=== PATIENT | male | born 1930 | race Caucasian/White ===

== ENCOUNTER 2016-05-05 07:48 | Day surgery (SDC) | payer BC ==
[~2016-05-05] VITALS: Ht 176.5 cm; Wt 76.0 kg
[~2016-05-05 07:48] MED LIST: ACET325T96 PO; ALLO100T PO; AMIO200T4 PO; ASPI81TA28 PO; ATOR-24 PO; CHOL200010 PO; CYAN10005 PO; FINA5TAB4 PO; ISOS30TA3 PO; LEVO150T PO; METO50TA7 PO; NORT25CA PO; POLY335019 PO; TAMS0.4C38 PO; WARF2TAB PO
--- NOTE | 2016-05-05 08:02 | History and Physical ---
History & Physical Chief Complaint End stage renal disease, post permcath insertion History of Present Illness The patient is a 85 year old male with multiple medical problems. He had a permcath placed in the past which is no longer needed. Denies CROWLEY, fever, chills, chest pain, SOB, abd pain, N/V, rest pain, claudication, other complaints. Allergies Coded Allergies: Penicillins (Verified Allergy, Unknown, PENILE ENLARGEMENT, 12/19/15) Per Dr. Crespo, reviewed reaction in outpatient records Tramadol (Verified Adverse Reaction, Unknown, GI SYMPTOMS, 12/08/15) Home Medications Scheduled Allopurinol (Zyloprim), 200 MG PO QAM Amlodipine (Norvasc), 10 MG PO HS Aspirin (Aspirin Ec), 81 MG PO DAILY Atorvastatin (Lipitor), 40 MG PO DAILY Calcitriol (Rocaltrol Cap), 0.25 MCG PO M,W,F Cholecalciferol (Vitamin D), 2,000 INTUNIT PO QAM Cilostazol (Pletal), 100 MG PO BID Cyanocobalamin (Vitamin B-12), 1,000 MCG PO DAILY Finasteride (Proscar), 5 MG PO HS Hydralazine Hcl (Apresoline), 20 MG PO TID Hydrochlorothiazide (Hydrochlorothiazide), 12.5 MG PO DAILY Levothyroxine Sodium (Synthroid), 150 MCG PO DAILY Metoprolol Tartrate (Lopressor) (Lopressor), 12.5 MG PO BID Nortriptyline (Pamelor), 25 MG PO HS Potassium Chloride (Micro-K Ext Rel), 10 MEQ PO HS Sildenafil Citrate (Viagra), 100 MG PO PRN Tamsulosin Hcl (Flomax), 0.4 MG PO HS Scheduled PRN Acetaminophen Tab (Tylenol), 650 MG PO Q6 PRN for Pain Problem List Medical Problems: (1) Hypertension (2) Kidney disease (3) Sepsis Surgical / Medical History Hx Cardiac Surgery: Yes (right CEA) Hx Abdominal Surgery: No Hx Cancer Surgery: No Hx Thoracic Surgery: No Hx Orthopedic: No Hx Urinary Tract Surgery: No Past Medical/Surgical History: CHF, Hypertension, Kidney Disease Family History Cancer Hypertension Social History Smoking Status: Former Smoker Hx Tobacco Use In Past Year?: No Hx Alcohol Use - Type & Amnt: Yes (ocassionally) Hx Substance Use -Type & Amnt: No Review of Systems Constitutional: + malaise, No chills, No fever Skin: No change in color Eyes: No visual changes ENMT: No sore throat Respiratory: + RODRIGUEZ, + cough, No hemoptysis, No short of breath Cardiovascular: + edema, No chest pain, No intermittent claudication, No palpitations, No syncope Gastrointestinal: No abdominal pain, No nausea, No vomiting Neurologic: + weakness (generalized), No dizziness, No headache, No lethargy Physical Exam Constitutional: General Apperance: well-nourished, well-developed Level of Distress: NAD, chronically ill Psychiatric: Mental Status: active & alert, normal mood, normal affect Orientation: oriented except where noted, to time, to place, to person Memory: recent memory normal, remote memory normal Head: normocephalic, atraumatic Eyes: EOM: EOMI ENMT: normal ENT inspection, hearing grossly normal Neck: supple, trachea midline Lungs: Respiratory effort: no dyspnea Auscultation: no rales/crackles, no rhonchi, Cardiovascular: Apical Impulse: not displaced Heart Auscultation: no murmurs, no gallops, pertinent finding (irregular) Peripheral Pulses: Pulses: full and equal, in all extremities except if noted Bruits: none appreciated Carotid Pulse: normal on the left, normal on the right Brachial Pulses: normal on the left, normal on the right Radial Pulse: normal on the left, normal on the right Femoral Pulse: normal on the left, normal on the right Posterior Tibialis Pulse: decreased on the left, decreased on the right Dorsalis Pedis Pulse: decreased on the left, decreased on the right Abdomen: Bowel Sounds: normal Inspection & Palpation: soft, non-distended, no tenderness, guarding & rebound Musculoskeletal: normal strength (5/5 throughout), normal tone Extremities: Upper Right: no cyanosis, no edema, no varicosities Upper Left: no cyanosis, no edema, no varicosities Lower Right: no cyanosis, no edema, no varicosities Lower Left: no cyanosis, no edema, no varicosities Neurologic: Cranial Nerves: grossly intact Sensation: grossly intact ASSESSMENT and PLAN: End stage renal disease Plan: Patient is admitted for removal of his permcath. I have discussed the risks options and benefits of the procedure with the patient. The patient understands the risks options and benefits and agrees to the procedure.
[2016-05-05 08:33] VITALS: BP 202/86; PULSE 64; TEMP 36.8; O2SAT 96; Ht 176.5 cm; Wt 76.0 kg
[2016-05-05 09:31] LABS: INR 1.1 (0.9-1.1); PARTIAL THROMBOPLASTIN RATIO 1.2; PROTHROMBIN TIME (PATIENT) 12.2 SECONDS (9.0-12.0)
--- NOTE | 2016-05-05 10:03 | [facility] Post Operative Brief Note ---
Immediate Operative Summary Operative Date May 05, 2016. Pre-Operative Diagnosis Functioning Kidneys Post-Operative Diagnosis Same Procedure(s) Performed Removal of Perm Catheter Surgeon Dr. 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
[2016-05-05] MEDS ORDERED: LIDOCAINE HCL 1% 20 ML VIAL SQ ONE (10:04)
--- NOTE | 2016-05-05 10:05 | Discharge Instructions ---
Discharge Instructions Visit Reason for Visit: Acute Kidney Failure Discharge Discharge Diagnosis / Problem: Functioning kidneys Discharge Goals Goal(s): Therapeutic intervention Activity Recommendations Activity Limitations: per Instructions/Follow-up section Anesthesia . Post Anesthesia Instructions: If you have had General Anesthesia or IV Sedation: * Do not drive today. * Resume driving when surgeon permits. * Do not make important decisions or sign legal documents today. * Call surgeon for: 1. Temperature elevations greater than 101 degrees F. 2. Uncontrollable pain. 3. Excessive bleeding. 4. Persistent nausea and vomiting. 5. Medication intolerance (nausea, vomiting or rash). * For nausea and vomiting use only clear liquids such as: tea, soda, bouillon until nausea subsides, then gradually increase diet as tolerated. * If you have any concerns or questions, call your surgeon's office. If physician is unavailable and it is an emergency, call 911 or go to the nearest emergency room. . Instructions / Follow-Up Instructions / Follow-Up May remove dressing tomorrow, replace if needed May shower starting tomorrow SPECIAL CARE INSTRUCTIONS: Medications: * Continue to take your medications as directed. If you have been given a prescription for Plavix, please fill it immediately and take as directed. Incision Care: * Your puncture site may have some bruising and minor swelling for about one week. * You will have a small dressing covering your puncture site. You may remove the dressing after 24 hours and shower. You may let the warm soapy water run over it, but be sure to dry the puncture site well and keep it dry. * DO NOT IMMERSE THE INCISION IN A TUB/POOL/etc. UNTIL HEALED. * Puncture sites should be kept covered with a band-aid until it begins to heal. Restrictions: * Depending on whether you leg or arm was punctured to access the arteries, you will be required to lay flat, hold your arm still, or both, for about 4 hours after the procedure to prevent bleeding. * Limit your activity for the first 48 hours. You may walk and go up and down steps. Avoid excessive bending or movement at the puncture site. Possible Complications: * Excessive Swelling - after blood flow is improved you may notice increased swelling in the lower legs. This is a normal response. This usually depends on the amount of blockages in the leg, how long they have been there prior to your procedure and how much blood flow was restored. Elevating your legs will help to improve this. Please notify our office ([phone] ) if the swelling does not go away after lying in bed overnight. * Infection/Drainage/Bleeding - Drainage or bleeding from the puncture site should be minimal. If you have excessive bleeding or drainage, call our office ([phone]) right away. * Pain - You may experience some mild pain or soreness at your puncture site. If your pain does not improve, please contact our office ([phone]). Call your doctor and seek emergent treatment if you develop: * Temperature above 101 degrees * Any fever or chills * Any redness or purulent drainage from the puncture site * Any new dusky/blue colored toes or feet with coolness or sharp or aching pain. SKIN IRRITATION: * You may experience some redness and/or swelling in the area where radiation was administered. If any skin irritation occurs, please contact your family physician. FOLLOW UP VISIT: Keep any scheduled doctor appointments. Diet Recommendations Recommended Home Diet: resume previous diet Procedures Procedures Performed: Removal of Perm Catheter Pending Studies Studies pending at discharge: no Medical Emergencies . Who to Call and When: Medical Emergencies: If at any time you feel your situation is an emergency, please call 911 immediately. . Non-Emergent Contact Non-Emergency issues call your: Surgeon . . "Provider Documentation" section prepared by Alex Delarosa.
[2016-05-05 10:10] VITALS: BP 212/72; PULSE 48; TEMP 36.3; O2SAT 93
[2016-05-05 10:35] VITALS: BP 190/86; PULSE 52; TEMP 37; O2SAT 95
--- NOTE | 2016-05-05 10:39 | DIAGNOSTIC IMAGING REPORT ---
DATE OF PROCEDURE: 05/05/2016 PREOPERATIVE DIAGNOSIS: Functioning kidneys. POSTOPERATIVE DIAGNOSIS: Same. PROCEDURE: Removal of PermCath. SURGEON: Dr. Delarosa. ANESTHETIC: Local. PROCEDURE INDICATIONS: The patient is an 85-year-old gentleman who had a PermCath placed in the past for acute renal failure. His kidneys are now functioning and he is no longer on dialysis. He is here for removal of his PermCath. He understood the risks, options and benefits and agreed to go ahead with this procedure. The patient was taken to the angiogram suite and placed in the supine position. After prepping the anterior chest wall and catheter, the tract of the catheter and the exit site were anesthetized with local anesthetic. Once this was accomplished, using sharp and blunt dissection, the catheter was freed up from the surrounding tissue. The cuff was identified. The fibrin casing around the cuff was incised with the scalpel and the catheter removed. Pressure was applied to the entrance site. Adequate hemostasis was then obtained. Once adequate hemostasis was noted, the wound was dressed in a sterile manner. The patient left the angio suite in good condition and tolerated the procedure well.
[2016-08-17] MEDS ORDERED: [UNRECOGNIZED DRUG - CODE] PO (12:47)
[2016-08-17] MEDS ORDERED: CTP1 PO (12:47)
[2016-08-17] MEDS ORDERED: APR50 PO (12:47)
[2016-08-17] MEDS ORDERED: NRV/10 PO (12:47)
[2016-09-16] MEDS ORDERED: IMDSR30 PO (13:27)
[2016-09-16] MEDS ORDERED: FRS/80 PO (13:36)
[2016-09-16] MEDS ORDERED: SYN150 PO (13:54)
== END 2016-05-05 11:01 | disposition home or self-care (01) ==
LOC: C.ACU 07:48
PROVIDERS: ATTEND Surgery Vascular Surgery
DX: Z49.01 Encounter for fitting and adjustment of extracorporeal dialysis catheter (principal); N18.6 End stage renal disease; I12.0 Hypertensive chronic kidney disease with stage 5 chronic kidney disease or end stage renal disease; Z88.0 Allergy status to penicillin; Z79.899 Other long term (current) drug therapy; Z87.891 Personal history of nicotine dependence; Z80.9 Family history of malignant neoplasm, unspecified; Z82.49 Family history of ischemic heart disease and other diseases of the circulatory system

== ENCOUNTER → 2016-05-06 | Day surgery (SDC) | payer BC ==
[2016-04-22 15:34] VITALS: BMI 24.0
[~2016-05-06] VITALS: Ht 175.3 cm; Wt 75.9 kg
[~2016-05-06] MED LIST changes: +APR50 PO; +ATROPINE SULFATE 0.1 MG/ML 5ML SYR IV PRN; +BISA10SU38 PR; +CIPROFLOXACIN 400MG / 200ML D5W IV ONE; +CIPROFLOXACIN 400MG / 200ML D5W ONE; +CTP1 PO; +DEXAMETHASONE SOD INJ 4 MG/ML VIAL ONE; +EpHEDrine SULFATE 50MG/5ML SYR ONE; +EpHEDrine SULFATE INJ 50 MG/ML AMP IV PRN; +FENTANYL CITRATE INJ 50 MCG/1 ML 2 ML VIAL ONE; +FRS/40 PO; +FRS/80 PO; +IMDSR30 PO; +LARYING-O-JET KIT (LTA) EXT ONE; +LEVO175T3 PO; +LIDOCAINE HCL 1% 20 ML VIAL ONE; +LIDOCAINE HCL 2% 2 ML VIAL (20MG/ML) ONE; +METO-217 PO; +MIDAZOLAM HCL 1 MG/ML 2ML VIAL ONE; +NORT10CA2 PO; +NRV/10 PO; +NSS 1000ML IV SCH; +ONDANSETRON INJ 2 MG/ML 2 ML VIAL ONE; +PROPOFOL IV EMULSION 10 MG/ML 20 ML VIAL IV ONE; +SODIUM CHLORIDE 0.9% 500ML 500 ML IV ONE; +SUCCINYLCHOLINE CHLORIDE 20 MG/ML 10 ML VIAL IV ONE; +SYN150 PO; +[UNRECOGNIZED DRUG - CODE] PO
[2016-05-06 06:01] VITALS: BP 188/73; PULSE 58; TEMP 36.7; O2SAT 96; Ht 175.3 cm; Wt 75.9 kg
[2016-05-06 06:24] LABS: INR 1.1 (0.9-1.1); PARTIAL THROMBOPLASTIN RATIO 1.1; PROTHROMBIN TIME (PATIENT) 11.8 SECONDS (9.0-12.0)
[2016-05-06 06:39] LABS: BUN/CREATININE RATIO 19.6 (10-20); CALCIUM 9.1 mg/dl (8.5-10.1)
--- NOTE | 2016-05-06 07:25 | Endo History and Physical ---
History & Physical Date of Service: May 06, 2016. Chief Complaint: Recent pancreatitis and pancreatic cyst Referring Physician: History of Present Illness 85 yo with recent pancreatitis in March 2016 Findings of one or two pancreatic cysts were identified. He presents for EUS for further evaluation. Has comorbidities including CKD on HD. Past Medical History High Cholesterol, Hypertension, Thyroid Disease, Kidney Disease Past Surgical History Hx Cardiac Surgery: No Hx Abdominal Surgery: No Hx Post-Op Nausea and Vomiting: No Hx Cancer Surgery: No Hx Thoracic Surgery: No Hx Orthopedic: No Hx Urinary Tract Surgery: No Social History Smoking Status: Former Smoker Hx Substance Use: No Hx Alcohol Use: No (RARE) Allergies Coded Allergies: Penicillins (Verified Allergy, Unknown, PENILE ENLARGEMENT, 05/06/16) Per Dr. Crespo, reviewed reaction in outpatient records Tramadol (Verified Adverse Reaction, Unknown, GI SYMPTOMS, 05/06/16) Current Medications Reported Home Medications Medications Dose Route/Sig Max Daily Dose Days Date Category Dose Instructions Coumadin (Warfarin Sodium) 2 Mg Tab 4 Mg PO TU, SAT 04/22/16 Reported Flomax (Tamsulosin Hcl) 0.4 Mg Cap 0.4 Mg PO HS 04/22/16 Reported Miralax (Polyethylene Glycol 3350) 1 Pow 17 Gm PO DAILY PRN 04/22/16 Reported Zyloprim (Allopurinol) 100 Mg Tab 200 Mg PO QAM 04/22/16 Reported Coumadin (Warfarin Sodium) 2 Mg Tab 2 Mg PO SUN,M,W,TH,FR 03/28/[address] INSTRUCTIONS ON COUMADIN Cordarone (Amiodarone Hcl) 200 Mg Tab 200 Mg PO BID 03/28/16 Reported Imdur Ext Rel (Isosorbide Mononitrate) 30 Mg Ertab 30 Mg PO QAM 03/28/16 Reported Toprol-Xl (Metoprolol Succinate) 50 Mg Tabcr 50 Mg PO QAM 03/28/16 Reported Vitamin B-12 (Cyanocobalamin) 1,000 Mcg Tab 1,000 Mcg PO QAM 09/29/15 Reported Synthroid (Levothyroxine Sodium) 150 Mcg Tab 150 Mcg PO QAM 09/08/15 Reported Lipitor (Atorvastatin Calcium) 40 Mg Tab 40 Mg PO QPM 09/08/15 Reported Tylenol (Acetaminophen) 325 Mg Tab 650 Mg PO Q6 PRN 09/08/15 Reported Vitamin D (Cholecalciferol) 2,000 Unit Cap 2,000 Intunit PO QAM 10/19/14 Reported Pamelor (Nortriptyline HCl) 25 Mg Cap 10 Mg PO HS 10/19/14 Reported Aspirin Ec (Aspirin) 81 Mg Tab 81 Mg PO QAM 10/09/12 Reported Proscar (Finasteride) 5 Mg Tab 5 Mg PO HS 10/09/12 Reported Vital Signs Weight (Kilograms): 75.91 Height (Feet): 5 Height (Inches): 9.5 Physical Exam General Appearance: WD/WN, no apparent distress Respiratory/Chest: Respiratory effort: no dyspnea Auscultation: breath sounds normal, CTA except as noted Cardiovascular: Apical Impulse: not displaced Heart Auscultation: RRR, normal S1, normal S2 Abdomen: Bowel Sounds: normal Inspection & Palpation: soft, non-distended Assessment and Plan Plan: EUS for evaluation of pancreatic cysts and pancreatic ductal changes and to explore possibility of pancreatitis Risks, benefits, discussed with patients
--- NOTE | 2016-05-06 07:49 | GI REPORT ---
Procedure Date: 05/06/2016 7:41 AM Procedure: Upper GI endoscopy Indications: Pancreatitis Medicines: General Anesthesia Complications: No immediate complications. Estimated blood loss: None. Estimated Blood Loss: Estimated blood loss: none. Procedure: Pre-Anesthesia Assessment: - Pre-Anesthesia Assessment: - Prior to the procedure, a History and Physical was performed, and patient medications, allergies and sensitivities were reviewed. The patient's tolerance of previous anesthesia was reviewed. Please see [employer] for complete details. - The risks and benefits of the procedure and the sedation options and risks were discussed with the patient. All questions were answered and informed consent was obtained. - Patient identification and proposed procedure were verified prior to the procedure by the physician and the nurse. The procedure was verified in the pre-procedure area in the procedure room. After obtaining informed consent, the endoscope was passed carefully and meticuously under direct vision and only advanced when the lumen was clearly identified, C02 insuflation was utilized throughout the entirity of the procedure. Throughout the procedure, the patient's blood pressure, pulse, and oxygen saturations were monitored continuously. After obtaining informed consent, the endoscope was passed under direct vision. Throughout the procedure, the patient's blood pressure, pulse, and oxygen saturations were monitored continuously. The scope was introduced through the mouth, and advanced to the second part of duodenum. The upper GI endoscopy was accomplished without difficulty. The patient tolerated the procedure well. Findings: A hiatus hernia was present. The entire examined stomach was normal. The examined duodenum was normal. Impression: - Hiatus hernia. - Normal stomach. - Normal examined duodenum. - No specimens collected. Recommendation: - Patient has a contact number available for emergencies. The signs and symptoms of potential delayed complications were discussed with the patient. Return to normal activities tomorrow. Written discharge instructions were provided to the patient. - Discharge patient to home (with escort). - Return to referring physician as previously scheduled. - Perform an upper endoscopic ultrasound (UEUS) today. Lamont Hernandez MD 05/06/2016 7:48:28 AM This report has been signed electronically. Note Initiated On: 05/06/2016 7:41 AM
--- NOTE | 2016-05-06 08:19 | Discharge Instructions ---
Endoscopy Patient Instructions Date / Procedure(s) Performed May 06, 2016. Other (EUS) Allergy Information Coded Allergies: Penicillins (Verified Allergy, Unknown, PENILE ENLARGEMENT, 05/06/16) Per Dr. Crespo, reviewed reaction in outpatient records Tramadol (Verified Adverse Reaction, Unknown, GI SYMPTOMS, 05/06/16) Discharge Date / Findings May 06, 2016. two small cysts in pancreas Stones in gallbladder Medication Instructions Can restart your coumadin today Provider Instructions Activity Restrictions - No exercising or heavy lifting for 24 hours. - Do not drink alcohol the day of the procedure. - Do not drive a car or operate machinery until the day after the procedure. - Do not make any important decisions or sign important papers in 24 hours after the procedure. Following Day: - Return to full activity which may include returning to work/school. Diet Start your diet with liquids and light foods (jello, soup, juice, toast). Then eat your usual diet if not nauseated. Treatment For Common After Affects For mild abdominal pain, bloating, or excessive gas: - Rest - Eat lightly - Lie on right side Follow-Up Information Follow-up with GI in 3 months with MRCP prior Anesthesia Information What You Should Know You have had a procedure that required some medicine to reduce anxiety and discomfort. This treatment is called moderate sedation. After receiving the treatment, you may be sleepy, but you will be able to breathe on your own. The effects of the treatment may last for several hours. Follow these instructions along with Activity/Diet recommendations noted above: * Do NOT do anything where dizziness or clumsiness would be dangerous. * Rest quietly at home today, then you can be up and about tomorrow. * Have a responsible person stay with you the rest of today. * You may have had an I.V. today. If so, you may take the dressing off later today. Recommendations Call your doctor if: * Trouble breathing * Continuous vomiting for more than 24 hours * Temperature above 101 degrees * Severe abdominal pain or bloating * Pain not relieved by pain medicine ordered * There is increased drainage or redness from any incision * A large amount of rectal bleeding greater than 2-3 tablespoons. (If you had a polyp/s removed or have hemorrhoids, a small amount of blood - from the rectum is to be expected.) * You have any unanswered questions or concerns. IN THE EVENT OF A SERIOUS EMERGENCY, GO TO THE NEAREST EMERGENCY ROOM Your discharge instructions were prepared by provider Lamont Hernandez. Patient Instructions Signature Page Yury Zaidi Patient (or Guardian) Signature/Date: I have read and understand the instructions given to me by my caregivers. Caregiver/RN/Doctor Signature/Date: The above-named patient and/or guardian has received patient instructions on this date. + Original Patient Signature Page (only) stays with chart. Please make copy for patient.
--- NOTE | 2016-05-06 08:30 | GI REPORT ---
Procedure Date: 05/06/2016 7:48 AM Procedure: Upper EUS Indications: Pancreatic cyst on CT scan, Acute pancreatitis Medicines: General Anesthesia Complications: No immediate complications. Estimated blood loss: None. Estimated Blood Loss: Estimated blood loss: none. Procedure: Pre-Anesthesia Assessment: - Pre-Anesthesia Assessment: - Prior to the procedure, a History and Physical was performed, and patient medications, allergies and sensitivities were reviewed. The patient's tolerance of previous anesthesia was reviewed. Please see [employer] for complete details. - The risks and benefits of the procedure and the sedation options and risks were discussed with the patient. All questions were answered and informed consent was obtained. - Patient identification and proposed procedure were verified prior to the procedure by the physician and the nurse. The procedure was verified in the pre-procedure area in the procedure room. After obtaining informed consent, the endoscope was passed carefully and meticuously under direct vision and only advanced when the lumen was clearly identified, C02 insuflation was utilized throughout the entirity of the procedure. Throughout the procedure, the patient's blood pressure, pulse, and oxygen saturations were monitored continuously. After obtaining informed consent, the endoscope was passed under direct vision. Throughout the procedure, the patient's blood pressure, pulse, and oxygen saturations were monitored continuously. The Endosonoscope was introduced through the mouth, and advanced to the second part of duodenum. The upper EUS was accomplished without difficulty. The patient tolerated the procedure well. The Endosonoscope was introduced through the mouth, and advanced to the second part of duodenum. Findings: Endosonographic Finding : Anechoic lesions suggestive of two cysts were identified in the pancreatic head and in the pancreatic body. The largest lesion measured 7 mm by 11 mm in maximal cross-sectional diameter in the pancreatic head toward body from confluence. There was no associated masses and the the cyst in the head clearly associated with main pancreatic duct. The pancreatic duct measured near or at 4 mm in the head and 2.5 in the body and 1.2 mm in the tail. Pancreatic parenchymal abnormalities were noted in the pancreatic body and in the pancreatic tail. These consisted of hyperechoic foci and lobularity. There was no sign of significant endosonographic abnormality in the common bile duct. The maximum diameter of the duct was 5 mm. No pathologic lymphadenopathy, no masses, no cysts, no calcifications, no stones, no biliary sludge and ducts of normal caliber were identified. Multiple stones were visualized endosonographically in the gallbladder body. The stones were round. They were hyperechoic. There was no sign of significant endosonographic abnormality in the left lobe of the liver. There was no sign of significant endosonographic abnormality involving the celiac trunk. No lymphadenopathy seen. Impression: - Two cystic lesions were seen in the pancreatic head and in the pancreatic body. - Pancreatic parenchymal abnormalities consisting of hyperechoic foci and lobularity were noted in the pancreatic body and in the pancreatic tail. - There was no sign of significant pathology in the common bile duct. - Multiple stones were visualized endosonographically in the gallbladder body. - There was no evidence of significant pathology in the left lobe of the liver. - The celiac trunk was endosonographically normal. - No specimens collected. Recommendation: - Discharge patient to home (with escort). - Return to referring physician as previously scheduled. - MRCP in 3 months and GI follow up afterwards. Lamont Hernandez MD 05/06/2016 8:29:22 AM This report has been signed electronically. Note Initiated On: 05/06/2016 7:48 AM
--- NOTE | 2016-05-06 09:01 | Anesthesiology Progress Note ---
Anesthesia Post Op Note Date & Time May 06, 2016 at 09:01 Vital Signs Pain Intensity: 0 Vital Signs Past 12 Hours Date Time Temp Pulse Resp B/P Pulse Ox O2 Delivery O2 Flow Rate FiO2 05/06/16 08:39 161/55 05/06/16 08:38 45 13 05/06/16 08:38 45 13 98 05/06/16 08:34 161/58 05/06/16 08:33 44 15 05/06/16 08:33 45 15 100 05/06/16 08:28 44 11 165/62 100 05/06/16 08:28 44 11 05/06/16 08:23 36.4 45 16 165/61 100 Mask 10 05/06/16 08:23 44 7 163/60 100 05/06/16 08:23 44 7 05/06/16 06:01 36.7 58 20 188/73 96 Room Air Notes Mental Status: alert / awake / arousable, participated in evaluation Pt Amnestic to Procedure: Yes Nausea / Vomiting: adequately controlled Pain: adequately controlled Airway Patency, RR, SpO2: stable & adequate BP & HR: stable & adequate Hydration State: stable & adequate Anesthetic Complications: no major complications apparent
[2016-05-06 09:10] VITALS: BP 168/68; PULSE 46; TEMP 36.4; O2SAT 94
[2016-05-06 09:40] VITALS: BP 182/57; PULSE 52; O2SAT 92
[2016-05-06 10:05] VITALS: BP 177/65; PULSE 46; TEMP 36.4; O2SAT 92
== END | disposition home or self-care (01) ==
LOC: C.ACU 05:35
PROVIDERS: ATTEND Internal Medicine
DX: K85.90 Acute pancreatitis without necrosis or infection, unspecified (principal); E78.5 Hyperlipidemia, unspecified; I10 Essential (primary) hypertension; E07.9 Disorder of thyroid, unspecified; Z87.891 Personal history of nicotine dependence; Z88.0 Allergy status to penicillin; Z88.8 Allergy status to other drugs, medicaments and biological substances; Z79.01 Long term (current) use of anticoagulants; Z79.82 Long term (current) use of aspirin

== ENCOUNTER 2016-08-13 13:38 | Inpatient (IN) | payer BC, OTHER ==
[~2016-08-13] VITALS: Ht 176.5 cm; Wt 71.7 kg
[~2016-08-13 13:38] MED LIST changes: -APR50 PO; -ATROPINE SULFATE 0.1 MG/ML 5ML SYR IV PRN; -BISA10SU38 PR; -CIPROFLOXACIN 400MG / 200ML D5W IV ONE; -CIPROFLOXACIN 400MG / 200ML D5W ONE; -CTP1 PO; -DEXAMETHASONE SOD INJ 4 MG/ML VIAL ONE; -EpHEDrine SULFATE 50MG/5ML SYR ONE; -EpHEDrine SULFATE INJ 50 MG/ML AMP IV PRN; -FENTANYL CITRATE INJ 50 MCG/1 ML 2 ML VIAL ONE; -FRS/40 PO; -FRS/80 PO; -IMDSR30 PO; -LARYING-O-JET KIT (LTA) EXT ONE; -LEVO175T3 PO; -LIDOCAINE HCL 1% 20 ML VIAL ONE; -LIDOCAINE HCL 2% 2 ML VIAL (20MG/ML) ONE; -METO-217 PO; -MIDAZOLAM HCL 1 MG/ML 2ML VIAL ONE; -NORT10CA2 PO; -NRV/10 PO; -NSS 1000ML IV SCH; -ONDANSETRON INJ 2 MG/ML 2 ML VIAL ONE; -PROPOFOL IV EMULSION 10 MG/ML 20 ML VIAL IV ONE; -SODIUM CHLORIDE 0.9% 500ML 500 ML IV ONE; -SUCCINYLCHOLINE CHLORIDE 20 MG/ML 10 ML VIAL IV ONE; -SYN150 PO; -[UNRECOGNIZED DRUG - CODE] PO
[2016-08-13 14:20] LABS: BASO % 0.6 %; BASO ABS # 0.05 K/uL (0-0.2); COMPLETE YES; EOS % 4.3 %; HEMATOCRIT 40.3 % (42-52); IG% 0.2 %; LYMPH % 13.9 %; LYMPH ABS # 1.14 K/uL (1.2-3.4); MEAN CELL VOLUME 97.8 fL (80-100); MEAN CORPUSCULAR HEMOGLOBIN 32.3 pg (25-34); MEAN PLATELET VOLUME 10.6 fL (7.4-10.4); MONO % 5.8 %; NEUT % 75.2 %; PLATELET COUNT 207 K/uL (130-400); RED BLOOD COUNT 4.12 M/uL (4.7-6.1); WHITE BLOOD COUNT 8.22 K/uL (4.8-10.8)
[2016-08-13] MEDS ORDERED: AMLODIPINE BESYLATE 5 MG TAB PO ONE (14:30)
[2016-08-13 14:37] LABS: BUN/CREATININE RATIO 13.8 (10-20); CALCIUM 8.9 mg/dl (8.5-10.1); CREATININE 2.4 mg/dl (0.60-1.40); POTASSIUM 4.2 mmol/L (3.5-5.1)
[2016-08-13] MEDS ORDERED: NORT10CA2 PO (14:45)
--- NOTE | 2016-08-13 16:07 | EMERGENCY ROOM VISIT NOTE ---
History Report prepared by Jesse: Car Tate Under the Supervision of: Dr. Иван Cleveland M.D. First contact with patient: 13:59 Chief Complaint: HYPERTENSION Stated Complaint: HIGH BLOOD PRESSURE History of Present Illness The patient is a 86 year old male who presents to the Emergency Room with complaints of hypertension occurring today. 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 He has a history of hypertension. He has been taking the Metoprolol as prescribed. He currently denies any pain or symptoms. He denies any recent increased stress or anxiety. He denies fevers, chills, lightheadedness, headache, chest pain, shortness of breath, weakness, or any other complaints. Source of History: patient Onset: today Position: other (global) Symptom Intensity: systolic in the 190s Quality: other (hypertension) Timing: constant Associated Symptoms: No SOB, No chest pain, No chills, No fevers, No headache, No weakness Review of Systems See HPI for pertinent positives & negatives. A total of 10 systems reviewed and were otherwise negative. Past Medical & Surgical Medical Problems: (1) BPH (benign prostatic hypertrophy) (2) Carotid artery disease (3) Carpal tunnel syndrome (4) CKD (chronic kidney disease), stage III (5) Dyslipidemia (6) GERD (gastroesophageal reflux disease) (7) Gout (8) Hypertension (9) Hypothyroidism (10) Peripheral vascular disease (11) Pernicious anemia Surgical Problems: (1) Status post carotid endarterectomy (2) Status post carpal tunnel release (3) Status post cataract extraction Family History Cancer Hypertension Social History Smoking Status: Former Smoker Alcohol Use: occasionally Housing Status: lives alone Current/Historical Medications Scheduled Allopurinol (Zyloprim), 200 MG PO QAM Amiodarone Hcl (Cordarone), 200 MG PO DAILY Aspirin (Aspirin Ec), 81 MG PO QAM Atorvastatin (Lipitor), 40 MG PO QPM Cholecalciferol (Vitamin D), 2,000 INTUNIT PO QAM Cyanocobalamin (Vitamin B-12), 1,000 MCG PO QAM Finasteride (Proscar), 5 MG PO DAILY Isosorbide Mononitrate Ext Rel (Imdur Ext Rel), 30 MG PO QAM Levothyroxine Sodium (Synthroid), 150 MCG PO QAM Metoprolol Succ (Toprol Xl) (Toprol-Xl), 50 MG PO QAM Nortriptyline (Pamelor), 10 MG PO Q2D Tamsulosin Hcl (Flomax), 0.4 MG PO HS Warfarin Sodium (Coumadin), 2 MG PO QPM Scheduled PRN Acetaminophen Tab (Tylenol), 650 MG PO Q6 PRN for Pain Polyethylene Glycol 3350 (Miralax), 17 GM PO DAILY PRN for CONSTIPATION Allergies Coded Allergies: Penicillins (Verified Allergy, Unknown, PENILE ENLARGEMENT, 08/13/16) Per Dr. Crespo, reviewed reaction in outpatient records Tramadol (Verified Adverse Reaction, Unknown, GI SYMPTOMS, 08/13/16) Physical Exam Vital Signs Date Time Temp Pulse Resp B/P Pulse Ox O2 Delivery O2 Flow Rate FiO2 08/13/16 15:16 43 16 97/65 08/13/16 14:34 41 18 189/119 08/13/16 14:10 42 08/13/16 14:08 216/77 08/13/16 13:46 36.5 40 20 204/74 96 Room Air Physical Exam Constitutional: Vital signs reviewed. Very hypertensive. Eyes: Pupils are equal round reactive to light. Conjunctiva are noninjected. ENT: Pharynx is clear without erythema or exudate. Mucous membranes are moist. Neck supple without meningeal signs. Respiratory: Clear to auscultation bilaterally. Breath sounds are equal bilaterally. Cardiovascular: Bradycardic. Normal rhythm. No rubs or gallops. GI: Soft, nondistended and nontender. Bowel sounds are present. Musculoskeletal: No peripheral edema. No lower extremity tenderness. Integumentary: No cyanosis. Neurological: The patient is awake and alert. No focal deficits. Psychiatric: Normal affect. Medical Decision & Procedures Laboratory Results 08/13/16 14:05 Red Blood Count 4.12, Mean Corpuscular Volume 97.8, Mean Corpuscular Hemoglobin 32.3, Mean Corpuscular Hemoglobin Concent 33.0, Mean Platelet Volume 10.6, Neutrophils (%) (Auto) 75.2, Lymphocytes (%) (Auto) 13.9, Monocytes (%) (Auto) 5.8, Eosinophils (%) (Auto) 4.3, Basophils (%) (Auto) 0.6, Neutrophils # (Auto) 6.18, Lymphocytes # (Auto) 1.14, Monocytes # (Auto) 0.48, Eosinophils # (Auto) 0.35, Basophils # (Auto) 0.05 08/13/16 14:05 Test 08/13/16 14:05 White Blood Count 8.22 K/uL (4.8-10.8) Red Blood Count 4.12 M/uL (4.7-6.1) Hemoglobin 13.3 g/dL (14.0-18.0) Hematocrit 40.3 % (42-52) Mean Corpuscular Volume 97.8 fL (80-100) Mean Corpuscular Hemoglobin 32.3 pg (25-34) Mean Corpuscular Hemoglobin Concent 33.0 g/dl (32-36) Platelet Count 207 K/uL (130-400) Mean Platelet Volume 10.6 fL (7.4-10.4) Neutrophils (%) (Auto) 75.2 % Lymphocytes (%) (Auto) 13.9 % Monocytes (%) (Auto) 5.8 % Eosinophils (%) (Auto) 4.3 % Basophils (%) (Auto) 0.6 % Neutrophils # (Auto) 6.18 K/uL (1.4-6.5) Lymphocytes # (Auto) 1.14 K/uL (1.2-3.4) Monocytes # (Auto) 0.48 K/uL (0.11-0.59) Eosinophils # (Auto) 0.35 K/uL (0-0.5) Basophils # (Auto) 0.05 K/uL (0-0.2) RDW Standard Deviation 52.6 fL (36.4-46.3) RDW Coefficient of Variation 14.9 % (11.5-14.5) Immature Granulocyte % (Auto) 0.2 % Immature Granulocyte # (Auto) 0.02 K/uL (0.00-0.02) Anion Gap 4.0 mmol/L (3-11) Est Creatinine Clear Calc Drug Dose 22.9 ml/min Estimated GFR () 27.7 Estimated GFR (Non- 23.9 BUN/Creatinine Ratio 13.8 (10-20) Calcium Level 8.9 mg/dl (8.5-10.1) Troponin I 0.147 ng/ml (0-0.045) Laboratory results as reviewed by me. Medications Administered Medications (Trade) Dose Ordered Sig/Blas Route Start Time Stop Time Status Last Admin Dose Admin Amlodipine Besylate (Norvasc Tab) 5 mg NOW ONCE PO 08/13/16 14:30 08/13/16 14:31 DC 08/13/16 14:33 5 MG Hydralazine HCl (Apresoline Tab) 25 mg STK-MED ONCE .ROUTE 08/13/16 14:30 08/13/16 14:31 DC 08/13/16 14:33 25 MG ECG Indication: other (Hypertension) Rate (beats per minute): 42 Rhythm: sinus bradycardia Findings: 1st degree AV block, ST depression (v4 to v6), other (LVH) Comparison ECG Date: March 30, 2016 Change: The patient's heart rate was 46 [address] there were similar ST depressions on March 30, 2016. ED Course 1359: The patient was evaluated in room B04B. A complete history and physical exam was performed. 1416: I discussed the patient's case with Dr. Sarabia, making machine catcher with [facility]. She recommended Amlodipine 5 mg daily and hydralazine 25 mg BID. 1430: Norvasc Tab 5 mg PO 1510: I reevaluated the patient. His blood pressure is 228/85 but the patient remains asymptomatic. I discussed test results with the patient. He verbalized agreement of the treatment plan. He will be evaluated for further management and care. 1520: I discussed the patient's case with Dr. Tomas, from [facility] Service. Medical Decision This is an 86-year-old male who presents with elevated blood pressure. I did perform a limited focused review of portions of the patient's old chart on the electronic medical record. The patient was admitted in March for pancreatic and hypertensive urgency. He was placed on amlodipine and hydralazine which were not continued on discharge. I did evaluate the patient as noted above. The patient is presenting with asymptomatic hypertension. I did discuss the case with Dr. Sarabia who sent the patient here. Originally my plan was to check some labs and if everything was okay he would go home on oral agents. She recommended amlodipine 5 mg daily and hydralazine 25 mg twice a day. I did give him his first doses here of amlodipine and hydralazine. IV access was established. 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 I did order and personally review the patient's 12-lead EKG as described above. I did order and review the patient's blood work as noted in the electronic medical record. His creatinine is elevated which is normal for him. He does have an elevated troponin. It's unclear if this is secondary to ischemia or his elevated creatinine. I did reassess the patient. He has no chest discomfort or shortness of breath or weakness or any symptoms suggestive of heart disease. He remains hypertensive but I did not wish to give him IV medications at this time because he just recently received the oral meds. He will be hospitalized and his blood pressure will be closely watched and his troponin will need to be repeated. I did discuss the case with the hospitalist and telehealth case manager. Consults Time Called: 1414 Consulting Physician: Dr. Sarabia, making machine catcher with [facility] Returned Call: 1416 I discussed the patient's case with Dr. Sarabia, making machine catcher with [facility]. She recommended Amlodipine 5 mg daily and hydralazine 25 mg BID. Additional Consults: Time Called: 1514 [facility] Returned Call: 1520 Additional Comments: I discussed the patient's case with Dr. Tomas, from [facility] Service. Impression Primary Impression: Hypertensive urgency Additional Impressions: Chronic kidney disease Elevated troponin Scribe Attestation The scribe's documentation has been prepared under my direct and personally reviewed by me in its entirety. I confirm that the note above accurately reflects all work, treatment, procedures, and medical decision making performed by me. Departure Information Dispostion Being Evaluated By Hospitalist Referrals Virgen Oliver M.D. (PCP) Patient Instructions My [facility] Problem Qualifiers Additional Impressions: Chronic kidney disease Chronic kidney disease stage: unspecified stage Qualified Codes: N18.9 - Chronic kidney disease, unspecified
[2016-08-13] MEDS ORDERED: HydrALAZINE HCL 20 MG/ML VIAL IV. ONE (16:30)
[2016-08-13] MEDS ORDERED: ACETAMINOPHEN 325 MG TAB PO PRN (16:30)
[2016-08-13] MEDS ORDERED: ONDANSETRON INJ 2 MG/ML 2 ML VIAL IV PRN (16:30)
[2016-08-13] MEDS ORDERED: POLYETHYLENE (MIRALAX) 17 GM PACK PO PRN (17:00)
[2016-08-13] MEDS ORDERED: HydrALAZINE HCL 20 MG/ML VIAL ONE (17:22)
[2016-08-13 18:14] LABS: INR 2.8 (0.9-1.1); PROTHROMBIN TIME (PATIENT) 31.7 SECONDS (9.0-12.0)
--- NOTE | 2016-08-13 18:42 | History and Physical ---
History & Physical Date & Time of Service: August 13, 2016 at 18:06 Chief Complaint: High Blood Pressure Primary Care Physician: Virgen Oliver M.D. 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 Patient was in the office today for a routine visit and was found to have systolic blood pressures in the 190s. Patient was referred to the ER for further evaluation. Patient is asymptomatic. He reports he has been feeling well recently. He denies headache or blurred vision. He was seen by his eye doctor a couple of weeks ago who noted papilledema and patient had a brain MRI that was unremarkable. He denies chest pain and shortness of breath. No lightheadedness, dizziness, diaphoresis, or syncopal events. No abdominal pain, nausea, vomiting, or diarrhea. He denies fever and chills. No urinary symptoms. In the ER, patient's BP is found to be 216/77. He was given hydralazine 25mg PO and amlodipine 5mg PO with minimal improvement in BP. Trop is 0.147. EKG does not show any acute ST changes. 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 Permanent Comment: normal LVEF on most recent echo Status: Chronic Surgical Problems: (1) Status post carotid endarterectomy Permanent Comment: right Status: Chronic (2) Status post carpal tunnel release Status: Chronic (3) Status post cataract extraction Status: Chronic Family History non contributory due to patient's advanced age Social History Smoking Status: Former Smoker Alcohol Use: none Immunizations History of Influenza Vaccine: Yes Influenza Vaccine Date: Jan 09, 2016 History of Tetanus Vaccine?: Yes Tetanus Immunization Date: May 05, 2012 History of Pneumococcal: Yes Pneumococcal Date: Apr 12, 2014 Multi-Drug Resistant Organisms History of MDRO: No Allergies Coded Allergies: Penicillins (Verified Allergy, Unknown, PENILE ENLARGEMENT, 08/13/16) Per Dr. Crespo, reviewed reaction in outpatient records Tramadol (Verified Adverse Reaction, Unknown, GI SYMPTOMS, 08/13/16) Home Medications Scheduled Allopurinol (Zyloprim), 200 MG PO QAM Amiodarone Hcl (Cordarone), 200 MG PO DAILY Aspirin (Aspirin Ec), 81 MG PO QAM Atorvastatin (Lipitor), 40 MG PO QPM Cholecalciferol (Vitamin D), 2,000 INTUNIT PO QAM Cyanocobalamin (Vitamin B-12), 1,000 MCG PO QAM Finasteride (Proscar), 5 MG PO DAILY Isosorbide Mononitrate Ext Rel (Imdur Ext Rel), 30 MG PO QAM Levothyroxine Sodium (Synthroid), 150 MCG PO QAM Metoprolol Succ (Toprol Xl) (Toprol-Xl), 50 MG PO QAM Nortriptyline (Pamelor), 10 MG PO Q2D Tamsulosin Hcl (Flomax), 0.4 MG PO HS Warfarin Sodium (Coumadin), 2 MG PO QPM Scheduled PRN Acetaminophen Tab (Tylenol), 650 MG PO Q6 PRN for Pain Polyethylene Glycol 3350 (Miralax), 17 GM PO DAILY PRN for CONSTIPATION Review of Systems ROS per HPI, all other systems reviewed and negative Physical Exam Vital Signs Date Time Temp Pulse Resp B/P Pulse Ox O2 Delivery O2 Flow Rate FiO2 08/13/16 17:51 45 18 201/92 98 Room Air 08/13/16 16:12 48 16 205/68 98 Room Air 08/13/16 15:16 43 16 97/65 08/13/16 14:34 41 18 189/119 08/13/16 14:10 42 08/13/16 14:08 216/77 08/13/16 13:46 36.5 40 20 204/74 96 Room Air General Appearance: no apparent distress Head: normocephalic Eyes: normal inspection, PERRL ENT: hearing grossly normal Neck: supple, no JVD Respiratory/Chest: lungs clear, normal breath sounds, no respiratory distress Cardiovascular: no edema, + bradycardia (regular rhythm) Abdomen/GI: normal bowel sounds, non tender, soft Extremities/Musculoskelatal: normal inspection, no calf tenderness Neurologic/Psych: no motor/sensory deficits, alert, normal mood/affect, oriented x 3 Skin: normal color, warm/dry Diagnostics Laboratory Results Results Past 24 Hours Test 08/13/16 14:05 08/13/16 17:55 Range/Units White Blood Count 8.22 4.8-10.8 K/uL Red Blood Count 4.12 4.7-6.1 M/uL Hemoglobin 13.3 14.0-18.0 g/dL Hematocrit 40.3 42-52 % Mean Corpuscular Volume 97.8 80-100 fL Mean Corpuscular Hemoglobin 32.3 25-34 pg Mean Corpuscular Hemoglobin Concent 33.0 32-36 g/dl Platelet Count 207 130-400 K/uL Mean Platelet Volume 10.6 7.4-10.4 fL Neutrophils (%) (Auto) 75.2 % Lymphocytes (%) (Auto) 13.9 % Monocytes (%) (Auto) 5.8 % Eosinophils (%) (Auto) 4.3 % Basophils (%) (Auto) 0.6 % Neutrophils # (Auto) 6.18 1.4-6.5 K/uL Lymphocytes # (Auto) 1.14 1.2-3.4 K/uL Monocytes # (Auto) 0.48 0.11-0.59 K/uL Eosinophils # (Auto) 0.35 0-0.5 K/uL Basophils # (Auto) 0.05 0-0.2 K/uL RDW Standard Deviation 52.6 36.4-46.3 fL RDW Coefficient of Variation 14.9 11.5-14.5 % Immature Granulocyte % (Auto) 0.2 % Immature Granulocyte # (Auto) 0.02 0.00-0.02 K/uL Sodium Level 141 136-145 mmol/L Potassium Level 4.2 3.5-5.1 mmol/L Chloride Level 111 98-107 mmol/L Carbon Dioxide Level 26 21-32 mmol/L Anion Gap 4.0 3-11 mmol/L Blood Urea Nitrogen 33 7-18 mg/dl Creatinine 2.40 0.60-1.40 mg/dl Est Creatinine Clear Calc Drug Dose 22.9 ml/min Estimated GFR () 27.7 Estimated GFR (Non- 23.9 BUN/Creatinine Ratio 13.8 10-20 Random Glucose 108 70-99 mg/dl Calcium Level 8.9 8.5-10.1 mg/dl Troponin I 0.147 0-0.045 ng/ml Impression Assessment and Plan HYPERTENSIVE URGENCY - admit to tele - patient presenting with asymptomatic significant hypertension - BP in ER - received hydralazine 25mg PO and amlodipine 5mg PO with minimal improvement - will give Hydralazine 10mg IV x 1 now and order PRN - start hydralazine 25mg PO TID and amlodipine 5mg daily - continue home doses isosorbide and metoprolol - noted room to increase isosorbide if needed; bradycardia also noted however per review of records, seems to be chronic - options somewhat limited due to CKD and bradycardia ELEVATED TROP - likely demand ischemia from hypertensive urgency / underlying CKD - no reports of chest pain, EKG does not show any acute ST changes - continue to cycle enzymes, check resting echo - continue ASA, beta preet, and statin (hx of type 2 NSTEMI and stress induced cardiomyopathy from sepsis; normal LVEF on most recent echo) ATRIAL FIBRILLATION - currently in sinus bradycardia - rate controlled on beta preet and rhythm controlled on amio - continue both - anticoagulated on Coumadin, INR 2.8 CKD STAGE III - hx of short term dialysis due to ANETA from sepsis; now off - baseline creat has been running in the high 1's - mid 2's - noted to be 2.4 today - continue to monitor, avoid nephrotoxic agents when able HYPOTHYROIDISM - continue levothyroxine BPH - continue tamsulosin and finasteride DVT PROPHYLAXIS - on Coumadin with therapeutic INR CODE STATUS - Patient is a full code as per my discussion with him. DISPO - In my clinical judgment this beneficiary meets acute admission criteria, established by [facility], that includes being hospitalized through two midnights. Attending Addendum; The patient was seen and examined Was sent in from clinic with HBP Totally asymptomatic O/E Noted to have very high BP in ER HEENT-unremarkable Chest-clear Heart-regular ABDOMEN-BENIGN, Labs and Imaging studies were reviewed Agree with the assessment and plan Dr Rut Tomas VTE Prophylaxis VTE Risk Assessment Done? Y/N: Yes Risk Level: Moderate
[2016-08-13] MEDS ORDERED: HydrALAZINE HCL 20 MG/ML VIAL IV. PRN (18:45)
[2016-08-13 19:18] VITALS: BP 233/85; PULSE 47; TEMP 36.3; O2SAT 93; Ht 176.5 cm; Wt 71.7 kg
[2016-08-13] MEDS: ATORVASTATIN 40 MG TAB PO SCH (19:54)
[2016-08-13] MEDS: WARFARIN SOD 2 MG TAB PO SCH (19:55)
[2016-08-13] MEDS: TAMSULOSIN HCL 0.4 MG CAP PO SCH (19:56)
[2016-08-13 23:55] VITALS: BP 187/70; PULSE 45; TEMP 36.6; O2SAT 94
[2016-08-14] VITALS (11 sets, daily range): BP systolic 141–201; BP diastolic 48–80; PULSE 48–57; TEMP 36.5–36.9; O2SAT 93–97
[2016-08-14 05:49] LABS: HEMATOCRIT 37.3 % (42-52); MEAN CELL VOLUME 96.9 fL (80-100); MEAN CORPUSCULAR HEMOGLOBIN 31.9 pg (25-34); MEAN PLATELET VOLUME 10.7 fL (7.4-10.4); PLATELET COUNT 185 K/uL (130-400); RED BLOOD COUNT 3.85 M/uL (4.7-6.1); WHITE BLOOD COUNT 7.87 K/uL (4.8-10.8)
[2016-08-14 05:58] LABS: INR 2.7 (0.9-1.1); PROTHROMBIN TIME (PATIENT) 29.6 SECONDS (9.0-12.0)
[2016-08-14 06:15] LABS: BUN/CREATININE RATIO 14.3 (10-20); CREATININE 2.1 mg/dl (0.60-1.40); POTASSIUM 3.9 mmol/L (3.5-5.1)
[2016-08-14] MEDS: LEVOTHYROXINE 150 MCG TAB PO SCH (06:18)
[2016-08-14] MEDS: AMIODARONE 200 MG TAB PO SCH (07:41)
[2016-08-14] MEDS: CHOLECALCIFEROL 1000 INTER.UNIT TAB PO SCH (07:42)
[2016-08-14] MEDS: ALLOPURINOL 100 MG TAB PO SCH (07:42)
[2016-08-14] MEDS: ASPIRIN 81 MG ECTAB PO SCH (07:42)
[2016-08-14] MEDS: FINASTERIDE 5 MG TAB PO SCH (07:42)
[2016-08-14] MEDS: NORTRIPTYLINE HCL 10 MG CAP PO SCH (07:42)
[2016-08-14] MEDS: CYANOCOBALAMIN 500 MCG TAB (VIT B-12) PO SCH (07:42)
[2016-08-14] MEDS: ISOSORBIDE MONONITRATE 30 MG TABCR PO SCH (07:43)
--- NOTE | 2016-08-14 07:54 | Nephrology Consultation ---
Nephrology Consultation Date of Consultation: August 14, 2016. Attending Physician: Dr Tomas Requesting Physician: Dr Tomas Reason for Consultation: HTN urgency History of Present Illness 86 year old male whom I sent from CKD clinic yesterday to ER for eval of asymptomatic HTN w/ SBP to 200s. 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 He has chronic bradycardia in 40-50s on amiodarone and metoprolol; follows w/ cardiology and w/ vascular surgery. Of note at recent optho eval, found to have papilledema and sent for MRI on 07/31 which showed no hydrocephalus but 1.2 cm R frontal nonspecific soft tissue nodule and R ant temporal encephalomalacia, moderate/severe chronic microvascular changes. His baseline creatinine since coming off dialysis has been running in low 2's. He was started on hydralazine and amlodipine since arrival at my suggestion; minimal improvement in BP. Past Medical/Surgical History Medical Problems: (1) Atrial fibrillation with RVR Status: Acute (2) CHF (congestive heart failure) Status: Acute (3) Cholelithiasis Status: Acute (4) Elevated troponin Status: Acute (5) Pancreatitis Status: Acute (6) Right middle lobe pneumonia Status: Acute Family History Cancer Hypertension Social History Smoking Status: Former Smoker Alcohol Use: occasionally Housing Status: lives alone Allergies Coded Allergies: Penicillins (Verified Allergy, Unknown, PENILE ENLARGEMENT, 08/13/16) Per Dr. Crespo, reviewed reaction in outpatient records Tramadol (Verified Adverse Reaction, Unknown, GI SYMPTOMS, 08/13/16) Medications Current Inpatient Medications Medications (Trade) Dose Ordered Sig/Blas Route Start Time Stop Time Status Last Admin Dose Admin Acetaminophen (Tylenol Tab) 650 mg Q4H PRN PO 08/13/16 16:30 09/12/16 16:29 Ondansetron HCl (Zofran Inj) 4 mg Q6H PRN IV 08/13/16 16:30 09/12/16 16:29 Allopurinol (Zyloprim Tab) 200 mg QAM PO 08/14/16 09:00 09/13/16 08:59 Amiodarone HCl (Cordarone Tab) 200 mg DAILY PO 08/14/16 09:00 09/13/16 08:59 Aspirin (Ecotrin Tab) 81 mg QAM PO 08/14/16 09:00 09/13/16 08:59 Atorvastatin Calcium (Lipitor Tab) 40 mg QPM PO 08/13/16 21:00 09/12/16 20:59 08/13/16 19:54 40 MG Cyanocobalamin (Vitamin B-12 Tab) 1,000 mcg QAM PO 08/14/16 09:00 09/13/16 08:59 Finasteride (Proscar Tab) 5 mg DAILY PO 08/14/16 09:00 09/13/16 08:59 Isosorbide Mononitrate (Imdur Ext Rel Tab) 30 mg QAM PO 08/14/16 09:00 09/13/16 08:59 Levothyroxine Sodium (Synthroid Tab) 150 mcg DAILYBB PO 08/14/16 06:00 09/13/16 05:59 08/14/16 06:18 150 MCG Metoprolol Succinate (Toprol Xl Tab) 50 mg QAM PO 08/14/16 09:00 09/13/16 08:59 Nortriptyline HCl (Pamelor Cap) 10 mg Q2D@0900 PO 08/14/16 09:00 09/13/16 08:59 Tamsulosin HCl (Flomax Cap) 0.4 mg HS PO 08/13/16 21:00 09/12/16 20:59 08/13/16 19:56 0.4 MG Cholecalciferol (Vitamin D Tab) 2,000 inter.unit QAM PO 08/14/16 09:00 09/13/16 08:59 Polyethylene (Miralax Powder Packet) 17 gm DAILY PRN PO 08/13/16 17:00 09/12/16 16:59 Warfarin Sodium (Coumadin Tab) 2 mg DAILY@1600 PO 08/13/16 19:15 09/12/16 19:14 08/13/16 19:55 2 MG Hydralazine HCl (Apresoline Tab) 25 mg TID PO 08/13/16 21:00 09/12/16 20:59 08/13/16 19:54 25 MG Amlodipine Besylate (Norvasc Tab) 5 mg QAM PO 08/14/16 09:00 09/13/16 08:59 Hydralazine HCl (HydrALAZINE INJ) 10 mg Q6H PRN IV. 08/13/16 18:45 09/12/16 18:44 08/14/16 04:01 10 MG Home Meds and Scripts Medications Dose Route/Sig Max Daily Dose Days Date Category Pamelor (Nortriptyline HCl) 10 Mg Cap 10 Mg PO Q2D 08/13/16 Reported Flomax (Tamsulosin Hcl) 0.4 Mg Cap 0.4 Mg PO HS 04/22/16 Reported Miralax (Polyethylene Glycol 3350) 1 Pow Pow 17 Gm PO DAILY PRN 04/22/16 Reported Zyloprim (Allopurinol) 100 Mg Tab 200 Mg PO QAM 04/22/16 Reported Coumadin (Warfarin Sodium) 2 Mg Tab 2 Mg PO QPM 03/28/16 Reported Cordarone (Amiodarone Hcl) 200 Mg Tab 200 Mg PO DAILY 03/28/16 Reported Imdur Ext Rel (Isosorbide Mononitrate) 30 Mg Ertab 30 Mg PO QAM 03/28/16 Reported Toprol-Xl (Metoprolol Succinate) 50 Mg Tabcr 50 Mg PO QAM 03/28/16 Reported Vitamin B-12 (Cyanocobalamin) 1,000 Mcg Tab 1,000 Mcg PO QAM 09/29/15 Reported Synthroid (Levothyroxine Sodium) 150 Mcg Tab 150 Mcg PO QAM 09/08/15 Reported Lipitor (Atorvastatin Calcium) 40 Mg Tab 40 Mg PO QPM 09/08/15 Reported Tylenol (Acetaminophen) 325 Mg Tab 650 Mg PO Q6 PRN 09/08/15 Reported Vitamin D (Cholecalciferol) 2,000 Unit Cap 2,000 Intunit PO QAM 10/19/14 Reported Aspirin Ec (Aspirin) 81 Mg Tab 81 Mg PO QAM 10/09/12 Reported Proscar (Finasteride) 5 Mg Tab 5 Mg PO DAILY 10/09/12 Reported Review of Systems Constitutional: No fatigue, No fever, No weakness, No weight loss Eyes: No diplopia, No eye pain, No worsening of vision ENT: No hearing loss, No sore throat Respiratory: No cough, No dyspnea on exertion, No shortness of breath Cardiac: + problem reported (denies orthostatic sx), No PND, No chest pain, No edema, No palpitations Abdomen: No constipation, No diarrhea, No nausea, No pain, No vomiting Musculoskeletal: No joint pain, No muscle pain Male : No dysuria, No hematuria, No urinary frequency Neuro: No balance problems, No memory loss, No weakness Psych: No anxiety, No depression symptoms Heme: No abnormal bleeding/bruising Endo: No fatigue Skin: No itch, No new/changing skin lesions, No rash Physical Exam Date Time Temp Pulse Resp B/P Pulse Ox O2 Delivery O2 Flow Rate FiO2 08/14/16 04:08 36.5 49 20 197/80 95 Room Air 08/14/16 04:00 94 Room Air 08/14/16 00:05 94 Room Air 08/13/16 23:55 36.6 45 20 187/70 94 Room Air 08/13/16 19:18 36.3 47 20 233/85 93 Room Air 08/13/16 18:27 47 18 211/76 98 08/13/16 17:51 45 18 201/92 98 Room Air 08/13/16 16:12 48 16 205/68 98 Room Air 08/13/16 15:16 43 16 97/65 08/13/16 14:34 41 18 189/119 08/13/16 14:10 42 08/13/16 14:08 216/77 08/13/16 13:46 36.5 40 20 204/74 96 Room Air 24-Hour Column 08/14/16 08:00 Intake Total 200 ml Balance 200 ml General Appearance: WD/WN, no apparent distress (sitting up in chair on RA) Eyes: EOMI ENT: hearing grossly normal Neck: supple Respiratory/Chest: lungs clear, normal breath sounds, + decreased breath sounds Cardiovascular: no edema, no gallop, + bradycardia Abdomen: normal bowel sounds, non tender, soft (no puentes) Extremities: normal range of motion, non-tender, normal inspection Neurologic/Psych: alert, normal mood/affect, oriented x 3 Skin: normal color, no jaundice, warm/dry, no rash Diagnostics Last 24 Hours Test 08/13/16 14:05 08/13/16 17:55 08/13/16 20:00 08/13/16 20:22 White Blood Count 8.22 K/uL Red Blood Count 4.12 M/uL Hemoglobin 13.3 g/dL Hematocrit 40.3 % Mean Corpuscular Volume 97.8 fL Mean Corpuscular Hemoglobin 32.3 pg Mean Corpuscular Hemoglobin Concent 33.0 g/dl Platelet Count 207 K/uL Mean Platelet Volume 10.6 fL Neutrophils (%) (Auto) 75.2 % Lymphocytes (%) (Auto) 13.9 % Monocytes (%) (Auto) 5.8 % Eosinophils (%) (Auto) 4.3 % Basophils (%) (Auto) 0.6 % Neutrophils # (Auto) 6.18 K/uL Lymphocytes # (Auto) 1.14 K/uL Monocytes # (Auto) 0.48 K/uL Eosinophils # (Auto) 0.35 K/uL Basophils # (Auto) 0.05 K/uL RDW Standard Deviation 52.6 fL RDW Coefficient of Variation 14.9 % Immature Granulocyte % (Auto) 0.2 % Immature Granulocyte # (Auto) 0.02 K/uL Sodium Level 141 mmol/L Potassium Level 4.2 mmol/L Chloride Level 111 mmol/L Carbon Dioxide Level 26 mmol/L Anion Gap 4.0 mmol/L Blood Urea Nitrogen 33 mg/dl Creatinine 2.40 mg/dl Est Creatinine Clear Calc Drug Dose 22.9 ml/min Estimated GFR () 27.7 Estimated GFR (Non- 23.9 BUN/Creatinine Ratio 13.8 Random Glucose 108 mg/dl Calcium Level 8.9 mg/dl Troponin I 0.147 ng/ml 0.161 ng/ml Prothrombin Time 31.7 SECONDS Prothromb Time International Ratio 2.8 Creatine Kinase MB Ratio Creatine Kinase MB 2.5 ng/ml Test 08/14/16 01:50 08/14/16 05:18 Creatine Kinase MB 1.7 ng/ml Creatine Kinase MB Ratio Troponin I 0.147 ng/ml White Blood Count 7.87 K/uL Red Blood Count 3.85 M/uL Hemoglobin 12.3 g/dL Hematocrit 37.3 % Mean Corpuscular Volume 96.9 fL Mean Corpuscular Hemoglobin 31.9 pg Mean Corpuscular Hemoglobin Concent 33.0 g/dl RDW Standard Deviation 52.0 fL RDW Coefficient of Variation 14.9 % Platelet Count 185 K/uL Mean Platelet Volume 10.7 fL Prothrombin Time 29.6 SECONDS Prothromb Time International Ratio 2.7 Sodium Level 144 mmol/L Potassium Level 3.9 mmol/L Chloride Level 110 mmol/L Carbon Dioxide Level 26 mmol/L Anion Gap 8.0 mmol/L Blood Urea Nitrogen 30 mg/dl Creatinine 2.10 mg/dl Est Creatinine Clear Calc Drug Dose 26.6 ml/min Estimated GFR () 32.5 Estimated GFR (Non- 28.1 BUN/Creatinine Ratio 14.3 Random Glucose 91 mg/dl Calcium Level 9.0 mg/dl Diagnostic Radiology: MRI findings as per HPI EKG: sinus rin, LVH, shorter CA Assessment & Plan 86 y/o M admitted w/ HTN urgency v emergency in the setting of complex CKD 4 recently dialysis dependent until 04/2016 x 4 mos after ICU admission w/ NSTEMI/ PNA 12/2015, PAF, chronic bradycardia. Baseline creatinine still evolving but appears to be low - mid 2's w/ recently about 1 gm/day proteinuria. HTN urgency/emergency note no focal/ acute neurologic deficits or symptoms on exam/interview -need to delineate between these dxs >> given recent papilledema and few other details of retinal exam and recent MRI finding, recommend neurology eval -cont CCB, hydralazine; may need to hold or lower BB dose; low threshold to involve cardiology if appropriate -recommend hold parameters for BB -agree w/ TTE -would continue work up with CXR, uacm; low threshold for renal arterty duplex, though I doubt this will change mgt (ie, not a candidate for renal artery stenting) -for HTN emergency, consider ICU transfer for nicardipine gtt starting initially at 5 mg/hr w/ goal SBP w/in a few hours 160-180s; then maintain -for HTN urgency, consider captopril 12.5 mg q12h w/ goal SBP 180 over next 48 hrs; if that is ineffective or if renal function worse, could also consider diuretics; will give first captopril dose now -ultimate goal is sbp <140 over days -daily bmp pls CKD 4, recently on HD -at baseline currently; pls monitor function daily Appreciate consult; will follow w/ you. Care coordinated w/ Dr. Morrow
[2016-08-14] MEDS ORDERED: AMLODIPINE BESYLATE 5 MG TAB PO SCH (09:00)
[2016-08-14] MEDS ORDERED: METOPROLOL SUCC 50MG EXT REL TAB PO SCH (09:00)
[2016-08-14] MEDS ORDERED: CAPTOPRIL 12.5 MG TAB PO ONE ×2 (09:45→17:30)
[2016-08-14] MEDS ORDERED: NURSING VERBAL MED ORDER ONE ×2 (10:30→17:45)
--- NOTE | 2016-08-14 14:18 | CARDIOLOGY CONSULTATION ---
DATE OF CONSULTATION: 08/14/2016 REFERRING PHYSICIAN: Dr. Morrow. REASON FOR CONSULTATION: Bradycardia, hypertension, and paroxysmal atrial fibrillation. HISTORY OF PRESENT ILLNESS: Mr. Zaidi is an 86-year-old gentleman referred by nephrology to the Emergency Department yesterday due to uncontrolled hypertension. He had a recent ophthalmologic exam, demonstrating papillary edema. An MRI was subsequently performed and found to be unremarkable. In the office yesterday, his BP was found to be over 200 systolic. Mildly elevated troponins noted. Cardiac history is significant for paroxysmal atrial fibrillation in the setting of multifactorial respiratory failure in December 2015. At that time, the patient had a prolonged hospital course including ventilator dependent respiratory failure, NSTEMI, acute decompensated heart failure, and acute renal insufficiency. He required hemodialysis until April of this year. He has been CKD stage IV, off hemodialysis since that time. Chronic bradycardia noted. The patient adamantly denies any symptoms. No lightheadedness, dizziness, syncope, near syncope, headache, visual changes, slurred speech, focal weakness, or gait instability. No chest pain or unusual shortness of breath. Telemetry demonstrates sinus bradycardia with heart rate 40-55 beats per minute. No significant pauses or heart block recorded. He offers no complaints at this time. REVIEW OF SYSTEMS: The pertinent positive noted above. A comprehensive 10-system review is otherwise negative. PAST MEDICAL HISTORY: 1. Paroxysmal atrial fibrillation maintained in sinus rhythm with amiodarone. 2. BPH. 3. NSTEMI. 4. Cardiomyopathy - resolved per most recent echocardiogram. 5. CKD, stage IV. 6. Dyslipidemia. 7. GERD. 8. Gout. 9. Hypertension. 10. Hypothyroidism. 11. Pernicious anemia. 12. PVD. PAST SURGICAL HISTORY: 1. Carotid vascular disease with a history of right-sided carotid endarterectomy. 2. Carpal tunnel release. 3. Cataract extraction. FAMILY HISTORY: Negative for premature CAD or sudden ; however, noncontributory given the patient's advanced age. SOCIAL HISTORY: Former tobacco abuse. ALLERGIES: PENICILLIN AND TRAMADOL. HOME MEDICATIONS: 1. Amiodarone 200 mg daily. 2. Toprol-XL 50 mg daily. 3. Atorvastatin 40 mg daily. 4. Aspirin 81 mg daily. 5. Isosorbide monohydrate 30 mg daily. 6. Synthroid 150 mcg daily. 7. Flomax 0.4 mg daily. 8. Warfarin 2 mg daily. 9. Allopurinol 200 mg daily. 10. Proscar 5 mg daily. 11. Pamelor 10 mg every other day. 12. Tylenol as needed. 13. MiraLax as needed. ECG ON ADMISSION: Marked sinus bradycardia, left ventricular hypertrophy with repolarization abnormality. Chest x-ray was not performed. LABORATORY DATA: INR is 2.7. Sodium is 144, potassium is 3.9, chloride is 110, CO2 is 26, BUN is 30, and creatinine is 2.10. Troponin 0.161. Repeat troponin 0.147. Hemoglobin is 12.3 and white blood cell count 7.87. Platelet count is 185. PHYSICAL EXAMINATION: VITAL SIGNS: Temperature is 36.9 degrees centigrade, pulse 50 beats per minute and regular, respiratory rate is 18 breaths per minute, and blood pressure 186/67. GENERAL: NAD, awake, alert, and oriented x3, well nourished. HEENT: Mucous membranes moist. No scleral icterus. Conjunctivae are pink. NECK: Supple. There is no JVD or HJR. HEART: Regular with a normal S1 and S2. There is a soft 1/6 mid systolic murmur heard best at the apex. LUNGS: Clear without rales, rhonchi or wheeze. ABDOMEN: Soft and nontender. There is no rebound or guarding. EXTREMITIES: Warm and dry without clubbing, cyanosis, or edema. NEUROLOGIC: Demonstrates no focal motor deficit. FINAL IMPRESSION: 1. Hypertensive urgency. The patient's blood pressure mildly improved with the addition of amlodipine and hydralazine. 2. Paroxysmal atrial fibrillation, maintained in sinus rhythm with amiodarone. 3. Marked sinus bradycardia (asymptomatic) on amiodarone plus Toprol-XL. 4. History of stress-induced cardiomyopathy with most recent echocardiogram, demonstrating normal LV systolic function. 5. Mildly elevated troponin, not indicative of acute coronary syndrome, suspect related to hypertensive urgency/renal insufficiency. 6. Chronic kidney disease, stage III-IV. 7. Chronic anticoagulation with Coumadin -- INR is therapeutic. 8. Hypothyroidism. TSH within normal limits. PLAN AND RECOMMENDATIONS: Agree with addition of calcium channel preet and hydralazine t.i.d. IV hydralazine will utilized as needed. Discontinue Toprol-XL at this time and monitor heart rate on telemetry. Consider addition of nonselective beta-preet, carvedilol during hospitalization if needed pending heart rate assessment. Warfarin will be continued for a goal INR of 2.0-3.0. Resting 2D transthoracic echo pending at this time. We will continue to follow along during hospitalization. Thank you for allowing me to take part in the care of your patient. MICHELLE
--- NOTE | 2016-08-14 14:27 | Progress Note ---
Medicine Progress Note Date & Time of Visit: August 14, 2016 at 13:54. Subjective Pt was seen and examined Sitting in chair very comfortable with no discomfort Pt said that he feels fine he denies any chest pain, palpitation, dizziness and SOB Objective Last 8 Hrs Date Time Temp Pulse Resp B/P Pulse Ox O2 Delivery O2 Flow Rate FiO2 08/14/16 12:00 Room Air 08/14/16 11:24 36.5 48 18 182/63 94 Room Air 08/14/16 10:01 186/67 08/14/16 08:00 Room Air 08/14/16 07:48 36.9 50 18 196/64 93 Room Air Physical Exam: General- very pleasant, no distress Head- atraumatic Eyes- EOMI, No vision changes ENT- oropharynx clear Neck- supple, no JVD, no adenopathy Lungs- clear to auscultation, no wheezing Heart- + bradycardia, no murmur Abdomen- normal bowel sounds, soft Extremities- no pretibial edema, no calf tenderness Neuro- alert, oriented x 3; PERRL, EOMI; no facial palsy; no dysarthria; motor 5 /5 bilaterally Skin- warm & dry Laboratory Results: Last 24 Hours Test 08/13/16 14:05 08/13/16 17:55 08/13/16 20:00 08/13/16 20:22 White Blood Count 8.22 K/uL Red Blood Count 4.12 M/uL Hemoglobin 13.3 g/dL Hematocrit 40.3 % Mean Corpuscular Volume 97.8 fL Mean Corpuscular Hemoglobin 32.3 pg Mean Corpuscular Hemoglobin Concent 33.0 g/dl Platelet Count 207 K/uL Mean Platelet Volume 10.6 fL Neutrophils (%) (Auto) 75.2 % Lymphocytes (%) (Auto) 13.9 % Monocytes (%) (Auto) 5.8 % Eosinophils (%) (Auto) 4.3 % Basophils (%) (Auto) 0.6 % Neutrophils # (Auto) 6.18 K/uL Lymphocytes # (Auto) 1.14 K/uL Monocytes # (Auto) 0.48 K/uL Eosinophils # (Auto) 0.35 K/uL Basophils # (Auto) 0.05 K/uL RDW Standard Deviation 52.6 fL RDW Coefficient of Variation 14.9 % Immature Granulocyte % (Auto) 0.2 % Immature Granulocyte # (Auto) 0.02 K/uL Sodium Level 141 mmol/L Potassium Level 4.2 mmol/L Chloride Level 111 mmol/L Carbon Dioxide Level 26 mmol/L Anion Gap 4.0 mmol/L Blood Urea Nitrogen 33 mg/dl Creatinine 2.40 mg/dl Est Creatinine Clear Calc Drug Dose 22.9 ml/min Estimated GFR () 27.7 Estimated GFR (Non- 23.9 BUN/Creatinine Ratio 13.8 Random Glucose 108 mg/dl Calcium Level 8.9 mg/dl Troponin I 0.147 ng/ml 0.161 ng/ml Prothrombin Time 31.7 SECONDS Prothromb Time International Ratio 2.8 Creatine Kinase MB Ratio Creatine Kinase MB 2.5 ng/ml Test 08/14/16 01:50 08/14/16 05:18 Creatine Kinase MB 1.7 ng/ml Creatine Kinase MB Ratio Troponin I 0.147 ng/ml White Blood Count 7.87 K/uL Red Blood Count 3.85 M/uL Hemoglobin 12.3 g/dL Hematocrit 37.3 % Mean Corpuscular Volume 96.9 fL Mean Corpuscular Hemoglobin 31.9 pg Mean Corpuscular Hemoglobin Concent 33.0 g/dl RDW Standard Deviation 52.0 fL RDW Coefficient of Variation 14.9 % Platelet Count 185 K/uL Mean Platelet Volume 10.7 fL Prothrombin Time 29.6 SECONDS Prothromb Time International Ratio 2.7 Sodium Level 144 mmol/L Potassium Level 3.9 mmol/L Chloride Level 110 mmol/L Carbon Dioxide Level 26 mmol/L Anion Gap 8.0 mmol/L Blood Urea Nitrogen 30 mg/dl Creatinine 2.10 mg/dl Est Creatinine Clear Calc Drug Dose 26.6 ml/min Estimated GFR () 32.5 Estimated GFR (Non- 28.1 BUN/Creatinine Ratio 14.3 Random Glucose 91 mg/dl Calcium Level 9.0 mg/dl Thyroid Stimulating Hormone (TSH) 3.690 uIu/ml Assessment & Plan HYPERTENSIVE URGENCY - BP on admission - Asymptomatic - On hydralazine 25mg TID and amlodipine 5mg daily - continue Metoprolol 50mg daily and Imdur 30 mg - Captopril 12.5 mg one dose was given today by Nephro - Will monitor creatine - On hydralazine PRN for SBP above 170 ELEVATED TROPONIN - likely demand ischemia from hypertensive urgency / underlying CKD -Denies any chest pain - EKG did nod show any significant ischemic changes - Echo pending - continue ASA, beta preet, and statin - Cardiology consulted RIGHT TEMPORAL ENCEPHALOMALACIA Had outpatient MRI of the head on 07/31 that showed 1.2 cm R frontal nonspecific soft tissue nodule and R temporal encephalomalacia. Denies any focal neuro deficit, no change in vision Will consult neurology ATRIAL FIBRILLATION - currently in sinus bradycardia - rate controlled on beta preet and rhythm controlled on amiodarone - HR dropped in the high 40s - Continue coumadin, INR 2.7 (Therapeutic) BRADYCARDIA Asymptomatic On metoprolol and amiodarone Cardiology consulted CKD STAGE IV - Was recently on HD - baseline creat in the low 2 - Creatine 2.1 stable - avoid nephrotoxic agents - Continue monitor BMP HYPOTHYROIDISM - continue levothyroxine BPH - continue tamsulosin and finasteride DVT PROPHYLAXIS - on Coumadin with therapeutic INR CODE STATUS FULL CODE Consultants: Cardio Neuro Nephro Current Inpatient Medications: Current Inpatient Medications Medications (Trade) Dose Ordered Sig/Blas Route Start Time Stop Time Status Last Admin Dose Admin Acetaminophen (Tylenol Tab) 650 mg Q4H PRN PO 08/13/16 16:30 09/12/16 16:29 Ondansetron HCl (Zofran Inj) 4 mg Q6H PRN IV 08/13/16 16:30 09/12/16 16:29 Allopurinol (Zyloprim Tab) 200 mg QAM PO 08/14/16 09:00 09/13/16 08:59 08/14/16 07:42 200 MG Amiodarone HCl (Cordarone Tab) 200 mg DAILY PO 08/14/16 09:00 09/13/16 08:59 08/14/16 07:41 200 MG Aspirin (Ecotrin Tab) 81 mg QAM PO 08/14/16 09:00 09/13/16 08:59 08/14/16 07:42 81 MG Atorvastatin Calcium (Lipitor Tab) 40 mg QPM PO 08/13/16 21:00 09/12/16 20:59 08/13/16 19:54 40 MG Cyanocobalamin (Vitamin B-12 Tab) 1,000 mcg QAM PO 08/14/16 09:00 09/13/16 08:59 08/14/16 07:42 1,000 MCG Finasteride (Proscar Tab) 5 mg DAILY PO 08/14/16 09:00 09/13/16 08:59 08/14/16 07:42 5 MG Isosorbide Mononitrate (Imdur Ext Rel Tab) 30 mg QAM PO 08/14/16 09:00 09/13/16 08:59 08/14/16 07:43 30 MG Levothyroxine Sodium (Synthroid Tab) 150 mcg DAILYBB PO 08/14/16 06:00 09/13/16 05:59 08/14/16 06:18 150 MCG Nortriptyline HCl (Pamelor Cap) 10 mg Q2D@0900 PO 08/14/16 09:00 09/13/16 08:59 08/14/16 07:42 10 MG Tamsulosin HCl (Flomax Cap) 0.4 mg HS PO 08/13/16 21:00 09/12/16 20:59 08/13/16 19:56 0.4 MG Cholecalciferol (Vitamin D Tab) 2,000 inter.unit QAM PO 08/14/16 09:00 09/13/16 08:59 08/14/16 07:42 2,000 INTER.UNIT Polyethylene (Miralax Powder Packet) 17 gm DAILY PRN PO 08/13/16 17:00 09/12/16 16:59 Warfarin Sodium (Coumadin Tab) 2 mg DAILY@1600 PO 08/13/16 19:15 09/12/16 19:14 08/13/16 19:55 2 MG Hydralazine HCl (Apresoline Tab) 25 mg TID PO 08/13/16 21:00 09/12/16 20:59 08/14/16 07:42 25 MG Amlodipine Besylate (Norvasc Tab) 5 mg QAM PO 08/14/16 09:00 09/13/16 08:59 08/14/16 07:41 5 MG Hydralazine HCl (HydrALAZINE INJ) 10 mg Q6H PRN IV. 08/13/16 18:45 09/12/16 18:44 08/14/16 04:01 10 MG
--- NOTE | 2016-08-14 14:47 | DIAGNOSTIC IMAGING REPORT ---
CHEST 2 VIEWS ROUTINE CLINICAL HISTORY: Hypertension COMPARISON STUDY: 03/28/2016 FINDINGS: The cardiac and mediastinal contours remain stable. There is resolving pulmonary vascular congestion. The right-sided central venous catheter has been removed. There is no focal pulmonary consolidation. There is a small left pleural effusion.[ IMPRESSION: 1. Interval removal of the right-sided central venous catheter 2. Resolving mild pulmonary vascular congestion 3. Small left pleural effusion 4. No evidence of focal pulmonary consolidation Electronically signed by: Kenneth Ponce M.D. 08/14/2016 2:45 PM Dictated Date/Time: 08/14/2016 2:44 PM
--- NOTE | 2016-08-14 15:29 | DIAGNOSTIC IMAGING REPORT ---
Duplex renal arterial Doppler DUPLEX RENAL ARTERY CLINICAL HISTORY: malignant htn hypertension TECHNIQUE: Arterial Doppler COMPARISON STUDY: None FINDINGS: Unremarkable arterial Doppler. Horseshoe shaped type kidney. Flow characteristics are unremarkable. In penis characteristics are unremarkable. IMPRESSION: No evidence for renal arterial stenosis. Electronically signed by: Rene Hernandez M.D. 08/14/2016 3:28 PM Dictated Date/Time: 08/14/2016 3:27 PM
[2016-08-14] MEDS: WARFARIN SOD 2 MG TAB PO SCH (15:34)
--- NOTE | 2016-08-14 15:53 | Neurology Consultation ---
Neurology Consultation Date of Consultation: August 14, 2016. Attending Physician: Farshad Morrow M.D. Primary Care Physician: Virgen Oliver M.D. 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 He denies any symptoms. He reports he has been feeling well recently. He did have a admission He denies headache or blurred vision. He was seen by his eye doctor a couple of weeks ago who noted papilledema and patient had a brain MRI that was unremarkable. In the ER, patient's BP is found to be 216/77. He was given hydralazine 25mg PO and amlodipine 5mg PO with minimal improvement in BP. Trop is 0.147. EKG does not show any acute ST changes. he currently states he is feeling fine. He has not had a headache or blurred or double vision since this started. denies, CP, SOB, abdominal pain, one sided weakness, numbness tingling, N, V Past Medical/Surgical History Medical Problems: (1) Atrial fibrillation with RVR Status: Acute (2) CHF (congestive heart failure) Status: Acute (3) Cholelithiasis Status: Acute (4) Elevated troponin Status: Acute (5) Pancreatitis Status: Acute (6) Right middle lobe pneumonia Status: Acute Social History Smoking Status: Never smoker Alcohol Use: none Housing Status: lives alone Allergies Coded Allergies: Penicillins (Verified Allergy, Unknown, PENILE ENLARGEMENT, 08/13/16) Per Dr. Crespo, reviewed reaction in outpatient records Tramadol (Verified Adverse Reaction, Unknown, GI SYMPTOMS, 08/13/16) Current Inpatient Medications Current Inpatient Medications Medications (Trade) Dose Ordered Sig/Blas Route Start Time Stop Time Status Last Admin Dose Admin Acetaminophen (Tylenol Tab) 650 mg Q4H PRN PO 08/13/16 16:30 09/12/16 16:29 Ondansetron HCl (Zofran Inj) 4 mg Q6H PRN IV 08/13/16 16:30 09/12/16 16:29 Allopurinol (Zyloprim Tab) 200 mg QAM PO 08/14/16 09:00 09/13/16 08:59 08/14/16 07:42 200 MG Amiodarone HCl (Cordarone Tab) 200 mg DAILY PO 08/14/16 09:00 09/13/16 08:59 08/14/16 07:41 200 MG Aspirin (Ecotrin Tab) 81 mg QAM PO 08/14/16 09:00 09/13/16 08:59 08/14/16 07:42 81 MG Atorvastatin Calcium (Lipitor Tab) 40 mg QPM PO 08/13/16 21:00 09/12/16 20:59 08/13/16 19:54 40 MG Cyanocobalamin (Vitamin B-12 Tab) 1,000 mcg QAM PO 08/14/16 09:00 09/13/16 08:59 08/14/16 07:42 1,000 MCG Finasteride (Proscar Tab) 5 mg DAILY PO 08/14/16 09:00 09/13/16 08:59 08/14/16 07:42 5 MG Isosorbide Mononitrate (Imdur Ext Rel Tab) 30 mg QAM PO 08/14/16 09:00 09/13/16 08:59 08/14/16 07:43 30 MG Levothyroxine Sodium (Synthroid Tab) 150 mcg DAILYBB PO 08/14/16 06:00 09/13/16 05:59 08/14/16 06:18 150 MCG Nortriptyline HCl (Pamelor Cap) 10 mg Q2D@0900 PO 08/14/16 09:00 09/13/16 08:59 08/14/16 07:42 10 MG Tamsulosin HCl (Flomax Cap) 0.4 mg HS PO 08/13/16 21:00 09/12/16 20:59 08/13/16 19:56 0.4 MG Cholecalciferol (Vitamin D Tab) 2,000 inter.unit QAM PO 08/14/16 09:00 09/13/16 08:59 08/14/16 07:42 2,000 INTER.UNIT Polyethylene (Miralax Powder Packet) 17 gm DAILY PRN PO 08/13/16 17:00 09/12/16 16:59 Warfarin Sodium (Coumadin Tab) 2 mg DAILY@1600 PO 08/13/16 19:15 09/12/16 19:14 08/14/16 15:34 2 MG Hydralazine HCl (Apresoline Tab) 25 mg TID PO 08/13/16 21:00 09/12/16 20:59 08/14/16 14:16 25 MG Amlodipine Besylate (Norvasc Tab) 5 mg QAM PO 08/14/16 09:00 09/13/16 08:59 08/14/16 07:41 5 MG Hydralazine HCl (HydrALAZINE INJ) 10 mg Q4H PRN IV. 08/14/16 16:45 09/13/16 16:44 Physical Exam Vital Signs (Past 24 Hrs): Date Time Temp Pulse Resp B/P Pulse Ox O2 Delivery O2 Flow Rate FiO2 08/14/16 14:16 188/71 08/14/16 12:00 Room Air 08/14/16 11:24 36.5 48 18 182/63 94 Room Air 08/14/16 10:01 186/67 08/14/16 08:00 Room Air 08/14/16 07:48 36.9 50 18 196/64 93 Room Air 08/14/16 04:08 36.5 49 20 197/80 95 Room Air 08/14/16 04:00 94 Room Air 08/14/16 00:05 94 Room Air 08/13/16 23:55 36.6 45 20 187/70 94 Room Air 08/13/16 19:18 36.3 47 20 233/85 93 Room Air 08/13/16 18:27 47 18 211/76 98 08/13/16 17:51 45 18 201/92 98 Room Air 08/13/16 16:12 48 16 205/68 98 Room Air Physical Exam: Constitutional: appearance nourished, healthy and normal Ears, Nose, Mouth and Throat: mucous membranes moist, no injection and skin normal, eyes normal Cardiovascular: normal S-1 and S-2 and regular rate and rhythm Respiratory: clear to auscultation (CTA) and no rales, rhonchi or wheeze Musculoskeletal: no peripheral edema and good distal pulses Skin: no stigmata of neurocutaneous disease noted and normal and intact, small mobile lesion on right temporal area Eyes: extraocular muscles intact (EOMI) and pupils equal, round and reactive to light (PERRL), miotic NEUROLOGIC EXAMINATION: Mental status: Alert and interactive Oriented to full date and location Oriented to person Speech fluent with no evidence of aphasia Cranial Nerves smile eye brow raise symmetric, tongue midline Reflexes: Deep tendon reflexes were symmetrical and graded 2/5. Plantar responses were flexor. Sensory: decrease sensation to cool and vibration from shins down, GT proprioception intact Coordination: finger to nose no bi pass, or tremor, positive Romberg with eyes closed Gait/Stance: Posture normal. Gait normal: with steady with steps, base, and tandem gait. Motor: Negative for pronator drift of out stretched arms with eyes closed. 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, hip flex plantar flex ext bilaterally 5/5 Laboratory Results Past 24 Hours: 08/14/16 05:18 08/14/16 05:18 Test 08/14/16 01:50 08/14/16 05:18 Creatine Kinase MB 1.7 ng/ml (0.5-3.6) Creatine Kinase MB Ratio (0-3.0) Troponin I 0.147 ng/ml (0-0.045) Red Blood Count 3.85 M/uL (4.7-6.1) Mean Corpuscular Volume 96.9 fL (80-100) Mean Corpuscular Hemoglobin 31.9 pg (25-34) Mean Corpuscular Hemoglobin Concent 33.0 g/dl (32-36) RDW Standard Deviation 52.0 fL (36.4-46.3) RDW Coefficient of Variation 14.9 % (11.5-14.5) Mean Platelet Volume 10.7 fL (7.4-10.4) Prothrombin Time 29.6 SECONDS (9.0-12.0) Prothromb Time International Ratio 2.7 (0.9-1.1) Anion Gap 8.0 mmol/L (3-11) Est Creatinine Clear Calc Drug Dose 26.6 ml/min Estimated GFR () 32.5 Estimated GFR (Non- 28.1 BUN/Creatinine Ratio 14.3 (10-20) Calcium Level 9.0 mg/dl (8.5-10.1) Thyroid Stimulating Hormone (TSH) 3.690 uIu/ml (0.300-4.500) Imaging MRI without contrast [place] report reviewed no hydrocephalus, some encephalomalacia in anterior right temporal lobe. Impression 86 year old male with hypertension and findings on ophthalmic exam Plan 1. HTN control lower slowly 2. other causes of papillary edema-venous thrombosis with absence of headache unlikely to r/o needs MRV 3. no vision changes to indicate papillary edema will need the ophthalmology report 4. nephrology for renal causes of hypertension- renal US done 5. further recommendations to follow I have seen and discussed above patient with Dr Nunu Barker, neurology Pt seen. Several weeks ago at routine eye exam with Dr Laguerre was thought to have papilledema. Had and has no headache, visual sx, n, v or focal neurologic sx. MRI as outpt said to show R temp encephalomalacia and scalp lesion. He was sent to hosp with asx severe htn. Awake, aler, appears well unable to vis optic nerves. nml myers, strength, mild dystaxia on fn . Imp poss papilledema, rec reconsulting Dr Lgauerre. Pt has no signs or sx of increased ICP. Rec MRV to r/ o venous sinus thrombosis.In the past this could have been called malignant hypertension but pt simply does not look unwell. Will follow with you, NESTOR Barker MD
--- NOTE | 2016-08-14 16:36 | ECHOCARDIOGRAM REPORT ---
*NOTICE TO RECEIVING DEMOCRAT AGENCY This information is strictly Confidential and protected under [place] law. [place] law prohibits you from making any further disclosure of this information unless further disclosure is expressly permitted by the written consent of the person to whom it pertains or is authorized by law. A general authorization for the release of medical or other information is not sufficient for this purpose. Hospital accepts no responsibility if the information is made available to any other person, INCLUDING THE PATIENT. Interpretation Summary * Name: CARLOS DAVEY Study Date: 08/14/2016 07:00 AM BP: 197/80 mmHg * Patient Location: S244 HR: 47 * : 1930 (M/d/yyyy) Gender: Male Height: 69 in * Age: 86 yrs Ethnicity: CA Weight: 168 lb * Ordering Physician: Any Silver * Referring Physician: Linda Alarcon * Performed By: Sophy Cordero RCS * * Reason For Study: ELEVATED TROPONIN * BSA: 1.9 m2 * The study was technically adequate. * Compared to prior study, changes are noted. * -- Conclusions -- * Ejection Fraction = 60-65%. * There is moderate concentric left ventricular hypertrophy. * Diastolic dysfunction, Grade II (pseudonormalization pattern). * The left atrium is severely dilated. * The right atrium is moderate to severely dilated. * Aortic valve sclerosis mild, without significant aortic valvular stenosis. * There is mild mitral regurgitation. * There is trace tricuspid regurgitation. * The estimated systolic PAP is 49mmHg. Procedure Details * A complete two-dimensional transthoracic echocardiogram was performed (2D, M-mode, Doppler and color flow Doppler). Left Ventricle * The left ventricle is normal in size. * There is moderate concentric left ventricular hypertrophy. * Left ventricular systolic function is normal. * Ejection Fraction = 60-65%. * The left ventricular wall motion is normal. Right Ventricle * The right ventricle is normal size. * The right ventricular systolic function is normal as assessed by tricuspid annular plane systolic excursion (TAPSE) (normal >1.5 cm). Atria * The left atrium is severely dilated. * The right atrium is moderate to severely dilated. * There is no evidence of atrial septal defect, but resolution does not allow assessment for a patent foramen ovale. Mitral Valve * The mitral valve is normal. * There is no mitral valve stenosis. * There is mild mitral regurgitation. Tricuspid Valve * The tricuspid valve is normal. * There is no tricuspid stenosis. * There is trace tricuspid regurgitation. * The estimated systolic PAP is 49mmHg. Aortic Valve * The aortic valve is trileaflet. * Aortic valve sclerosis mild, without significant aortic valvular stenosis. * Aortic stenosis is absent. * Trace aortic insufficiency. Pulmonic Valve * The pulmonary valve is not well seen, but the Doppler examination is normal without significant regurgitation or stenosis. * There is no pulmonic valvular stenosis. * Mild pulmonic valvular regurgitation. Great Vessels * The aortic root is normal size. Pericardium/Pleural * There is no pericardial effusion. Great Vessels * Normal inferior vena cava diameter and respiratory variation suggests normal central venous pressure. Left Ventricular Diastolic Function * Diastolic dysfunction, Grade II (pseudonormalization pattern). MMode 2D Measurements and Calculations IVSd 1.6 cm IVSs 2.0 cm LVIDd 5.2 cm LVIDs 3.2 cm LVPWd 1.5 cm LVPWs 1.6 cm IVS/LVPW 1.1 FS 38.3 % EDV(Teich) 129.6 ml ESV(Teich) 41.2 ml EF(Teich) 68.2 % EDV(cubed) 140.8 ml ESV(cubed) 33.0 ml EF(cubed) 76.6 % % IVS thick 25.3 % % LVPW thick 7.6 % LV mass(C)d 366.3 grams LV mass(C)dI 191.0 grams/m\S\2 LV mass(C)s 243.2 grams LV mass(C)sI 126.8 grams/m\S\2 SV(Teich) 88.4 ml SI(Teich) 46.1 ml/m\S\2 SV(cubed) 107.8 ml SI(cubed) 56.2 ml/m\S\2 Ao root diam 4.3 cm Ao root area 14.5 cm\S\2 ACS 1.9 cm LA dimension 5.0 cm LA/Ao 1.2 LVOT diam 2.0 cm LVOT area 3.2 cm\S\2 LVAd ap4 26.4 cm\S\2 LVLd ap4 7.2 cm EDV(MOD-sp4) 78.2 ml EDV(sp4-el) 82.4 ml LVAs ap4 17.6 cm\S\2 LVLs ap4 5.6 cm ESV(MOD-sp4) 46.4 ml ESV(sp4-el) 47.3 ml EF(MOD-sp4) 40.6 % EF(sp4-el) 42.5 % LVAd ap2 36.7 cm\S\2 LVLd ap2 7.9 cm EDV(MOD-sp2) 140.6 ml EDV(sp2-el) 144.7 ml LVAs ap2 24.6 cm\S\2 LVLs ap2 7.6 cm ESV(MOD-sp2) 67.1 ml ESV(sp2-el) 68.1 ml EF(MOD-sp2) 52.3 % EF(sp2-el) 53.0 % LVLd %diff 9.2 % EDV(MOD-bp) 106.1 ml LVLs %diff 26.5 % ESV(MOD-bp) 58.6 ml EF(MOD-bp) 44.7 % SV(MOD-sp4) 31.8 ml SI(MOD-sp4) 16.6 ml/m\S\2 SV(MOD-sp2) 73.5 ml SI(MOD-sp2) 38.3 ml/m\S\2 SV(MOD-bp) 47.4 ml SI(MOD-bp) 24.7 ml/m\S\2 SV(sp4-el) 35.0 ml SI(sp4-el) 18.3 ml/m\S\2 SV(sp2-el) 76.7 ml SI(sp2-el) 40.0 ml/m\S\2 Doppler Measurements and Calculations MV E max sam 97.1 cm/sec MV A max sam 56.6 cm/sec MV E/A 1.7 MV P1/2t max sam 102.4 cm/sec MV P1/2t 124.9 msec MVA(P1/2t) 1.8 cm\S\2 MV dec slope 240.1 cm/sec\S\2 MV dec time 0.25 sec Ao V2 max 137.4 cm/sec Ao max PG 7.6 mmHg Ao max PG (full) 2.9 mmHg CONNER(V,A) 2.5 cm\S\2 CONNER(V,D) 2.5 cm\S\2 LV V1 max PG 4.7 mmHg LV V1 max 107.8 cm/sec PA V2 max 111.8 cm/sec PA max PG 5.0 mmHg PI max sam 204.8 cm/sec PI max PG 16.8 mmHg PI dec slope 111.2 cm/sec\S\2 PI P1/2t 539.3 msec TR max sam 303.3 cm/sec
[2016-08-14] MEDS: HydrALAZINE HCL 20 MG/ML VIAL IV. PRN (16:55)
[2016-08-14] MEDS: TAMSULOSIN HCL 0.4 MG CAP PO SCH (20:19)
[2016-08-14] MEDS: CAPTOPRIL 12.5 MG TAB PO SCH (20:19)
[2016-08-14] MEDS: ATORVASTATIN 40 MG TAB PO SCH (20:20)
[2016-08-15] VITALS (9 sets, daily range): BP systolic 140–194; BP diastolic 54–75; PULSE 48–62; TEMP 36.4–36.9; O2SAT 92–95
[2016-08-15] MEDS: HydrALAZINE HCL 20 MG/ML VIAL IV. PRN ×3 (00:14→19:56)
[2016-08-15 01:53] LABS: URINE APPEARANCE CLEAR (CLEAR); URINE BILIRUBIN NEG (NEG); URINE COLOR YELLOW; URINE EPITHELIAL CELL AUTO >30 /lpf (0-5); URINE NITRITE NEG (NEG); URINE PH 5.5 (4.5-7.5); URINE SPECIFIC GRAVITY 1.018 (1.000-1.030); UROBILINOGEN NEG (NEG); ZZUR CULT IF INDIC CLEAN CATCH NO
[2016-08-15 01:54] LABS: MANUAL MICROSCOPIC REQUIRED? NO; REVIEW REQ? NO
[2016-08-15] MEDS: LEVOTHYROXINE 150 MCG TAB PO SCH (06:00)
[2016-08-15 06:34] LABS: INR 2.5 (0.9-1.1); PROTHROMBIN TIME (PATIENT) 28.3 SECONDS (9.0-12.0)
--- NOTE | 2016-08-15 06:38 | DIAGNOSTIC IMAGING REPORT ---
ORBIT RADIOGRAPHS 3 VIEWS HISTORY: pre-MRI screening. COMPARISON: None. FINDINGS: There are no radiopaque foreign bodies identified within the orbits. IMPRESSION: No radiopaque foreign bodies identified within the orbits. Electronically signed by: Rene Hernandez M.D. 08/15/2016 6:37 AM Dictated Date/Time: 08/15/2016 6:36 AM
[2016-08-15 07:04] LABS: BUN/CREATININE RATIO 14.5 (10-20); CALCIUM 8.8 mg/dl (8.5-10.1); CREATININE 2.6 mg/dl (0.60-1.40); POTASSIUM 3.9 mmol/L (3.5-5.1)
[2016-08-15] MEDS: ISOSORBIDE MONONITRATE 30 MG TABCR PO SCH (07:56)
[2016-08-15] MEDS: ASPIRIN 81 MG ECTAB PO SCH (07:56)
[2016-08-15] MEDS: AMIODARONE 200 MG TAB PO SCH (07:56)
[2016-08-15] MEDS: FINASTERIDE 5 MG TAB PO SCH (07:57)
[2016-08-15] MEDS: CHOLECALCIFEROL 1000 INTER.UNIT TAB PO SCH (07:57)
[2016-08-15] MEDS: AMLODIPINE BESYLATE 5 MG TAB PO SCH (07:57)
[2016-08-15] MEDS: CYANOCOBALAMIN 500 MCG TAB (VIT B-12) PO SCH (07:57)
[2016-08-15] MEDS: ALLOPURINOL 100 MG TAB PO SCH (07:58)
--- NOTE | 2016-08-15 09:03 | DIAGNOSTIC IMAGING REPORT ---
MRV HEAD WITHOUT CONTRAST CLINICAL HISTORY: Papilledema. COMPARISON STUDY: No previous studies for comparison. TECHNIQUE: Utilizing [id number] technique, unenhanced MRV of the brain was performed. FINDINGS: The superior sagittal sinus, straight sinus, transverse sinuses and sigmoid sinuses are patent. There is no evidence of dural sinus thrombosis on this exam. An apparent defect within the superior sagittal sinus could be congenital or represent arachnoid granulations. IMPRESSION: No evidence of dural sinus thrombosis. Electronically signed by: Hao Gardner M.D. 08/15/2016 9:01 AM Dictated Date/Time: 08/15/2016 8:57 AM
[2016-08-15] MEDS: CAPTOPRIL 12.5 MG TAB PO SCH ×3 (09:14→20:57)
--- NOTE | 2016-08-15 13:12 | Neurology Progress Notes ---
Neurology Progress Note Date of Service August 15, 2016. 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 He denies any symptoms. He reports he has been feeling well recently. He did have a admission He denies headache or blurred vision. He was seen by his eye doctor a couple of weeks ago who noted papilledema and patient had a brain MRI that was unremarkable. In the ER, patient's BP is found to be 216/77. He was given hydralazine 25mg PO and amlodipine 5mg PO with minimal improvement in BP. Trop is 0.147. EKG does not show any acute ST changes. he currently states he is feeling fine. Today his daughter is in the room. he states he is feeling well and just waiting for his blood pressure to be slowly decreased and he can go home. He has a follow up appointment with ophthalmology after discharge. He has not had a headache or blurred or double vision since this started. denies, CP, SOB, abdominal pain, one sided weakness, numbness tingling, N, V Objective Date Time Temp Pulse Resp B/P Pulse Ox O2 Delivery O2 Flow Rate FiO2 08/15/16 12:24 140/62 08/15/16 12:00 36.8 48 18 171/68 95 Room Air 08/15/16 12:00 Room Air 08/15/16 08:00 Room Air 08/15/16 07:42 36.8 49 19 182/68 92 Room Air 08/15/16 04:00 94 Room Air 08/15/16 03:37 36.8 54 20 163/58 94 Room Air 08/15/16 00:00 94 Room Air 08/14/16 23:53 36.9 57 16 194/76 95 Room Air 201/72 08/14/16 20:00 Room Air 08/14/16 19:05 36.6 51 20 166/67 95 Room Air 08/14/16 17:30 53 141/48 08/14/16 16:00 Room Air 08/14/16 15:51 36.8 48 20 197/68 97 Room Air 08/14/16 14:16 188/71 Last 24 Hours Test 08/15/16 01:37 08/15/16 06:03 Urine Color YELLOW Urine Appearance CLEAR Urine pH 5.5 Urine Specific [place] 1.018 Urine Protein 2+ Urine Glucose (UA) NEG Urine Ketones NEG Urine Occult Blood NEG Urine Nitrite NEG Urine Bilirubin NEG Urine Urobilinogen NEG Urine Leukocyte Esterase NEG Urine WBC (Auto) 1-5 /hpf Urine RBC (Auto) 0-4 /hpf Urine Hyaline Casts (Auto) 1-5 /lpf Urine Epithelial Cells (Auto) >30 /lpf Urine Bacteria (Auto) NEG Prothrombin Time 28.3 SECONDS Prothromb Time International Ratio 2.5 Sodium Level 142 mmol/L Potassium Level 3.9 mmol/L Chloride Level 110 mmol/L Carbon Dioxide Level 24 mmol/L Anion Gap 8.0 mmol/L Blood Urea Nitrogen 38 mg/dl Creatinine 2.60 mg/dl Est Creatinine Clear Calc Drug Dose 21.5 ml/min Estimated GFR () 25.1 Estimated GFR (Non- 21.7 BUN/Creatinine Ratio 14.5 Random Glucose 99 mg/dl Calcium Level 8.8 mg/dl Imaging: MRV- FINDINGS: The superior sagittal sinus, straight sinus, transverse sinuses and sigmoid sinuses are patent. There is no evidence of dural sinus thrombosis on this exam. An apparent defect within the superior sagittal sinus could be congenital or represent arachnoid granulations. Exam: Gen: alert NAD PERRL/EOMI lungs CTA, CV RRR move spontaneously and with commend sitting in bed side chair eating lunch Current Inpatient Medications Medications (Trade) Dose Ordered Sig/Blas Route Start Time Stop Time Status Last Admin Dose Admin Acetaminophen (Tylenol Tab) 650 mg Q4H PRN PO 08/13/16 16:30 09/12/16 16:29 Ondansetron HCl (Zofran Inj) 4 mg Q6H PRN IV 08/13/16 16:30 09/12/16 16:29 Allopurinol (Zyloprim Tab) 200 mg QAM PO 08/14/16 09:00 09/13/16 08:59 08/15/16 07:58 200 MG Amiodarone HCl (Cordarone Tab) 200 mg DAILY PO 08/14/16 09:00 09/13/16 08:59 08/15/16 07:56 200 MG Aspirin (Ecotrin Tab) 81 mg QAM PO 08/14/16 09:00 09/13/16 08:59 08/15/16 07:56 81 MG Atorvastatin Calcium (Lipitor Tab) 40 mg QPM PO 08/13/16 21:00 09/12/16 20:59 08/14/16 20:20 40 MG Cyanocobalamin (Vitamin B-12 Tab) 1,000 mcg QAM PO 08/14/16 09:00 09/13/16 08:59 08/15/16 07:57 1,000 MCG Finasteride (Proscar Tab) 5 mg DAILY PO 08/14/16 09:00 09/13/16 08:59 08/15/16 07:57 5 MG Isosorbide Mononitrate (Imdur Ext Rel Tab) 30 mg QAM PO 08/14/16 09:00 09/13/16 08:59 08/15/16 07:56 30 MG Levothyroxine Sodium (Synthroid Tab) 150 mcg DAILYBB PO 08/14/16 06:00 09/13/16 05:59 08/15/16 06:00 150 MCG Nortriptyline HCl (Pamelor Cap) 10 mg Q2D@0900 PO 08/14/16 09:00 09/13/16 08:59 08/14/16 07:42 10 MG Tamsulosin HCl (Flomax Cap) 0.4 mg HS PO 08/13/16 21:00 09/12/16 20:59 08/14/16 20:19 0.4 MG Cholecalciferol (Vitamin D Tab) 2,000 inter.unit QAM PO 08/14/16 09:00 09/13/16 08:59 08/15/16 07:57 2,000 INTER.UNIT Polyethylene (Miralax Powder Packet) 17 gm DAILY PRN PO 08/13/16 17:00 09/12/16 16:59 Warfarin Sodium (Coumadin Tab) 2 mg DAILY@1600 PO 08/13/16 19:15 09/12/16 19:14 08/14/16 15:34 2 MG Hydralazine HCl (Apresoline Tab) 25 mg TID PO 08/13/16 21:00 09/12/16 20:59 08/15/16 07:55 25 MG Hydralazine HCl (HydrALAZINE INJ) 10 mg Q4H PRN IV. 08/14/16 16:45 09/13/16 16:44 08/15/16 11:39 10 MG Captopril (Capoten Tab) 12.5 mg TID PO 08/14/16 21:00 09/13/16 20:59 Future hold 08/15/16 09:14 12.5 MG Amlodipine Besylate (Norvasc Tab) 10 mg QAM PO 08/15/16 09:00 09/14/16 08:59 08/15/16 07:57 10 MG Impression 86 year old male with hypertension and findings on ophthalmic exam Plan 1. HTN control lower slowly 2. other causes of papillary edema-venous thrombosis with absence of headache unlikely to r/o needs MRV- no venous thrombosis 3. no vision changes to indicate papillary edema will need the ophthalmology report- follow up when discharged with ophthalmology 4. nephrology for renal causes of hypertension- renal US done 5. will sign off for now call with questions concerns. I have seen and discussed above patient with Dr Noam Storey, neurology Seen reviewed and discussed with Nunu Conte this man has incidental papilledema without gilbert clear symptoms and no clear cause on neuroimaging It might be part of a hypertensive retinopathy picture liam to a PRES like loss of microvascular modulation but without other retinal findings this is a stretch at best He might have an elevated csf protein of an as yet undetermined cause but at this time favor a non aggressive approach with observation bp control repeat ophthalmologic evaluation in several weeks and if no improvement or if her develops symptoms of headache,pulsatile tinnitus, visual obscurations then may well need a workup to include panspinal imaging to evaluate for an intraspinal process that might produce high csf protein and will if imaging negative need an lp ( but this will require coordination with coagulation clinic and bridging in light of chronic coumadin rx and a fib ) to evaluate possible chronic meningitis etc. will check back tomorrow Rajwinder Storey MD
--- NOTE | 2016-08-15 13:17 | Cardiology Follow-Up ---
Subjective General Date of Service: August 15, 2016. Pt evaluation today including: conversation w/ patient, physical exam, chart review, lab review, review of studies, review of inpatient medication list History of Present Illness The patient is a 86 year old male seen in follow up. Blood pressure mildly improved. Captopril added by nephrology. No chest pain or SOB. Sinus bradycardia on telemetry with average HR 50BPM. Patient offers no complaints. Allergies Coded Allergies: Penicillins (Verified Allergy, Unknown, PENILE ENLARGEMENT, 08/13/16) Per Dr. Crespo, reviewed reaction in outpatient records Tramadol (Verified Adverse Reaction, Unknown, GI SYMPTOMS, 08/13/16) Social History Smoking Status: Former Smoker Hx Tobacco Use In Past Year?: No Hx Alcohol Use - Type And Amou: Yes (beer, wine occassionally) Hx Substance Use - Type And Am: No Problem List Medical Problems: (1) Atrial fibrillation with RVR Status: Acute (2) CHF (congestive heart failure) Status: Acute (3) Cholelithiasis Status: Acute (4) Elevated troponin Status: Acute (5) Pancreatitis Status: Acute (6) Right middle lobe pneumonia Status: Acute Review of Systems Respiratory: No cough, No dyspnea at rest, No dyspnea on exertion, No hemoptysis, No shortness of breath, No sputum, No wheezing Cardiac: No PND, No chest pain, No claudication, No edema, No orthopnea, No palpitations Physical Exam Vital Signs Last Vital Signs Documentation Date Time Temp Pulse Resp B/P Pulse Ox O2 Delivery O2 Flow Rate FiO2 08/15/16 12:24 140/62 08/15/16 12:00 36.8 48 18 95 Room Air Physical Exam Constitutional: General Apperance: heathly-appearing Level of Distress: NAD Head: normocephalic, atraumatic ENMT: normal ENT inspection Neck: supple, trachea midline Lungs: Auscultation: breath sounds normal, no wheezing, no rales/crackles, no rhonchi Cardiovascular: Heart Auscultation: RRR, normal S1, normal S2, no rubs, bradycardia, I/ WSM Peripheral Pulses: Radial Pulse: normal on the right Abdomen: Bowel Sounds: normal Inspection & Palpation: soft, non-distended, no tenderness, guarding & rebound Extremities: no cyanosis, no edema, no clubbing, no ulcers Neurologic: Gait & Station: pertinent finding (No focal motor deficit) Cranial Nerves: grossly intact Assessment and Plan Assessment and Plan FINAL IMPRESSION: 1. Hypertensive urgency - Blood pressure improved. - Toprol discontinued due to bradycardia - Hydralazine, amlodipine and captopril added since admission. - Patient remains asymptomatic 2. Paroxysmal atrial fibrillation - currently sinus bradycardia - anticoagulated with warfarin - rhythm controlled with amiodarone. 3. History of stress-induced cardiomyopathy - resolved; normal LV systolic function per repeat echo. 4. Mildly elevated troponin - not indicative of acute coronary syndrome, - secondary to hypertensive urgency/renal insufficiency. 5. Chronic kidney disease, stage III-IV. 6. Hypothyroidism. TSH within normal limits. PLAN AND RECOMMENDATIONS: Continue current PO anti-hypertensive medications as ordered with IV hydralazine prn. Toprol XL discontinued, however, will continue low dose amiodarone for rhythm control. Follow telemetry. Repeat BMP in AM. No further cardiac testing at this time. Laboratory Results Last 24 Hours Test 08/15/16 01:37 08/15/16 06:03 Urine Color YELLOW Urine Appearance CLEAR Urine pH 5.5 Urine Specific [place] 1.018 Urine Protein 2+ Urine Glucose (UA) NEG Urine Ketones NEG Urine Occult Blood NEG Urine Nitrite NEG Urine Bilirubin NEG Urine Urobilinogen NEG Urine Leukocyte Esterase NEG Urine WBC (Auto) 1-5 /hpf Urine RBC (Auto) 0-4 /hpf Urine Hyaline Casts (Auto) 1-5 /lpf Urine Epithelial Cells (Auto) >30 /lpf Urine Bacteria (Auto) NEG Prothrombin Time 28.3 SECONDS Prothromb Time International Ratio 2.5 Sodium Level 142 mmol/L Potassium Level 3.9 mmol/L Chloride Level 110 mmol/L Carbon Dioxide Level 24 mmol/L Anion Gap 8.0 mmol/L Blood Urea Nitrogen 38 mg/dl Creatinine 2.60 mg/dl Est Creatinine Clear Calc Drug Dose 21.5 ml/min Estimated GFR () 25.1 Estimated GFR (Non- 21.7 BUN/Creatinine Ratio 14.5 Random Glucose 99 mg/dl Calcium Level 8.8 mg/dl
--- NOTE | 2016-08-15 16:03 | Nephrology Progress Note ---
Nephrology Progress Note Date of Service: August 15, 2016. Subjective cardiology/neuro have seen pt > no emergent issues; following closely; captopril on hold d/t higher creat; seen on rounds at 1030 am Objective Date Time Temp Pulse Resp B/P Pulse Ox O2 Delivery O2 Flow Rate FiO2 08/15/16 07:42 36.8 49 19 182/68 92 Room Air 08/15/16 04:00 94 Room Air 08/15/16 03:37 36.8 54 20 163/58 94 Room Air 08/15/16 00:00 94 Room Air 08/14/16 23:53 36.9 57 16 194/76 95 Room Air 201/72 08/14/16 20:00 Room Air 08/14/16 19:05 36.6 51 20 166/67 95 Room Air 08/14/16 17:30 53 141/48 08/14/16 16:00 Room Air 08/14/16 15:51 36.8 48 20 197/68 97 Room Air 08/14/16 14:16 188/71 08/14/16 12:00 Room Air 08/14/16 11:24 36.5 48 18 182/63 94 Room Air 08/14/16 10:01 186/67 Physical Exam: General Appearance: WD/WN, no apparent distress (sitting up in chair on RA) Eyes: EOMI ENT: hearing grossly normal Neck: supple Respiratory/Chest: lungs clear, + decreased breath sounds Cardiovascular: no edema, no gallop, + bradycardia Abdomen: normal bowel sounds, non tender, soft (no puentes) Extremities: normal range of motion, non-tender, normal inspection Neurologic/Psych: alert, normal mood/affect, oriented x 3 Skin: normal color, no jaundice, warm/dry, no rash Current Inpatient Medications Medications (Trade) Dose Ordered Sig/Blas Route Start Time Stop Time Status Last Admin Dose Admin Acetaminophen (Tylenol Tab) 650 mg Q4H PRN PO 08/13/16 16:30 09/12/16 16:29 Ondansetron HCl (Zofran Inj) 4 mg Q6H PRN IV 08/13/16 16:30 09/12/16 16:29 Allopurinol (Zyloprim Tab) 200 mg QAM PO 08/14/16 09:00 09/13/16 08:59 08/15/16 07:58 200 MG Amiodarone HCl (Cordarone Tab) 200 mg DAILY PO 08/14/16 09:00 09/13/16 08:59 08/15/16 07:56 200 MG Aspirin (Ecotrin Tab) 81 mg QAM PO 08/14/16 09:00 09/13/16 08:59 08/15/16 07:56 81 MG Atorvastatin Calcium (Lipitor Tab) 40 mg QPM PO 08/13/16 21:00 09/12/16 20:59 08/14/16 20:20 40 MG Cyanocobalamin (Vitamin B-12 Tab) 1,000 mcg QAM PO 08/14/16 09:00 09/13/16 08:59 08/15/16 07:57 1,000 MCG Finasteride (Proscar Tab) 5 mg DAILY PO 08/14/16 09:00 09/13/16 08:59 08/15/16 07:57 5 MG Isosorbide Mononitrate (Imdur Ext Rel Tab) 30 mg QAM PO 08/14/16 09:00 09/13/16 08:59 08/15/16 07:56 30 MG Levothyroxine Sodium (Synthroid Tab) 150 mcg DAILYBB PO 08/14/16 06:00 09/13/16 05:59 08/15/16 06:00 150 MCG Nortriptyline HCl (Pamelor Cap) 10 mg Q2D@0900 PO 08/14/16 09:00 09/13/16 08:59 08/14/16 07:42 10 MG Tamsulosin HCl (Flomax Cap) 0.4 mg HS PO 08/13/16 21:00 09/12/16 20:59 08/14/16 20:19 0.4 MG Cholecalciferol (Vitamin D Tab) 2,000 inter.unit QAM PO 08/14/16 09:00 09/13/16 08:59 08/15/16 07:57 2,000 INTER.UNIT Polyethylene (Miralax Powder Packet) 17 gm DAILY PRN PO 08/13/16 17:00 09/12/16 16:59 Warfarin Sodium (Coumadin Tab) 2 mg DAILY@1600 PO 08/13/16 19:15 09/12/16 19:14 08/14/16 15:34 2 MG Hydralazine HCl (Apresoline Tab) 25 mg TID PO 08/13/16 21:00 09/12/16 20:59 08/15/16 07:55 25 MG Hydralazine HCl (HydrALAZINE INJ) 10 mg Q4H PRN IV. 08/14/16 16:45 09/13/16 16:44 08/15/16 00:14 10 MG Captopril (Capoten Tab) 12.5 mg TID PO 08/14/16 21:00 09/13/16 20:59 Future Hold 08/14/16 20:19 12.5 MG Amlodipine Besylate (Norvasc Tab) 10 mg QAM PO 08/15/16 09:00 09/14/16 08:59 08/15/16 07:57 10 MG Last 24 Hours Test 08/15/16 01:37 08/15/16 06:03 Urine Color YELLOW Urine Appearance CLEAR Urine pH 5.5 Urine Specific [place] 1.018 Urine Protein 2+ Urine Glucose (UA) NEG Urine Ketones NEG Urine Occult Blood NEG Urine Nitrite NEG Urine Bilirubin NEG Urine Urobilinogen NEG Urine Leukocyte Esterase NEG Urine WBC (Auto) 1-5 /hpf Urine RBC (Auto) 0-4 /hpf Urine Hyaline Casts (Auto) 1-5 /lpf Urine Epithelial Cells (Auto) >30 /lpf Urine Bacteria (Auto) NEG Prothrombin Time 28.3 SECONDS Prothromb Time International Ratio 2.5 Sodium Level 142 mmol/L Potassium Level 3.9 mmol/L Chloride Level 110 mmol/L Carbon Dioxide Level 24 mmol/L Anion Gap 8.0 mmol/L Blood Urea Nitrogen 38 mg/dl Creatinine 2.60 mg/dl Est Creatinine Clear Calc Drug Dose 21.5 ml/min Estimated GFR () 25.1 Estimated GFR (Non- 21.7 BUN/Creatinine Ratio 14.5 Random Glucose 99 mg/dl Calcium Level 8.8 mg/dl Other Studies: TTE 60% EF; moderate LVH; severe biatrial dil; PASP 49; Assessment & Plan 86 y/o M admitted w/ HTN urgency in the setting of complex CKD 4 recently dialysis dependent until 04/2016 x 4 mos after ICU admission w/ NSTEMI/PNA 12/2015 , PAF, chronic bradycardia. Baseline creatinine still evolving but appears to be low - mid 2's w/ recently about 1 gm/day proteinuria. Urine sediment here apart from dipstick proteinuria bland. no DRAKE. HTN urgency w/ labile SBP (range 141 -197 yesterday) and bradycardia note no focal/ acute neurologic deficits or cardiac/respiratory/ neuro/ generalized symptoms on exam/interview. neurology/cardiology have evaluated pt , find no emergent issues at this time -cont CCB, hydralazine; cardiology following and agrees w/ holding BB for now -not unreasonable to hold captopril for now given change in creat; though this change would be acceptable if we get adequate bp control -ultimate goal is sbp <140 over days -daily bmp pls CKD 4, recently on HD -at baseline currently; pls monitor function daily Appreciate consult; will follow w/ you. Care coordinated w/ Dr Morrow
[2016-08-15] MEDS: WARFARIN SOD 2 MG TAB PO SCH (16:15)
--- NOTE | 2016-08-15 19:56 | Progress Note ---
Medicine Progress Note Date & Time of Visit: August 15, 2016 at 19:45. Subjective Pt was seen and examined Sitting in chair comfortable with no distress Pt said that he feels fine he denies any vision change, chest pain, palpitation and sob Objective Last 8 Hrs Date Time Temp Pulse Resp B/P Pulse Ox O2 Delivery O2 Flow Rate FiO2 08/15/16 16:00 Room Air 08/15/16 15:14 36.4 49 18 168/65 94 Room Air 08/15/16 12:24 140/62 08/15/16 12:00 36.8 48 18 171/68 95 Room Air 08/15/16 12:00 Room Air Physical Exam: General- very pleasant, no distress Head- atraumatic Eyes- EOMI, No vision changes ENT- oropharynx clear Neck- supple, no JVD, no adenopathy Lungs- clear to auscultation, no wheezing Heart- + bradycardia, no murmur Abdomen- normal bowel sounds, soft Extremities- no pretibial edema, no calf tenderness Neuro- alert, oriented x 3; PERRL, EOMI; no facial palsy; no dysarthria; motor 5 /5 bilaterally Skin- warm & dry Laboratory Results: Last 24 Hours Test 08/15/16 01:37 08/15/16 06:03 Urine Color YELLOW Urine Appearance CLEAR Urine pH 5.5 Urine Specific [place] 1.018 Urine Protein 2+ Urine Glucose (UA) NEG Urine Ketones NEG Urine Occult Blood NEG Urine Nitrite NEG Urine Bilirubin NEG Urine Urobilinogen NEG Urine Leukocyte Esterase NEG Urine WBC (Auto) 1-5 /hpf Urine RBC (Auto) 0-4 /hpf Urine Hyaline Casts (Auto) 1-5 /lpf Urine Epithelial Cells (Auto) >30 /lpf Urine Bacteria (Auto) NEG Prothrombin Time 28.3 SECONDS Prothromb Time International Ratio 2.5 Sodium Level 142 mmol/L Potassium Level 3.9 mmol/L Chloride Level 110 mmol/L Carbon Dioxide Level 24 mmol/L Anion Gap 8.0 mmol/L Blood Urea Nitrogen 38 mg/dl Creatinine 2.60 mg/dl Est Creatinine Clear Calc Drug Dose 21.5 ml/min Estimated GFR () 25.1 Estimated GFR (Non- 21.7 BUN/Creatinine Ratio 14.5 Random Glucose 99 mg/dl Calcium Level 8.8 mg/dl Assessment & Plan HYPERTENSIVE URGENCY - BP on admission 216/77 - Asymptomatic - On hydralazine 25mg TID and amlodipine 10 mg daily - continue Metoprolol 50mg daily and Imdur 30 mg - Case discussed with Dr. Alarcon that is ok to continue captopril 12.5 mg TID - On hydralazine PRN for SBP above 170 ELEVATED TROPONIN - likely demand ischemia from hypertensive urgency / underlying CKD -Denies any chest pain - EKG did nod show any significant ischemic changes - continue ASA, beta preet, and statin - Cardiology consulted ECHO showed * Ejection Fraction = 60-65%. * There is moderate concentric left ventricular hypertrophy. * Diastolic dysfunction, Grade II (pseudonormalization pattern). * The left atrium is severely dilated. * The right atrium is moderate to severely dilated. * Aortic valve sclerosis mild, without significant aortic valvular stenosis. * There is mild mitral regurgitation. * There is trace tricuspid regurgitation. * The estimated systolic PAP is 49mmHg. RIGHT TEMPORAL ENCEPHALOMALACIA Had outpatient MRI of the head on 07/31 that showed 1.2 cm R frontal nonspecific soft tissue nodule and R temporal encephalomalacia. Denies any focal neuro deficit, no change in vision MRI Orbital showed no radiopaque foreign bodies identified within the orbits. MRV head showed No evidence of dural sinus thrombosis. Neurology on board ATRIAL FIBRILLATION - currently in sinus bradycardia - rate controlled - rhythm controlled on amiodarone - HR dropped in the high 40s - Continue coumadin, INR 2.5 (Therapeutic) BRADYCARDIA Asymptomatic Cardiology discontinue metoprolol Continue monitor in tele CKD STAGE IV - Was recently on HD - baseline creat in the low 2 - Creatine 2.6 - avoid nephrotoxic agents - Continue monitor BMP HYPOTHYROIDISM - continue levothyroxine BPH - continue tamsulosin and finasteride DVT PROPHYLAXIS - on Coumadin with therapeutic INR CODE STATUS FULL CODE Consultants: Cardio Neuro Nephro Current Inpatient Medications: Current Inpatient Medications Medications (Trade) Dose Ordered Sig/Blas Route Start Time Stop Time Status Last Admin Dose Admin Acetaminophen (Tylenol Tab) 650 mg Q4H PRN PO 08/13/16 16:30 09/12/16 16:29 Ondansetron HCl (Zofran Inj) 4 mg Q6H PRN IV 08/13/16 16:30 09/12/16 16:29 Allopurinol (Zyloprim Tab) 200 mg QAM PO 08/14/16 09:00 09/13/16 08:59 08/15/16 07:58 200 MG Amiodarone HCl (Cordarone Tab) 200 mg DAILY PO 08/14/16 09:00 09/13/16 08:59 08/15/16 07:56 200 MG Aspirin (Ecotrin Tab) 81 mg QAM PO 08/14/16 09:00 09/13/16 08:59 08/15/16 07:56 81 MG Atorvastatin Calcium (Lipitor Tab) 40 mg QPM PO 08/13/16 21:00 09/12/16 20:59 08/14/16 20:20 40 MG Cyanocobalamin (Vitamin B-12 Tab) 1,000 mcg QAM PO 08/14/16 09:00 09/13/16 08:59 08/15/16 07:57 1,000 MCG Finasteride (Proscar Tab) 5 mg DAILY PO 08/14/16 09:00 09/13/16 08:59 08/15/16 07:57 5 MG Isosorbide Mononitrate (Imdur Ext Rel Tab) 30 mg QAM PO 08/14/16 09:00 09/13/16 08:59 08/15/16 07:56 30 MG Levothyroxine Sodium (Synthroid Tab) 150 mcg DAILYBB PO 08/14/16 06:00 09/13/16 05:59 08/15/16 06:00 150 MCG Nortriptyline HCl (Pamelor Cap) 10 mg Q2D@0900 PO 08/14/16 09:00 09/13/16 08:59 08/14/16 07:42 10 MG Tamsulosin HCl (Flomax Cap) 0.4 mg HS PO 08/13/16 21:00 09/12/16 20:59 08/14/16 20:19 0.4 MG Cholecalciferol (Vitamin D Tab) 2,000 inter.unit QAM PO 08/14/16 09:00 09/13/16 08:59 08/15/16 07:57 2,000 INTER.UNIT Polyethylene (Miralax Powder Packet) 17 gm DAILY PRN PO 08/13/16 17:00 09/12/16 16:59 Warfarin Sodium (Coumadin Tab) 2 mg DAILY@1600 PO 08/13/16 19:15 09/12/16 19:14 08/15/16 16:15 2 MG Hydralazine HCl (Apresoline Tab) 25 mg TID PO 08/13/16 21:00 09/12/16 20:59 08/15/16 14:23 25 MG Hydralazine HCl (HydrALAZINE INJ) 10 mg Q4H PRN IV. 08/14/16 16:45 09/13/16 16:44 08/15/16 11:39 10 MG Captopril (Capoten Tab) 12.5 mg TID PO 08/14/16 21:00 09/13/16 20:59 Future hold 08/15/16 14:23 12.5 MG Amlodipine Besylate (Norvasc Tab) 10 mg QAM PO 08/15/16 09:00 09/14/16 08:59 08/15/16 07:57 10 MG
[2016-08-15] MEDS: ATORVASTATIN 40 MG TAB PO SCH (20:58)
[2016-08-15] MEDS: TAMSULOSIN HCL 0.4 MG CAP PO SCH (20:58)
[2016-08-16 03:47] VITALS: BP 169/64; PULSE 67; TEMP 37; O2SAT 95
[2016-08-16] MEDS: LEVOTHYROXINE 150 MCG TAB PO SCH (05:54)
[2016-08-16 07:25] VITALS: BP 170/65; PULSE 57; TEMP 36.8; O2SAT 93
--- NOTE | 2016-08-16 07:48 | Nephrology Progress Note ---
Nephrology Progress Note Date of Service: August 16, 2016. Subjective no c/o; not dypsneic, no edema, no n/v; no vision changes, no pain. BP still high but a bit better Objective Date Time Temp Pulse Resp B/P Pulse Ox O2 Delivery O2 Flow Rate FiO2 08/16/16 04:00 Room Air 08/16/16 03:47 37.0 67 19 169/64 95 Room Air 08/15/16 23:59 Room Air 08/15/16 23:52 36.8 62 19 169/54 94 Room Air 08/15/16 20:00 Room Air 08/15/16 19:50 36.9 51 20 194/75 95 Room Air 08/15/16 16:00 Room Air 08/15/16 15:14 36.4 49 18 168/65 94 Room Air 08/15/16 12:24 140/62 08/15/16 12:00 36.8 48 18 171/68 95 Room Air 08/15/16 12:00 Room Air 08/15/16 08:00 Room Air 08/15/16 07:42 36.8 49 19 182/68 92 Room Air Physical Exam: General Appearance: WD/WN, no apparent distress (again sitting up in chair on RA) Eyes: EOMI ENT: hearing grossly normal Neck: supple Respiratory/Chest: lungs clear, + decreased breath sounds Cardiovascular: no edema, no gallop, RRR Abdomen: normal bowel sounds, non tender, soft (no puentes) Extremities: normal range of motion, non-tender, normal inspection Neurologic/Psych: alert, normal mood/affect, oriented x 3 Skin: normal color, no jaundice, warm/dry, no rash Current Inpatient Medications Medications (Trade) Dose Ordered Sig/Blas Route Start Time Stop Time Status Last Admin Dose Admin Acetaminophen (Tylenol Tab) 650 mg Q4H PRN PO 08/13/16 16:30 09/12/16 16:29 Ondansetron HCl (Zofran Inj) 4 mg Q6H PRN IV 08/13/16 16:30 09/12/16 16:29 Allopurinol (Zyloprim Tab) 200 mg QAM PO 08/14/16 09:00 09/13/16 08:59 08/15/16 07:58 200 MG Amiodarone HCl (Cordarone Tab) 200 mg DAILY PO 08/14/16 09:00 09/13/16 08:59 08/15/16 07:56 200 MG Aspirin (Ecotrin Tab) 81 mg QAM PO 08/14/16 09:00 09/13/16 08:59 08/15/16 07:56 81 MG Atorvastatin Calcium (Lipitor Tab) 40 mg QPM PO 08/13/16 21:00 09/12/16 20:59 08/15/16 20:58 40 MG Cyanocobalamin (Vitamin B-12 Tab) 1,000 mcg QAM PO 08/14/16 09:00 09/13/16 08:59 08/15/16 07:57 1,000 MCG Finasteride (Proscar Tab) 5 mg DAILY PO 08/14/16 09:00 09/13/16 08:59 08/15/16 07:57 5 MG Isosorbide Mononitrate (Imdur Ext Rel Tab) 30 mg QAM PO 08/14/16 09:00 09/13/16 08:59 08/15/16 07:56 30 MG Levothyroxine Sodium (Synthroid Tab) 150 mcg DAILYBB PO 08/14/16 06:00 09/13/16 05:59 08/16/16 05:54 150 MCG Nortriptyline HCl (Pamelor Cap) 10 mg Q2D@0900 PO 08/14/16 09:00 09/13/16 08:59 08/14/16 07:42 10 MG Tamsulosin HCl (Flomax Cap) 0.4 mg HS PO 08/13/16 21:00 09/12/16 20:59 08/15/16 20:58 0.4 MG Cholecalciferol (Vitamin D Tab) 2,000 inter.unit QAM PO 08/14/16 09:00 09/13/16 08:59 08/15/16 07:57 2,000 INTER.UNIT Polyethylene (Miralax Powder Packet) 17 gm DAILY PRN PO 08/13/16 17:00 09/12/16 16:59 Warfarin Sodium (Coumadin Tab) 2 mg DAILY@1600 PO 08/13/16 19:15 09/12/16 19:14 08/15/16 16:15 2 MG Hydralazine HCl (Apresoline Tab) 25 mg TID PO 08/13/16 21:00 09/12/16 20:59 08/15/16 20:58 25 MG Hydralazine HCl (HydrALAZINE INJ) 10 mg Q4H PRN IV. 08/14/16 16:45 09/13/16 16:44 08/15/16 19:56 10 MG Captopril (Capoten Tab) 12.5 mg TID PO 08/14/16 21:00 09/13/16 20:59 Future hold 08/15/16 20:57 12.5 MG Amlodipine Besylate (Norvasc Tab) 10 mg QAM PO 08/15/16 09:00 09/14/16 08:59 08/15/16 07:57 10 MG Last 24 Hours Test 08/16/16 04:44 Assessment & Plan 86 y/o M admitted w/ HTN urgency in the setting of complex CKD 4 recently dialysis dependent until 04/2016 x 4 mos after ICU admission w/ NSTEMI/PNA 12/2015 , PAF, chronic bradycardia. Baseline creatinine still evolving but appears to be low - mid 2's w/ recently about 1 gm/day proteinuria. Urine sediment here apart from dipstick proteinuria bland. no DRAKE. HTN urgency w/ labile SBP (range 169 -197 yesterday) and improving bradycardia note no focal/ acute neurologic deficits or cardiac/respiratory/ neuro/ generalized symptoms on exam/interview. neurology/cardiology have evaluated pt , find no emergent issues at this time -cont CCB, hydralazine>increase hydralazine to 50 mg tid -hold BB -cont captopril current dose tid; if creatinine >2.9, cont this med -ultimate goal is sbp <140 over days; ideally would not d/c until SBP consistently < 170 over at least 8-12 h on stable meds -daily bmp pls CKD 4, recently on HD -at baseline currently; pls monitor function daily 1.2 cm R frontal soft tissue nodule and R temporal encephalomalacia on MRI -pls clarify w/ neurology what f/u if any for soft tissue nodule Appreciate consultation; will follow with you
[2016-08-16] MEDS: CAPTOPRIL 12.5 MG TAB PO SCH ×3 (08:05→21:01)
[2016-08-16] MEDS: ISOSORBIDE MONONITRATE 30 MG TABCR PO SCH (08:06)
[2016-08-16] MEDS: AMIODARONE 200 MG TAB PO SCH (08:06)
[2016-08-16] MEDS: ASPIRIN 81 MG ECTAB PO SCH (08:06)
[2016-08-16] MEDS: AMLODIPINE BESYLATE 5 MG TAB PO SCH (08:06)
[2016-08-16] MEDS: CYANOCOBALAMIN 500 MCG TAB (VIT B-12) PO SCH (08:07)
[2016-08-16] MEDS: NORTRIPTYLINE HCL 10 MG CAP PO SCH (08:07)
[2016-08-16] MEDS: FINASTERIDE 5 MG TAB PO SCH (08:07)
[2016-08-16] MEDS: ALLOPURINOL 100 MG TAB PO SCH (08:08)
[2016-08-16] MEDS: CHOLECALCIFEROL 1000 INTER.UNIT TAB PO SCH (08:08)
[2016-08-16 09:04] LABS: BUN/CREATININE RATIO 15.4 (10-20); CREATININE 2.8 mg/dl (0.60-1.40); POTASSIUM 3.5 mmol/L (3.5-5.1)
[2016-08-16 09:07] LABS: CALCIUM 9.2 mg/dl (8.5-10.1)
[2016-08-16] MEDS ORDERED: CLONIDINE HCL 0.1 MG TAB PO ONE (10:15)
--- NOTE | 2016-08-16 10:24 | CARDIOLOGY PROGRESS NOTE ---
DATE: 08/16/2016 DATE: 08/16/2016. FOLLOW-UP VISIT SUBJECTIVE: The patient is an 86-year-old with a history of paroxysmal atrial fibrillation, hypertension and chronic kidney disease who presented with hypertensive crisis. The patient has no complaints today and had an uneventful night; however, he remains hypertensive. OBJECTIVE: GENERAL: He is alert and oriented. VITAL SIGNS: Blood pressure 170/65, pulse is regular at 57. He is afebrile. HEAD, EYES, EARS, NOSE, AND THROAT: He is normocephalic. Pupils are equal and reactive to light. Mucous membranes are moist. NECK: The neck veins are flat. Carotids have good upstrokes bilaterally without bruits. Thyroid is nonpalpable. RESPIRATORY: Breath sounds equal bilaterally and clear to auscultation. CARDIOVASCULAR: Heart has a regular rhythm. Normal S1, S2. No S3, S4. No cardiac rubs or murmurs. GASTROINTESTINAL: Abdomen is soft, nontender without organomegaly. EXTREMITIES: Free of edema, digit clubbing, or cyanosis. NEUROLOGIC: Grossly intact. SKIN: Warm to touch. LYMPH NODES: Negative to palpation. LABORATORY DATA: Hemoglobin is 12.3, potassium is 3.5, creatinine is 2.8. INR is 2.5. IMPRESSIONS: 1. Hypertensive crisis. 2. History of paroxysmal atrial arrhythmias. 3. Chronic kidney disease. RECOMMENDATIONS: The patient remains hypertensive and I am going to start clonidine 0.1 mg b.i.d. to help improve his hypertension. He continues on warfarin. At this point, we have his hypertension better controlled, but if he develops hypertensive crisis again, then we should hold his warfarin until things improve. We will continue to follow along with you during his hospital stay.
[2016-08-16 11:44] VITALS: BP 162/57; PULSE 55; TEMP 36.7; O2SAT 96
--- NOTE | 2016-08-16 12:32 | PROGRESS NOTE ---
DATE: 08/16/2016 DATE: 08/16/2016. Devendra looks great today. He is sitting in a chair reading a newspaper, has absolutely no symptoms of visual obscuration, pulsatile tinnitus, headache, stiffness of his neck, back pain, bowel or bladder dysfunction or anything neurologic to indicate that apparently observed papilledema several weeks ago is of any significance. He is hypertensive, has been for some time. It is possible that the optic nerve swelling was related to this, although this is a bit of a stretch unless there was other evidence for hypertensive retinopathy. Whatever the case, the differential diagnosis remains that of an elevated CSF protein, perhaps even an infectious process of smoldering type, although that is really unlikely in view of his excellent health overall and lack of complaints. Our plans are to have him seen by Dr. Hicks again to establish whether or not papilledema is still present or whether it is improving with treatment of his hypertension. If it is still present, then we will need to get some spinal imaging done to be sure there is not intraspinal mass such as ependymoma that may be asymptomatic with exception of increasing CSF protein and if the MRI imaging is negative, then we will have to proceed with a lumbar puncture, but this will require bridging his anticoagulation in light of his chronic Coumadin therapy and atrial fibrillation. Hopefully, these steps will not be necessary, but if they are they could be done on an outpatient basis. Discharge plans are uncertain. I will check back with him tomorrow, but if he is discharged, I think followup with Dr. Hicks and then depending on what is found followup with Nunu Wright and Dr. Barker or myself in the future will be reasonable. MICHELLE
[2016-08-16 16:01] VITALS: BP 145/59; PULSE 51; TEMP 36.7; O2SAT 95
[2016-08-16] MEDS: WARFARIN SOD 2 MG TAB PO SCH (16:44)
[2016-08-16 20:21] VITALS: BP 180/72; PULSE 51; TEMP 36.8; O2SAT 94
--- NOTE | 2016-08-16 20:32 | Progress Note ---
Medicine Progress Note Date & Time of Visit: August 16, 2016 at 20:24. Subjective Pt was seen and examined Sitting in chair very comfortable with no distress Pt said that he feels fine he denies any chest pain, palpitation and sob Objective Last 8 Hrs Date Time Temp Pulse Resp B/P Pulse Ox O2 Delivery O2 Flow Rate FiO2 08/16/16 16:01 36.7 51 20 145/59 95 Room Air 08/16/16 16:00 Room Air Physical Exam: General- very pleasant, no distress Head- atraumatic Eyes- EOMI, No vision changes ENT- oropharynx clear Neck- supple, no JVD, no adenopathy Lungs- clear to auscultation, no wheezing Heart- + bradycardia, no murmur Abdomen- normal bowel sounds, soft Extremities- no pretibial edema, no calf tenderness Neuro- alert, oriented x 3; PERRL, EOMI; no facial palsy; no dysarthria; motor 5 /5 bilaterally Skin- warm & dry Laboratory Results: Last 24 Hours Test 08/16/16 07:55 Sodium Level 140 mmol/L Potassium Level 3.5 mmol/L Chloride Level 107 mmol/L Carbon Dioxide Level 24 mmol/L Anion Gap 9.0 mmol/L Blood Urea Nitrogen 43 mg/dl Creatinine 2.80 mg/dl Est Creatinine Clear Calc Drug Dose 19.9 ml/min Estimated GFR () 23.0 Estimated GFR (Non- 19.8 BUN/Creatinine Ratio 15.4 Random Glucose 96 mg/dl Calcium Level 9.2 mg/dl Assessment & Plan HYPERTENSIVE URGENCY - BP on admission 216/77 - Asymptomatic - On hydralazine 25mg TID and amlodipine 10 mg daily - continue Metoprolol 50mg daily and Imdur 30 mg - continue captopril 12.5 mg TID - On hydralazine PRN for SBP above 170 - Clonidine 0.1 mg BID was added - Continue monitor BP ELEVATED TROPONIN - likely demand ischemia from hypertensive urgency / underlying CKD -Denies any chest pain - EKG did nod show any significant ischemic changes - continue ASA, beta preet, and statin - Cardiology consulted ECHO showed * Ejection Fraction = 60-65%. * There is moderate concentric left ventricular hypertrophy. * Diastolic dysfunction, Grade II (pseudonormalization pattern). * The left atrium is severely dilated. * The right atrium is moderate to severely dilated. * Aortic valve sclerosis mild, without significant aortic valvular stenosis. * There is mild mitral regurgitation. * There is trace tricuspid regurgitation. * The estimated systolic PAP is 49mmHg. RIGHT TEMPORAL ENCEPHALOMALACIA Had outpatient MRI of the head on 07/31 that showed 1.2 cm R frontal nonspecific soft tissue nodule and R temporal encephalomalacia. Denies any focal neuro deficit, no change in vision Papilledema noted on his last ophth exam with Dr. Hicks MRI Orbital showed no radiopaque foreign bodies identified within the orbits. MRV head showed No evidence of dural sinus thrombosis. Neurology recommend to follow with dr. Hicks to check if the papilledema is still present since his BP has been improved slowly If papilledema still present, Neuro would like to see pt as an outpatient for further workup. ATRIAL FIBRILLATION - currently in sinus bradycardia - rate controlled - rhythm controlled on amiodarone - HR dropped in the high 40s - Continue coumadin, INR 2.5 (Therapeutic) BRADYCARDIA Asymptomatic Cardiology discontinue metoprolol Continue monitor in tele CKD STAGE IV - Was recently on HD - baseline creat in the low 2 - Creatine 2.8 today - avoid nephrotoxic agents - Continue monitor BMP HYPOTHYROIDISM - continue levothyroxine BPH - continue tamsulosin and finasteride DVT PROPHYLAXIS - on Coumadin with therapeutic INR CODE STATUS FULL CODE Consultants: Cardio Neuro Nephro Current Inpatient Medications: Current Inpatient Medications Medications (Trade) Dose Ordered Sig/Blas Route Start Time Stop Time Status Last Admin Dose Admin Acetaminophen (Tylenol Tab) 650 mg Q4H PRN PO 08/13/16 16:30 09/12/16 16:29 Ondansetron HCl (Zofran Inj) 4 mg Q6H PRN IV 08/13/16 16:30 09/12/16 16:29 Allopurinol (Zyloprim Tab) 200 mg QAM PO 08/14/16 09:00 09/13/16 08:59 08/16/16 08:08 200 MG Amiodarone HCl (Cordarone Tab) 200 mg DAILY PO 08/14/16 09:00 09/13/16 08:59 08/16/16 08:06 200 MG Aspirin (Ecotrin Tab) 81 mg QAM PO 08/14/16 09:00 09/13/16 08:59 08/16/16 08:06 81 MG Atorvastatin Calcium (Lipitor Tab) 40 mg QPM PO 08/13/16 21:00 09/12/16 20:59 08/15/16 20:58 40 MG Cyanocobalamin (Vitamin B-12 Tab) 1,000 mcg QAM PO 08/14/16 09:00 09/13/16 08:59 08/16/16 08:07 1,000 MCG Finasteride (Proscar Tab) 5 mg DAILY PO 08/14/16 09:00 09/13/16 08:59 08/16/16 08:07 5 MG Isosorbide Mononitrate (Imdur Ext Rel Tab) 30 mg QAM PO 08/14/16 09:00 09/13/16 08:59 08/16/16 08:06 30 MG Levothyroxine Sodium (Synthroid Tab) 150 mcg DAILYBB PO 08/14/16 06:00 09/13/16 05:59 08/16/16 05:54 150 MCG Nortriptyline HCl (Pamelor Cap) 10 mg Q2D@0900 PO 08/14/16 09:00 09/13/16 08:59 08/16/16 08:07 10 MG Tamsulosin HCl (Flomax Cap) 0.4 mg HS PO 08/13/16 21:00 09/12/16 20:59 08/15/16 20:58 0.4 MG Cholecalciferol (Vitamin D Tab) 2,000 inter.unit QAM PO 08/14/16 09:00 09/13/16 08:59 08/16/16 08:08 2,000 INTER.UNIT Polyethylene (Miralax Powder Packet) 17 gm DAILY PRN PO 08/13/16 17:00 09/12/16 16:59 Warfarin Sodium (Coumadin Tab) 2 mg DAILY@1600 PO 08/13/16 19:15 09/12/16 19:14 08/16/16 16:44 2 MG Hydralazine HCl (Apresoline Tab) 25 mg TID PO 08/13/16 21:00 09/12/16 20:59 08/16/16 13:57 25 MG Hydralazine HCl (HydrALAZINE INJ) 10 mg Q4H PRN IV. 08/14/16 16:45 09/13/16 16:44 08/15/16 19:56 10 MG Captopril (Capoten Tab) 12.5 mg TID PO 08/14/16 21:00 09/13/16 20:59 Future hold 08/16/16 13:57 12.5 MG Amlodipine Besylate (Norvasc Tab) 10 mg QAM PO 08/15/16 09:00 09/14/16 08:59 08/16/16 08:06 10 MG Clonidine HCl (Catapres Tab) 0.1 mg BID PO 08/16/16 21:00 09/15/16 20:59
[2016-08-16] MEDS: TAMSULOSIN HCL 0.4 MG CAP PO SCH (21:00)
[2016-08-16] MEDS: ATORVASTATIN 40 MG TAB PO SCH (21:00)
[2016-08-16] MEDS: CLONIDINE HCL 0.1 MG TAB PO SCH (21:01)
[2016-08-16 23:02] VITALS: BP 167/57; PULSE 50; TEMP 36.7; O2SAT 96
[2016-08-17 03:22] VITALS: BP 162/61; PULSE 49; TEMP 36.7; O2SAT 94
[2016-08-17] MEDS: LEVOTHYROXINE 150 MCG TAB PO SCH (06:16)
[2016-08-17 07:13] LABS: HEMATOCRIT 34.8 % (42-52); MEAN CELL VOLUME 96.4 fL (80-100); MEAN CORPUSCULAR HEMOGLOBIN 31.6 pg (25-34); MEAN CORPUSCULAR HGB CONC 32.8 g/dl (32-36); MEAN PLATELET VOLUME 10.1 fL (7.4-10.4); PLATELET COUNT 176 K/uL (130-400); RED BLOOD COUNT 3.61 M/uL (4.7-6.1)
[2016-08-17 07:21] LABS: INR 2.9 (0.9-1.1); PROTHROMBIN TIME (PATIENT) 32.8 SECONDS (9.0-12.0)
[2016-08-17 07:47] LABS: BUN/CREATININE RATIO 18.2 (10-20); CALCIUM 8.4 mg/dl (8.5-10.1); CREATININE 2.5 mg/dl (0.60-1.40); POTASSIUM 3.7 mmol/L (3.5-5.1)
[2016-08-17] MEDS: CAPTOPRIL 12.5 MG TAB PO SCH ×2 (08:26→13:43)
[2016-08-17] MEDS: AMIODARONE 200 MG TAB PO SCH (08:26)
[2016-08-17] MEDS: CLONIDINE HCL 0.1 MG TAB PO SCH (08:26)
[2016-08-17] MEDS: ASPIRIN 81 MG ECTAB PO SCH (08:26)
[2016-08-17] MEDS: ISOSORBIDE MONONITRATE 30 MG TABCR PO SCH (08:27)
[2016-08-17] MEDS: CYANOCOBALAMIN 500 MCG TAB (VIT B-12) PO SCH (08:27)
[2016-08-17] MEDS: FINASTERIDE 5 MG TAB PO SCH (08:27)
[2016-08-17] MEDS: AMLODIPINE BESYLATE 5 MG TAB PO SCH (08:27)
[2016-08-17] MEDS: ALLOPURINOL 100 MG TAB PO SCH (08:28)
[2016-08-17] MEDS: CHOLECALCIFEROL 1000 INTER.UNIT TAB PO SCH (08:28)
[2016-08-17 08:49] VITALS: BP 172/67; PULSE 48; TEMP 36.7; O2SAT 94
[2016-08-17 09:15] VITALS: BP 160/61
[2016-08-17 09:16] VITALS: BP 166/66
--- NOTE | 2016-08-17 11:04 | Nephrology Progress Note ---
Nephrology Progress Note Date of Service: August 17, 2016. Subjective no c/o; not dypsneic, no edema, no n/v; no vision changes, no pain. several days now and no sx; bp slowly improving but still 160s or more Objective Date Time Temp Pulse Resp B/P Pulse Ox O2 Delivery O2 Flow Rate FiO2 08/17/16 09:16 166/66 08/17/16 09:15 160/61 08/17/16 08:49 36.7 48 20 172/67 94 Room Air 08/17/16 08:00 Room Air 08/17/16 04:00 Room Air 08/17/16 03:22 36.7 49 18 162/61 94 Room Air 08/16/16 23:59 Room Air 08/16/16 23:02 36.7 50 18 167/57 96 Room Air 08/16/16 20:21 36.8 51 18 180/72 94 Room Air 08/16/16 20:00 Room Air 08/16/16 16:01 36.7 51 20 145/59 95 Room Air 08/16/16 16:00 Room Air 08/16/16 12:00 Room Air 08/16/16 11:44 36.7 55 16 162/57 96 Room Air Physical Exam: General Appearance: WD/WN, no apparent distress (sitting up in chair on RA) Eyes: EOMI ENT: hearing grossly normal Neck: supple Respiratory/Chest: lungs clear, + decreased breath sounds Cardiovascular: no edema, no gallop, regularly spaced bts in 50s Abdomen: normal bowel sounds, non tender, soft (no puentes) Extremities: normal range of motion, non-tender, normal inspection Neurologic/Psych: alert, normal mood/affect, oriented x 3 Skin: normal color, no jaundice, warm/dry, no rash Current Inpatient Medications Medications (Trade) Dose Ordered Sig/Blas Route Start Time Stop Time Status Last Admin Dose Admin Acetaminophen (Tylenol Tab) 650 mg Q4H PRN PO 08/13/16 16:30 09/12/16 16:29 Ondansetron HCl (Zofran Inj) 4 mg Q6H PRN IV 08/13/16 16:30 09/12/16 16:29 Allopurinol (Zyloprim Tab) 200 mg QAM PO 08/14/16 09:00 6/10/17 08:59 08/17/16 08:28 200 MG Amiodarone HCl (Cordarone Tab) 200 mg DAILY PO 08/14/16 09:00 09/13/16 08:59 08/17/16 08:26 200 MG Aspirin (Ecotrin Tab) 81 mg QAM PO 08/14/16 09:00 09/13/16 08:59 08/17/16 08:26 81 MG Atorvastatin Calcium (Lipitor Tab) 40 mg QPM PO 08/13/16 21:00 09/12/16 20:59 08/16/16 21:00 40 MG Cyanocobalamin (Vitamin B-12 Tab) 1,000 mcg QAM PO 08/14/16 09:00 09/13/16 08:59 08/17/16 08:27 1,000 MCG Finasteride (Proscar Tab) 5 mg DAILY PO 08/14/16 09:00 09/13/16 08:59 08/17/16 08:27 5 MG Isosorbide Mononitrate (Imdur Ext Rel Tab) 30 mg QAM PO 08/14/16 09:00 09/13/16 08:59 08/17/16 08:27 30 MG Levothyroxine Sodium (Synthroid Tab) 150 mcg DAILYBB PO 08/14/16 06:00 09/13/16 05:59 08/17/16 06:16 150 MCG Nortriptyline HCl (Pamelor Cap) 10 mg Q2D@0900 PO 08/14/16 09:00 09/13/16 08:59 08/16/16 08:07 10 MG Tamsulosin HCl (Flomax Cap) 0.4 mg HS PO 08/13/16 21:00 09/12/16 20:59 08/16/16 21:00 0.4 MG Cholecalciferol (Vitamin D Tab) 2,000 inter.unit QAM PO 08/14/16 09:00 09/13/16 08:59 08/17/16 08:28 2,000 INTER.UNIT Polyethylene (Miralax Powder Packet) 17 gm DAILY PRN PO 08/13/16 17:00 09/12/16 16:59 08/17/16 08:34 17 GM Warfarin Sodium (Coumadin Tab) 2 mg DAILY@1600 PO 08/13/16 19:15 09/12/16 19:14 08/16/16 16:44 2 MG Hydralazine HCl (HydrALAZINE INJ) 10 mg Q4H PRN IV. 08/14/16 16:45 09/13/16 16:44 08/15/16 19:56 10 MG Captopril (Capoten Tab) 12.5 mg TID PO 08/14/16 21:00 09/13/16 20:59 Future hold 08/17/16 08:26 12.5 MG Amlodipine Besylate (Norvasc Tab) 10 mg QAM PO 08/15/16 09:00 09/14/16 08:59 08/17/16 08:27 10 MG Clonidine HCl (Catapres Tab) 0.1 mg BID PO 08/16/16 21:00 09/15/16 20:59 08/17/16 08:26 0.1 MG Hydralazine HCl (Apresoline Tab) 50 mg TID PO 08/17/16 14:00 09/16/16 13:59 Last 24 Hours Test 08/17/16 07:03 White Blood Count 6.20 K/uL Red Blood Count 3.61 M/uL Hemoglobin 11.4 g/dL Hematocrit 34.8 % Mean Corpuscular Volume 96.4 fL Mean Corpuscular Hemoglobin 31.6 pg Mean Corpuscular Hemoglobin Concent 32.8 g/dl RDW Standard Deviation 52.1 fL RDW Coefficient of Variation 14.8 % Platelet Count 176 K/uL Mean Platelet Volume 10.1 fL Prothrombin Time 32.8 SECONDS Prothromb Time International Ratio 2.9 Sodium Level 141 mmol/L Potassium Level 3.7 mmol/L Chloride Level 109 mmol/L Carbon Dioxide Level 24 mmol/L Anion Gap 8.0 mmol/L Blood Urea Nitrogen 46 mg/dl Creatinine 2.50 mg/dl Est Creatinine Clear Calc Drug Dose 22.3 ml/min Estimated GFR () 26.3 Estimated GFR (Non- 22.7 BUN/Creatinine Ratio 18.2 Random Glucose 87 mg/dl Calcium Level 8.4 mg/dl Assessment & Plan 86 y/o M admitted w/ HTN urgency in the setting of complex CKD 4 recently dialysis dependent until 04/2016 x 4 mos after ICU admission w/ NSTEMI/PNA 12/2015 , PAF, chronic bradycardia. Baseline creatinine still evolving but appears to be low - mid 2's w/ recently about 1 gm/day proteinuria. Urine sediment here apart from dipstick proteinuria bland. no DRAKE. HTN urgency w/ labile SBP (range 140s-170s yesterday) and ongoing/slightly improved bradycardia note no focal/ acute neurologic deficits or cardiac/respiratory/ neuro/ generalized symptoms on exam/interview. neurology/cardiology have evaluated pt , find no emergent issues at this time -cont CCB, hydralazine>increased hydralazine to 50 mg tid today -hold BB -cont captopril current dose tid; if creatinine >2.9, stop this med -ultimate goal is sbp <140 over days (lower goal d/t proteinuria) >>>after d/w pt and hospitalist >> d/c today w/ 08/19 PCP appt and bmp; will titrate meds further as outpt CKD 4, recently on HD -at baseline currently; pls monitor function daily 1.2 cm R frontal soft tissue nodule and R temporal encephalomalacia on MRI -pls clarify w/ neurology what f/u if any for soft tissue nodule Appreciate consultation; will follow with you. Care coordinated w/ Dr Morrow
--- NOTE | 2016-08-17 11:59 | PROGRESS NOTE ---
DATE: 08/17/2016 Yury blood pressure is nicely down. It is still in a marginal hypertensive range but certainly it is in the zone where he can be discharged easily and followed outpatient. He continues to have absolutely no neurologic complaints, no visual complaints, no pulsatile tinnitus, and no nuchal rigidity. He has been afebrile, so I suspect papilledema hopefully will be a manifestation of his undertreated hypertension. At this point, neurology does not need to see him on a regular basis unless there is of course going to be some need to do so based on persistence of the papilledema. He has an appointment to see Dr. Hicks probably in a week or two and obviously if the papilledema is still present, has a chance that he is going to need to be seen by either Nunu Wright, Nunu Barker, or myself. The workup at that point would probably include spinal imaging to be sure there is not an occult ependymoma which may be producing some high protein and then a spinal fluid analysis. Hopefully, this would not be necessary as a latter would require bridging through the [facility] in light of his chronic Coumadin therapy for atrial fibrillation.
[2016-08-17 12:06] VITALS: BP 129/55; PULSE 57; TEMP 36.6; O2SAT 95
--- NOTE | 2016-08-17 12:42 | Progress Note ---
Medicine Progress Note Date & Time of Visit: August 17, 2016 at 12:27. Subjective Pt was seen and examined Sitting in chair very comfortable with no distress Pt said that he feels fine he is very bored and he wants to go home he denies any chest pain, palpitation, dizziness and sob Objective Last 8 Hrs Date Time Temp Pulse Resp B/P Pulse Ox O2 Delivery O2 Flow Rate FiO2 08/17/16 12:06 36.6 57 20 129/55 95 Room Air 08/17/16 12:00 Room Air 08/17/16 09:16 166/66 08/17/16 09:15 160/61 08/17/16 08:49 36.7 48 20 172/67 94 Room Air 08/17/16 08:00 Room Air Physical Exam: General- very pleasant, no distress Head- atraumatic Eyes- EOMI, No vision changes ENT- oropharynx clear Neck- supple, no JVD, no adenopathy Lungs- clear to auscultation, no wheezing Heart- + bradycardia, no murmur Abdomen- normal bowel sounds, soft Extremities- no pretibial edema, no calf tenderness Neuro- alert, oriented x 3; PERRL, EOMI; no facial palsy; no dysarthria; motor 5 /5 bilaterally Skin- warm & dry Laboratory Results: Last 24 Hours Test 08/17/16 07:03 White Blood Count 6.20 K/uL Red Blood Count 3.61 M/uL Hemoglobin 11.4 g/dL Hematocrit 34.8 % Mean Corpuscular Volume 96.4 fL Mean Corpuscular Hemoglobin 31.6 pg Mean Corpuscular Hemoglobin Concent 32.8 g/dl RDW Standard Deviation 52.1 fL RDW Coefficient of Variation 14.8 % Platelet Count 176 K/uL Mean Platelet Volume 10.1 fL Prothrombin Time 32.8 SECONDS Prothromb Time International Ratio 2.9 Sodium Level 141 mmol/L Potassium Level 3.7 mmol/L Chloride Level 109 mmol/L Carbon Dioxide Level 24 mmol/L Anion Gap 8.0 mmol/L Blood Urea Nitrogen 46 mg/dl Creatinine 2.50 mg/dl Est Creatinine Clear Calc Drug Dose 22.3 ml/min Estimated GFR () 26.3 Estimated GFR (Non- 22.7 BUN/Creatinine Ratio 18.2 Random Glucose 87 mg/dl Calcium Level 8.4 mg/dl Assessment & Plan HYPERTENSIVE URGENCY - BP on admission 216/77 - Asymptomatic - On hydralazine 25mg TID and amlodipine 10 mg daily - continue Metoprolol 50mg daily and Imdur 30 mg - continue captopril 12.5 mg TID - On hydralazine PRN for SBP above 170 - Continue Clonidine 0.1 mg BID - BP has improved in the 160's systolic - Seen pt is very anxious to go home and the hospital setting is irritating him , will discharge home today - Will schedule a close follow appointment for him to see his pcp to check BP and titrate BP medications. - Case discussed with Dr. Alarcon and Dr. Evans that agreed with the plan - Follow a low salt diet - Continue monitor BP ELEVATED TROPONIN - likely demand ischemia from hypertensive urgency / underlying CKD -Denies any chest pain - EKG did nod show any significant ischemic changes - continue ASA, beta preet, and statin - Cardiology consulted ECHO showed * Ejection Fraction = 60-65%. * There is moderate concentric left ventricular hypertrophy. * Diastolic dysfunction, Grade II (pseudonormalization pattern). * The left atrium is severely dilated. * The right atrium is moderate to severely dilated. * Aortic valve sclerosis mild, without significant aortic valvular stenosis. * There is mild mitral regurgitation. * There is trace tricuspid regurgitation. * The estimated systolic PAP is 49mmHg. RIGHT TEMPORAL ENCEPHALOMALACIA Had outpatient MRI of the head on 07/31 that showed 1.2 cm R frontal nonspecific soft tissue nodule and R temporal encephalomalacia. Denies any focal neuro deficit, no change in vision Papilledema noted on his last ophth exam with Dr. Hicks MRI Orbital showed no radiopaque foreign bodies identified within the orbits. MRV head showed No evidence of dural sinus thrombosis. Neurology recommend to follow with dr. Hicks to check if the papilledema is still present since his BP has been improved slowly If papilledema still present, Neuro would like to see pt as an outpatient for further workup. Pt has an appt with Dr. Hicks in the next few weeks ATRIAL FIBRILLATION - currently in sinus bradycardia - rate controlled - rhythm controlled on amiodarone - HR dropped in the high 40s - Continue coumadin, INR 2.9 (Therapeutic) - Follow up with the [facility] BRADYCARDIA Asymptomatic Cardiology discontinue metoprolol CKD STAGE IV - Was recently on HD - baseline creat in the low 2 - Creatine 2.5 today - avoid nephrotoxic agents - Continue monitor BMP HYPOTHYROIDISM - continue levothyroxine BPH - continue tamsulosin and finasteride DVT PROPHYLAXIS - on Coumadin with therapeutic INR CODE STATUS FULL CODE DISPOSITION Follow up appointment with your primary care provider Dr. Oliver on 08/19 @ 1: 00 pm Follow up with your eyes doctor, Dr. Leon (Pt already scheduled for follow up appointment) Check BMP to monitor Kidney Function Follow up with the Coumadin clinic for your INR Follow a low salt diet Consultants: Cardio Neuro Nephro Current Inpatient Medications: Current Inpatient Medications Medications (Trade) Dose Ordered Sig/Blas Route Start Time Stop Time Status Last Admin Dose Admin Acetaminophen (Tylenol Tab) 650 mg Q4H PRN PO 08/13/16 16:30 09/12/16 16:29 Ondansetron HCl (Zofran Inj) 4 mg Q6H PRN IV 08/13/16 16:30 09/12/16 16:29 Allopurinol (Zyloprim Tab) 200 mg QAM PO 08/14/16 09:00 09/13/16 08:59 08/17/16 08:28 200 MG Amiodarone HCl (Cordarone Tab) 200 mg DAILY PO 08/14/16 09:00 09/13/16 08:59 08/17/16 08:26 200 MG Aspirin (Ecotrin Tab) 81 mg QAM PO 08/14/16 09:00 09/13/16 08:59 08/17/16 08:26 81 MG Atorvastatin Calcium (Lipitor Tab) 40 mg QPM PO 08/13/16 21:00 09/12/16 20:59 08/16/16 21:00 40 MG Cyanocobalamin (Vitamin B-12 Tab) 1,000 mcg QAM PO 08/14/16 09:00 09/13/16 08:59 08/17/16 08:27 1,000 MCG Finasteride (Proscar Tab) 5 mg DAILY PO 08/14/16 09:00 09/13/16 08:59 08/17/16 08:27 5 MG Isosorbide Mononitrate (Imdur Ext Rel Tab) 30 mg QAM PO 08/14/16 09:00 09/13/16 08:59 08/17/16 08:27 30 MG Levothyroxine Sodium (Synthroid Tab) 150 mcg DAILYBB PO 08/14/16 06:00 09/13/16 05:59 08/17/16 06:16 150 MCG Nortriptyline HCl (Pamelor Cap) 10 mg Q2D@0900 PO 08/14/16 09:00 09/13/16 08:59 08/16/16 08:07 10 MG Tamsulosin HCl (Flomax Cap) 0.4 mg HS PO 08/13/16 21:00 09/12/16 20:59 08/16/16 21:00 0.4 MG Cholecalciferol (Vitamin D Tab) 2,000 inter.unit QAM PO 08/14/16 09:00 09/13/16 08:59 08/17/16 08:28 2,000 INTER.UNIT Polyethylene (Miralax Powder Packet) 17 gm DAILY PRN PO 08/13/16 17:00 09/12/16 16:59 08/17/16 08:34 17 GM Warfarin Sodium (Coumadin Tab) 2 mg DAILY@1600 PO 08/13/16 19:15 09/12/16 19:14 08/16/16 16:44 2 MG Hydralazine HCl (HydrALAZINE INJ) 10 mg Q4H PRN IV. 08/14/16 16:45 09/13/16 16:44 08/15/16 19:56 10 MG Captopril (Capoten Tab) 12.5 mg TID PO 08/14/16 21:00 09/13/16 20:59 Future hold 08/17/16 08:26 12.5 MG Amlodipine Besylate (Norvasc Tab) 10 mg QAM PO 08/15/16 09:00 09/14/16 08:59 08/17/16 08:27 10 MG Clonidine HCl (Catapres Tab) 0.1 mg BID PO 08/16/16 21:00 09/15/16 20:59 08/17/16 08:26 0.1 MG Hydralazine HCl (Apresoline Tab) 50 mg TID PO 08/17/16 14:00 09/16/16 13:59
[2016-08-17] MEDS ORDERED: APR50 PO (12:47)
[2016-08-17] MEDS ORDERED: NRV/10 PO (12:47)
[2016-08-17] MEDS ORDERED: CTP1 PO (12:47)
[2016-08-17] MEDS ORDERED: [UNRECOGNIZED DRUG - CODE] PO (12:47)
--- NOTE | 2016-08-17 12:58 | Discharge Instructions ---
Discharge Instructions Date of Service August 17, 2016. Admission Reason for Admission: Hypertensive Urgency Discharge Discharge Diagnosis / Problem: Hypertensive urgency, Elevated troponin, CKD stage 4, Bradycardia Discharge Goals Goal(s): Decrease discomfort, Improve function, Improve disease control, Diagnostic testing (as tolerated) Activity Recommendations Activity Limitations: resume your previous activity . Instructions / Follow-Up Instructions / Follow-Up Follow up appointment with your primary care provider Dr. Oliver on 08/19 @ 1: 00 pm Follow up with your eyes doctor, Dr. Leon (Pt already scheduled for follow up appointment) Follow up with neurology (Dr. Storey Or Dr. Barker) after your follow up appointment with Dr. Leon Check BMP to monitor Kidney Function (Lab order given to patient) Follow up with the Coumadin clinic for your INR Follow a low salt diet Current Hospital Diet Patient's current hospital diet: AHA Diet (Heart Healthy), Renal Diet, Low Sodium Diet (2gm Na) Discharge Diet Recommended Diet: AHA Diet (Heart Healthy), Low Sodium Diet (2gm Na), Renal Diet Pending Studies Studies pending at discharge: no Medical Emergencies . Who to Call and When: Medical Emergencies: If at any time you feel your situation is an emergency, please call 911 immediately. . Non-Emergent Contact Non-Emergency issues call your: Primary Care Provider Call Non-Emergent contact if: you have any medication questions . . "Provider Documentation" section prepared by Farshad Morrow. . VTE Core Measure Inpt VTE Proph given/why not?: Warfarin (Coumadin)
[2016-08-17 13:07] VITALS: BP 129/55; PULSE 57; TEMP 36.6; O2SAT 95
[2016-08-17] MEDS: WARFARIN SOD 2 MG TAB PO SCH (15:43)
--- NOTE | 2016-08-18 00:13 | Discharge Summary ---
Discharge Summary Date of Service August 17, 2016. Discharge Summary Admission Date: August 13, 2016 at 16:23 Discharge Date: August 17, 2016 Discharge Disposition: Home Principal Diagnosis: HYPERTENSIVE URGENCY Secondary Diagnoses/Problems: Hypertension Elevated troponin CKD stage 4 Bradycardia RIGHT TEMPORAL ENCEPHALOMALACIA ATRIAL FIBRILLATION Hypothyroidism BPH Procedures: ORBIT RADIOGRAPHS 3 VIEWS HISTORY: pre-MRI screening. COMPARISON: None. FINDINGS: There are no radiopaque foreign bodies identified within the orbits. IMPRESSION: No radiopaque foreign bodies identified within the orbits. Electronically signed by: Rene Hernandez M.D. 08/15/2016 6:37 AM Dictated Date/Time: 08/15/2016 6:36 AM Duplex renal arterial Doppler DUPLEX RENAL ARTERY CLINICAL HISTORY: malignant htn hypertension TECHNIQUE: Arterial Doppler COMPARISON STUDY: None FINDINGS: Unremarkable arterial Doppler. Horseshoe shaped type kidney. Flow characteristics are unremarkable. In penis characteristics are unremarkable. IMPRESSION: No evidence for renal arterial stenosis. Electronically signed by: Rene Hernandez M.D. 08/14/2016 3:28 PM MRV HEAD WITHOUT CONTRAST CLINICAL HISTORY: Papilledema. COMPARISON STUDY: No previous studies for comparison. TECHNIQUE: Utilizing [id number] technique, unenhanced MRV of the brain was performed. FINDINGS: The superior sagittal sinus, straight sinus, transverse sinuses and sigmoid sinuses are patent. There is no evidence of dural sinus thrombosis on this exam. An apparent defect within the superior sagittal sinus could be congenital or represent arachnoid granulations. IMPRESSION: No evidence of dural sinus thrombosis. Electronically signed by: Hao Gardner M.D. 08/15/2016 9:01 AM Dictated Date/Time: 08/15/2016 8:57 AM CHEST 2 VIEWS ROUTINE CLINICAL HISTORY: Hypertension COMPARISON STUDY: 03/28/2016 FINDINGS: The cardiac and mediastinal contours remain stable. There is resolving pulmonary vascular congestion. The right-sided central venous catheter has been removed. There is no focal pulmonary consolidation. There is a small left pleural effusion.[ IMPRESSION: 1. Interval removal of the right-sided central venous catheter 2. Resolving mild pulmonary vascular congestion 3. Small left pleural effusion 4. No evidence of focal pulmonary consolidation Electronically signed by: Kenneth Ponce M.D. 08/14/2016 2:45 PM Dictated Date/Time: 08/14/2016 2:44 PM ECHO Interpretation Summary * Name: CARLOS DAVEY Study Date: 08/14/2016 07:00 AM BP: 197/80 mmHg * Patient Location: 44 HR: 47 * : 1930 (M/d/yyyy) Gender: Male Height: 69 in * Age: 86 yrs Ethnicity: CA Weight: 168 lb * Ordering Physician: Any Silver * Referring Physician: Linda Alarcon * Performed By: Sophy Cordero RCS * * Reason For Study: ELEVATED TROPONIN * BSA: 1.9 m2 * The study was technically adequate. * Compared to prior study, changes are noted. * -- Conclusions -- * Ejection Fraction = 60-65%. * There is moderate concentric left ventricular hypertrophy. * Diastolic dysfunction, Grade II (pseudonormalization pattern). * The left atrium is severely dilated. * The right atrium is moderate to severely dilated. * Aortic valve sclerosis mild, without significant aortic valvular stenosis. * There is mild mitral regurgitation. * There is trace tricuspid regurgitation. * The estimated systolic PAP is 49mmHg. Procedure Details * A complete two-dimensional transthoracic echocardiogram was performed (2D, M- mode, Doppler and color flow Doppler). Left Ventricle * The left ventricle is normal in size. * There is moderate concentric left ventricular hypertrophy. * Left ventricular systolic function is normal. * Ejection Fraction = 60-65%. * The left ventricular wall motion is normal. Right Ventricle * The right ventricle is normal size. * The right ventricular systolic function is normal as assessed by tricuspid annular plane systolic excursion (TAPSE) (normal >1.5 cm). Atria * The left atrium is severely dilated. * The right atrium is moderate to severely dilated. * There is no evidence of atrial septal defect, but resolution does not allow assessment for a patent foramen ovale. Mitral Valve * The mitral valve is normal. * There is no mitral valve stenosis. * There is mild mitral regurgitation. Tricuspid Valve * The tricuspid valve is normal. * There is no tricuspid stenosis. * There is trace tricuspid regurgitation. * The estimated systolic PAP is 49mmHg. Aortic Valve * The aortic valve is trileaflet. * Aortic valve sclerosis mild, without significant aortic valvular stenosis. * Aortic stenosis is absent. * Trace aortic insufficiency. Pulmonic Valve * The pulmonary valve is not well seen, but the Doppler examination is normal without significant regurgitation or stenosis. * There is no pulmonic valvular stenosis. * Mild pulmonic valvular regurgitation. Great Vessels * The aortic root is normal size. Pericardium/Pleural * There is no pericardial effusion. Great Vessels * Normal inferior vena cava diameter and respiratory variation suggests normal central venous pressure. Left Ventricular Diastolic Function * Diastolic dysfunction, Grade II (pseudonormalization pattern). Consultations: Cardio Neuro Nephro Medication Reconciliation New Medications: Amlodipine Besylate (Amlodipine Besylate) 10 Mg Tab 1 TAB PO DAILY for 30 Days Captopril (Capoten) 12.5 Mg Tab 12.5 MG PO TID for 30 Days, #90 TAB Clonidine HCl (Clonidine HCl) 0.1 Mg Tab 0.1 MG PO BID for 30 Days, #60 TAB Hydralazine HCl (Hydralazine HCl) 50 Mg Tab 50 MG PO TID for 30 Days, #90 TAB Continued Medications: Acetaminophen Tab (Tylenol) 325 Mg Tab 650 MG PO Q6 PRN for Pain, TAB Allopurinol (Zyloprim) 100 Mg Tab 200 MG PO QAM, TAB Amiodarone Hcl (Cordarone) 200 Mg Tab 200 MG PO DAILY, TAB Aspirin (Aspirin Ec) 81 Mg Tab 81 MG PO QAM Atorvastatin (Lipitor) 40 Mg Tab 40 MG PO QPM, TAB Cholecalciferol (Vitamin D) 2,000 Unit Cap 2000 INTUNIT PO QAM Cyanocobalamin (Vitamin B-12) 1,000 Mcg Tab 1000 MCG PO QAM, TAB Finasteride (Proscar) 5 Mg Tab 5 MG PO DAILY Isosorbide Mononitrate Ext Rel (Imdur Ext Rel) 30 Mg Ertab 30 MG PO QAM, TAB Levothyroxine Sodium (Synthroid) 150 Mcg Tab 150 MCG PO QAM, TAB Nortriptyline (Pamelor) 10 Mg Cap 10 MG PO Q2D, CAP Polyethylene Glycol 3350 (Miralax) 1 Pow Pow 17 GM PO DAILY PRN for CONSTIPATION, #255 GM Tamsulosin Hcl (Flomax) 0.4 Mg Cap 0.4 MG PO HS, CAP Warfarin Sodium (Coumadin) 2 Mg Tab 2 MG PO QPM, TAB Discontinued Medications: Metoprolol Succ (Toprol Xl) (Toprol-Xl) 50 Mg Tabcr 50 MG PO QAM, #30 TAB Admission Information HPI (per Admitting provider): 86 year old male who was referred to the ER by his qm consultant for high blood pressure. Patient was in the office today for a routine visit and was found to have systolic blood pressures in the 190s. Patient was referred to the ER for further evaluation. Patient is asymptomatic. He reports he has been feeling well recently. He denies headache or blurred vision. He was seen by his eye doctor a couple of weeks ago who noted papilledema and patient had a brain MRI that was unremarkable. He denies chest pain and shortness of breath. No lightheadedness, dizziness, diaphoresis, or syncopal events. No abdominal pain, nausea, vomiting, or diarrhea. He denies fever and chills. No urinary symptoms. In the ER, patient's BP is found to be 216/77. He was given hydralazine 25mg PO and amlodipine 5mg PO with minimal improvement in BP. Trop is 0.147. EKG does not show any acute ST changes. Physical Exam (per Admitting): General Appearance: no apparent distress Head: normocephalic Eyes: normal inspection, PERRL ENT: hearing grossly normal Neck: supple, no JVD Respiratory/Chest: lungs clear, normal breath sounds, no respiratory distress Cardiovascular: no edema, + bradycardia (regular rhythm) Abdomen/GI: normal bowel sounds, non tender, soft Extremities/Musculoskelatal: normal inspection, no calf tenderness Neurologic/Psych: no motor/sensory deficits, alert, normal mood/affect, oriented x 3 Skin: normal color, warm/dry Hospital Course HYPERTENSIVE URGENCY - BP on admission 216/77 - Asymptomatic - On hydralazine 25mg TID and amlodipine 10 mg daily - continue Metoprolol 50mg daily and Imdur 30 mg - continue captopril 12.5 mg TID - On hydralazine PRN for SBP above 170 - Continue Clonidine 0.1 mg BID - BP has improved in the 160's systolic - Seen pt is very anxious to go home and the hospital setting is irritating him , will discharge home today - Will schedule a close follow appointment for him to see his pcp to check BP and titrate BP medications. - Case discussed with Dr. Alarcon and Dr. Evans that agreed with the plan - Follow a low salt diet - Continue monitor BP ELEVATED TROPONIN - likely demand ischemia from hypertensive urgency / underlying CKD -Denies any chest pain - EKG did nod show any significant ischemic changes - continue ASA, beta preet, and statin - Cardiology consulted ECHO showed * Ejection Fraction = 60-65%. * There is moderate concentric left ventricular hypertrophy. * Diastolic dysfunction, Grade II (pseudonormalization pattern). * The left atrium is severely dilated. * The right atrium is moderate to severely dilated. * Aortic valve sclerosis mild, without significant aortic valvular stenosis. * There is mild mitral regurgitation. * There is trace tricuspid regurgitation. * The estimated systolic PAP is 49mmHg. RIGHT TEMPORAL ENCEPHALOMALACIA Had outpatient MRI of the head on 07/31 that showed 1.2 cm R frontal nonspecific soft tissue nodule and R temporal encephalomalacia. Denies any focal neuro deficit, no change in vision Papilledema noted on his last ophth exam with Dr. Hicks MRI Orbital showed no radiopaque foreign bodies identified within the orbits. MRV head showed No evidence of dural sinus thrombosis. Neurology recommend to follow with dr. Hicks to check if the papilledema is still present since his BP has been improved slowly If papilledema still present, Neuro would like to see pt as an outpatient for further workup. Pt has an appt with Dr. Hicks in the next few weeks ATRIAL FIBRILLATION - currently in sinus bradycardia - rate controlled - rhythm controlled on amiodarone - HR dropped in the high 40s - Continue coumadin, INR 2.9 (Therapeutic) - Follow up with the coag clinic BRADYCARDIA Asymptomatic Cardiology discontinue metoprolol CKD STAGE IV - Was recently on HD - baseline creat in the low 2 - Creatine 2.5 today - avoid nephrotoxic agents - Continue monitor BMP HYPOTHYROIDISM - continue levothyroxine BPH - continue tamsulosin and finasteride DVT PROPHYLAXIS - on Coumadin with therapeutic INR CODE STATUS FULL CODE DISPOSITION Follow up appointment with your primary care provider Dr. Oliver on 08/19 @ 1: 00 pm Follow up with your eyes doctor, Dr. Leon (Pt already scheduled for follow up appointment) Check BMP to monitor Kidney Function Follow up with the Coumadin clinic for your INR Follow a low salt diet Total time spent on discharge = 40 MINUTES This includes examination of the patient, discharge planning, medication reconciliation, and communication with other providers. Discharge Instructions Discharge Instructions Date of Service August 17, 2016. Admission Reason for Admission: Hypertensive Urgency Discharge Discharge Diagnosis / Problem: Hypertensive urgency, Elevated troponin, CKD stage 4, Bradycardia Discharge Goals Goal(s): Decrease discomfort, Improve function, Improve disease control, Diagnostic testing (as tolerated) Activity Recommendations Activity Limitations: resume your previous activity . Instructions / Follow-Up Instructions / Follow-Up Follow up appointment with your primary care provider Dr. Oliver on 08/19 @ 1: 00 pm Follow up with your eyes doctor, Dr. Leon (Pt already scheduled for follow up appointment) Follow up with neurology (Dr. Storey Or Dr. Barker) after your follow up appointment with Dr. Leon Check BMP to monitor Kidney Function (Lab order given to patient) Follow up with the Coumadin clinic for your INR Follow a low salt diet Current Hospital Diet Patient's current hospital diet: AHA Diet (Heart Healthy), Renal Diet, Low Sodium Diet (2gm Na) Discharge Diet Recommended Diet: AHA Diet (Heart Healthy), Low Sodium Diet (2gm Na), Renal Diet Pending Studies Studies pending at discharge: no Medical Emergencies . Who to Call and When: Medical Emergencies: If at any time you feel your situation is an emergency, please call 911 immediately. . Non-Emergent Contact Non-Emergency issues call your: Primary Care Provider Call Non-Emergent contact if: you have any medication questions . . "Provider Documentation" section prepared by Farshad Morrow. . VTE Core Measure Inpt VTE Proph given/why not?: Warfarin (Coumadin) Additional Copies To Virgen Oliver M.D.
[2016-09-16] MEDS ORDERED: IMDSR30 PO (13:27)
[2016-09-16] MEDS ORDERED: FRS/80 PO (13:36)
[2016-09-16] MEDS ORDERED: SYN150 PO (13:54)
== END 2016-08-17 16:24 | disposition home or self-care (01) | DRG 305 ==
LOC: ENRESERVDT → ENRESERVTM → C.EDB 13:40 → C.2T 16:23
PROVIDERS: ADMIT Internal Medicine; ATTEND Internal Medicine
DX: I16.0 Hypertensive urgency (principal); N18.4 Chronic kidney disease, stage 4 (severe); I24.8 Other forms of acute ischemic heart disease; R00.1 Bradycardia, unspecified; G93.89 Other specified disorders of brain; E03.9 Hypothyroidism, unspecified; N40.0 Benign prostatic hyperplasia without lower urinary tract symptoms; Z79.01 Long term (current) use of anticoagulants; Z87.891 Personal history of nicotine dependence; Z79.82 Long term (current) use of aspirin; Z82.49 Family history of ischemic heart disease and other diseases of the circulatory system; I25.2 Old myocardial infarction; E78.5 Hyperlipidemia, unspecified; K21.9 Gastro-esophageal reflux disease without esophagitis; M10.9 Gout, unspecified; I48.0 Paroxysmal atrial fibrillation

== ENCOUNTER 2016-09-13 16:14 | Inpatient (IN) | payer BC, OTHER ==
[~2016-09-13] VITALS: Ht 175.3 cm; Wt 73.0 kg
[~2016-09-13 16:14] MED LIST changes: +APR50 PO; +CTP1 PO; -METO50TA7 PO; +NORT10CA2 PO; -NORT25CA PO; +NRV/10 PO; +[UNRECOGNIZED DRUG - CODE] PO
[2016-09-13] MEDS ORDERED: ALBUT/IPRATROP 3MG/0.5MG NEB 3 ML VIAL INH STA (16:23)
--- NOTE | 2016-09-13 16:40 | EMERGENCY ROOM VISIT NOTE ---
History Report prepared by Jesse: Car Tate Under the Supervision of: Dr. Aric Monreal M.D. First contact with patient: 16:18 Chief Complaint: RESPIRATORY PROBLEMS Stated Complaint: TROUBLE BREATHING,HX PNX History of Present Illness The patient is a 86 year old male who presents to the Emergency Room with complaints of persistent shortness of breath starting this morning. He has worsening difficulty breathing with talking and exertion. He reports mild chest tightness but denies any chest pain. He also complains of bilateral lower extremity swelling which has been ongoing for the past few days. The patient suspects that the swelling is secondary to the recent changes in his blood pressure medicine. He was recently placed on diuretics. He does not have any pain in calves. He denies fevers, chills, cough, or any other complaints. He does not have a personal or family history of a blood clot. He was hospitalized in December 2015 for pneumonia. Source of History: patient Onset: this morning Position: other (global) Quality: other (shortness of breath) Timing: other (persistent) Modifying Factors (Worsening): exertion, other (talking) Associated Symptoms: No fevers, No chills, No cough Review of Systems See HPI for pertinent positives & negatives. A total of 10 systems reviewed and were otherwise negative. 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 Surgical Problems: (1) Status post carotid endarterectomy (2) Status post carpal tunnel release (3) Status post cataract extraction Family History Cancer Hypertension Social History Smoking Status: Former Smoker Alcohol Use: occasionally Housing Status: lives alone Current/Historical Medications Scheduled Allopurinol (Zyloprim), 200 MG PO QAM Amiodarone Hcl (Cordarone), 200 MG PO DAILY Aspirin (Aspirin Ec), 81 MG PO QAM Atorvastatin (Lipitor), 40 MG PO DAILY Captopril (Capoten), 12.5 MG PO TID Cholecalciferol (Vitamin D), 2,000 INTUNIT PO QAM Cyanocobalamin (Vitamin B-12), 1,000 MCG PO QAM Finasteride (Proscar), 5 MG PO DAILY Furosemide (Lasix), 40 MG PO DAILY Hydralazine HCl (Hydralazine HCl), 50 MG PO TID Isosorbide Mononitrate Ext Rel (Imdur Ext Rel), 30 MG PO QAM Levothyroxine Sodium (Levothyroxine Sodium), 175 MCG PO DAILY Metoprolol Succinate (Toprol Xl), 25 MG PO DAILY Tamsulosin Hcl (Flomax), 0.4 MG PO DAILY Warfarin Sodium (Coumadin), 2 MG PO HS Scheduled PRN Acetaminophen Tab (Tylenol), 650 MG PO Q6 PRN for Pain Bisacodyl (Dulcolax), 1 SUPP IA DAILY PRN for Constipation Polyethylene Glycol 3350 (Miralax), 17 GM PO DAILY PRN for CONSTIPATION Allergies Coded Allergies: Penicillins (Verified Allergy, Unknown, PENILE ENLARGEMENT, 08/13/16) Per Dr. Crespo, reviewed reaction in outpatient records Tramadol (Verified Adverse Reaction, Unknown, GI SYMPTOMS, 08/13/16) Physical Exam Vital Signs Date Time Temp Pulse Resp B/P (MAP) Pulse Ox O2 Delivery O2 Flow Rate FiO2 09/13/16 18:49 37.1 68 18 133/59 91 09/13/16 17:44 68 18 91 Room Air 09/13/16 17:14 67 95 09/13/16 17:09 67 18 92 Nasal Cannula 2.0 09/13/16 17:06 68 09/13/16 17:04 68 89 Room Air 09/13/16 16:59 68 89 Room Air 09/13/16 16:54 66 87 Room Air 09/13/16 16:49 66 90 Room Air 09/13/16 16:44 65 95 09/13/16 16:39 67 96 09/13/16 16:37 79 Room Air 09/13/16 16:34 66 97 09/13/16 16:31 93 Nasal Cannula 6.0 09/13/16 16:30 89 Nasal Cannula 4.0 09/13/16 16:29 71 93 09/13/16 16:26 79 Room Air 09/13/16 16:25 133/59 09/13/16 16:15 37.1 76 20 121/59 85 Room Air Physical Exam GENERAL: Patient is well appearing and in minimal distress. HEENT: No acute trauma, normocephalic atraumatic, mucous membranes moist, no nasal congestion, no scleral icterus. NECK: No stridor, no adenopathy, no meningismus, trachea is midline. LUNGS: No dyspnea. Equal bilaterally. No wheeze, no rhonchi. Crackles of the left lower lobe. HEART: Regular rate and rhythm. No murmurs, rubs, gallops appreciated. ABDOMEN: Soft, nontender, bowel sounds positive, no masses appreciated, no peritonitis. BACK: No midline tenderness, no CVA tenderness EXTREMITIES: Normal motion all extremities, no cyanosis, no edema. NEUROLOGIC: Alert and oriented, no acute motor or sensory deficits, no focal weakness, cranial nerves grossly intact. SKIN: No rash, no jaundice, no diaphoresis. Heavily tanned. Medical Decision & Procedures ER Provider Diagnostic Interpretation: X ray results are stated below per my interpretation and the radiologist's interpretation. CHEST ONE VIEW PORTABLE CLINICAL HISTORY: Shortness of breath. COMPARISON STUDY: Chest radiograph August 14, 2016. FINDINGS: Small left and trace right pleural effusions are noted. Diffuse interstitial thickening has developed with asymmetric left lung airspace opacity. There is no pneumothorax. Mild cardiomegaly is noted. IMPRESSION: 1. Interval development of interstitial thickening consistent with pulmonary edema. 2. Interval development of asymmetric left lung airspace opacities which could reflect asymmetric pulmonary edema or a superimposed infectious process. 3. Small left and trace right pleural effusions. Electronically signed by: Hao Gardner M.D. 09/13/2016 5:10 PM Dictated Date/Time: 09/13/2016 5:09 PM Laboratory Results 09/13/16 16:35 Red Blood Count 3.44, Mean Corpuscular Volume 93.9, Mean Corpuscular Hemoglobin 31.1, Mean Corpuscular Hemoglobin Concent 33.1, Mean Platelet Volume 10.5, Neutrophils (%) (Auto) 91.0, Lymphocytes (%) (Auto) 5.4, Monocytes (%) (Auto) 3.4, Eosinophils (%) (Auto) 0.0, Basophils (%) (Auto) 0.0, Neutrophils # (Auto) 13.22, Lymphocytes # (Auto) 0.79, Monocytes # (Auto) 0.49, Eosinophils # (Auto) 0.00, Basophils # (Auto) 0.00 09/13/16 16:35 Test 09/13/16 16:35 09/13/16 16:43 09/13/16 16:44 09/13/16 18:48 White Blood Count 14.53 K/uL (4.8-10.8) Red Blood Count 3.44 M/uL (4.7-6.1) Hemoglobin 10.7 g/dL (14.0-18.0) Hematocrit 32.3 % (42-52) Mean Corpuscular Volume 93.9 fL (80-100) Mean Corpuscular Hemoglobin 31.1 pg (25-34) Mean Corpuscular Hemoglobin Concent 33.1 g/dl (32-36) Platelet Count 239 K/uL (130-400) Mean Platelet Volume 10.5 fL (7.4-10.4) Neutrophils (%) (Auto) 91.0 % Lymphocytes (%) (Auto) 5.4 % Monocytes (%) (Auto) 3.4 % Eosinophils (%) (Auto) 0.0 % Basophils (%) (Auto) 0.0 % Neutrophils # (Auto) 13.22 K/uL (1.4-6.5) Lymphocytes # (Auto) 0.79 K/uL (1.2-3.4) Monocytes # (Auto) 0.49 K/uL (0.11-0.59) Eosinophils # (Auto) 0.00 K/uL (0-0.5) Basophils # (Auto) 0.00 K/uL (0-0.2) RDW Standard Deviation 53.2 fL (36.4-46.3) RDW Coefficient of Variation 15.5 % (11.5-14.5) Immature Granulocyte % (Auto) 0.2 % Immature Granulocyte # (Auto) 0.03 K/uL (0.00-0.02) Prothrombin Time 40.1 SECONDS (9.0-12.0) Prothromb Time International Ratio 3.6 (0.9-1.1) Activated Partial Thromboplast Time 70.9 SECONDS (21.0-31.0) Partial Thromboplastin Ratio 2.7 D-Dimer 290 ug/L FEU (0-500) Anion Gap 13.0 mmol/L (3-11) Est Creatinine Clear Calc Drug Dose 18.6 ml/min Estimated GFR () 21.1 Estimated GFR (Non- 18.2 BUN/Creatinine Ratio 15.7 (10-20) Calcium Level 8.7 mg/dl (8.5-10.1) Total Creatine Kinase 119 U/L (39-308) Creatine Kinase MB 7.6 ng/ml (0.5-3.6) Creatine Kinase MB Ratio 6.4 (0-3.0) Troponin I 3.110 ng/ml (0-0.045) Pro-B-Type Natriuretic Peptide > 10432 pg/ml (0-1800) Bedside Lactic Acid Venous 1.79 mmol/L (0.90-1.70) Venous Blood pH 7.50 (7.36-7.41) Venous Blood Partial Pressure CO2 24 mmHg (38.0-50.0) Venous Blood Partial Pressure O2 37 mmHg Venous Blood HCO3 18 mmol/L Venous Blood Oxygen Saturation 75.0 % Venous Blood Base Excess -4.1 mmol/L Laboratory results as reviewed by me. Medications Administered Medications (Trade) Dose Ordered Sig/Blas Route Start Time Stop Time Status Last Admin Dose Admin Albuterol/ Ipratropium (Duoneb) 3 ml NOW STAT INH 09/13/16 16:23 09/13/16 16:26 DC 09/13/16 16:30 3 ML Doxycycline Hyclate 100 mg/ Dextrose 110 ml @ 50 mls/hr NOW STAT IV 09/13/16 17:27 09/13/16 19:38 09/13/16 18:03 50 MLS/HR ECG Indication: SOB/dyspnea Rate (beats per minute): 76 Rhythm: sinus rhythm Findings: PAC, prolonged QT, other (Evidence of left ventricular hypertrophy) Comparison ECG Date: August 15, 2016 Change: no significant change ED Course 1618: The patient was evaluated in room C12B. A complete history and physical exam was performed. 1623: DuoNeb 3 ml INH 1723: Upon reevaluation, the patient is resting comfortably. He notes the breathing treatment did not make any difference. His oxygen was below 90% on 2 L. Discussed results and treatment plan with the patient. He verbalized understanding and agreement with the treatment plan. The patient will be evaluated for further management. 1726: [facility]: Doxycycline Hyclate 100 mg/Dextrose 110 ml @ 50 mls/hr IV Medical Decision Differential: Infectious, Reactive Airway Disease, Pneumonia, Pneumothorax, COPD , CHF, ACS, Pulmonary Embolism, MSK, GI, Dissection, amongst other etiologies entertained. Medication Reconciliation: I attest that I have personally reviewed the patient 's current medication list. Blood pressure screening: Patient was found to have an elevated blood pressure and was referred to the hospitalist for recheck and further treatment. 86 yr old male arrives with complaint of shortness of breath throughout today which came on acutely. Shortness of breath on evaluation with hypoxia and some diffuse crackles. Dimer negative thus with INR therapeutic I do not feel this is PE. Symptoms not consistent with dissection and with Cr function feel CTA would be contraindicated. CXR with pulm edema. Questionable left sided infiltrate underlying thus with elevated WBC will add on Doxy (prolonged QTC thus no Levaquin, and PNC allergic). O2 doing better on NC O2. Labs with elevated Trop which is chronic for patient. Cr at baseline. Will need to come in for further evaluation and treatment. Consults Time Called: 1723 Consulting Physician: [facility] Hospitalist Service Returned Call: [phone] I [facility] the [facility] Impression Primary Impression: Acute pulmonary edema Additional Impression: Hypoxia Scribe Attestation The scribe's documentation has been prepared under my direction and personally reviewed by me in its entirety. I confirm that the note above accurately reflects all work, treatment, procedures, and medical decision making performed by me. Departure Information Dispostion Being Evaluated By Hospitalist Referrals Virgen Oliver M.D. (PCP) Patient Instructions My [facility] Problem Qualifiers
[2016-09-13 16:47] LABS: COMPLETE YES; HEMATOCRIT 32.3 % (42-52); IG% 0.2 %; LYMPH % 5.4 %; LYMPH ABS # 0.79 K/uL (1.2-3.4); MEAN CELL VOLUME 93.9 fL (80-100); MEAN CORPUSCULAR HEMOGLOBIN 31.1 pg (25-34); MEAN CORPUSCULAR HGB CONC 33.1 g/dl (32-36); MEAN PLATELET VOLUME 10.5 fL (7.4-10.4); MONO % 3.4 %; PLATELET COUNT 239 K/uL (130-400); RED BLOOD COUNT 3.44 M/uL (4.7-6.1); WHITE BLOOD COUNT 14.53 K/uL (4.8-10.8)
[2016-09-13 16:53] LABS: VEN BLOOD GAS BASE EXCESS -4.1 mmol/L
[2016-09-13 17:02] LABS: BLOOD UREA NITROGEN 47 mg/dl (7-18); BUN/CREATININE RATIO 15.7 (10-20); CALCIUM 8.7 mg/dl (8.5-10.1); CARBON DIOXIDE 20 mmol/L (21-32); CHLORIDE 106 mmol/L (98-107); GLUCOSE 132 mg/dl (70-99); POTASSIUM 3.8 mmol/L (3.5-5.1); SODIUM 139 mmol/L (136-145)
[2016-09-13 17:09] LABS: CKMB/CK RATIO 6.4 (0-3.0)
--- NOTE | 2016-09-13 17:12 | DIAGNOSTIC IMAGING REPORT ---
CHEST ONE VIEW PORTABLE CLINICAL HISTORY: Shortness of breath. COMPARISON STUDY: Chest radiograph August 14, 2016. FINDINGS: Small left and trace right pleural effusions are noted. Diffuse interstitial thickening has developed with asymmetric left lung airspace opacity. There is no pneumothorax. Mild cardiomegaly is noted. IMPRESSION: 1. Interval development of interstitial thickening consistent with pulmonary edema. 2. Interval development of asymmetric left lung airspace opacities which could reflect asymmetric pulmonary edema or a superimposed infectious process. 3. Small left and trace right pleural effusions. Electronically signed by: Hao Gardner M.D. 09/13/2016 5:10 PM Dictated Date/Time: 09/13/2016 5:09 PM
[2016-09-13] MEDS ORDERED: DOXYCYCLINE IV 100 MG in DEXTROSE 5% 100ML 100 ML IV STA (17:27)
[2016-09-13 17:33] LABS: PARTIAL THROMBOPLASTIN RATIO 2.7; PROTHROMBIN TIME (PATIENT) 40.1 SECONDS (9.0-12.0)
--- NOTE | 2016-09-13 17:36 | History and Physical ---
History & Physical Date & Time of Service: Sep 13, 2016 at 17:36 Chief Complaint: Trouble Breathing,Hx Pnx Primary Care Physician: Virgen Oliver M.D. History of Present Illness Source: patient Patient is an 86 yr old male with PMH of Diastolic CHF, P.Afib, CKD IV, Hypothyroidism, BPH, HTN, PVD, Chronic Troponin elevation, H/O Right temporal encephalomalacia, Pernicious anemia and other problems presents with history of worsening SOB since one day duration. Reports having a brief period of cough overnight which resolved. Also states having worsening bilateral leg swelling and was discontinued on amlodipine and increased lasix from 20mg to 40mg 2 days ago by his PCP. Reports having fever associated with chills for one day 1 week ago which resolved. Also states having diarrhea since 4 weeks duration since he was started on hydralazine for BP control. Denies any history of chest pain, palpitations, dizziness, cough, wheezing, abd pain, Urinary symptoms. Admits to drinking lot of water daily but adds no salt to his diet. 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 Permanent Comment: normal LVEF on most recent echo Status: Chronic Surgical Problems: (1) Status post carotid endarterectomy Permanent Comment: right Status: Chronic (2) Status post carpal tunnel release Status: Chronic (3) Status post cataract extraction Status: Chronic Family History Cancer Hypertension Reviewed. Social History Smoking Status: Former Smoker Alcohol Use: socially Drug Use: none Immunizations History of Influenza Vaccine: Yes Influenza Vaccine Date: Jan 09, 2016 History of Tetanus Vaccine?: Yes Tetanus Immunization Date: May 05, 2012 History of Pneumococcal: Yes Pneumococcal Date: Apr 12, 2014 Multi-Drug Resistant Organisms History of MDRO: No Allergies Coded Allergies: Penicillins (Verified Allergy, Unknown, PENILE ENLARGEMENT, 08/13/16) Per Dr. Crespo, reviewed reaction in outpatient records Tramadol (Verified Adverse Reaction, Unknown, GI SYMPTOMS, 08/13/16) Home Medications Scheduled Allopurinol (Zyloprim), 200 MG PO QAM Amiodarone Hcl (Cordarone), 200 MG PO DAILY Aspirin (Aspirin Ec), 81 MG PO QAM Atorvastatin (Lipitor), 40 MG PO DAILY Captopril (Capoten), 12.5 MG PO TID Cholecalciferol (Vitamin D), 2,000 INTUNIT PO QAM Cyanocobalamin (Vitamin B-12), 1,000 MCG PO QAM Finasteride (Proscar), 5 MG PO DAILY Furosemide (Lasix), 40 MG PO DAILY Hydralazine HCl (Hydralazine HCl), 50 MG PO TID Isosorbide Mononitrate Ext Rel (Imdur Ext Rel), 30 MG PO QAM Levothyroxine Sodium (Levothyroxine Sodium), 175 MCG PO DAILY Metoprolol Succinate (Toprol Xl), 25 MG PO DAILY Tamsulosin Hcl (Flomax), 0.4 MG PO DAILY Warfarin Sodium (Coumadin), 2 MG PO HS Scheduled PRN Acetaminophen Tab (Tylenol), 650 MG PO Q6 PRN for Pain Bisacodyl (Dulcolax), 1 SUPP CA DAILY PRN for Constipation Polyethylene Glycol 3350 (Miralax), 17 GM PO DAILY PRN for CONSTIPATION Review of Systems See HPI for pertinent positives & negatives. A total of 10 systems reviewed and were otherwise negative. Physical Exam Vital Signs Date Time Temp Pulse Resp B/P (MAP) Pulse Ox O2 Delivery O2 Flow Rate FiO2 09/13/16 17:09 67 18 92 Nasal Cannula 2.0 09/13/16 17:06 68 09/13/16 17:04 68 89 Room Air 09/13/16 16:59 68 89 Room Air 09/13/16 16:54 66 87 Room Air 09/13/16 16:49 66 90 Room Air 09/13/16 16:44 65 95 09/13/16 16:39 67 96 09/13/16 16:37 79 Room Air 09/13/16 16:34 66 97 09/13/16 16:31 93 Nasal Cannula 6.0 09/13/16 16:30 89 Nasal Cannula 4.0 09/13/16 16:29 71 93 09/13/16 16:26 79 Room Air 09/13/16 16:25 133/59 09/13/16 16:15 37.1 76 20 121/59 85 Room Air General Appearance: WD/WN, no apparent distress Head: normocephalic, atraumatic Eyes: normal inspection, PERRL, EOMI ENT: normal ENT inspection, hearing grossly normal Neck: supple, trachea midline Respiratory/Chest: chest non-tender, no accessory muscle use, + crackles ( Bilaterally, left more than right) Cardiovascular: regular rate, rhythm, no murmur, + pertinent finding (B/L pitting edema) Abdomen/GI: normal bowel sounds, non tender, soft Back: normal inspection Extremities/Musculoskelatal: normal inspection, + pedal edema 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, no motor/sensory deficits, alert, normal mood/affect, oriented x 3 Skin: normal color, warm/dry Diagnostics Laboratory Results Results Past 24 Hours Test 09/13/16 16:35 09/13/16 16:43 09/13/16 16:44 Range/Units White Blood Count 14.53 4.8-10.8 K/uL Red Blood Count 3.44 4.7-6.1 M/uL Hemoglobin 10.7 14.0-18.0 g/dL Hematocrit 32.3 42-52 % Mean Corpuscular Volume 93.9 80-100 fL Mean Corpuscular Hemoglobin 31.1 25-34 pg Mean Corpuscular Hemoglobin Concent 33.1 32-36 g/dl Platelet Count 239 130-400 K/uL Mean Platelet Volume 10.5 7.4-10.4 fL Neutrophils (%) (Auto) 91.0 % Lymphocytes (%) (Auto) 5.4 % Monocytes (%) (Auto) 3.4 % Eosinophils (%) (Auto) 0.0 % Basophils (%) (Auto) 0.0 % Neutrophils # (Auto) 13.22 1.4-6.5 K/uL Lymphocytes # (Auto) 0.79 1.2-3.4 K/uL Monocytes # (Auto) 0.49 0.11-0.59 K/uL Eosinophils # (Auto) 0.00 0-0.5 K/uL Basophils # (Auto) 0.00 0-0.2 K/uL RDW Standard Deviation 53.2 36.4-46.3 fL RDW Coefficient of Variation 15.5 11.5-14.5 % Immature Granulocyte % (Auto) 0.2 % Immature Granulocyte # (Auto) 0.03 0.00-0.02 K/uL D-Dimer 290 0-500 ug/L FEU Sodium Level 139 136-145 mmol/L Potassium Level 3.8 3.5-5.1 mmol/L Chloride Level 106 98-107 mmol/L Carbon Dioxide Level 20 21-32 mmol/L Anion Gap 13.0 3-11 mmol/L Blood Urea Nitrogen 47 7-18 mg/dl Creatinine 3.00 0.60-1.40 mg/dl Est Creatinine Clear Calc Drug Dose 18.6 ml/min Estimated GFR () 21.1 Estimated GFR (Non- 18.2 BUN/Creatinine Ratio 15.7 10-20 Random Glucose 132 70-99 mg/dl Calcium Level 8.7 8.5-10.1 mg/dl Total Creatine Kinase 119 39-308 U/L Creatine Kinase MB 7.6 0.5-3.6 ng/ml Creatine Kinase MB Ratio 6.4 0-3.0 Troponin I 3.110 0-0.045 ng/ml Pro-B-Type Natriuretic Peptide > 67130 0-1800 pg/ml Bedside Lactic Acid Venous 1.79 0.90-1.70 mmol/L Venous Blood pH 7.50 7.36-7.41 Venous Blood Partial Pressure CO2 24 38.0-50.0 mmHg Venous Blood Partial Pressure O2 37 mmHg Venous Blood HCO3 18 mmol/L Venous Blood Oxygen Saturation 75.0 % Venous Blood Base Excess -4.1 mmol/L Microbiology Results 09/13/16 Blood Culture, Received Pending 09/13/16 Blood Culture, Received Pending Diagnostic Radiology cxr: 1. Interval development of interstitial thickening consistent with pulmonary edema. 2. Interval development of asymmetric left lung airspace opacities which could reflect asymmetric pulmonary edema or a superimposed infectious process. 3. Small left and trace right pleural effusions. EKG EKG: sinus rhythm, PAC, prolonged QT Impression Assessment and Plan Acute Hypoxic Respiratory Failure Acute on Chronic diastolic CHF Presented with SOB, leg swelling, increased BNP and elevated troponin CXR: findings suggestive of pulmonary edema BNP: >35,000 Start IV lasix 40mg BID (Take 40mg lasix daily) I/Os, daily weight, fluid restriction Last ECHO: EF:60-65%, Grade II diastolic dysfunction Discussed with cardiology . Appreciate input Trend cardiac enzymes Continue Metoprolol, Captopril, Imdur Check ECHO D-dimer:wnl Oxygen support per protocol Supratherapeutic INR: INR:3.6 Hold coumadin Monitor INR Possible CAP: Empirically treat with Doxycycline Check sputum culture, gram strain Chronic Elevation of Troponin: In setting of CKD IV Trend cardiac enzymes EKG: no acute signs of ischemia ECHO ordered Chronic Diarrhea: Likely secondary to Hydralazine Check Stool for C.diff Chronic P.Afib: Currently in sinus INR:3.6 Continue BB, amiodarone Hold Coumadin ANETA on CKD IV: Previously on HD temporarily Baseline Cr:around 2.5 Monitor Cr levels while on diuretics Will consider Nephrology if Cr worsens Hypothyroidism: Continue Levothyroxine Check TSH, Free T4 BPH: Stable Continue home meds HTN: Stable Continue home meds H/O PVD: Continue Aspirin, statins H/O Right temporal encephalomalacia Stable Follow up as outpatient DVT px: SCDs as INR supratherapeutic Code Status: Ful Code Disposition: Monitor in Tele
[2016-09-13 17:50] LABS: INR 3.6 (0.9-1.1)
[2016-09-13] MEDS ORDERED: LEVO175T3 PO (18:06)
[2016-09-13] MEDS ORDERED: METO-217 PO (18:06)
[2016-09-13] MEDS ORDERED: FRS/40 PO (18:06)
[2016-09-13] MEDS ORDERED: BISA10SU38 PR (18:06)
[2016-09-13] MEDS ORDERED: ACETAMINOPHEN 325 MG TAB PO PRN (18:15)
[2016-09-13] MEDS ORDERED: ONDANSETRON INJ 2 MG/ML 2 ML VIAL IV PRN (18:15)
[2016-09-13] MEDS ORDERED: ALBUT/IPRATROP 3MG/0.5MG NEB 3 ML VIAL INH PRN (18:45)
[2016-09-13 19:30] VITALS: BP 157/63; PULSE 71; TEMP 37; O2SAT 93; Ht 175.3 cm; Wt 73.0 kg
[2016-09-13 19:40] LABS: THYROID STIMULATING HORMONE 0.776 uIu/ml (0.300-4.500)
[2016-09-13] MEDS ORDERED: FUROSEMIDE INJ 40 MG in SYRINGE 0 ML IV ONE (19:45)
[2016-09-13 20:00] VITALS: O2SAT 93
[2016-09-13] MEDS: CAPTOPRIL 12.5 MG TAB PO SCH (21:05)
[2016-09-13 23:50] VITALS: BP 141/54; PULSE 61; TEMP 37.1; O2SAT 90
[2016-09-13 23:59] VITALS: O2SAT 93
[2016-09-14] VITALS (8 sets, daily range): BP systolic 137–170; BP diastolic 62–78; PULSE 61–78; TEMP 36.5–37.3; O2SAT 90–98
[2016-09-14] MEDS: LEVOTHYROXINE 175 MCG TAB PO SCH (05:44)
[2016-09-14] MEDS: DOXYCYCLINE IV 100 MG in DEXTROSE 5% 100ML 100 ML IV SCH ×2 (05:44→17:32)
[2016-09-14 06:34] LABS: BASO % 0.1 %; BASO ABS # 0.01 K/uL (0-0.2); COMPLETE YES; EOS % 0.3 %; HEMATOCRIT 29.7 % (42-52); IG% 0.3 %; LYMPH % 8.3 %; LYMPH ABS # 0.92 K/uL (1.2-3.4); MEAN CORPUSCULAR HEMOGLOBIN 31.3 pg (25-34); MEAN PLATELET VOLUME 10.6 fL (7.4-10.4); MONO % 5.5 %; NEUT % 85.5 %; PLATELET COUNT 228 K/uL (130-400); RED BLOOD COUNT 3.23 M/uL (4.7-6.1); WHITE BLOOD COUNT 11.11 K/uL (4.8-10.8)
[2016-09-14 06:47] LABS: PROTHROMBIN TIME (PATIENT) 45.9 SECONDS (9.0-12.0)
[2016-09-14 07:11] LABS: BLOOD UREA NITROGEN 51 mg/dl (7-18); BUN/CREATININE RATIO 18.2 (10-20); CALCIUM 8.4 mg/dl (8.5-10.1); CARBON DIOXIDE 23 mmol/L (21-32); CHLORIDE 108 mmol/L (98-107); GLUCOSE 110 mg/dl (70-99); POTASSIUM 3.7 mmol/L (3.5-5.1); SODIUM 142 mmol/L (136-145)
[2016-09-14] MEDS: CAPTOPRIL 12.5 MG TAB PO SCH (07:45)
[2016-09-14] MEDS: AMIODARONE 200 MG TAB PO SCH (07:46)
[2016-09-14] MEDS: ASPIRIN 81 MG ECTAB PO SCH (07:47)
[2016-09-14] MEDS: ISOSORBIDE MONONITRATE 30 MG TABCR PO SCH (07:48)
[2016-09-14] MEDS: ATORVASTATIN 40 MG TAB PO SCH (07:48)
[2016-09-14] MEDS: TAMSULOSIN HCL 0.4 MG CAP PO SCH (07:48)
[2016-09-14] MEDS: METOPROLOL SUCC 25MG EXT REL TAB PO SCH (07:49)
[2016-09-14] MEDS: FINASTERIDE 5 MG TAB PO SCH (07:49)
[2016-09-14] MEDS: CYANOCOBALAMIN 500 MCG TAB (VIT B-12) PO SCH (07:50)
[2016-09-14] MEDS: ALLOPURINOL 100 MG TAB PO SCH (07:50)
[2016-09-14] MEDS: FUROSEMIDE INJ 40 MG in SYRINGE 0 ML IV SCH ×2 (07:53→17:32)
--- NOTE | 2016-09-14 09:20 | Progress Note ---
Internal Med Progress Note Date of Service: Sep 14, 2016. Provider Documentation: SUBJECTIVE: Seen and examined at bedside. States SOB is better. Has intermittent cough. Denies chest pain. Denies nausea, vomiting, dizziness. Afebrile. Offers no other complaints. 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 ASSESSMENT & PLAN: Acute Hypoxic Respiratory Failure Acute on Chronic diastolic CHF Presented with SOB, leg swelling, increased BNP and elevated troponin CXR: findings suggestive of pulmonary edema BNP: >35,000 Continue IV lasix 40mg BID (Take 40mg lasix daily at home) I/Os, daily weight, fluid restriction Last ECHO: EF:60-65%, Grade II diastolic dysfunction Cardiology consulted. Trend cardiac enzymes Continue Metoprolol, Imdur ECHO:pending D-dimer:wnl Oxygen support per protocol NSTEMI Troponin : 3.1>>6.5 >>7.4>>6.2 In setting of CKD IV Trend cardiac enzymes ECHO: pending Conservative management for now Cardiology following Supratherapeutic INR: INR:3.6 >>>4.0 Hold coumadin Monitor INR Possible CAP: Leukocytosis improving Continue Empiric Doxycycline # Day 2 Follow up sputum culture, gram strain, blood cultures Chronic Diarrhea: Likely secondary to Hydralazine Check Stool for C.diff if reoccurs Chronic P.Afib: Currently in sinus INR:3.6 Continue BB, amiodarone Hold Coumadin ANETA on CKD IV: Previously on HD temporarily Baseline Cr:around 2.5 Cr:2.8 today Monitor Cr levels while on diuretics Will consider Nephrology if Cr worsens Captopril on hold Hypothyroidism: Continue Levothyroxine BPH: Stable Continue home meds HTN: Stable Continue home meds Captopril on hold H/O PVD: Continue Aspirin, statins H/O Right temporal encephalomalacia Stable Follow up as outpatient DVT px: SCDs as INR supratherapeutic Code Status: Ful Code Disposition: Monitor in Tele Vital Signs: Date Time Temp Pulse Resp B/P (MAP) Pulse Ox O2 Delivery O2 Flow Rate FiO2 09/15/16 12:00 Nasal Cannula 4.0 09/15/16 11:49 36.9 66 20 172/64 (100) 90 Room Air 09/15/16 08:00 Nasal Cannula 4.0 09/15/16 07:55 36.7 64 24 165/64 (97) 91 Nasal Cannula 4.0 09/15/16 04:00 Nasal Cannula 4.0 09/15/16 03:45 36.4 62 18 128/66 (86) 95 Nasal Cannula 4.0 09/15/16 00:00 Nasal Cannula 4.0 09/14/16 23:50 36.8 61 18 137/62 (87) 93 Room Air 09/14/16 20:13 37.3 65 18 166/68 (100) 91 Nasal Cannula 4.0 09/14/16 20:00 Nasal Cannula 4.0 09/14/16 19:33 36.5 78 18 151/78 (102) 96 09/14/16 16:14 36.9 66 18 148/76 (100) 98 Lab Results: Results Past 24 Hours Test 09/15/16 06:46 Range/Units White Blood Count 8.32 4.8-10.8 K/uL Red Blood Count 3.27 4.7-6.1 M/uL Hemoglobin 10.0 14.0-18.0 g/dL Hematocrit 29.9 42-52 % Mean Corpuscular Volume 91.4 80-100 fL Mean Corpuscular Hemoglobin 30.6 25-34 pg Mean Corpuscular Hemoglobin Concent 33.4 32-36 g/dl Platelet Count 229 130-400 K/uL Mean Platelet Volume 10.1 7.4-10.4 fL Neutrophils (%) (Auto) 82.0 % Lymphocytes (%) (Auto) 5.2 % Monocytes (%) (Auto) 10.9 % Eosinophils (%) (Auto) 1.3 % Basophils (%) (Auto) 0.1 % Neutrophils # (Auto) 6.82 1.4-6.5 K/uL Lymphocytes # (Auto) 0.43 1.2-3.4 K/uL Monocytes # (Auto) 0.91 0.11-0.59 K/uL Eosinophils # (Auto) 0.11 0-0.5 K/uL Basophils # (Auto) 0.01 0-0.2 K/uL RDW Standard Deviation 51.5 36.4-46.3 fL RDW Coefficient of Variation 15.3 11.5-14.5 % Immature Granulocyte % (Auto) 0.5 % Immature Granulocyte # (Auto) 0.04 0.00-0.02 K/uL Prothrombin Time 43.8 9.0-12.0 SECONDS Prothromb Time International Ratio 3.9 0.9-1.1 Sodium Level 141 136-145 mmol/L Potassium Level 3.4 3.5-5.1 mmol/L Chloride Level 107 98-107 mmol/L Carbon Dioxide Level 23 21-32 mmol/L Anion Gap 11.0 3-11 mmol/L Blood Urea Nitrogen 57 7-18 mg/dl Creatinine 2.80 0.60-1.40 mg/dl Est Creatinine Clear Calc Drug Dose 19.6 ml/min Estimated GFR () 23.0 Estimated GFR (Non- 19.8 BUN/Creatinine Ratio 20.3 10-20 Random Glucose 99 70-99 mg/dl Calcium Level 8.4 8.5-10.1 mg/dl Thyroid Stimulating Hormone (TSH) 0.399 0.300-4.500 uIu/ml Free Thyroxine 2.49 0.80-1.60 ng/dl Microbiology Results 09/15/16 C.difficile Toxin B Gene (PCR) - Final, Complete No C. difficile toxin B gene detected
--- NOTE | 2016-09-14 11:11 | ECHOCARDIOGRAM REPORT ---
*NOTICE TO RECEIVING [employer] This information is strictly Confidential and protected under [place] law. [place] law prohibits you from making any further disclosure of this information unless further disclosure is expressly permitted by the written consent of the person to whom it pertains or is authorized by law. A general authorization for the release of medical or other information is not sufficient for this purpose. Hospital accepts no responsibility if the information is made available to any other person, INCLUDING THE PATIENT. Interpretation Summary * Name: CARLOS DAVEY Study Date: 09/14/2016 08:03 AM BP: 143/62 mmHg * Patient Location: C.2T\S\S244\S\1 HR: 64 * : 1930 (M/d/yyy) Gender: Male Height: 69 in * Age: 86 yrs Ethnicity: [place] Weight: 170 lb * Ordering Physician: Nathan Stephens * Referring Physician: Self, Referred * Performed By: Abi Lindquist RDCS * * Reason For Study: CHF, [place] * BSA: 1.9 m2 * Limited views were obtained. * The study was technically adequate. * Compared to prior study, changes are noted. * -- Conclusions -- * Ejection Fraction = 45-50%. * The mid anteroseptum is akinetic. * The mid and apical anterior wall is hypokinetic. * The apical inferior wall and apical septum is hypokinetic. * There is moderate tricuspid regurgitation. * The estimated systolic PAP is 61mmhg. * Aortic valve sclerosis mild, without significant aortic valvular stenosis. Procedure Details * A two-dimensional transthoracic echocardiogram with pulsed and continuous Doppler was performed. * A contrast injection of Definity was performed to improve assessment of LV function. * Contrast was injected into an intravenous site in the right arm. * One vial of Definity ultrasound contrast was diluted in normal saline to a total volume of 10 ml. A total of '3' ml of solution was administered during imaging. * Lot # [id number] of Definity utilized for procedure. * Expiration date 1 SEP 21. * The attending nurse who injected the contrast agent was Tom Mckay RN. Left Ventricle * There is no thrombus. * There is mild concentric left ventricular hypertrophy. * Left ventricular systolic function is mildly reduced. * Ejection Fraction = 45-50%. * The mid anteroseptum is akinetic. The mid and apical anterior wall is hypokinetic. The apical inferior wall and apical septum is hypokinetic. Atria * The left atrium is severely dilated. Tricuspid Valve * The tricuspid valve is not well visualized, but is grossly normal. * There is moderate tricuspid regurgitation. * The estimated systolic PAP is 61mmhg. Aortic Valve * The aortic valve is tricuspid. The leaflet thickness if normal. There is no aortic stenosis, and no significant insufficiency. * Aortic valve sclerosis mild, without significant aortic valvular stenosis. Great Vessels * Dilate IVC with normal inspiratory variation. MMode 2D Measurements and Calculations IVSd 1.3 cm LVIDd 5.0 cm LVIDs 3.6 cm LVPWd 0.92 cm IVS/LVPW 1.4 FS 27.8 % EDV(Teich) 120.6 ml ESV(Teich) 55.9 ml EF(Teich) 53.7 % EDV(cubed) 128.2 ml ESV(cubed) 48.2 ml EF(cubed) 62.4 % LV mass(C)d 211.8 grams LV mass(C)dI 109.9 grams/m\S\2 CO(Teich) 4.3 l/min CI(Teich) 2.2 l/min/m\S\2 SV(Teich) 64.7 ml SI(Teich) 33.6 ml/m\S\2 CO(cubed) 5.4 l/min CI(cubed) 2.8 l/min/m\S\2 SV(cubed) 80.0 ml SI(cubed) 41.5 ml/m\S\2 LA dimension 3.8 cm LVAd ap4 43.1 cm\S\2 LVLd ap4 9.1 cm EDV(MOD-sp4) 163.0 ml LVAs ap4 28.4 cm\S\2 LVLs ap4 8.2 cm ESV(MOD-sp4) 79.4 ml EF(MOD-sp4) 51.3 % LVAd ap2 43.4 cm\S\2 LVLd ap2 8.8 cm EDV(MOD-sp2) 173.0 ml LVAs ap2 27.9 cm\S\2 LVLs ap2 7.8 cm ESV(MOD-sp2) 81.7 ml EF(MOD-sp2) 52.8 % CO(MOD-sp4) 5.6 l/min CI(MOD-sp4) 2.9 l/min/m\S\2 SV(MOD-sp4) 83.6 ml SI(MOD-sp4) 43.4 ml/m\S\2 CO(MOD-sp2) 6.1 l/min CI(MOD-sp2) 3.2 l/min/m\S\2 SV(MOD-sp2) 91.3 ml SI(MOD-sp2) 47.4 ml/m\S\2 Doppler Measurements and Calculations TR max sam 362.0 cm/sec
--- NOTE | 2016-09-14 15:56 | CARDIOLOGY CONSULTATION ---
DATE OF CONSULTATION: 09/14/2016 REASON FOR CONSULTATION: Elevated troponin, congestive heart failure. REFERRING PHYSICIAN: Dr. Nathan Stephens. CHIEF COMPLAINT ON ADMISSION: Shortness of breath. HISTORY OF PRESENT ILLNESS: Mr. Zaidi is an 86-year-old gentleman who developed severe cough followed by significant dyspnea at rest as well as with minimal exertion last evening. Due to his progressive shortness of breath he came to the Emergency Department for further evaluation. Furosemide recently titrated in the outpatient setting for progressive dyspnea. He carries a history of CKD stage IV as well as complex issues noted below. He is noted to have elevated troponins which have trended upward over 7. He has diuresed approximately 600 mL overnight and is feeling much better. Most recent hospitalization secondary to uncontrolled hypertension. Son is present at the bedside. The patient is currently asymptomatic. REVIEW OF SYSTEMS: The pertinent positive noted above, a comprehensive 10-system review is otherwise negative. PAST MEDICAL HISTORY: 1. Paroxysmal atrial fibrillation maintained in sinus rhythm with amiodarone. 2. NSTEMI -- presume type 2 in the setting of respiratory failure in 12/2015. 3. History of presumed ischemic cardiomyopathy with normalization of LV function in the past. 4. CKD stage IV. 5. Hypertension with hypertensive heart disease. 6. BPH. 7. Dyslipidemia. 8. GERD. 9. Hypothyroidism. 10. Pernicious anemia. 11. Peripheral vascular disease. 12. Carotid vascular disease. PAST SURGICAL HISTORY: 1. Right-sided carotid endarterectomy. 2. Carpal tunnel release. 3. Cataract extraction. FAMILY HISTORY: Negative for premature CAD or sudden cardiac , however, noncontributory given patient's advanced age. SOCIAL HISTORY: Former tobacco abuse. ALLERGIES: PENICILLINS, TRAMADOL. HOME MEDICATIONS: 1. Allopurinol 200 mg daily. 2. Amiodarone 200 mg daily. 3. Aspirin 81 mg daily. 4. Atorvastatin 40 mg. 5. Captopril 12.5 mg t.i.d. 6. Vitamin D 2000 units daily. 7. Vitamin B12 1000 mcg daily. 8. Proscar 5 mg daily. 9. Furosemide 40 mg daily. 10. Hydralazine 50 mg t.i.d. 11. Isosorbide monohydrate 30 mg daily. 12. Synthroid 175 mcg daily. 13. Toprol-XL 25 mg daily. 14. Flomax 0.4 mg daily. 15. Coumadin 2 mg daily. 16. Tylenol as needed. 17. Dulcolax as needed. ECG on admission demonstrates sinus rhythm with left ventricular hypertrophy and secondary ST-T-wave abnormality. Prolonged QT. LABORATORY DATA: Initial troponin 3.110. Peak troponin 7.470. Sodium 142, potassium 3.7, chloride 108, CO2 is 23, BUN is 51, creatinine is 2.80. ProBNP 96801. White blood cell count 11.11, hemoglobin is 10.1, platelet count 228. INR this morning is 4.0. PHYSICAL EXAMINATION: VITAL SIGNS: Temperature is 37 degrees centigrade, pulse 65 beats per minute and regular, respiratory rate 16 breaths per minute, blood pressure 151/64, SAO2 is 92% on 4 liters. GENERAL: NAD, chronically ill, awake, alert and oriented x3. HEENT: Mucous membranes are moist. There is no scleral icterus. NECK: Supple with elevated JVD. No carotid bruit. HEART: Regular with a normal S1 and S2, no murmur, rub, or gallop. LUNGS: Demonstrate crackles at the bases bilaterally, there are also crackles in the left mid lung field. There is no rhonchi or wheeze. ABDOMEN: Soft, nontender. No rebound or guarding. EXTREMITIES: Warm and dry without clubbing, cyanosis, or edema. NEUROLOGIC: Demonstrates no focal motor deficit. FINAL IMPRESSION: 1. Non-ST elevation myocardial infarction. 2. Acute systolic heart failure with ischemic cardiomyopathy and repeat resting 2D transthoracic echo demonstrating mild decline in LV systolic function as well as regional wall motion abnormalities in the LAD territory. 3. Paroxysmal atrial fibrillation maintained in sinus rhythm. INR currently supratherapeutic. 4. Possible community-acquired pneumonia. 5. Acute kidney injury superimposed on chronic kidney disease stage 4. 6. Hypertension -- borderline control. 7. Peripheral vascular disease. PLAN AND RECOMMENDATIONS: I had a long discussion at the bedside with both the patient and his son regarding his NSTEMI and resultant acute decompensated heart failure. Primary treatment goal at this time is for diuretic therapy and optimization of his respiratory status. This will be difficult with his renal insufficiency. He will likely require nephrology consultation during hospitalization. The patient understands his tenuous renal status and the need for potential dialysis in the future. I discussed the potential risks of invasive cardiovascular treatment strategy including cardiac catheterization. The patient understands that if he were to pursue a catheterization he most likely would result in permanent dialysis. Both the son and patient voices understanding. They prefer to continue with conservative medical approach, although they may reconsider during hospitalization. Other cardiovascular medications including beta-preet, amiodarone, aspirin, atorvastatin, isosorbide monohydrate, and hydralazine will be continued. Warfarin will remain on hold at this time. All questions were answered to the satisfaction of both the patient and his son. I will continue to follow closely during hospitalization. Thank you for allowing me to take part in the care of your patient. MICHELLE
--- NOTE | 2016-09-14 16:13 | NEPHROLOGY CONSULTATION ---
DATE OF CONSULTATION: 09/14/2016 ASSESSMENT AND PLAN: Acute on chronic renal failure as well as congestive heart failure. 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 He presented to the Emergency Department yesterday with worsening shortness of breath which suddenly got worse yesterday morning. He has been having issues with worsening bilateral lower extremity edema. He was started on Lasix 20 mg about a week ago, the dose of which was raised to 40 mg just 2 days ago, amlodipine was also stopped recently because of the lower extremity edema. He also states having diarrhea for the last few weeks which he blames to hydralazine which was a new blood pressure medicine. All this is based on patient's account. He denies having any chest pain, palpitations, dizziness, orthopnea. Denied having any fever. He did have some weight gain recently, but since the start of Lasix both the lower extremities edema as well as weight has gone down. He claims to take all his medications as prescribed and claims to drink lots of water, but denies having high salt food. At the time of admission yesterday, he definitely had very elevated troponin and is still rising and it is up to 7.47. His BNP was very elevated at more than 35,000. Creatinine was slightly higher at 3.0 compared to his baseline of 2.5 one month ago. Since admission he got Lasix 40 mg IV twice daily and with that he has made significantly more urine output, although it does not appear to be monitored accurately. He does feel his breathing is already better by 50% compared to yesterday. It is worth noting that patient was briefly on hemodialysis and dialysis has been stopped since April 2016, but he follows with Dr. Linda Alarcon closely in the CKD clinic. PAST MEDICAL AND SURGICAL HISTORY: Atrial fibrillation, BPH, recent history of severe acute kidney injury during sepsis and was briefly on hemodialysis, last one was in April 2016; hyperlipidemia, gastroesophageal reflux disease, gout, hypertension, hypothyroidism, peripheral vascular disease, congestive heart failure, mainly diastolic status post carotid endarterectomy, carpal tunnel release surgery, cataract surgery. FAMILY HISTORY: Negative for renal disease or dialysis. SOCIAL HISTORY: Former smoker, social alcohol, no drugs. ALLERGIES: PENICILLIN AND TRAMADOL. HOME MEDICATIONS: Included allopurinol, amiodarone, aspirin, Lipitor, captopril 12.5 mg 3 times a day, vitamin D, vitamin B12, Proscar 5 mg daily, Lasix 40 mg daily, hydralazine 50 mg 3 times a day, isosorbide mononitrate 30 mg daily, levothyroxine, metoprolol, Flomax, Coumadin. REVIEW OF SYSTEMS: As detailed in HPI, total of 14 systems reviewed and were otherwise negative. PHYSICAL EXAMINATION: GENERAL: Elderly white male who does not appear to be in any respiratory distress at this time. He feels he is 50% better than yesterday. HEENT: Normocephalic, atraumatic. NECK: Supple. No jugular venous distention. CHEST: Bilateral decreased breath sounds and occasional crackles. CARDIOVASCULAR: Irregular, soft systolic murmur heard, no edema at this time. ABDOMEN: Soft, nontender. EXTREMITIES: Show no edema. BACK: Normal. No CVA tenderness. SKIN: Normal. NEUROLOGIC: Awake, alert, oriented x3, moving all 4 extremities. Normal speech. LABORATORY DATA: At the time of admission yesterday, sodium 139, potassium 3.8, BUN 47, creatinine 3.0, troponin was 3.110, troponin has gone up steadily and is now up to 7.470, proBNP more than 35,000. Labs from this morning shows BUN of 51, creatinine is better at 2.8, sodium 142, potassium 3.7, hemoglobin 10.1, platelet count 228. ASSESSMENT AND PLAN: An 86-year-old male with significant medical problems including CKD stage IV with a baseline creatinine of 2.5 and history of diastolic congestive heart failure, presented to the hospital yesterday with shortness of breath. He has non-ST elevation myocardial infarction at this time as well as symptomatic congestive heart failure. Based on the echocardiogram it appears he has systolic as well as diastolic congestive heart failure at this time. He did have slight acute kidney injury as creatinine went up to 3.0 from a baseline of 2.5. 1. Acute kidney injury. No further workup needed as creatinine is down to 2.8, which is very close to his baseline. This is mostly chronic kidney disease stage 4. There might be some rise in the creatinine with the use of IV Lasix but as of now we have not seen any worsening kidney function. Continue to do daily labs. Follow input and output closely. 2. Congestive heart failure. He has both systolic and diastolic component as well as acute non-ST elevation myocardial infarction at this time. Troponin is very high at 7.5 and it is still rising. Such degree of elevated troponin cannot be attributed to chronic kidney disease and I believe this does signify non-ST elevation myocardial infarction. Cardiology is already seeing the patient. I would not use LUCIANO or ARB on this patient for now. He was complaining of diarrhea prior to hospitalization and he blames the diarrhea to hydralazine, but since admission he really has not had much diarrhea. Can continue hydralazine. He is responding nicely to Lasix 40 mg IV b.i.d. and I would continue the same dose. MTDD
[2016-09-15 03:45] VITALS: BP 128/66; PULSE 62; TEMP 36.4; O2SAT 95
[2016-09-15] MEDS: DOXYCYCLINE IV 100 MG in DEXTROSE 5% 100ML 100 ML IV SCH ×2 (05:39→18:11)
[2016-09-15] MEDS: LEVOTHYROXINE 175 MCG TAB PO SCH (05:39)
[2016-09-15 07:06] LABS: BASO % 0.1 %; BASO ABS # 0.01 K/uL (0-0.2); COMPLETE YES; EOS % 1.3 %; HEMATOCRIT 29.9 % (42-52); IG% 0.5 %; LYMPH % 5.2 %; LYMPH ABS # 0.43 K/uL (1.2-3.4); MEAN CELL VOLUME 91.4 fL (80-100); MEAN CORPUSCULAR HEMOGLOBIN 30.6 pg (25-34); MEAN CORPUSCULAR HGB CONC 33.4 g/dl (32-36); MEAN PLATELET VOLUME 10.1 fL (7.4-10.4); MONO % 10.9 %; PLATELET COUNT 229 K/uL (130-400); RED BLOOD COUNT 3.27 M/uL (4.7-6.1); WHITE BLOOD COUNT 8.32 K/uL (4.8-10.8)
[2016-09-15 07:21] LABS: PROTHROMBIN TIME (PATIENT) 43.8 SECONDS (9.0-12.0)
[2016-09-15 07:26] LABS: INR 3.9 (0.9-1.1)
[2016-09-15 07:38] LABS: BUN/CREATININE RATIO 20.3 (10-20); CALCIUM 8.4 mg/dl (8.5-10.1); CREATININE 2.8 mg/dl (0.60-1.40); POTASSIUM 3.4 mmol/L (3.5-5.1)
[2016-09-15 07:50] LABS: THYROID STIMULATING HORMONE 0.399 uIu/ml (0.300-4.500)
[2016-09-15 07:55] VITALS: BP 165/64; PULSE 64; TEMP 36.7; O2SAT 91
[2016-09-15] MEDS: ISOSORBIDE MONONITRATE 30 MG TABCR PO SCH (08:05)
[2016-09-15] MEDS: ATORVASTATIN 40 MG TAB PO SCH (08:05)
[2016-09-15] MEDS: CYANOCOBALAMIN 500 MCG TAB (VIT B-12) PO SCH (08:05)
[2016-09-15] MEDS: FINASTERIDE 5 MG TAB PO SCH (08:05)
[2016-09-15] MEDS: ASPIRIN 81 MG ECTAB PO SCH (08:05)
[2016-09-15] MEDS: METOPROLOL SUCC 25MG EXT REL TAB PO SCH (08:05)
[2016-09-15] MEDS: AMIODARONE 200 MG TAB PO SCH (08:06)
[2016-09-15] MEDS: ALLOPURINOL 100 MG TAB PO SCH (08:06)
[2016-09-15] MEDS: TAMSULOSIN HCL 0.4 MG CAP PO SCH (08:06)
[2016-09-15] MEDS: FUROSEMIDE INJ 40 MG in SYRINGE 0 ML IV SCH ×2 (08:07→18:11)
[2016-09-15] MEDS ORDERED: POTASSIUM CHLORIDE 20 MEQ TABCR PO ONE (09:15)
--- NOTE | 2016-09-15 09:18 | Progress Note ---
Internal Med Progress Note Date of Service: Sep 15, 2016. Provider Documentation: SUBJECTIVE: Seen and examined at bedside. States feeling well. Denies SOB, cough, chest pain , nausea, dizziness. Offers no other complaints. Prefers not to undergo cardiac catheterization. OBJECTIVE: Vital Signs-as noted below General Appearance: WD/WN, no apparent distress Head: normocephalic, atraumatic Eyes: normal inspection, PERRL, EOMI ENT: normal ENT inspection, hearing grossly normal Neck: supple, trachea midline Respiratory/Chest: chest non-tender, no accessory muscle use, + crackles bilaterally, L> R Cardiovascular: regular rate, rhythm, no murmur, +B/L pitting edema Abdomen/GI: normal bowel sounds, non tender, soft Back: normal inspection Extremities/Musculoskelatal: normal inspection, + pedal edema Neurologic/Psych: designer/writer II-XII nml as tested, no motor/sensory deficits, alert, normal mood/affect, oriented x 3 Skin: normal color, warm/dry Lab data as noted below. ASSESSMENT & PLAN: Acute Hypoxic Respiratory Failure Acute on Chronic diastolic CHF Presented with SOB, leg swelling, increased BNP and elevated troponin CXR: findings suggestive of pulmonary edema BNP: >35,000 Continue IV lasix 40mg BID (Take 40mg lasix daily at home) I/Os, daily weight, fluid restriction Last ECHO: EF:60-65%, Grade II diastolic dysfunction Appreciate Cardiology input Continue Metoprolol, Imdur Captopril on hold secondary to ANETA ECHO:As below D-dimer:wnl Oxygen support per protocol (Not on oxygen at home) NSTEMI Troponin : 3.1>>6.5 >>7.4>>6.2 In setting of CKD IV ECHO: EF:45-50%. Mid anteroseptum, mid and apical anterior wall, apical inferior wall and apical septum is hypokinetic Conservative management for now Continue Aspirin, BB, atorvastatin, isosorbide monohydrate Cardiology following Supratherapeutic INR: INR:3.6 >>>4.0>>>3.9 Continue to hold coumadin Monitor INR CAP: Leukocytosis Resolved Continue Doxycycline # Day 3 Blood culture: No growth to date Chronic Diarrhea: Likely secondary to Hydralazine Check Stool for C.diff if reoccurs Chronic P.Afib: Currently in sinus INR:3.9 Continue BB, amiodarone Hold Coumadin ANETA on CKD IV: Previously on HD temporarily Baseline Cr:around 2.5 Cr:2.8 today Monitor Cr levels while on diuretics Nephrology following Captopril on hold Hypothyroidism: TSH normal, Free T4 elevated Continue Levothyroxine at reduced dose (Was on 175, decreased to 150) BPH: Stable Continue home meds HTN: Stable Continue home meds Captopril on hold H/O PVD: Continue Aspirin, statins H/O Right temporal encephalomalacia Stable Follow up as outpatient DVT px: SCDs as INR supratherapeutic Code Status: Ful Code Disposition: Monitor in Tele PROCEDURES: ECHO: * Ejection Fraction = 45-50%. * The mid anteroseptum is akinetic. * The mid and apical anterior wall is hypokinetic. * The apical inferior wall and apical septum is hypokinetic. * There is moderate tricuspid regurgitation. * The estimated systolic PAP is 61mmhg. * Aortic valve sclerosis mild, without significant aortic valvular stenosis. Vital Signs: Date Time Temp Pulse Resp B/P (MAP) Pulse Ox O2 Delivery O2 Flow Rate FiO2 09/15/16 12:00 Nasal Cannula 4.0 09/15/16 11:49 36.9 66 20 172/64 (100) 90 Room Air 09/15/16 08:00 Nasal Cannula 4.0 09/15/16 07:55 36.7 64 24 165/64 (97) 91 Nasal Cannula 4.0 09/15/16 04:00 Nasal Cannula 4.0 09/15/16 03:45 36.4 62 18 128/66 (86) 95 Nasal Cannula 4.0 09/15/16 00:00 Nasal Cannula 4.0 09/14/16 23:50 36.8 61 18 137/62 (87) 93 Room Air 09/14/16 20:13 37.3 65 18 166/68 (100) 91 Nasal Cannula 4.0 09/14/16 20:00 Nasal Cannula 4.0 09/14/16 19:33 36.5 78 18 151/78 (102) 96 09/14/16 16:14 36.9 66 18 148/76 (100) 98 Lab Results: Results Past 24 Hours Test 09/15/16 06:46 Range/Units White Blood Count 8.32 4.8-10.8 K/uL Red Blood Count 3.27 4.7-6.1 M/uL Hemoglobin 10.0 14.0-18.0 g/dL Hematocrit 29.9 42-52 % Mean Corpuscular Volume 91.4 80-100 fL Mean Corpuscular Hemoglobin 30.6 25-34 pg Mean Corpuscular Hemoglobin Concent 33.4 32-36 g/dl Platelet Count 229 130-400 K/uL Mean Platelet Volume 10.1 7.4-10.4 fL Neutrophils (%) (Auto) 82.0 % Lymphocytes (%) (Auto) 5.2 % Monocytes (%) (Auto) 10.9 % Eosinophils (%) (Auto) 1.3 % Basophils (%) (Auto) 0.1 % Neutrophils # (Auto) 6.82 1.4-6.5 K/uL Lymphocytes # (Auto) 0.43 1.2-3.4 K/uL Monocytes # (Auto) 0.91 0.11-0.59 K/uL Eosinophils # (Auto) 0.11 0-0.5 K/uL Basophils # (Auto) 0.01 0-0.2 K/uL RDW Standard Deviation 51.5 36.4-46.3 fL RDW Coefficient of Variation 15.3 11.5-14.5 % Immature Granulocyte % (Auto) 0.5 % Immature Granulocyte # (Auto) 0.04 0.00-0.02 K/uL Prothrombin Time 43.8 9.0-12.0 SECONDS Prothromb Time International Ratio 3.9 0.9-1.1 Sodium Level 141 136-145 mmol/L Potassium Level 3.4 3.5-5.1 mmol/L Chloride Level 107 98-107 mmol/L Carbon Dioxide Level 23 21-32 mmol/L Anion Gap 11.0 3-11 mmol/L Blood Urea Nitrogen 57 7-18 mg/dl Creatinine 2.80 0.60-1.40 mg/dl Est Creatinine Clear Calc Drug Dose 19.6 ml/min Estimated GFR () 23.0 Estimated GFR (Non- 19.8 BUN/Creatinine Ratio 20.3 10-20 Random Glucose 99 70-99 mg/dl Calcium Level 8.4 8.5-10.1 mg/dl Thyroid Stimulating Hormone (TSH) 0.399 0.300-4.500 uIu/ml Free Thyroxine 2.49 0.80-1.60 ng/dl Microbiology Results 09/15/16 C.difficile Toxin B Gene (PCR) - Final, Complete No C. difficile toxin B gene detected
--- NOTE | 2016-09-15 10:37 | Cardiology Follow-Up ---
Subjective General Date of Service: Sep 15, 2016. Pt evaluation today including: conversation w/ patient, physical exam, chart review, lab review, review of studies, review of inpatient medication list History of Present Illness The patient is a 86 year old male seen in follow-up. Feeling much better from a cardiovascular standpoint. Denies chest discomfort or unusual shortness of breath. Previously reported dyspnea at rest as well as dyspnea with minimal exertion has resolved. No sustained tachy-dysrhythmias on telemetry. Denies orthopnea or paroxysmal nocturnal dyspnea. Renal function unchanged. Allergies Coded Allergies: Penicillins (Verified Allergy, Unknown, PENILE ENLARGEMENT, 08/13/16) Per Dr. Crespo, reviewed reaction in outpatient records Tramadol (Verified Adverse Reaction, Unknown, GI SYMPTOMS, 08/13/16) Social History Smoking Status: Former Smoker Hx Tobacco Use In Past Year?: No Hx Alcohol Use - Type And Amou: Yes (Rare wine/beer.) Hx Substance Use - Type And Am: No Problem List Medical Problems: (1) Acute pulmonary edema Status: Acute (2) Atrial fibrillation with RVR Status: Acute (3) CHF (congestive heart failure) Status: Acute (4) Cholelithiasis Status: Acute (5) Elevated troponin Status: Acute (6) Hypoxia Status: Acute (7) Pancreatitis Status: Acute (8) Right middle lobe pneumonia Status: Acute Review of Systems Respiratory: + dyspnea on exertion, No cough, No wheezing, No shortness of breath, No hemoptysis Cardiac: No chest pain, No orthopnea, No PND, No edema, No claudication Physical Exam Vital Signs Last Vital Signs Documentation Date Time Temp Pulse Resp B/P (MAP) Pulse Ox O2 Delivery O2 Flow Rate FiO2 09/15/16 08:00 Nasal Cannula 4.0 09/15/16 07:55 36.7 64 24 165/64 (97) 91 Physical Exam Head: normocephalic, atraumatic ENMT: normal ENT inspection Neck: supple Lungs: Auscultation: no wheezing, no rales/crackles, no rhonchi, pertinent finding (diminished breath sounds at the bases bilaterally.) Cardiovascular: Heart Auscultation: RRR, normal S1, normal S2, no murmurs, no rubs Peripheral Pulses: Radial Pulse: normal on the right Abdomen: Bowel Sounds: normal Inspection & Palpation: soft, non-distended, no tenderness, guarding & rebound Extremities: no cyanosis, no edema, no clubbing, no ulcers Neurologic: Gait & Station: pertinent finding (no focal motor deficit) Cranial Nerves: grossly intact Assessment and Plan Assessment and Plan FINAL IMPRESSION: 1. Non-ST elevation myocardial infarction. 2. Acute systolic heart failure with ischemic cardiomyopathy and repeat resting 2D transthoracic echo demonstrating mild decline in LV systolic function as well as regional wall motion abnormalities in the LAD territory. -Improved with intravenous diuretic therapy -I/O's negative approximately 1100cc overnight -Renal function remained stable 3. Paroxysmal atrial fibrillation maintained in sinus rhythm. INR currently supratherapeutic. 4. Acute kidney injury superimposed on chronic kidney disease stage 4. 5. Labile Hypertension -- borderline control. 6. Peripheral vascular disease. PLAN AND RECOMMENDATIONS: Hold warfarin today. Repeat INR in the a.m. Continue conservative medical management including atorvastatin, Toprol, amiodarone, isosorbide monohydrate, hydralazine, and aspirin. Captopril will remain on hold at this time. Nephrology input appreciated. Continue intravenous diuretic therapy today with repeat basic metabolic panel in the a.m. Will continue to follow during hospitalization. Laboratory Results Last 24 Hours Test 09/14/16 14:00 09/14/16 14:24 09/15/16 06:46 Creatine Kinase MB Ratio Creatine Kinase MB 5.0 ng/ml Troponin I 6.240 ng/ml White Blood Count 8.32 K/uL Red Blood Count 3.27 M/uL Hemoglobin 10.0 g/dL Hematocrit 29.9 % Mean Corpuscular Volume 91.4 fL Mean Corpuscular Hemoglobin 30.6 pg Mean Corpuscular Hemoglobin Concent 33.4 g/dl Platelet Count 229 K/uL Mean Platelet Volume 10.1 fL Neutrophils (%) (Auto) 82.0 % Lymphocytes (%) (Auto) 5.2 % Monocytes (%) (Auto) 10.9 % Eosinophils (%) (Auto) 1.3 % Basophils (%) (Auto) 0.1 % Neutrophils # (Auto) 6.82 K/uL Lymphocytes # (Auto) 0.43 K/uL Monocytes # (Auto) 0.91 K/uL Eosinophils # (Auto) 0.11 K/uL Basophils # (Auto) 0.01 K/uL RDW Standard Deviation 51.5 fL RDW Coefficient of Variation 15.3 % Immature Granulocyte % (Auto) 0.5 % Immature Granulocyte # (Auto) 0.04 K/uL Prothrombin Time 43.8 SECONDS Prothromb Time International Ratio 3.9 Sodium Level 141 mmol/L Potassium Level 3.4 mmol/L Chloride Level 107 mmol/L Carbon Dioxide Level 23 mmol/L Anion Gap 11.0 mmol/L Blood Urea Nitrogen 57 mg/dl Creatinine 2.80 mg/dl Est Creatinine Clear Calc Drug Dose 19.6 ml/min Estimated GFR () 23.0 Estimated GFR (Non- 19.8 BUN/Creatinine Ratio 20.3 Random Glucose 99 mg/dl Calcium Level 8.4 mg/dl Thyroid Stimulating Hormone (TSH) 0.399 uIu/ml Free Thyroxine 2.49 ng/dl
[2016-09-15 11:49] VITALS: BP 172/64; PULSE 66; TEMP 36.9; O2SAT 90
[2016-09-15 16:00] VITALS: BP 149/63; PULSE 61; TEMP 37.2; O2SAT 90
[2016-09-15 20:09] VITALS: BP 156/62; PULSE 61; TEMP 36.8; O2SAT 91
--- NOTE | 2016-09-15 20:48 | Nephrology Progress Note ---
Nephrology Progress Note Date of Service: Sep 15, 2016. Subjective states breathing a bit better. no diarrhea though remains on hydralazine. cont to state desires med mgt and no cardiac cath rather than risk renewed dependence on dialysis Objective Date Time Temp Pulse Resp B/P (MAP) Pulse Ox O2 Delivery O2 Flow Rate FiO2 09/15/16 08:00 Nasal Cannula 4.0 09/15/16 07:55 36.7 64 24 165/64 (97) 91 Nasal Cannula 4.0 09/15/16 04:00 Nasal Cannula 4.0 09/15/16 03:45 36.4 62 18 128/66 (86) 95 Nasal Cannula 4.0 09/15/16 00:00 Nasal Cannula 4.0 09/14/16 23:50 36.8 61 18 137/62 (87) 93 Room Air 09/14/16 20:13 37.3 65 18 166/68 (100) 91 Nasal Cannula 4.0 09/14/16 20:00 Nasal Cannula 4.0 09/14/16 19:33 36.5 78 18 151/78 (102) 96 09/14/16 16:14 36.9 66 18 148/76 (100) 98 09/14/16 15:57 Nasal Cannula 4.0 09/14/16 12:15 Nasal Cannula 4.0 09/14/16 12:07 37.0 65 16 151/64 (93) 92 Nasal Cannula 4.0 Physical Exam: General-Elderly white male on 02NC, tired appearing, oriented x 3, no distress HEENT: Normocephalic, atraumatic. NECK: Supple. CHEST: Bilateral decreased breath sounds w/ very diminished air entry CARDIOVASCULAR: Irregular, soft systolic murmur heard, no edema at this time. ABDOMEN: Soft, nontender. EXTREMITIES: Show no edema. BACK: Normal. No CVA tenderness. SKIN: Normal. NEUROLOGIC: Awake, alert, oriented x3, moving all 4 extremities. Normal speech.] Current Inpatient Medications Medications (Trade) Dose Ordered Sig/Blas Route Start Time Stop Time Status Last Admin Dose Admin Acetaminophen (Tylenol Tab) 650 mg Q4H PRN PO 09/13/16 18:15 10/13/16 18:14 Ondansetron HCl (Zofran Inj) 4 mg Q6H PRN IV 09/13/16 18:15 10/13/16 18:14 Furosemide 40 mg/ Syringe 4 ml @ 4 mls/min BID17 IV 09/14/16 09:00 10/14/16 08:59 09/15/16 08:07 4 MLS/MIN Albuterol/ Ipratropium (Duoneb) 3 ml QID PRN INH 09/13/16 18:45 10/13/16 18:44 Doxycycline Hyclate 100 mg/ Dextrose 110 ml @ 50 mls/hr Q12H IV 09/14/16 06:00 09/20/16 05:59 09/15/16 05:39 50 MLS/HR Allopurinol (Zyloprim Tab) 200 mg QAM PO 09/14/16 09:00 10/14/16 08:59 09/15/16 08:06 200 MG Amiodarone HCl (Cordarone Tab) 200 mg DAILY PO 09/14/16 09:00 10/14/16 08:59 09/15/16 08:06 200 MG Aspirin (Ecotrin Tab) 81 mg QAM PO 09/14/16 09:00 10/14/16 08:59 09/15/16 08:05 81 MG Atorvastatin Calcium (Lipitor Tab) 40 mg DAILY PO 09/14/16 09:00 10/14/16 08:59 09/15/16 08:05 40 MG Captopril (Capoten Tab) 12.5 mg TID PO 09/13/16 21:00 10/13/16 20:59 Future Hold 09/14/16 07:45 12.5 MG Cyanocobalamin (Vitamin B-12 Tab) 1,000 mcg QAM PO 09/14/16 09:00 10/14/16 08:59 09/15/16 08:05 1,000 MCG Finasteride (Proscar Tab) 5 mg DAILY PO 09/14/16 09:00 10/14/16 08:59 09/15/16 08:05 5 MG Hydralazine HCl (Apresoline Tab) 50 mg TID PO 09/13/16 21:00 10/13/16 20:59 09/15/16 08:06 50 MG Isosorbide Mononitrate (Imdur Ext Rel Tab) 30 mg QAM PO 09/14/16 09:00 10/14/16 08:59 09/15/16 08:05 30 MG Tamsulosin HCl (Flomax Cap) 0.4 mg DAILY PO 09/14/16 09:00 10/14/16 08:59 09/15/16 08:06 0.4 MG Metoprolol Succinate (Toprol Xl Tab) 25 mg DAILY PO 09/14/16 09:00 10/14/16 08:59 09/15/16 08:05 25 MG Levothyroxine Sodium (Synthroid Tab) 150 mcg DAILYBB PO 09/16/16 06:00 10/14/16 05:59 Last 24 Hours Test 09/14/16 14:00 09/14/16 14:24 09/15/16 06:46 Creatine Kinase MB Ratio Creatine Kinase MB 5.0 ng/ml Troponin I 6.240 ng/ml White Blood Count 8.32 K/uL Red Blood Count 3.27 M/uL Hemoglobin 10.0 g/dL Hematocrit 29.9 % Mean Corpuscular Volume 91.4 fL Mean Corpuscular Hemoglobin 30.6 pg Mean Corpuscular Hemoglobin Concent 33.4 g/dl Platelet Count 229 K/uL Mean Platelet Volume 10.1 fL Neutrophils (%) (Auto) 82.0 % Lymphocytes (%) (Auto) 5.2 % Monocytes (%) (Auto) 10.9 % Eosinophils (%) (Auto) 1.3 % Basophils (%) (Auto) 0.1 % Neutrophils # (Auto) 6.82 K/uL Lymphocytes # (Auto) 0.43 K/uL Monocytes # (Auto) 0.91 K/uL Eosinophils # (Auto) 0.11 K/uL Basophils # (Auto) 0.01 K/uL RDW Standard Deviation 51.5 fL RDW Coefficient of Variation 15.3 % Immature Granulocyte % (Auto) 0.5 % Immature Granulocyte # (Auto) 0.04 K/uL Prothrombin Time 43.8 SECONDS Prothromb Time International Ratio 3.9 Sodium Level 141 mmol/L Potassium Level 3.4 mmol/L Chloride Level 107 mmol/L Carbon Dioxide Level 23 mmol/L Anion Gap 11.0 mmol/L Blood Urea Nitrogen 57 mg/dl Creatinine 2.80 mg/dl Est Creatinine Clear Calc Drug Dose 19.6 ml/min Estimated GFR () 23.0 Estimated GFR (Non- 19.8 BUN/Creatinine Ratio 20.3 Random Glucose 99 mg/dl Calcium Level 8.4 mg/dl Thyroid Stimulating Hormone (TSH) 0.399 uIu/ml Free Thyroxine 2.49 ng/dl Assessment & Plan 86-year-old male with CKD stage IV with a baseline creatinine of 2.5 (had ATN 2015 w/ dialysis dependence until 04/2016)), [place] 12/2015, diastolic heart failure, bradycardia, uncontrolled HTN (recent admission for HTN urgency) admitted 09/13 w / shortness of breath. He was found to have NSTEMI, new systolic HF w/ EF 40%, ANETA w/ presenting creatinine 3.0. He is opting for medical mgt of STEMI d/t not wanting to be dialysis dependent again. 1. Acute kidney injury on CKD4. No further workup needed. This is mostly chronic kidney disease stage 4. -ACEI on hold -cont current IV lasix dose -lowered daily fluid limit to 1.5L and daily Na to 2 gm -cont to decline cardiac cath; will continue to discuss w/ pt 2. acute combined systolic/diastolic heart failure and nstemi > for medical mgt -per cardiology -on low dose bb -cont hydralazine (no diarrhea currently) Appreciate consult; will follow with you. Care coordinated w/ Dr Stephens.
[2016-09-16 00:13] VITALS: BP 151/54; PULSE 57; TEMP 36.9; O2SAT 93
[2016-09-16 03:03] VITALS: BP 150/65; PULSE 61; TEMP 36.7; O2SAT 92
[2016-09-16] MEDS: DOXYCYCLINE IV 100 MG in DEXTROSE 5% 100ML 100 ML IV SCH (05:44)
[2016-09-16] MEDS ORDERED: LEVOTHYROXINE 150 MCG TAB PO SCH (06:00)
[2016-09-16 06:42] LABS: BASO % 0.1 %; BASO ABS # 0.01 K/uL (0-0.2); COMPLETE YES; EOS % 2.9 %; HEMATOCRIT 28.1 % (42-52); IG% 0.4 %; LYMPH % 8.2 %; LYMPH ABS # 0.63 K/uL (1.2-3.4); MEAN CELL VOLUME 90.9 fL (80-100); MEAN CORPUSCULAR HEMOGLOBIN 30.1 pg (25-34); MEAN CORPUSCULAR HGB CONC 33.1 g/dl (32-36); MEAN PLATELET VOLUME 9.6 fL (7.4-10.4); MONO % 11.4 %; PLATELET COUNT 251 K/uL (130-400); RED BLOOD COUNT 3.09 M/uL (4.7-6.1)
[2016-09-16 06:53] LABS: INR 3.2 (0.9-1.1); PROTHROMBIN TIME (PATIENT) 36.1 SECONDS (9.0-12.0)
[2016-09-16 07:14] LABS: BUN/CREATININE RATIO 22.3 (10-20); CALCIUM 8.1 mg/dl (8.5-10.1); CREATININE 2.9 mg/dl (0.60-1.40); POTASSIUM 3.3 mmol/L (3.5-5.1)
[2016-09-16] MEDS: ALLOPURINOL 100 MG TAB PO SCH (07:55)
[2016-09-16] MEDS: ATORVASTATIN 40 MG TAB PO SCH (07:55)
[2016-09-16] MEDS: FINASTERIDE 5 MG TAB PO SCH (07:55)
[2016-09-16] MEDS: AMIODARONE 200 MG TAB PO SCH (07:55)
[2016-09-16] MEDS: ASPIRIN 81 MG ECTAB PO SCH (07:55)
[2016-09-16] MEDS: CYANOCOBALAMIN 500 MCG TAB (VIT B-12) PO SCH (07:56)
[2016-09-16] MEDS: METOPROLOL SUCC 25MG EXT REL TAB PO SCH (07:56)
[2016-09-16] MEDS: TAMSULOSIN HCL 0.4 MG CAP PO SCH (07:56)
[2016-09-16] MEDS: ISOSORBIDE MONONITRATE 30 MG TABCR PO SCH (07:56)
[2016-09-16] MEDS: FUROSEMIDE INJ 40 MG in SYRINGE 0 ML IV SCH (07:57)
[2016-09-16 08:00] VITALS: BP 155/85; PULSE 57; TEMP 36.9; O2SAT 93
[2016-09-16] MEDS ORDERED: POTASSIUM CHLORIDE 10 MEQ TABCR PO ONE (09:30)
[2016-09-16 11:39] VITALS: BP 144/57; PULSE 54; TEMP 36.9; O2SAT 93
--- NOTE | 2016-09-16 11:53 | Nephrology Progress Note ---
Nephrology Progress Note Date of Service: Sep 16, 2016. Subjective states breathing a bit better, but will need 02 w/ activity p d/c. no diarrhea though remains on hydralazine on lower dose than prior to admission cont to state desires med mgt and no cardiac cath rather than risk renewed dependence on dialysis; no n/v/dypsnea. wishes to be d/c home Objective Date Time Temp Pulse Resp B/P (MAP) Pulse Ox O2 Delivery O2 Flow Rate FiO2 09/16/16 08:00 Room Air 09/16/16 08:00 36.9 57 20 155/85 (108) 93 Room Air 09/16/16 04:00 Room Air 09/16/16 03:03 36.7 61 20 150/65 (93) 92 Room Air 09/16/16 00:13 36.9 57 20 151/54 (86) 93 Room Air 09/16/16 00:00 Room Air 09/15/16 20:09 36.8 61 18 156/62 (93) 91 Room Air 09/15/16 20:00 Room Air 09/15/16 16:00 Room Air 09/15/16 16:00 37.2 61 19 149/63 (91) 90 Room Air 09/15/16 12:00 Nasal Cannula 4.0 Physical Exam: General-Elderly white male on ra, up in chair, oriented x 3, no distress HEENT: Normocephalic, atraumatic. NECK: Supple. CHEST: diminished air entry and L basilar crackles CARDIOVASCULAR: RRR; 1+ BL ankle edema ABDOMEN: Soft, nontender.no puentes EXTREMITIES: no c/c NEUROLOGIC: moving all 4 extremities. Normalspeech. Current Inpatient Medications Medications (Trade) Dose Ordered Sig/Blas Route Start Time Stop Time Status Last Admin Dose Admin Acetaminophen (Tylenol Tab) 650 mg Q4H PRN PO 09/13/16 18:15 10/13/16 18:14 Ondansetron HCl (Zofran Inj) 4 mg Q6H PRN IV 09/13/16 18:15 10/13/16 18:14 Furosemide 40 mg/ Syringe 4 ml @ 4 mls/min BID17 IV 09/14/16 09:00 10/14/16 08:59 09/16/16 07:57 4 MLS/MIN Albuterol/ Ipratropium (Duoneb) 3 ml QID PRN INH 09/13/16 18:45 10/13/16 18:44 Doxycycline Hyclate 100 mg/ Dextrose 110 ml @ 50 mls/hr Q12H IV 09/14/16 06:00 09/20/16 05:59 09/16/16 05:44 50 MLS/HR Allopurinol (Zyloprim Tab) 200 mg QAM PO 09/14/16 09:00 10/14/16 08:59 09/16/16 07:55 200 MG Amiodarone HCl (Cordarone Tab) 200 mg DAILY PO 09/14/16 09:00 10/14/16 08:59 09/16/16 07:55 200 MG Aspirin (Ecotrin Tab) 81 mg QAM PO 09/14/16 09:00 10/14/16 08:59 09/16/16 07:55 81 MG Atorvastatin Calcium (Lipitor Tab) 40 mg DAILY PO 09/14/16 09:00 10/14/16 08:59 09/16/16 07:55 40 MG Captopril (Capoten Tab) 12.5 mg TID PO 09/13/16 21:00 10/13/16 20:59 Future Hold 09/14/16 07:45 12.5 MG Cyanocobalamin (Vitamin B-12 Tab) 1,000 mcg QAM PO 09/14/16 09:00 10/14/16 08:59 09/16/16 07:56 1,000 MCG Finasteride (Proscar Tab) 5 mg DAILY PO 09/14/16 09:00 10/14/16 08:59 09/16/16 07:55 5 MG Hydralazine HCl (Apresoline Tab) 50 mg TID PO 09/13/16 21:00 10/13/16 20:59 09/16/16 07:56 50 MG Isosorbide Mononitrate (Imdur Ext Rel Tab) 30 mg QAM PO 09/14/16 09:00 10/14/16 08:59 09/16/16 07:56 30 MG Tamsulosin HCl (Flomax Cap) 0.4 mg DAILY PO 09/14/16 09:00 10/14/16 08:59 09/16/16 07:56 0.4 MG Metoprolol Succinate (Toprol Xl Tab) 25 mg DAILY PO 09/14/16 09:00 10/14/16 08:59 09/16/16 07:56 25 MG Levothyroxine Sodium (Synthroid Tab) 150 mcg DAILYBB PO 09/16/16 06:00 10/14/16 05:59 09/16/16 05:44 150 MCG Last 24 Hours Test 09/16/16 06:13 White Blood Count 7.70 K/uL Red Blood Count 3.09 M/uL Hemoglobin 9.3 g/dL Hematocrit 28.1 % Mean Corpuscular Volume 90.9 fL Mean Corpuscular Hemoglobin 30.1 pg Mean Corpuscular Hemoglobin Concent 33.1 g/dl Platelet Count 251 K/uL Mean Platelet Volume 9.6 fL Neutrophils (%) (Auto) 77.0 % Lymphocytes (%) (Auto) 8.2 % Monocytes (%) (Auto) 11.4 % Eosinophils (%) (Auto) 2.9 % Basophils (%) (Auto) 0.1 % Neutrophils # (Auto) 5.93 K/uL Lymphocytes # (Auto) 0.63 K/uL Monocytes # (Auto) 0.88 K/uL Eosinophils # (Auto) 0.22 K/uL Basophils # (Auto) 0.01 K/uL RDW Standard Deviation 51.0 fL RDW Coefficient of Variation 15.3 % Immature Granulocyte % (Auto) 0.4 % Immature Granulocyte # (Auto) 0.03 K/uL Prothrombin Time 36.1 SECONDS Prothromb Time International Ratio 3.2 Sodium Level 143 mmol/L Potassium Level 3.3 mmol/L Chloride Level 108 mmol/L Carbon Dioxide Level 23 mmol/L Anion Gap 12.0 mmol/L Blood Urea Nitrogen 65 mg/dl Creatinine 2.90 mg/dl Est Creatinine Clear Calc Drug Dose 19.0 ml/min Estimated GFR () 22.0 Estimated GFR (Non- 19.0 BUN/Creatinine Ratio 22.3 Random Glucose 100 mg/dl Calcium Level 8.1 mg/dl Assessment & Plan 86-year-old male with CKD stage IV with a baseline creatinine of 2.5 (had ATN 2015 w/ dialysis dependence until 04/2016)), [place] 12/2015, diastolic heart failure, bradycardia, uncontrolled HTN (recent admission for HTN urgency) admitted 09/13 w / shortness of breath. He was found to have NSTEMI, new systolic HF w/ EF 40%, ANETA w/ presenting creatinine 3.0. He is opting for medical mgt of STEMI d/t not wanting to be dialysis dependent again. 1. Acute kidney injury on CKD4. No further workup needed. This is mostly progression of chronic kidney disease stage 4 in setting of ACS -ACEI on hold -changed lasix to PO 80 bid -cont daily fluid limit to 1.5L and daily Na to 2 gm at d/c -cont to decline cardiac cath even after repeated discussion -recommend f/u w/ me in renal clinic in 1 month; cx 09/18 appt; bmp w/in one week and pcp visit for bp check same timeframe 2. acute combined systolic/diastolic heart failure and nstemi > for medical mgt -per cardiology -on low dose bb -cont hydralazine (no diarrhea currently) Appreciate consult; will follow with you.
--- NOTE | 2016-09-16 13:08 | Cardiology Follow-Up ---
Subjective General Date of Service: Sep 16, 2016. Pt evaluation today including: conversation w/ patient, physical exam, chart review, lab review, review of studies, conversation w/ construction consultant, review of inpatient medication list History of Present Illness The patient is a 86 year old male seen in follow-up. Feeling well from a cardiovascular standpoint. Denies chest discomfort or unusual shortness of breath. Previously reported dyspnea at rest as well as dyspnea with minimal exertion has resolved. No sustained tachy-dysrhythmias on telemetry. Denies orthopnea or paroxysmal nocturnal dyspnea. Renal function stable. Requesting discharge today. Allergies Coded Allergies: Penicillins (Verified Allergy, Unknown, PENILE ENLARGEMENT, 08/13/16) Per Dr. Crespo, reviewed reaction in outpatient records Tramadol (Verified Adverse Reaction, Unknown, GI SYMPTOMS, 08/13/16) Social History Smoking Status: Former Smoker Hx Tobacco Use In Past Year?: No Hx Alcohol Use - Type And Amou: Yes (Rare wine/beer.) Hx Substance Use - Type And Am: No Problem List Medical Problems: (1) Acute pulmonary edema Status: Acute (2) Atrial fibrillation with RVR Status: Acute (3) CHF (congestive heart failure) Status: Acute (4) Cholelithiasis Status: Acute (5) Elevated troponin Status: Acute (6) Hypoxia Status: Acute (7) Pancreatitis Status: Acute (8) Right middle lobe pneumonia Status: Acute Review of Systems Respiratory: No cough, No sputum, No wheezing, No shortness of breath, No dyspnea at rest, No hemoptysis Cardiac: No chest pain, No orthopnea, No PND, No edema, No palpitations Physical Exam Vital Signs Last Vital Signs Documentation Date Time Temp Pulse Resp B/P (MAP) Pulse Ox O2 Delivery O2 Flow Rate FiO2 09/16/16 12:00 Room Air 09/16/16 11:39 36.9 54 18 144/57 (86) 93 09/15/16 12:00 4.0 Physical Exam Head: normocephalic, atraumatic ENMT: normal ENT inspection Neck: supple Lungs: Auscultation: breath sounds normal, no wheezing, no rales/crackles, no rhonchi Cardiovascular: Heart Auscultation: RRR, normal S1, normal S2, no murmurs, no rubs Peripheral Pulses: Radial Pulse: normal on the right Abdomen: Bowel Sounds: normal Inspection & Palpation: soft, non-distended, no tenderness, guarding & rebound Extremities: no cyanosis, no edema, no clubbing, no ulcers Neurologic: Gait & Station: pertinent finding (no focal motor deficit) Cranial Nerves: grossly intact Assessment and Plan Assessment and Plan FINAL IMPRESSION: 1. Non-ST elevation myocardial infarction. - managed medically - no heparin secondary to supratherapeutic INR 2. Acute systolic heart failure with ischemic cardiomyopathy and repeat resting 2D transthoracic echo demonstrating mild decline in LV systolic function as well as regional wall motion abnormalities in the LAD territory. -Improved with intravenous diuretic therapy -overall fluid balance negative approximately 1100cc -Renal function stable 3. Paroxysmal atrial fibrillation maintained in sinus rhythm. INR currently supratherapeutic. 4. Acute kidney injury superimposed on chronic kidney disease stage 4. 5. Labile Hypertension -- borderline control. 6. Peripheral vascular disease. PLAN AND RECOMMENDATIONS: Hold warfarin today and restart tomorrow. Patient will require close anticoagulation clinic follow up this week. Increase imdur to 60mg daily. Continue other cardiovascular medications including atorvastatin, Toprol, amiodarone, hydralazine, and aspirin. Captopril will remain on hold at this time. Nephrology input appreciated. Transition to oral diuretic therapy today. I will schedule outpatient cardiology follow up in 1-2 weeks. Laboratory Results Last 24 Hours Test 09/16/16 06:13 White Blood Count 7.70 K/uL Red Blood Count 3.09 M/uL Hemoglobin 9.3 g/dL Hematocrit 28.1 % Mean Corpuscular Volume 90.9 fL Mean Corpuscular Hemoglobin 30.1 pg Mean Corpuscular Hemoglobin Concent 33.1 g/dl Platelet Count 251 K/uL Mean Platelet Volume 9.6 fL Neutrophils (%) (Auto) 77.0 % Lymphocytes (%) (Auto) 8.2 % Monocytes (%) (Auto) 11.4 % Eosinophils (%) (Auto) 2.9 % Basophils (%) (Auto) 0.1 % Neutrophils # (Auto) 5.93 K/uL Lymphocytes # (Auto) 0.63 K/uL Monocytes # (Auto) 0.88 K/uL Eosinophils # (Auto) 0.22 K/uL Basophils # (Auto) 0.01 K/uL RDW Standard Deviation 51.0 fL RDW Coefficient of Variation 15.3 % Immature Granulocyte % (Auto) 0.4 % Immature Granulocyte # (Auto) 0.03 K/uL Prothrombin Time 36.1 SECONDS Prothromb Time International Ratio 3.2 Sodium Level 143 mmol/L Potassium Level 3.3 mmol/L Chloride Level 108 mmol/L Carbon Dioxide Level 23 mmol/L Anion Gap 12.0 mmol/L Blood Urea Nitrogen 65 mg/dl Creatinine 2.90 mg/dl Est Creatinine Clear Calc Drug Dose 19.0 ml/min Estimated GFR () 22.0 Estimated GFR (Non- 19.0 BUN/Creatinine Ratio 22.3 Random Glucose 100 mg/dl Calcium Level 8.1 mg/dl
--- NOTE | 2016-09-16 13:22 | Discharge Instructions ---
Discharge Instructions Date of Service Sep 16, 2016. Admission Reason for Admission: Acute Pulmonary Edema, Hypoxia Discharge Discharge Diagnosis / Problem: NSTEMI /ACUTE CHF -ACUTE SYSTOLIC HEART FAILURE Discharge Goals Goal(s): Decrease discomfort, Improve disease control, Diagnostic testing Activity Recommendations Activity Limitations: as noted below ( TOLERATED ) . Instructions / Follow-Up Instructions / Follow-Up DO NOT TAKE COUMADIN TODAY CAN START FORM TOMORROW LAB WORK :PT/INR AND BASIC METABOLIC PANEL ON Thursday09/18/16 NEPHROLOGY FOLLOW UP APPOINTMENT WITH DR SBAIHA MENDEZ ON Thursday09/18/16 @ 11 : 20 AM FOLLOW UP WITH DR KELVIN JOHNSON ON Thursday09/19/16 @ 12: 45 PM CARDIOLOGY FOLLOW UP IN 1-2 WEEKS, OFFICE WILL CALL WITH APPOINTMENT LEVOTHYROXINE DOSE REDUCED TO 150 MGG DAILY ( WAS ON 175 MCG /DAILY ) REPEAT TSH LEVEL IN 3 MONTHS Home Care: * Take your medications exactly as directed. Don't skip doses. * Remember that recovery after a heart attack takes time. Plan to rest for at lease 4-8 weeks while you recover. Then return to normal activity when your doctor says it's okay. * Ask your doctor about joining a heart rehabilitation program. * Tell your doctor if you are feeling depressed. Feelings of sadness are common after a heart attack, but it is important that you speak to someone if you are feeling overwhelmed by these feelings. * If you are having chest pain, call 911 for an ambulance. Do NOT drive yourself to the hospital. * Ask your family members to learn CPR. * Learn to take your own blood pressure and pulse. Keep a record of your results. Ask your doctor when you should seek emergency medical attention. He or she will tell you which blood pressure reading is dangerous. Lifestyle Changes: * Maintain a healthy weight. Get help to lose any extra pounds. * Cut back on salt. * Limit canned, dried, packaged, and fast foods. * Don't add salt to your food. * Season foods with herbs instead of salt when you cook. * Break the smoking habit. Enroll in a stop-smoking program to improve your chances of success. * Limit fatty foods. * Check your lipid levels regularly. (Your doctor can show you how to do this.) * Build up your activity according to your doctor's recommendation. * Ask your doctor when it's okay to resume sexual activity. * Tell your doctor about any erectile dysfunction (ED) medication you are taking. Some ED medications are not safe if you take certain heart medications. * Try to manage stress. Follow Up: It is important for you to keep your follow up appointments with your medical provider. LAB WORK :PT/INR AND BASIC METABOLIC PANEL ON Thursday09/18/16 NEPHROLOGY FOLLOW UP APPOINTMENT WITH DR SABIHA MENDEZ ON Thursday09/18/16 @ 11 : 20 AM FOLLOW UP WITH DR KELVIN JOHNSON ON Thursday09/19/16 @ 12: 45 PM CARDIOLOGY FOLLOW UP IN 1-2 WEEKS, OFFICE WILL CALL WITH APPOINTMENT Current Hospital Diet Patient's current hospital diet: AHA Diet (Heart Healthy), Low Sodium Diet (2gm Na) Discharge Diet Recommended Diet: AHA Diet (Heart Healthy), Low Sodium Diet (2gm Na) Fluid Restriction: 1500 ml (6 cups) Pending Studies Studies pending at discharge: yes List of pending studies: PT/INR /BASIC METABOLIC PANEL CHECK ON 09/18/16 [facility] Medical Emergencies . Who to Call and When: Medical Emergencies: If at any time you feel your situation is an emergency, please call 911 immediately. Call 911 immediately or go to your nearest Emergency Room if you experience any of the following: Warning Signs and Symptoms of a Heart Attack * Chest pain that is not relieved by medication * Shortness of breath . Non-Emergent Contact Non-Emergency issues call your: Primary Care Provider . . "Provider Documentation" section prepared by Mary Beth Mckeon. . AMI Core Measures Reason no ASA as I/P: Treatment provided - N/A Reason no ASA at D/C: Treatment provided - N/A Reason no statin as I/P: Treatment provided - N/A Reason no statin at D/C: Treatment provided - N/A VTE Core Measure Inpt VTE Proph given/why not?: Warfarin (Coumadin)
[2016-09-16] MEDS ORDERED: IMDSR30 PO (13:27)
[2016-09-16] MEDS ORDERED: FRS/80 PO (13:36)
--- NOTE | 2016-09-16 13:43 | Progress Note ---
Internal Med Progress Note Date of Service: Sep 16, 2016. Provider Documentation: SUBJECTIVE: feels fine , no complain of chest pain or SOB no RODRIGUEZ wants to be discharged home evaluated by Nephrology and cardiology earlier stable to be discharged home today medications -diuretics adjusted per Nephrology OBJECTIVE: Vital Signs-as noted below Exam: General-no sign of distress Eyes-sclera non icteric Lungs-no JVD Heart-regular S1/S2 Abdomen-soft non tender Extremities-no lower ext edema Neuro-AAO x3, no focal deficit Lab data as noted below. ASSESSMENT & PLAN: NSTEMI: Troponin : 3.1>>6.5 >>7.4>>6.2 In setting of CKD IV ECHO: EF:45-50%. Mid anteroseptal, mid and apical anterior wall, apical inferior wall and apical septum is hypokinetic Medical management IV heparin not initiated as INR is elevated CKD stage 4 -has been off dialysis did not want to have cardiac cath as it will require dialysis afterwards no complain of chest pain or SOB , no RODRIGUEZ appreciated Cardiology eval Continue Aspirin, BB, atorvastatin, isosorbide monohydrate dose increased to 60 mg daily cont Amiodarone , Hydralazine Cardiology following INR elevated 3.1 today asked to hold Coumadin today repeat INR in next 48 hrs will be followed at [facility] Cardiology follow up in 1-2 weeks ACUTE CHF WITH SYSTOLIC DYSFUNCTION/ISCHEMIC CARDIOMYOPATHY due to above ECHO shows hypokinesis at LAD territory symptom improved with IV diuresis pt will be discharged with PO Lasix 80 mg BID ACEI on hold for CKD stage 4 fluid restriction 1.5 L day pt developed hypoxia on ambulation with 2 step pulse oximetry script given for home 02 HX OF PAROXYSMAL AFIB on sinus rhythm now cont Toprol , amiodarone INR elevated Coumadin on hold out pt follow up with [facility] ANETA on CKD IV: Previously on HD temporarily had ATN on 12/2015 was on Dialysis till 04/2016 Baseline Cr:around 2.5 appreciate input form Nephrology pt will be followed at Dr Alarcon's clinic this week 09/18/16 BMP will be checked on clinic visit Hypothyroidism: TSH normal, Free T4 elevated Continue Levothyroxine at reduced dose (Was on 175, decreased to 150) BPH: Stable Continue home meds H/O PVD: Continue Aspirin, statins H/O Right temporal encephalomalacia Stable Follow up as outpatient DVT px: INR elevated Code Status: Ful Code Disposition: Discharge home today PROCEDURES: ECHO: * Ejection Fraction = 45-50%. * The mid anteroseptum is akinetic. * The mid and apical anterior wall is hypokinetic. * The apical inferior wall and apical septum is hypokinetic. * There is moderate tricuspid regurgitation. * The estimated systolic PAP is 61mmhg. * Aortic valve sclerosis mild, without significant aortic valvular stenosis. Vital Signs: Date Time Temp Pulse Resp B/P (MAP) Pulse Ox O2 Delivery O2 Flow Rate FiO2 09/16/16 12:00 Room Air 09/16/16 11:39 36.9 54 18 144/57 (86) 93 Room Air 09/16/16 08:00 Room Air 09/16/16 08:00 36.9 57 20 155/85 (108) 93 Room Air 09/16/16 04:00 Room Air 09/16/16 03:03 36.7 61 20 150/65 (93) 92 Room Air 09/16/16 00:13 36.9 57 20 151/54 (86) 93 Room Air 09/16/16 00:00 Room Air 09/15/16 20:09 36.8 61 18 156/62 (93) 91 Room Air 09/15/16 20:00 Room Air 09/15/16 16:00 Room Air 09/15/16 16:00 37.2 61 19 149/63 (91) 90 Room Air Lab Results: Results Past 24 Hours Test 09/16/16 06:13 Range/Units White Blood Count 7.70 4.8-10.8 K/uL Red Blood Count 3.09 4.7-6.1 M/uL Hemoglobin 9.3 14.0-18.0 g/dL Hematocrit 28.1 42-52 % Mean Corpuscular Volume 90.9 80-100 fL Mean Corpuscular Hemoglobin 30.1 25-34 pg Mean Corpuscular Hemoglobin Concent 33.1 32-36 g/dl Platelet Count 251 130-400 K/uL Mean Platelet Volume 9.6 7.4-10.4 fL Neutrophils (%) (Auto) 77.0 % Lymphocytes (%) (Auto) 8.2 % Monocytes (%) (Auto) 11.4 % Eosinophils (%) (Auto) 2.9 % Basophils (%) (Auto) 0.1 % Neutrophils # (Auto) 5.93 1.4-6.5 K/uL Lymphocytes # (Auto) 0.63 1.2-3.4 K/uL Monocytes # (Auto) 0.88 0.11-0.59 K/uL Eosinophils # (Auto) 0.22 0-0.5 K/uL Basophils # (Auto) 0.01 0-0.2 K/uL RDW Standard Deviation 51.0 36.4-46.3 fL RDW Coefficient of Variation 15.3 11.5-14.5 % Immature Granulocyte % (Auto) 0.4 % Immature Granulocyte # (Auto) 0.03 0.00-0.02 K/uL Prothrombin Time 36.1 9.0-12.0 SECONDS Prothromb Time International Ratio 3.2 0.9-1.1 Sodium Level 143 136-145 mmol/L Potassium Level 3.3 3.5-5.1 mmol/L Chloride Level 108 98-107 mmol/L Carbon Dioxide Level 23 21-32 mmol/L Anion Gap 12.0 3-11 mmol/L Blood Urea Nitrogen 65 7-18 mg/dl Creatinine 2.90 0.60-1.40 mg/dl Est Creatinine Clear Calc Drug Dose 19.0 ml/min Estimated GFR () 22.0 Estimated GFR (Non- 19.0 BUN/Creatinine Ratio 22.3 10-20 Random Glucose 100 70-99 mg/dl Calcium Level 8.1 8.5-10.1 mg/dl
--- NOTE | 2016-09-16 13:53 | Discharge Summary ---
Discharge Summary Date of Service Sep 16, 2016. Discharge Summary Admission Date: Sep 13, 2016 at 18:33 Discharge Date: Sep 16, 2016 Principal Diagnosis: NSTEMI /ACUTE CHF -ACUTE SYSTOLIC HEART FAILURE Procedures: PROCEDURES: ECHO: * Ejection Fraction = 45-50%. * The mid anteroseptum is akinetic. * The mid and apical anterior wall is hypokinetic. * The apical inferior wall and apical septum is hypokinetic. * There is moderate tricuspid regurgitation. * The estimated systolic PAP is 61mmhg. * Aortic valve sclerosis mild, without significant aortic valvular stenosis. Consultations: [facility] Pending Studies/Follow-Up: SEE DISCHARGE INSTRUCTION Medication Reconciliation New Medications: Furosemide (Lasix) 80 Mg Tab 80 MG PO BID for 30 Days, #60 TAB 2 Refills Isosorbide Mononitrate (Isosorbide Mononitrate ER) 30 Mg Tabcr 60 MG PO QAM for 30 Days, #60 TABS 2 Refills Levothyroxine Sodium (Synthroid) 150 Mcg Tab 150 MCG PO DAILYBB for 30 Days, #30 TAB 2 Refills Continued Medications: Acetaminophen Tab (Tylenol) 325 Mg Tab 650 MG PO Q6 PRN for Pain, TAB Allopurinol (Zyloprim) 100 Mg Tab 200 MG PO QAM, TAB Amiodarone Hcl (Cordarone) 200 Mg Tab 200 MG PO DAILY, TAB Aspirin (Aspirin Ec) 81 Mg Tab 81 MG PO QAM Atorvastatin (Lipitor) 40 Mg Tab 40 MG PO DAILY Bisacodyl (Dulcolax) 10 Mg Sup 1 SUPP IN DAILY PRN for Constipation Cholecalciferol (Vitamin D) 2,000 Unit Cap 2000 INTUNIT PO QAM Cyanocobalamin (Vitamin B-12) 1,000 Mcg Tab 1000 MCG PO QAM, TAB Finasteride (Proscar) 5 Mg Tab 5 MG PO DAILY Hydralazine HCl (Hydralazine HCl) 50 Mg Tab 50 MG PO TID for 30 Days, #90 TAB Metoprolol Succinate (Toprol Xl) 50 Mg Tabcr 25 MG PO DAILY Polyethylene Glycol 3350 (Miralax) 1 Pow Pow 17 GM PO DAILY PRN for CONSTIPATION, #255 GM Tamsulosin Hcl (Flomax) 0.4 Mg Cap 0.4 MG PO DAILY Warfarin Sodium (Coumadin) 2 Mg Tab 2 MG PO HS Discontinued Medications: Captopril (Capoten) 12.5 Mg Tab 12.5 MG PO TID for 30 Days, #90 TAB Furosemide (Lasix) 40 Mg Tab 40 MG PO DAILY Isosorbide Mononitrate Ext Rel (Imdur Ext Rel) 30 Mg Ertab 30 MG PO QAM, TAB Levothyroxine Sodium (Levothyroxine Sodium) 175 Mcg Tab 175 MCG PO DAILY Referrals At Discharge Follow up Referrals: [employer] Referral - 09/18/16 with Sabiha Mendez MD Physician Referral - 09/19/16 with Kelvin Oliver M.D. Admission Information HPI (per Admitting provider): Patient is an 86 yr old male with PMH of Diastolic CHF, P.Afib, CKD IV, Hypothyroidism, BPH, HTN, PVD, Chronic Troponin elevation, H/O Right temporal encephalomalacia, Pernicious anemia and other problems presents with history of worsening SOB since one day duration. Reports having a brief period of cough overnight which resolved. Also states having worsening bilateral leg swelling and was discontinued on amlodipine and increased lasix from 20mg to 40mg 2 days ago by his PCP. Reports having fever associated with chills for one day 1 week ago which resolved. Also states having diarrhea since 4 weeks duration since he was started on hydralazine for BP control. Denies any history of chest pain, palpitations, dizziness, cough, wheezing, abd pain, Urinary symptoms. Admits to drinking lot of water daily but adds no salt to his diet. 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 Mid anteroseptal, mid and apical anterior wall, apical inferior wall and apical septum is hypokinetic Medical management IV heparin not initiated as INR is elevated CKD stage 4 -has been off dialysis did not want to have cardiac cath as it will require dialysis afterwards no complain of chest pain or SOB , no RODRIGUEZ appreciated Cardiology eval Continue Aspirin, BB, atorvastatin, isosorbide monohydrate dose increased to 60 mg daily cont Amiodarone , Hydralazine Cardiology following INR elevated 3.1 today asked to hold Coumadin today repeat INR in next 48 hrs will be [facility] follow up in 1-2 weeks ACUTE CHF WITH SYSTOLIC DYSFUNCTION/ISCHEMIC CARDIOMYOPATHY due to above ECHO shows hypokinesis at LAD territory symptom improved with IV diuresis pt will be discharged with PO Lasix 80 mg BID ACEI on hold for CKD stage 4 fluid restriction 1.5 L day pt developed hypoxia on ambulation with 2 step pulse oximetry script given for home 02 HX OF PAROXYSMAL AFIB on sinus rhythm now cont Toprol , amiodarone INR elevated Coumadin on hold out pt follow up with [facility] ANETA on CKD IV: Previously on HD temporarily had ATN on 12/2015 was on Dialysis till 04/2016 Baseline Cr:around 2.5 appreciate input form Nephrology pt will be followed at Dr Mendez's clinic this week 09/18/16 BMP will be checked on clinic visit Hypothyroidism: TSH normal, Free T4 elevated Continue Levothyroxine at reduced dose (Was on 175, decreased to 150) BPH: Stable Continue home meds H/O PVD: Continue Aspirin, statins H/O Right temporal encephalomalacia Stable Follow up as outpatient DVT px: INR elevated Code Status: Ful Code Disposition: Discharge home today PROCEDURES: ECHO: * Ejection Fraction = 45-50%. * The mid anteroseptum is akinetic. * The mid and apical anterior wall is hypokinetic. * The apical inferior wall and apical septum is hypokinetic. * There is moderate tricuspid regurgitation. * The estimated systolic PAP is 61mmhg. * Aortic valve sclerosis mild, without significant aortic valvular stenosis. Total time spent on discharge = 40 MINS This includes examination of the patient, discharge planning, medication reconciliation, and communication with other providers. Discharge Instructions Discharge Instructions Date of Service Sep 16, 2016. Admission Reason for Admission: Acute Pulmonary Edema, Hypoxia Discharge Discharge Diagnosis / Problem: NSTEMI /ACUTE CHF -ACUTE SYSTOLIC HEART FAILURE Discharge Goals Goal(s): Decrease discomfort, Improve disease control, Diagnostic testing Activity Recommendations Activity Limitations: as noted below ( TOLERATED ) . Instructions / Follow-Up Instructions / Follow-Up DO NOT TAKE COUMADIN TODAY CAN START FORM TOMORROW LAB WORK :PT/INR AND BASIC METABOLIC PANEL ON Thursday09/18/16 NEPHROLOGY FOLLOW UP APPOINTMENT WITH DR SABIHA MENDEZ ON Thursday09/18/16 @ 11 : 20 AM FOLLOW UP WITH DR KELVIN OLIVER ON Thursday09/19/16 @ 12: 45 PM CARDIOLOGY FOLLOW UP IN 1-2 WEEKS, OFFICE WILL CALL WITH APPOINTMENT LEVOTHYROXINE DOSE REDUCED TO 150 MGG DAILY ( WAS ON 175 MCG /DAILY ) REPEAT TSH LEVEL IN 3 MONTHS Home Care: * Take your medications exactly as directed. Don't skip doses. * Remember that recovery after a heart attack takes time. Plan to rest for at lease 4-8 weeks while you recover. Then return to normal activity when your doctor says it's okay. * Ask your doctor about joining a heart rehabilitation program. * Tell your doctor if you are feeling depressed. Feelings of sadness are common after a heart attack, but it is important that you speak to someone if you are feeling overwhelmed by these feelings. * If you are having chest pain, call 911 for an ambulance. Do NOT drive yourself to the hospital. * Ask your family members to learn CPR. * Learn to take your own blood pressure and pulse. Keep a record of your results. Ask your doctor when you should seek emergency medical attention. He or she will tell you which blood pressure reading is dangerous. Lifestyle Changes: * Maintain a healthy weight. Get help to lose any extra pounds. * Cut back on salt. * Limit canned, dried, packaged, and fast foods. * Don't add salt to your food. * Season foods with herbs instead of salt when you cook. * Break the smoking habit. Enroll in a stop-smoking program to improve your chances of success. * Limit fatty foods. * Check your lipid levels regularly. (Your doctor can show you how to do this.) * Build up your activity according to your doctor's recommendation. * Ask your doctor when it's okay to resume sexual activity. * Tell your doctor about any erectile dysfunction (ED) medication you are taking. Some ED medications are not safe if you take certain heart medications. * Try to manage stress. Follow Up: It is important for you to keep your follow up appointments with your medical provider. LAB WORK :PT/INR AND BASIC METABOLIC PANEL ON Thursday09/18/16 NEPHROLOGY FOLLOW UP APPOINTMENT WITH DR SABIHA MENDEZ ON Thursday09/18/16 @ 11 : 20 AM FOLLOW UP WITH DR KELVIN OLIVER ON Thursday09/19/16 @ 12: 45 PM CARDIOLOGY FOLLOW UP IN 1-2 WEEKS, OFFICE WILL CALL WITH APPOINTMENT Current Hospital Diet Patient's current hospital diet: AHA Diet (Heart Healthy), Low Sodium Diet (2gm Na) Discharge Diet Recommended Diet: AHA Diet (Heart Healthy), Low Sodium Diet (2gm Na) Fluid Restriction: 1500 ml (6 cups) Pending Studies Studies pending at discharge: yes List of pending studies: PT/INR /BASIC METABOLIC PANEL CHECK ON 09/18/16 [facility]RUS[facility] Medical Emergencies . Who to Call and When: Medical Emergencies: If at any time you feel your situation is an emergency, please call 911 immediately. Call 911 immediately or go to your nearest Emergency Room if you experience any of the following: Warning Signs and Symptoms of a Heart Attack * Chest pain that is not relieved by medication * Shortness of breath . Non-Emergent Contact Non-Emergency issues call your: Primary Care Provider . . "Provider Documentation" section prepared by Mary Beth Mckeon. . AMI Core Measures Reason no ASA as I/P: Treatment provided - N/A Reason no ASA at D/C: Treatment provided - N/A Reason no statin as I/P: Treatment provided - N/A Reason no statin at D/C: Treatment provided - N/A VTE Core Measure Inpt VTE Proph given/why not?: Warfarin (Coumadin) Additional Copies To Sabiha Mendez MD Mainali, Sapana, M.D.
[2016-09-16] MEDS ORDERED: SYN150 PO (13:54)
[2016-09-16] MEDS ORDERED: FUROSEMIDE 80 MG TAB PO SCH (15:00)
[2016-09-16 15:10] VITALS: BP 144/57; PULSE 54; TEMP 36.9; O2SAT 93
[2016-09-17] MEDS ORDERED: FUROSEMIDE 80 MG TAB PO SCH (07:00)
[2016-09-17] MEDS ORDERED: ISOSORBIDE MONONITRATE 30 MG TABCR PO SCH (09:00)
== END 2016-09-16 15:45 | disposition home or self-care (01) | DRG 280 ==
LOC: C.EDB 16:14 → C.2T 18:33 → EDBEDREQ 18:36 → ENRESERV 18:40
PROVIDERS: ADMIT Internal Medicine Cardiovascular Disease; ATTEND Hospitalist
DX: I13.0 Hypertensive heart and chronic kidney disease with heart failure and stage 1 through stage 4 chronic kidney disease, or unspecified chronic kidney disease (principal); I21.4 Non-ST elevation (NSTEMI) myocardial infarction; I50.43 Acute on chronic combined systolic (congestive) and diastolic (congestive) heart failure; J18.9 Pneumonia, unspecified organism; J96.01 Acute respiratory failure with hypoxia; N17.9 Acute kidney failure, unspecified; N18.4 Chronic kidney disease, stage 4 (severe); I48.0 Paroxysmal atrial fibrillation; I25.2 Old myocardial infarction; E03.9 Hypothyroidism, unspecified; D51.0 Vitamin B12 deficiency anemia due to intrinsic factor deficiency; M10.9 Gout, unspecified; N40.1 Benign prostatic hyperplasia with lower urinary tract symptoms; I73.9 Peripheral vascular disease, unspecified; Z79.899 Other long term (current) drug therapy; Z79.01 Long term (current) use of anticoagulants; Z79.82 Long term (current) use of aspirin; Z87.01 Personal history of pneumonia (recurrent); Z87.891 Personal history of nicotine dependence; Z82.49 Family history of ischemic heart disease and other diseases of the circulatory system

== ENCOUNTER 2020-03-05 02:04 | Inpatient (IN) ==
--- OUTSIDE RECORDS SUMMARY | 2020-03-05 02:07 | External Medical Summary | Continuity of Care Document ---
:1930 Author Name Divya Stacy, Provider Address Unavailable Unavailable , Care Team Providers Name Role Phone Unavailable Unavailable Unavailable PCP, UNKNOWN Unavailable Unavailable Problems Active medical history not documented Allergies and Adverse Reactions Allergy history not documented Medications Medications not documented Procedures Procedures not documented Immunizations Immunizations not documented Plan of Treatment Planned Observations Planned Goals not documented Results No Known Results Results not documented
[2020-03-05] MEDS ORDERED: SODIUM CHLORIDE 0.9% 1000ML 1,000 ML IV ONE (02:28)
[2020-03-05] MEDS ORDERED: fentaNYL citrate 100 MCG/2 ML VIAL IV STA ×3 (02:28→05:10)
[2020-03-05] MEDS ORDERED: ONDANSETRON INJ 2 MG/ML 2 ML VIAL IV STA (02:28)
--- NOTE | 2020-03-05 02:31 | Emergency Department Note ---
Impression & Plan Acute pancreatitis ED Provider Note Name: CARLOS DAVEY Age: 89 Sex: M Arrives Via: Walk-In Informant: Patient ED Provider: Aric Monreal MD Chief Complaint: Abdominal pain Impression: Acute Pancreatitis Medical Decision Making: Very pleasant 89 yr old male who lives alone arrives with vague diffuse abdominal pain. History pancreatitis though he thinks this feels different. History of HTN, DLP, CAD, CHF, Constipation, BPH, GERD, Gout, Afib (on coum sheldon). He has mild diffuse abdominal TTP though primarily over epigastrium. Labs with elevated lipase and otherwise OK. CT a/p without contrast reveals concerns for pancreatitis though no other acute findings. His Cr is stable. Pain controlled with fentanyl with good effect. EKG without evidence ACS and trop is mildly bumped though in setting CKD. Would not get ct with contrast due to renal history (previous on dialysis). I will note he was quite dehydrated appearing on arrival and thus given IV fluids with improvement and no respiratory issues with this. No evidence infectious etiology at this time. Hospitalist consulted for further management. A bit HTN on arrival (though this does come down after fentanyl) and he is not ACS nor stroke. Discussed with hospitalist who will manage further. Prior Medical Record and Triage/Nursing Notes reviewed by Me Additional history obtained from chart Differentials:Pancreatitis, ACS, GERD/PUD, Diverticulitis, obstructions, ischemia, aortic pathology, biliary pathology amongst others. Vital Signs: reviewed and remarkable for HTN Interventions: Saline lock, fentanyl 50mcg IV x 3, zofran 4mg IV, nss bolus Labs:Reviewed and remarkable for elevated lipase, chronic renal failure, trop elevation Imaging:[facility] Radiologist interpretation reviewed by me: CT a/p wo con: Concerning for pancreatitis EKG:Per My Interpretation: Indication Abdominal epigastric pain: Sinus Rowdy 56 bpm, qtc 416. Large U wave (seen on EKG previously as well). No Ectopy. No Ischemia. Compared to EKG 09/15/16, no significant changes. Cardiac/Tele Monitoring: Cardiac Monitoring: An Order was placed for continuous cardiac monitoring. The monitor shows a rate of 55 with a sinus rowdy rhythm. Consults:Dr Fina Javed hospitalist Plan: Disposition:Hospitalization. Condition: Good Prescriptions:none PDMP: n/a History of Present Illness:89 yr old male arrives for evaluation of abdominal pain. Notes vague upper abdominal pain throughout afternoon. As evening went on increasing upper abdominal pain. No radiation. Mildly worse with walking around, better with laying still. Mild associated nausea. No fevers, chills, vomiting, syncope, back pain, urinary/bowel symptoms, chest pain, reflux, shob, headache, neck pain, rashes, leg swelling nor other symptoms. Denies etoh use. No trauma/injuries. No medications taken for this. Admits history pancreatitis due to cysts several years ago though no issues since and feels symptoms different this time. No previous surgeries to abdomen. ROS: See above HPI for pertinent positives & negatives. A total of 10 systems reviewed and were otherwise negative. 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 Quite dehydrated appearing EYES: No scleral icterus, unremarkable pupils. ENT: Mucous membranes dry, no nasal congestion. NECK: No masses appreciated, nomeningismus, trachea is midline. RESPIRATORY: No dyspnea. Clear to auscultation and equal bilaterally. No wheeze, no rhonchi. CARDIOVASCULAR: Regular rate and rhythm.No murmurs, rubs, gallops appreciated. GASTROINTESTINAL: Vague diffuse TTP though Abdomen soft, no peritonitis.Bowel sounds positive.No masses appreciated. BACK: No midline tenderness, no CVA tenderness EXTREMITIES: Normal motion all extremities, no cyanosis, no edema. NEUROLOGIC: Alert and oriented, no acute motor or sensory deficits, no focal weakness, cranial nerves grossly intact. SKIN: No rash, no jaundice, no diaphoresis. PSYCH: Appropriate GCS: 15 ED Course: Times/Reassessments: Feeling better with fentanyl, stable, breathing comfortably Aric Monreal MD Past Med/Surg History Social History Smoking Status: Former smoker Feels Safe at Home: Yes Allergies Allergies Allergy/AdvReac Type Severity Reaction Status Date / Time Penicillins Allergy Unknown PENILE Verified 03/05/20 02:38 ENLARGEMENT tramadol AdvReac Unknown GI SYMPTOMS Verified 03/05/20 02:38 Home Meds Home Medications Medication Instructions Recorded Confirmed allopurinol 200 mg PO DAILY 03/05/20 03/05/20 amiodarone 200 mg PO DAILY 03/05/20 03/05/20 aspirin [Aspir-Low] 81 mg PO DAILY 03/05/20 03/05/20 atorvastatin 40 mg PO DAILY 03/05/20 03/05/20 bisacodyl 10 mg AK DAILY PRN 03/05/20 03/05/20 cholecalciferol (vitamin D3) 100 mcg PO DAILY 03/05/20 03/05/20 [Vitamin D3] finasteride 5 mg PO DAILY 03/05/20 03/05/20 furosemide 40 mg PO QPM 03/05/20 03/05/20 furosemide 80 mg PO QAM 03/05/20 03/05/20 hydralazine 50 mg PO TID 03/05/20 03/05/20 iron,carbonyl-vitamin C [Vitron-C] 1 tab PO BID 03/05/20 03/05/20 isosorbide mononitrate 60 mg PO DAILY 03/05/20 03/05/20 levothyroxine 125 mcg PO DAILY 03/05/20 03/05/20 metoprolol succinate 25 mg PO DAILY 03/05/20 03/05/20 polyethylene glycol 3350 [Miralax] 17 g PO .EVERY 2 DAYS PRN 03/05/20 03/05/20 potassium chloride 20 meq PO DAILY 03/05/20 03/05/20 tamsulosin 0.4 mg PO DAILY 03/05/20 03/05/20 warfarin 1 - 2 mg PO DAILY 03/05/20 03/05/20 Results & Data (ED) Vital Signs Vital Signs - 24 hr 03/05/20 02:06 03/05/20 02:43 03/05/20 03:07 Temperature 37.0 C Temperature Source Oral Pulse Rate 60 Pulse Rate [Bilateral Apical] 54 L 54 L Pulse Rhythm [Bilateral Apical] Respiratory Rate 16 20 20 Respiratory Effort / Characteristics Non-Labored Spontaneous Respiratory Depth Normal Blood Pressure 212/63 H Blood Pressure [Left Arm] 222/96 H 208/73 H Blood Pressure Mean 112 Blood Pressure Mean [Left Arm] 138 118 Blood Pressure Position Sitting Pulse Oximetry 96 95 92 Oxygen Delivery Method Room Air Room Air Room Air Oxygen Flow Rate Sepsis Recent Fever Within 48 Hours No Sepsis New/Unexplained Change in Mental Status N/A Sepsis Action Taken by Nursing No Action Required 03/05/20 03:33 03/05/20 04:06 03/05/20 04:47 Temperature Temperature Source Pulse Rate Pulse Rate [Bilateral Apical] 55 L 54 L 54 L Pulse Rhythm [Bilateral Apical] Regular Respiratory Rate 20 18 20 Respiratory Effort / Characteristics Respiratory Depth Blood Pressure Blood Pressure [Left Arm] 215/73 H 216/76 H 234/74 H Blood Pressure Mean Blood Pressure Mean [Left Arm] 120 122 127 Blood Pressure Position Pulse Oximetry 94 90 91 Oxygen Delivery Method Room Air Room Air Room Air Oxygen Flow Rate Sepsis Recent Fever Within 48 Hours Sepsis New/Unexplained Change in Mental Status Sepsis Action Taken by Nursing 03/05/20 05:23 03/05/20 05:24 Temperature Temperature Source Pulse Rate Pulse Rate [Bilateral Apical] 52 L Pulse Rhythm [Bilateral Apical] Respiratory Rate 20 Respiratory Effort / Characteristics Respiratory Depth Blood Pressure Blood Pressure [Left Arm] 216/74 H Blood Pressure Mean Blood Pressure Mean [Left Arm] 121 Blood Pressure Position Pulse Oximetry 95 95 Oxygen Delivery Method Nasal Cannula Nasal Cannula Oxygen Flow Rate 3 3 Sepsis Recent Fever Within 48 Hours Sepsis New/Unexplained Change in Mental Status Sepsis Action Taken by Nursing Laboratory Data Result diagrams: 03/05/20 02:25 03/05/20 02:25 Lab Results 03/05/20 03/05/20 03/05/20 Range/Units 02:25 02:25 02:25 WBC 10.27 (4.8-10.8) K/uL RBC 3.74 L (4.7-6.1) M/uL Hgb 12.0 L (14.0-18.0) g/dL Hct 36.6 L (42-52) % MCV 97.9 (80-100) fL MCH 32.1 (25-34) pg MCHC 32.8 (32-36) g/dL RDW Std Deviation 59.5 H (36.4-46.3) fL RDW Coeff of Yuri 16.6 H (11.5-14.5) % Plt Count 161 (130-400) K/uL MPV 11.0 H (7.4-10.4) fL Immature Gran % (Auto) 0.4 % Neut % (Auto) 80.7 % Lymph % (Auto) 8.9 % [place] % (Auto) 8.2 % Eos % (Auto) 1.7 % Baso % (Auto) 0.1 % Neut # (Auto) 8.30 H (1.4-6.5) K/uL Lymph # (Auto) 0.91 L (1.2-3.4) K/uL [place] # (Auto) 0.84 H (0.11-0.59) K/uL Eos # (Auto) 0.17 (0-0.5) K/uL Baso # (Auto) 0.01 (0-0.2) K/uL Immature Gran # (Auto) 0.04 H (0.00-0.02) K/uL PT 32.9 H (9.0-12.0) Seconds INR 3.3 H (0.9-1.1) Sodium 143 (136-145) mmol/L Potassium 3.7 (3.5-5.1) mmol/L Chloride 109 H (98-107) mmol/L Carbon Dioxide 26 (21-32) mmol/L Anion Gap 8.0 (3-11) BUN 62 H (7-18) mg/dl Creatinine 2.91 H (0.6-1.4) mg/dl Est Cr Clr Drug Dosing 17.9 ml/min Est GFR ( Amer) 21.5 Est GFR (Non-Af Amer) 18.5 BUN/Creatinine Ratio 21.3 H (10-20) Glucose 114 H (70-99) mg/dl Calcium 8.8 (8.5-10.1) mg/dl Magnesium 2.3 (1.8-2.4) mg/dl Total Bilirubin 0.5 (0.2-1) mg/dl Direct Bilirubin 0.2 (0-0.2) mg/dl AST 33 (15-37) U/L ALT 40 (12-78) U/L Alkaline Phosphatase 84 (45-117) U/L Troponin I 0.279 H* (0-0.045) ng/ml Total Protein 7.3 (6.4-8.2) gm/dl Albumin 3.3 L (3.4-5.0) gm/dl Lipase 96131 H (73-393) U/L Urine Color Urine Appearance (Clear) Urine pH (4.5-7.5) Ur Specific [place] (1.000-1.030) Urine Protein (Negative) Urine Glucose (UA) (Negative) Urine Ketones (Negative) Urine Blood (Negative) Urine Nitrite (Negative) Urine Bilirubin (Negative) Urine Urobilinogen (Negative) Ur Leukocyte Esterase (Negative) Urine WBC (Auto) (0-5) /hpf Urine RBC (Auto) (0-4) /hpf U Hyaline Cast (Auto) (0-5) /lpf U Epithel Cells (Auto) (0-5) /lpf Urine Bacteria (Auto) (Negative) SARS-CoV-2 Ag (Rapid) (Negative) 03/05/20 03/05/20 Range/Units 02:35 Unknown WBC (4.8-10.8) K/uL RBC (4.7-6.1) M/uL Hgb (14.0-18.0) g/dL Hct (42-52) % MCV (80-100) fL MCH (25-34) pg MCHC (32-36) g/dL RDW Std Deviation (36.4-46.3) fL RDW Coeff of Yuri (11.5-14.5) % Plt Count (130-400) K/uL MPV (7.4-10.4) fL Immature Gran % (Auto) % Neut % (Auto) % Lymph % (Auto) % [place] % (Auto) % Eos % (Auto) % Baso % (Auto) % Neut # (Auto) (1.4-6.5) K/uL Lymph # (Auto) (1.2-3.4) K/uL [place] # (Auto) (0.11-0.59) K/uL Eos # (Auto) (0-0.5) K/uL Baso # (Auto) (0-0.2) K/uL Immature Gran # (Auto) (0.00-0.02) K/uL PT (9.0-12.0) Seconds INR (0.9-1.1) Sodium (136-145) mmol/L Potassium (3.5-5.1) mmol/L Chloride (98-107) mmol/L Carbon Dioxide (21-32) mmol/L Anion Gap (3-11) BUN (7-18) mg/dl Creatinine (0.6-1.4) mg/dl Est Cr Clr Drug Dosing ml/min Est GFR ( Amer) Est GFR (Non-Af Amer) BUN/Creatinine Ratio (10-20) Glucose (70-99) mg/dl Calcium (8.5-10.1) mg/dl Magnesium (1.8-2.4) mg/dl Total Bilirubin (0.2-1) mg/dl Direct Bilirubin (0-0.2) mg/dl AST (15-37) U/L ALT (12-78) U/L Alkaline Phosphatase (45-117) U/L Troponin I (0-0.045) ng/ml Total Protein (6.4-8.2) gm/dl Albumin (3.4-5.0) gm/dl Lipase (73-393) U/L Urine Color Yellow Urine Appearance Clear (Clear) Urine pH 5.5 (4.5-7.5) Ur Specific [place] 1.011 (1.000-1.030) Urine Protein Trace H (Negative) Urine Glucose (UA) Negative (Negative) Urine Ketones Negative (Negative) Urine Blood Negative (Negative) Urine Nitrite Negative (Negative) Urine Bilirubin Negative (Negative) Urine Urobilinogen Negative (Negative) Ur Leukocyte Esterase Negative (Negative) Urine WBC (Auto) 0 (0-5) /hpf Urine RBC (Auto) 0-4 (0-4) /hpf U Hyaline Cast (Auto) 0 (0-5) /lpf U Epithel Cells (Auto) 0-5 (0-5) /lpf Urine Bacteria (Auto) Negative (Negative) SARS-CoV-2 Ag (Rapid) Negative (Negative) Administered Medications Discontinued Medications Fentanyl Citrate (Fentanyl Citrate 100 Mcg/2 Ml Vial) 50 mcg IV NOW STA Stop: 03/05/20 02:29 Last Admin: 03/05/20 02:41 Dose: 50 mcg Documented by: [id number] Fentanyl Citrate (Fentanyl Citrate 100 Mcg/2 Ml Vial) 50 mcg IV NOW STA Stop: 03/05/20 03:39 Last Admin: 03/05/20 03:47 Dose: 50 mcg Documented by: [id number] Fentanyl Citrate (Fentanyl Citrate 100 Mcg/2 Ml Vial) 50 mcg IV NOW STA Stop: 03/05/20 05:11 Last Admin: 03/05/20 05:15 Dose: 50 mcg Documented by: [id number] Hydralazine HCl (Hydralazine Hcl 20 Mg/Ml Vial) 10 mg IV NOW STA Stop: 03/05/20 05:14 Last Admin: 03/05/20 05:19 Dose: 10 mg Documented by: [id number] Sodium Chloride (Nss 1000ml) 1,000 mls @ 999 mls/hr IV .Q1H1M ONE Stop: 03/05/20 03:28 Last Infusion: 03/05/20 03:33 Dose: 0 mls/hr Documented by: [id number] Admin: 03/05/20 02:41 Dose: 999 mls/hr Documented by: [id number] Ondansetron HCl (Ondansetron Inj 2 Mg/Ml 2 Ml Vial) 4 mg IV NOW STA Stop: 03/05/20 02:29 Last Admin: 03/05/20 02:41 Dose: 4 mg Documented by: [id number] Discharge Plan Visit Data Chief Complaint: Abdominal Pain Stated Complaint: EXTREME DISCOMFORT IN STOMACH ED Provider: Aric Monreal Discharge Problem: Acute pancreatitis Forms Stand Alone Forms: My [facility] Prescriptions Prescriptions: No Action atorvastatin 40 mg tablet 40 mg PO DAILY RF: 0 amiodarone 200 mg tablet 200 mg PO DAILY RF: 0 allopurinol 100 mg tablet 200 mg PO DAILY RF: 0 isosorbide mononitrate 60 mg tablet extended release 24 hr 60 mg PO DAILY RF: 0 tamsulosin 0.4 mg capsule 0.4 mg PO DAILY RF: 0 furosemide 80 mg tablet 40 mg PO QPM RF: 0 furosemide 80 mg tablet 80 mg PO QAM RF: 0 aspirin [Aspir-Low] 81 mg Tablet,Delayed Release (Dr/Ec) 81 mg PO DAILY RF: 0 levothyroxine 125 mcg tablet 125 mcg PO DAILY RF: 0 warfarin 2 mg tablet 1 - 2 mg PO DAILY RF: 0 metoprolol succinate 25 mg tablet extended release 24 hr 25 mg PO DAILY RF: 0 finasteride 5 mg tablet 5 mg PO DAILY RF: 0 polyethylene glycol 3350 [Miralax] 17 gram/dose Powder 17 g PO .EVERY 2 DAYS PRN (Reason: no bm) RF: 0 cholecalciferol (vitamin D3) [Vitamin D3] 50 mcg (2,000 unit) Tablet 100 mcg PO DAILY RF: 0 potassium chloride 20 mEq tablet,ER particles/crystals 20 meq PO DAILY RF: 0 hydralazine 50 mg tablet 50 mg PO TID RF: 0 Vitron-C 65 mg iron- 125 mg Tablet,Delayed Release (Dr/Ec) 1 tab PO BID RF: 0 bisacodyl 10 mg Suppository 10 mg AK DAILY PRN (Reason: Constipation) RF: 0 Discharge Problem: Acute pancreatitis Qualifiers: Pancreatitis type: unspecified pancreatitis type Acute pancreatitis complication: no infection or necrosis Qualified Code(s): K85.90 - Acute pancreatitis without necrosis or infection, unspecified
[2020-03-05 02:45] LABS: Basophils # (auto) 0.01 K/uL (0-0.2); Basophils % (auto) 0.1 %; Eosinophils # (auto) 0.17 K/uL (0-0.5); Eosinophils % (auto) 1.7 %; Hematocrit (blood only) 36.6 % (42-52); Immature Granulocytes # (auto) 0.04 K/uL (0.00-0.02); Immature Granulocytes % (auto) 0.4 %; Lymphocytes # (auto) 0.91 K/uL (1.2-3.4); Lymphocytes % (auto) 8.9 %; Mean Corpuscular Hemoglobin 32.1 pg (25-34); Mean Corpuscular Hgb Conc 32.8 g/dL (32-36); Mean Corpuscular Volume 97.9 fL (80-100); Monocytes # (auto) 0.84 K/uL (0.11-0.59); Monocytes % (auto) 8.2 %; Neutrophils % (auto) 80.7 %; Platelet Count 161 K/uL (130-400); RDW Coefficient of Variation 16.6 % (11.5-14.5); RDW Standard Deviation 59.5 fL (36.4-46.3); Red Blood Count 3.74 M/uL (4.7-6.1); White Blood Count 10.27 K/uL (4.8-10.8)
[2020-03-05 02:54] LABS: INR 3.3 (0.9-1.1); Prothrombin Time 32.9 Seconds (9.0-12.0)
[2020-03-05 03:05] LABS: Albumin Level 3.3 gm/dl (3.4-5.0); BUN Creatinine Ratio 21.3 (10-20); Bilirubin Direct 0.2 mg/dl (0-0.2); Calcium 8.8 mg/dl (8.5-10.1); Creatinine Clr Calc Pharmacy 17.9 ml/min; Est GFR (African American) 21.5; Est GFR (Non-African American) 18.5; Magnesium 2.3 mg/dl (1.8-2.4); Potassium 3.7 mmol/L (3.5-5.1)
[2020-03-05 03:12] LABS: Appearance Urine Clear (Clear); Bacteria Urine Automated Negative (Negative); Bilirubin Urine Negative (Negative); Blood Urine Negative (Negative); Cast Urine Automated 0 /lpf (0-5); Color Urine Yellow; Epithelial Cell Urine Auto 0-5 /lpf (0-5); Glucose Urine UA Negative (Negative); Ketones Urine Negative (Negative); Leukocyte Esterase Urine Negative (Negative); Nitrite Urine Negative (Negative); Protein Urine Trace (Negative); RBC Urine Automated 0-4 /hpf (0-4); Specific Gravity Urine 1.011 (1.000-1.030); Urobilinogen Urine Negative (Negative); WBC Urine Automated 0 /hpf (0-5); pH Urine 5.5 (4.5-7.5)
[2020-03-05 03:28] LABS: Bilirubin,Total 0.5 mg/dl (0.2-1); Total Protein 7.3 gm/dl (6.4-8.2); Troponin I 0.279 ng/ml (0-0.045)
[2020-03-05] MEDS ORDERED: fentaNYL citrate 100 MCG/2 ML VIAL IV PRN (05:10)
[2020-03-05] MEDS ORDERED: hydrALAZINE HCL 20 MG/ML VIAL IV STA (05:13)
[2020-03-05] MEDS ORDERED: NITROGLYCERIN SL 0.4 MG/TAB TAB SL PRN (06:06)
[2020-03-05] MEDS ORDERED: ONDANSETRON INJ 2 MG/ML 2 ML VIAL IV PRN (06:06)
[2020-03-05] MEDS ORDERED: POLYETHYLENE (MIRALAX) 17 GM PACK PO PRN (06:06)
[2020-03-05] MEDS ORDERED: HYDROmorphone INJ 0.5 MG/0.5 ML SYR IV PRN (06:06)
[2020-03-05] MEDS ORDERED: ACETAMINOPHEN 325 MG TAB PO PRN (06:06)
[2020-03-05] MEDS ORDERED: bisacodyL 10 MG SUPP PR PRN (06:06)
[2020-03-05] MEDS ORDERED: hydrALAZINE HCL 20 MG/ML VIAL IV ONE (06:23)
--- NOTE | 2020-03-05 06:47 | History and Physical Report ---
DATE OF ADMISSION: 03/05/2020 CHIEF COMPLAINT: Abdominal pain. HISTORY OF PRESENT ILLNESS: This is an 89-year-old male with past medical history significant for chronic gout, hypothyroidism, hyperlipidemia, hyperparathyroidism, history of peripheral artery disease, paroxysmal atrial fibrillation, chronic combined systolic and diastolic congestive heart failure, last EF of 45-50%, history of bradycardia, chronic ischemic heart disease, hypertension, carotid stenosis, chronic kidney disease stage IV, reflux esophagitis, history of dysphagia, BPH, sensorineural hearing loss bilaterally, pernicious anemia. The patient lives alone, ambulates without any support as per the patient, comes because of abdominal pain. The patient says yesterday since 5:00 p.m. he started to have abdominal pain and he could not sleep the night, so he came here, it is 7-8 to in severity, no radiation, not associated with nausea, vomiting. No fever, chills, no diarrhea. Received pain medications. In the ER, currently pain is much improved. He says it is about 4/10 in severity, resting comfortably. Blood pressure is running high. Denies any chest pain, no shortness of breath, no cough, no headache, no blurred vision, no earache, no runny nose, no sore throat. No loss of sense of smell or taste. Appetite is okay. Normal bowel and bladder movements. No swelling in the legs seen. 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 ALLERGIES: PENICILLIN, TRAMADOL. PAST MEDICAL HISTORY: As mentioned above. PAST SURGICAL HISTORY: Carpal tunnel surgery, colonoscopy, EGD, EGD with endoscopic ultrasound, right cataract surgery, right carotid endarterectomy. MEDICATIONS: The patient is on allopurinol 200 mg p.o. daily, amiodarone 200 mg p.o. daily, aspirin 81 mg p.o. daily, atorvastatin 40 mg p.o. daily, bisacodyl 10 mg p.o. daily p.r.n., vitamin D 100 mcg p.o. daily, finasteride 5 mg p.o. daily, Lasix 40 mg in p.m. and 80 mg in the a.m., hydralazine 50 mg p.o. t.i.d., Vitron-C 1 tablet p.o. b.i.d., isosorbide mononitrate 60 mg p.o. daily, levothyroxine 125 mcg p.o. daily, metoprolol succinate 25 mg p.o. daily, MiraLax 17 g p.o. daily p.r.n., potassium chloride 40 mEq p.o. daily, Flomax 0.4 mg p.o. daily, warfarin 1-2 mg p.o. daily. FAMILY HISTORY: Significant for brother has diabetes. Father had hypertension and stroke. Mother had diabetes. SOCIAL HISTORY: Currently lives alone. Quit smoking in 1975. Alcohol, one wine daily at most as per records, no drug use. REVIEW OF SYMPTOMS: As per HPI. Rest of review of symptoms negative. PHYSICAL EXAMINATION: GENERAL: The patient is old and frail, the patient is not in acute distress. VITAL SIGNS: Temperature 37, pulse 54, respiratory rate 20, blood pressure 234/74, oxygen 91% on room air. HEENT: Pupils equal, round, reactive to light. Oral mucosa moist. NECK: Supple, no neck masses seen. CARDIOVASCULAR: S1, S2 heard, regular rate and rhythm, no murmur, no gallop. RESPIRATORY SYSTEM: Normal AP diameter. No accessory muscle use. No wheezing, no crackles. ABDOMEN: Soft, bowel sounds present. Mild abdominal diffuse discomfort. No guarding, no rigidity. No distention. CENTRAL NERVOUS SYSTEM: Cranial nerves II-XII grossly intact, nonfocal. EXTREMITIES: No edema, no erythema. LABORATORY DATA: WBC 10.2, hemoglobin 12, hematocrit 36.6, platelets 161, PT 32.9 INR 3.3. Sodium 143, potassium 3.7, chloride 109, bicarbonate 26, BUN 62, creatinine 2.9, serum glucose 111, calcium 8.8, magnesium 2.3, total bilirubin 0.5, direct bilirubin 0.2, AST 33, ALT 40, alkaline phosphatase 84. Troponin I 0.27, lipase 20,293. Urinalysis negative. SARS-CoV-2 rapid test negative. IMAGING: CT abdomen and pelvis shows hypodense liver, which can be seen with hemochromatosis, or amiodarone hepatotoxicity, subtle peripancreatic stranding which could indicate acute pancreatitis in appropriate clinical setting. No peripancreatic fluid collection, 2 cm cystic lesion in the pancreatic neck as before, horseshoe shape kidney, cholelithiasis, mildly prominent in small bowel in the left upper which could indicate nonspecific enteritis in appropriate clinical setting. Unremarkable appendix, trace free pelvic fluid. No loculated fluid collection. 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 EKG: Poor quality data interpreted EKG. ASSESSMENT AND PLAN: This is an 89-year-old male who presents with abdominal pain and found to have acute pancreatitis. 1. Acute pancreatitis. The patient has history of acute pancreatitis about 4 years ago. In Apr 2016 Endoscopic ultrasound was done which showed pancreatic cyst 7 x 11 mm pancreatic head cyst and followup MRI scan in July 2016 showed 11 x 10 x 9 small lesion in the head and neck with possibly internal septations with no pancreatic ductal dilatation. At that time GI discussed with him and he does wants to have any more surveillance as per [facility]. Now again presents with recurrent pancreatitis. We will keep him n.p.o., IV fluids, Ringer lactate at 125 mL per hour. The patient has history of CHF and also chronic kidney disease stage IV. Pain control, IV Protonix, IV antiemetics if needed. Monitor in the hospital. Consult GI in the a.m. for further recommendations. 2. Hypertensive urgency. Systolic blood pressure in 200 currently, probably secondary to pain. on hydralazine.isosorbide mononitrate and Toprol-XL which will be continued. His hear rate is somewhat on lower side and we will place him on IV hydralazine p.r.n., monitor the blood pressure in the med tele. 3. Mild elevation of troponin. No chest pain, poor quality EKG, we will repeat the EKG. Repeat serial troponins, echocardiogram, could be secondary to hypertensive urgency and will get a cardiology evaluation in a.m. 4. Chronic systolic congestive heart failure with EF of around 45-50%. Holding diuretics and potassium supplements, the patient getting fluids as above. We will monitor for any volume overload. Also follow echocardiogram. 5. Chronic kidney disease stage IV. His recent creatinine was 3.1. Today Cr 2.9. Getting fluids as above. Holding diuretics as above. We will monitor for any volume overload. We will follow the repeat labs. 6. History of atrial fibrillation, rate controlled on Toprol-XL and amiodarone, on Coumadin. INR is therapeutic at 3.3. The patient takes Coumadin 1-2 mg p.o. daily or as directed, will continue with 1 mg as INR is 3.3. 7. History of peripheral vascular disease, history of right sided carotid endarterectomy, on Coumadin, and statin and aspirin. 8. History of hyperlipidemia, on statin. 9. History of BPH , on Proscar and Flomax. 10. History of pernicious anemia. We will follow the labs. 11. History of hypothyroidism, on Synthroid. 12. History of gout, on allopurinol. 13. Deep venous thrombosis prophylaxis, on Coumadin. INR therapeutic. DISPOSITION: Monitor in the med tele. PT and OT prior to discharge. Expect to discharge home and follow with family doctor. Level 1 full code. Social service to help with discharge planning. CONSTANTINED
[2020-03-05] MEDS ORDERED: LACTATED RINGER'S 1,000 ML IV SCH (07:00)
[2020-03-05] MEDS: LEVOTHYROXINE SODIUM 125 MCG TABLET PO SCH (07:07)
--- NOTE | 2020-03-05 07:44 | CT Scan Report ---
ABDOMEN AND PELVIS CT WITHOUT CONTRAST CT DOSE: 428.20 mGy.cm HISTORY: Acute generalized abdominal pain diffuse vague abdominal pain TECHNIQUE: Multiaxial CT images of the abdomen and pelvis were performed without contrast. A dose lo wering technique was utilized adhering to the principles of ALARA. COMPARISON STUDY: CT abdomen and pelvis 03/28/2016 FINDINGS: Mild cardiomegaly. Coronary artery and mitral annular calcifications. No pericardial effusi on. Mild subpleural reticular opacities within the lung bases are suggestive of scarring. No pneumato sis or pneumoperitoneum. Calcified granulomata of the spleen. Limited evaluation of the solid abdominal organs without the use of IV contrast. Unremarkable adrenal glands. Mild gallbladder distention with cholelithiasis. No gal lbladder wall thickening, pericholecystic fluid or choledocholithiasis. There is mild peripancreatic stranding adjacent to the pancreatic tail. There is unchanged mild pancreatic ductal dilation measuri ng up to approximately 4 mm. 2.0 cm ovoid cystic pancreatic head lesion is stable dating back to 2016 . Mild to moderate generalized pancreatic atrophy. Hyperattenuation of the liver, Hounsfield unit of 100 is new from 2016. No evidence of cirrhosis or ascites. Indeterminate 4 mm hypodensity of the infe rior right hepatic lobe, too small to characterize. Horseshoe kidney. Mild diffuse bilateral renal cortical thinning. Bilateral renal vascular calcificat ions. Superimposed nonobstructing renal calculi with be difficult to exclude. No ureteral calculi or obstructive uropathy. Mild bladder distention with associated wall thickening. Prostamegaly. Calcifie d plaque of the abdominal aorta without aneurysm. There is no adenopathy. Small hiatal hernia. Mild distal esophageal wall thickening. Trace free fluid within the dependent pe lvis. Mild fecal retention of the right hemicolon. Terminal ileum and appendix appear normal. Tiny fa t filled periumbilical hernia. Unremarkable soft tissues. Degenerative changes of the spine, pelvis a nd hips. No acute fracture or suspicious bone lesion. Multilevel central canal and foraminal narrowin g of the lumbar spine. 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 IMPRESSION: 1. Subtle peripancreatic stranding involves the pancreatic tail suspicious for acute pancreatitis. Co rrelate with lipase level. 2. Unchanged 2.0 cm cystic lesion of the pancreatic head with mild associated pancreatic ductal dilat ion. This is suggestive of a probable IPMN and is unchanged from 2016. 3. Hyperattenuation of the liver is new from 2016. Primary differential considerations would include iron deposition versus medication toxicity such as amiodarone or gold therapy. No evidence of cirrhos is. 4. Horseshoe kidney. 5. Prostamegaly with findings of chronic bladder outlet obstruction. 6. Cholelithiasis. 7. Additional findings as above. ACT 112: Negative or not required by law. The above report was generated using voice recognition software. It may contain grammatical, syntax o r spelling errors. Electronically signed by: Leonardo Cervantes M.D. 03/05/2020 7:43 AM
[2020-03-05] MEDS: METOPROLOL SUCC 25MG EXT REL TAB PO SCH (08:32)
[2020-03-05] MEDS: TAMSULOSIN HCL 0.4 MG CAP PO SCH (08:32)
[2020-03-05] MEDS: FINASTERIDE 5 MG TAB PO SCH (08:32)
[2020-03-05] MEDS: ASPIRIN 81 MG ECTAB PO SCH (08:33)
[2020-03-05] MEDS: AMIODARONE 200 MG TAB PO SCH (08:33)
[2020-03-05] MEDS: hydrALAZINE TAB 50 MG TAB PO SCH ×2 (08:34→13:08)
[2020-03-05] MEDS: CHOLECALCIFEROL 1,000 UNITS 25 MCG TAB PO SCH (08:34)
--- NOTE | 2020-03-05 08:40 | Gastrointestinal Consultation ---
Date of Consultation March 05, 2020 Assessment & Plan (1) Acute pancreatitis: 89 year old male admitted w/ abd pain, elevated lipase, CTAP concerning for acute pancreatitis and 2 cm panc lesions. EUS in 2017 showed suspected IPMN 7x11 in largest diameter undergoing cardiac workup given elevated troponin on admission NPO IV LR 100-150 mL Antiemetics PRN Analgesia PRN Discuss OP EUS given 10 lb weight loss, PD dilation on CT and enlarging panc cyst Will follow. Supervising Physician Co-Signing Physician Notes I have seen and examined the patient and discussed the management with LEANDRO Scales. Admitted with abdominal pain - concerns for pancreatitis. Prior eus showing a pancreatic cyst that has grown in size with weight loss. Conservative mgmt for pancreatitis- IV fluids. Likely outpatient EUS in 2-3 months. 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 Epigastric in location. Does not radiate. No nausea,vomiting. No change in BM. Pain slightly improved since admission. Made NPO. Currently getting ECHO at bedside. Denies weight loss to me however EPIC chart shows about 10 lb weight loss in 9 months Afebrile No leukocytosis LFTs normal Lipase 08607 Troponin elevated [employer] elevated CT w/ panc cysts (known IPMN) pancreatitis, gallstones, liver lesion (gallbladder distention with cholelithiasis. No gallbladder wall thickening, pericholecystic fluid or choledocholithiasis. There is mild peripancreatic stranding adjacent to the pancreatic tail. There is unchanged mild pancreatic ductal dilation measuring up to approximately 4 mm. 2.0 cm ovoid cystic pancreatic head lesion is stable dating back to 2016) MRCP 2017: 10 x 11 x 9 mm pancreatic head/neck, most likely benign, possibly a side branch IPMN or serous cystadenoma. 1 year follow-up MRI suggested to confirm stability unless 1 year stability can be established on comparison with outside imaging.Horseshoe kidney. Several small punctate bilateral renal cysts.Cholelithiasis. No acute inflammatory changes. No biliary obstruction.Small to moderate bilateral pleural effusions EUS 2017 panc cyst 7x11, ?chronic panc, gallstones Allergies Allergy/AdvReac Type Severity Reaction Status Date / Time Penicillins Allergy Unknown PENILE Verified 03/05/20 02:38 ENLARGEMENT tramadol AdvReac Unknown GI SYMPTOMS Verified 03/05/20 02:38 Home Medications Medication Instructions Recorded Confirmed Type allopurinol 200 mg PO DAILY 03/05/20 03/05/20 History amiodarone 200 mg PO DAILY 03/05/20 03/05/20 History aspirin [Aspir-Low] 81 mg PO DAILY 03/05/20 03/05/20 History atorvastatin 40 mg PO DAILY 03/05/20 03/05/20 History bisacodyl 10 mg CO DAILY PRN 03/05/20 03/05/20 History cholecalciferol (vitamin D3) 100 mcg PO DAILY 03/05/20 03/05/20 History [Vitamin D3] finasteride 5 mg PO DAILY 03/05/20 03/05/20 History furosemide 40 mg PO QPM 03/05/20 03/05/20 History furosemide 80 mg PO QAM 03/05/20 03/05/20 History hydralazine 50 mg PO TID 03/05/20 03/05/20 History iron,carbonyl-vitamin C [Vitron-C] 1 tab PO BID 03/05/20 03/05/20 History isosorbide mononitrate 60 mg PO DAILY 03/05/20 03/05/20 History levothyroxine 125 mcg PO DAILY 03/05/20 03/05/20 History metoprolol succinate 25 mg PO DAILY 03/05/20 03/05/20 History polyethylene glycol 3350 [Miralax] 17 g PO .EVERY 2 DAYS PRN 03/05/20 03/05/20 History potassium chloride 20 meq PO DAILY 03/05/20 03/05/20 History tamsulosin 0.4 mg PO DAILY 03/05/20 03/05/20 History warfarin 1 - 2 mg PO DAILY 03/05/20 03/05/20 History Patient History Social History Smoking Status: Former smoker Smoking End Date: 1975; Hx Alcohol Use: Yes Hx Substance Use: No Preferred Language: Hebrew Beliefs That Will Affect Care: None Current Living Situation: Alone Other Information That Helps Us Care for You: No Feels Safe at Home: Yes Safety Concerns: Feels Safe At This Time Assistive Devices: None Review of Systems Constitutional: no fever, no chills and no fatigue Respiratory: no cough and no dyspnea Cardiovascular: no chest pain Gastrointestinal: + abdominal pain Physical Exam Constitutional: no acute distress Respiratory: normal respiratory effort; no respiratory distress Gastrointestinal (Abdomen): Percussion/Palpation: + abdomen tender and abdomen soft; no guarding and abdomen not rigid Skin: no rashes, warm and dry Results & Data ([facility]) Vital Signs (Past 12 Hours) Vital Signs Temp Pulse Pulse Resp BP BP BP 03/05/20 08:04 36.7 C 58 L 20 206/70 H 208/80 H 03/05/20 07:36 57 L 03/05/20 07:15 60 03/05/20 06:08 36.5 C 60 16 218/76 H 202/76 H 03/05/20 05:31 53 L 20 200/91 H 03/05/20 05:24 03/05/20 05:23 52 L 20 216/74 H 03/05/20 04:47 54 L 20 234/74 H 03/05/20 04:06 54 L 18 216/76 H 03/05/20 03:33 55 L 20 215/73 H 03/05/20 03:07 54 L 20 208/73 H 03/05/20 02:43 54 L 20 222/96 H 03/05/20 02:06 37.0 C 60 16 212/63 H Pulse Ox 03/05/20 08:04 90 03/05/20 07:36 03/05/20 07:15 03/05/20 06:08 03/05/20 05:31 96 03/05/20 05:24 95 03/05/20 05:23 95 03/05/20 04:47 91 03/05/20 04:06 90 03/05/20 03:33 94 03/05/20 03:07 92 03/05/20 02:43 95 03/05/20 02:06 96 Laboratory Results 03/05/20 03/05/20 03/05/20 Range/Units Unknown 06:50 02:35 WBC (4.8-10.8) K/uL RBC (4.7-6.1) M/uL Hgb (14.0-18.0) g/dL Hct (42-52) % MCV (80-100) fL MCH (25-34) pg MCHC (32-36) g/dL RDW Std Deviation (36.4-46.3) fL RDW Coeff of Yuri (11.5-14.5) % Plt Count (130-400) K/uL MPV (7.4-10.4) fL Immature Gran % (Auto) % Neut % (Auto) % Lymph % (Auto) % Sac % (Auto) % Eos % (Auto) % Baso % (Auto) % Neut # (Auto) (1.4-6.5) K/uL Lymph # (Auto) (1.2-3.4) K/uL Sac # (Auto) (0.11-0.59) K/uL Eos # (Auto) (0-0.5) K/uL Baso # (Auto) (0-0.2) K/uL Immature Gran # (Auto) (0.00-0.02) K/uL PT (9.0-12.0) Seconds INR (0.9-1.1) Sodium (136-145) mmol/L Potassium (3.5-5.1) mmol/L Chloride (98-107) mmol/L Carbon Dioxide (21-32) mmol/L Anion Gap (3-11) BUN (7-18) mg/dl Creatinine (0.6-1.4) mg/dl Est Cr Clr Drug Dosing ml/min Est GFR ( Amer) Est GFR (Non-Af Amer) BUN/Creatinine Ratio (10-20) Glucose (70-99) mg/dl Calcium (8.5-10.1) mg/dl Magnesium (1.8-2.4) mg/dl Total Bilirubin (0.2-1) mg/dl Direct Bilirubin (0-0.2) mg/dl AST (15-37) U/L ALT (12-78) U/L Alkaline Phosphatase (45-117) U/L Troponin I 0.308 H* (0-0.045) ng/ml Total Protein (6.4-8.2) gm/dl Albumin (3.4-5.0) gm/dl Lipase (73-393) U/L Urine Color Yellow Urine Appearance Clear (Clear) Urine pH 5.5 (4.5-7.5) Ur Specific [place] 1.011 (1.000-1.030) Urine Protein Trace H (Negative) Urine Glucose (UA) Negative (Negative) Urine Ketones Negative (Negative) Urine Blood Negative (Negative) Urine Nitrite Negative (Negative) Urine Bilirubin Negative (Negative) Urine Urobilinogen Negative (Negative) Ur Leukocyte Esterase Negative (Negative) Urine WBC (Auto) 0 (0-5) /hpf Urine RBC (Auto) 0-4 (0-4) /hpf U Hyaline Cast (Auto) 0 (0-5) /lpf U Epithel Cells (Auto) 0-5 (0-5) /lpf Urine Bacteria (Auto) Negative (Negative) SARS-CoV-2 Ag (Rapid) Negative (Negative) 03/05/20 03/05/20 03/05/20 Range/Units 02:25 02:25 02:25 WBC 10.27 (4.8-10.8) K/uL RBC 3.74 L (4.7-6.1) M/uL Hgb 12.0 L (14.0-18.0) g/dL Hct 36.6 L (42-52) % MCV 97.9 (80-100) fL MCH 32.1 (25-34) pg MCHC 32.8 (32-36) g/dL RDW Std Deviation 59.5 H (36.4-46.3) fL RDW Coeff of Yuri 16.6 H (11.5-14.5) % Plt Count 161 (130-400) K/uL MPV 11.0 H (7.4-10.4) fL Immature Gran % (Auto) 0.4 % Neut % (Auto) 80.7 % Lymph % (Auto) 8.9 % Sac % (Auto) 8.2 % Eos % (Auto) 1.7 % Baso % (Auto) 0.1 % Neut # (Auto) 8.30 H (1.4-6.5) K/uL Lymph # (Auto) 0.91 L (1.2-3.4) K/uL Sac # (Auto) 0.84 H (0.11-0.59) K/uL Eos # (Auto) 0.17 (0-0.5) K/uL Baso # (Auto) 0.01 (0-0.2) K/uL Immature Gran # (Auto) 0.04 H (0.00-0.02) K/uL PT 32.9 H (9.0-12.0) Seconds INR 3.3 H (0.9-1.1) Sodium 143 (136-145) mmol/L Potassium 3.7 (3.5-5.1) mmol/L Chloride 109 H (98-107) mmol/L Carbon Dioxide 26 (21-32) mmol/L Anion Gap 8.0 (3-11) BUN 62 H (7-18) mg/dl Creatinine 2.91 H (0.6-1.4) mg/dl Est Cr Clr Drug Dosing 17.9 ml/min Est GFR ( Amer) 21.5 Est GFR (Non-Af Amer) 18.5 BUN/Creatinine Ratio 21.3 H (10-20) Glucose 114 H (70-99) mg/dl Calcium 8.8 (8.5-10.1) mg/dl Magnesium 2.3 (1.8-2.4) mg/dl Total Bilirubin 0.5 (0.2-1) mg/dl Direct Bilirubin 0.2 (0-0.2) mg/dl AST 33 (15-37) U/L ALT 40 (12-78) U/L Alkaline Phosphatase 84 (45-117) U/L Troponin I 0.279 H* (0-0.045) ng/ml Total Protein 7.3 (6.4-8.2) gm/dl Albumin 3.3 L (3.4-5.0) gm/dl Lipase 98415 H (73-393) U/L Urine Color Urine Appearance (Clear) Urine pH (4.5-7.5) Ur Specific [place] (1.000-1.030) Urine Protein (Negative) Urine Glucose (UA) (Negative) Urine Ketones (Negative) Urine Blood (Negative) Urine Nitrite (Negative) Urine Bilirubin (Negative) Urine Urobilinogen (Negative) Ur Leukocyte Esterase (Negative) Urine WBC (Auto) (0-5) /hpf Urine RBC (Auto) (0-4) /hpf U Hyaline Cast (Auto) (0-5) /lpf U Epithel Cells (Auto) (0-5) /lpf Urine Bacteria (Auto) (Negative) SARS-CoV-2 Ag (Rapid) (Negative) (1) Acute pancreatitis Acute pancreatitis complication: no infection or necrosis Pancreatitis type: unspecified pancreatitis type Qualified Code(s): K85.90 - Acute pancreatitis without necrosis or infection, unspecified
[2020-03-05] MEDS ORDERED: HYDROmorphone INJ 1 MG/ML SYRINGE IV STA (08:48)
[2020-03-05] MEDS ORDERED: ACETAMINOPHEN 1,000 MG/100 ML VIAL IV PRN (08:48)
[2020-03-05] MEDS ORDERED: HYDROmorphone INJ 1 MG/ML SYRINGE IV PRN (08:49)
[2020-03-05] MEDS ORDERED: ATORVASTATIN 40 MG TAB PO SCH (09:00)
[2020-03-05] MEDS ORDERED: ISOSORBIDE MONO EXTENDED REL 60 MG TABCR PO SCH (09:00)
[2020-03-05] MEDS ORDERED: NON-FORMULARY MEDICATION (Iron,Carbonyl-Vitamin C [Vitron-C] 65 mg iron- 125 mg Tablet,Del PO SCH (09:00)
--- NOTE | 2020-03-05 10:53 | Cardiology Consultation ---
Date of Consultation March 05, 2020 Assessment & Plan (1) Acute pancreatitis: 89-year-old male with complex constellation of underlying medical issues as outlined above. Patient presents with severe abdominal pain and evidence of pancreatitis (recurrent event). Troponin is elevated but flat on 2 serial testing likely reflecting demand issues of acute illness as well as underlying chronic renal insufficiency. EKG without evidence of acute ischemia. Echocardiogram today demonstrates preserved LV function with chronic evidence of pulmonary hypertension present on prior study Blood pressure significantly elevated would continue current therapies but add topical nitrates for additional blood pressure control. Blood pressure likely to improve as pain comes under control Patient has to be absolutely n.p.o. we will need to convert antihypertensives to IV Would maintain telemetry given history of paroxysmal atrial fibrillation. Agree with holding warfarin time being Patient with high risk parameters for pancreatitis with renal insufficiency, pulmonary hypertension chronically. Will check chest x-ray as baseline given mild hypoxia. ABG assess for acidosis (2) Elevated troponin: (3) HTN (hypertension): (4) Paroxysmal atrial fibrillation: (5) CKD stage 4 secondary to hypertension: (6) PVD (peripheral vascular disease): History of Present Illness Reason for Consultation: Elevated troponin, pancreatitis Requesting Physician: Dr. Mckeon Attending Physician: Mary Beth Mckeon MD History of Present Illness Patient is an 89-year-old male nominal pain and acute pancreatitis, elevated troponin with complex underlying ongoing medical issues which include 1. Chronic coronary artery disease 2. Paroxysmal atrial fibrillation maintaining sinus rhythm with amiodarone, chronically anticoagulated with warfarin 3. Stage IV chronic kidney disease 4. Atherosclerotic carotid and peripheral vascular disease status post right carotid enterectomy 2016, chronic claudication 5. Hypertension Patient presented this admission noting having developed abdominal pain approximately 5 PM yesterday with symptoms lasting throughout the night becoming severe with associated nausea. Patient notes prior history of pancreatitis approximately 4 years ago confirmed once again on ER evaluation Patient referred for cardiac evaluation due to elevated troponin. Patient denies chest pains, tachypalpitations, worsening shortness of breath. Notes no fevers or chills. Has been taking medications. Notes no dizziness or lightheadedness. Abdominal pain was relatively abrupt on onset. No melena medication dysuria hematuria. Blood pressure significantly elevated on presentation Allergies Allergy/AdvReac Type Severity Reaction Status Date / Time Penicillins Allergy Unknown PENILE Verified 03/05/20 02:38 ENLARGEMENT tramadol AdvReac Unknown GI SYMPTOMS Verified 03/05/20 02:38 Home Medications Medication Instructions Recorded Confirmed Type allopurinol 200 mg PO DAILY 03/05/20 03/05/20 History amiodarone 200 mg PO DAILY 03/05/20 03/05/20 History aspirin [Aspir-Low] 81 mg PO DAILY 03/05/20 03/05/20 History atorvastatin 40 mg PO DAILY 03/05/20 03/05/20 History bisacodyl 10 mg NC DAILY PRN 03/05/20 03/05/20 History cholecalciferol (vitamin D3) 100 mcg PO DAILY 03/05/20 03/05/20 History [Vitamin D3] finasteride 5 mg PO DAILY 03/05/20 03/05/20 History furosemide 40 mg PO QPM 03/05/20 03/05/20 History furosemide 80 mg PO QAM 03/05/20 03/05/20 History hydralazine 50 mg PO TID 03/05/20 03/05/20 History iron,carbonyl-vitamin C [Vitron-C] 1 tab PO BID 03/05/20 03/05/20 History isosorbide mononitrate 60 mg PO DAILY 03/05/20 03/05/20 History levothyroxine 125 mcg PO DAILY 03/05/20 03/05/20 History metoprolol succinate 25 mg PO DAILY 03/05/20 03/05/20 History polyethylene glycol 3350 [Miralax] 17 g PO .EVERY 2 DAYS PRN 03/05/20 03/05/20 History potassium chloride 20 meq PO DAILY 03/05/20 03/05/20 History tamsulosin 0.4 mg PO DAILY 03/05/20 03/05/20 History warfarin 1 - 2 mg PO DAILY 03/05/20 03/05/20 History Patient History Social History Smoking Status: Former smoker Smoking End Date: 1975; Hx Alcohol Use: Yes Hx Substance Use: No Preferred Language: Emirati Beliefs That Will Affect Care: None Current Living Situation: Alone Other Information That Helps Us Care for You: No Feels Safe at Home: Yes Safety Concerns: Feels Safe At This Time Assistive Devices: None Review of Systems Review of Systems: All systems reviewed & are unremarkable except as noted in HPI & below Physical Exam Constitutional: + ill appearing and + thin Eyes: PERRL, conjunctivae normal, anicteric sclerae ENMT: external ear and nose normal, oropharynx normal Neck: trachea midline, no thyromegaly Right carotid endarterectomy scar present Respiratory: normal respiratory effort, lungs clear to auscultation Cardiovascular: Rate/Rhythm: regular rate and regular rhythm Heart Sounds: normal S1, normal S2 and + murmur (Grade 1/6 systolic); no gallop Palpation: normal PMI Vessels: no JVD and no carotid bruit Extremities: no edema Gastrointestinal (Abdomen): Inspection/Auscultation: + hyperactive bowel sounds Percussion/Palpation: + abdomen tender Musculoskeletal: no cyanosis or clubbing, extremities motor strength 5/5 Skin: no rashes, warm and dry Neurologic: PERRL, EOMI, accommodation nl, no face palsy, no dysarthria Psychiatric: A+Ox3, euthymic affect Results & Data ([facility]) Vital Signs (Past 12 Hours) Vital Signs Temp Pulse Pulse Resp BP BP BP 03/05/20 08:04 36.7 C 58 L 20 206/70 H 208/80 H 03/05/20 07:36 57 L 03/05/20 07:15 60 03/05/20 06:08 36.5 C 60 16 218/76 H 202/76 H 03/05/20 05:31 53 L 20 200/91 H 03/05/20 05:24 03/05/20 05:23 52 L 20 216/74 H 03/05/20 04:47 54 L 20 234/74 H 03/05/20 04:06 54 L 18 216/76 H 03/05/20 03:33 55 L 20 215/73 H 03/05/20 03:07 54 L 20 208/73 H 03/05/20 02:43 54 L 20 222/96 H 03/05/20 02:06 37.0 C 60 16 212/63 H Pulse Ox 03/05/20 08:04 90 03/05/20 07:36 03/05/20 07:15 03/05/20 06:08 03/05/20 05:31 96 03/05/20 05:24 95 03/05/20 05:23 95 03/05/20 04:47 91 03/05/20 04:06 90 03/05/20 03:33 94 03/05/20 03:07 92 03/05/20 02:43 95 03/05/20 02:06 96 Laboratory Results Laboratory Results - last 24 hr 03/05/20 03/05/20 03/05/20 02:25 02:25 02:25 WBC 10.27 RBC 3.74 L Hgb 12.0 L Hct 36.6 L MCV 97.9 MCH 32.1 MCHC 32.8 RDW Std Deviation 59.5 H RDW Coeff of Yuri 16.6 H Plt Count 161 MPV 11.0 H Immature Gran % (Auto) 0.4 Neut % (Auto) 80.7 Lymph % (Auto) 8.9 [place] % (Auto) 8.2 Eos % (Auto) 1.7 Baso % (Auto) 0.1 Neut # (Auto) 8.30 H Lymph # (Auto) 0.91 L [place] # (Auto) 0.84 H Eos # (Auto) 0.17 Baso # (Auto) 0.01 Immature Gran # (Auto) 0.04 H PT 32.9 H INR 3.3 H Sodium 143 Potassium 3.7 Chloride 109 H Carbon Dioxide 26 Anion Gap 8.0 BUN 62 H Creatinine 2.91 H Est Cr Clr Drug Dosing 17.9 Est GFR ( Amer) 21.5 Est GFR (Non-Af Amer) 18.5 BUN/Creatinine Ratio 21.3 H Glucose 114 H Calcium 8.8 Magnesium 2.3 Total Bilirubin 0.5 Direct Bilirubin 0.2 AST 33 ALT 40 Alkaline Phosphatase 84 Troponin I 0.279 H* Total Protein 7.3 Albumin 3.3 L Lipase 41732 H Urine Color Urine Appearance Urine pH Ur Specific [place] Urine Protein Urine Glucose (UA) Urine Ketones Urine Blood Urine Nitrite Urine Bilirubin Urine Urobilinogen Ur Leukocyte Esterase Urine WBC (Auto) Urine RBC (Auto) U Hyaline Cast (Auto) U Epithel Cells (Auto) Urine Bacteria (Auto) SARS-CoV-2 Ag (Rapid) 03/05/20 03/05/20 03/05/20 02:35 06:50 Unknown WBC RBC Hgb Hct MCV MCH MCHC RDW Std Deviation RDW Coeff of Yuri Plt Count MPV Immature Gran % (Auto) Neut % (Auto) Lymph % (Auto) [place] % (Auto) Eos % (Auto) Baso % (Auto) Neut # (Auto) Lymph # (Auto) [place] # (Auto) Eos # (Auto) Baso # (Auto) Immature Gran # (Auto) PT INR Sodium Potassium Chloride Carbon Dioxide Anion Gap BUN Creatinine Est Cr Clr Drug Dosing Est GFR ( Amer) Est GFR (Non-Af Amer) BUN/Creatinine Ratio Glucose Calcium Magnesium Total Bilirubin Direct Bilirubin AST ALT Alkaline Phosphatase Troponin I 0.308 H* Total Protein Albumin Lipase Urine Color Yellow Urine Appearance Clear Urine pH 5.5 Ur Specific [place] 1.011 Urine Protein Trace H Urine Glucose (UA) Negative Urine Ketones Negative Urine Blood Negative Urine Nitrite Negative Urine Bilirubin Negative Urine Urobilinogen Negative Ur Leukocyte Esterase Negative Urine WBC (Auto) 0 Urine RBC (Auto) 0-4 U Hyaline Cast (Auto) 0 U Epithel Cells (Auto) 0-5 Urine Bacteria (Auto) Negative SARS-CoV-2 Ag (Rapid) Negative Diagnostic Findings [id number] 02:38:57 Sinus bradycardia Left ventricular hypertrophy with repolarization abnormality Prominent U waves(consider hypokalemia,drug effect, etc.) Abnormal ECG When compared with ECG of 15-SEP-2016 09:00, Nonspecific T wave abnormality has replaced inverted T waves in Inferior leads T wave inversion no longer evident in Anterior leads Confirmed by Alex Stevens ([id number]) on 03/05/2020 11:06:15 AM (1) Acute pancreatitis Acute pancreatitis complication: no infection or necrosis Pancreatitis type: unspecified pancreatitis type Qualified Code(s): K85.90 - Acute pancreatitis without necrosis or infection, unspecified
--- NOTE | 2020-03-05 11:06 | Electrocardiogram Report ---
Test Reason : Blood Pressure : / mmHG Vent. Rate : 056 BPM Atrial Rate : 056 BPM P-R Int : 118 ms QRS Dur : 102 ms QT Int : 432 ms P-R-T Axes : 064 025 137 degrees QTc Int : 416 ms Sinus bradycardia Left ventricular hypertrophy with repolarization abnormality Prominent U waves(consider hypokalemia,drug effect, etc.) Abnormal ECG When compared with ECG of 15-SEP-2016 09:00, Nonspecific T wave abnormality has replaced inverted T waves in Inferior leads T wave inversion no longer evident in Anterior leads Confirmed by Alex Stevens ([id number]) on 03/05/2020 11:06:15 AM Referred By: REFERRED SELF Confirmed By:Joe Stevens
[2020-03-05] MEDS: PANTOprazole 40 MG in SYRINGE 0 ML IV SCH (11:08)
[2020-03-05] MEDS ORDERED: PROMETHAZINE HCL 25 MG in SODIUM CHLORIDE 0.9% 50 ML IV STA (11:11)
[2020-03-05] MEDS: NITROGLYCERIN 2% OINTMENT 30GM TUBE EXT SCH ×2 (11:57→17:05)
[2020-03-05 13:18] LABS: Base Excess ABG 0.6 mEq/L (-9-1.8); HCO3 ABG 25 mmol/L (19-24); PCO2 ABG 39 mmHg (35-46); PO2 ABG 59 mmHg (80-95); pH ABG 7.43 (7.35-7.45)
[2020-03-05 13:20] LABS: Allen Test Pos (Pos)
[2020-03-05] MEDS ORDERED: WARFARIN SOD 1 MG TAB PO SCH (16:00)
--- NOTE | 2020-03-05 16:13 | XRay Report ---
XR chest 1V portable HISTORY: hypoxia, pancreatitis COMPARISON: Chest 09/13/2016. FINDINGS: Mild diffuse interstitial and vascular thickening. No pneumothorax. No pleural effusions. T he heart is mildly enlarged. There are low lung volumes. Bibasilar linear densities favor subsegmenta l atelectasis. No focal lung consolidations to suggest pneumonia. IMPRESSION: Cardiomegaly with diffuse interstitial and vascular thickening suggestive of mild pulmonary edema. ACT 112: Negative or not required by law. Electronically signed by: Joe Singh M.D. 03/05/2020 4:12 PM
--- NOTE | 2020-03-05 17:19 | Hospitalist Progress Note ---
Date of Service March 05, 2020 Assessment & Plan (1) Acute pancreatitis: Acute pancreatitis: 89 year old male admitted w/ abd pain, elevated lipase> 20K CT abdomen/pelvis: 1. Subtle peripancreatic stranding involves the pancreatic tail suspicious for acute pancreatitis. Correlate with lipase level. 2. Unchanged 2.0 cm cystic lesion of the pancreatic head with mild associated pancreatic ductal dilation. This is suggestive of a probable IPMN and is unchanged from 2016. Bowel rest NPO including meds , ok for ice chips and sips of water pain control ordered LR @ 125 ml /jr appreciate GI eval -recommends to cont supportive care out pt EUS on 2-3 months elevated troponin: mild elevation of troponin possible due to acute illness, demand ischemia appreciate input from Cardiology ECHO no wall motion abnormality elevated BP : possible due to acute illness topical nitrates ordered , PRN IV meds Hx of Afib cont IV beta preet hold coumadin , INR 3.3 FULL CODE DISPOSITION: expected to be discharged home when medically stable Admission and Anticipated Discharge Date Admission Date: March 05, 2020 Subjective Follow up visit for acute pancreatitis : says abdominal pain ,nausea has improved current IV pain and nausea meds been helping no fever or chills no chest pain or SOB Review of Systems Review of Systems: All systems reviewed & are unremarkable except as noted in HPI & below Cardiovascular: no chest pain, no dyspnea and no orthopnea Gastrointestinal: no abdominal pain, no nausea and no vomiting Physical Exam Constitutional: WD/WN, vitals as above Eyes: + anicteric sclerae ENMT: external ear and nose normal, oropharynx normal Neck: trachea midline, no thyromegaly Respiratory: normal respiratory effort, lungs clear to auscultation Cardiovascular: RRR, no murmur, no edema Gastrointestinal (Abdomen): Percussion/Palpation: abdomen soft Skin: no rashes, warm and dry Neurologic: PERRL, EOMI, accommodation nl, no face palsy, no dysarthria Psychiatric: A+Ox3, euthymic affect Results & Data Results & Data ([facility]) Vital Signs (Past 12 Hours) Vital Signs Temp Pulse Pulse Resp BP BP Pulse Ox 03/05/20 15:24 36.6 C 58 L 18 189/65 H 91 03/05/20 12:15 36.4 C L 58 L 18 203/76 H 91 03/05/20 08:04 36.7 C 58 L 20 206/70 H 208/80 H 90 03/05/20 07:36 57 L 03/05/20 07:15 60 03/05/20 06:08 36.5 C 60 16 218/76 H 202/76 H 03/05/20 05:31 53 L 20 200/91 H 96 03/05/20 05:24 95 03/05/20 05:23 52 L 20 216/74 H 95 (1) Acute pancreatitis Acute pancreatitis complication: no infection or necrosis Pancreatitis type: unspecified pancreatitis type Qualified Code(s): K85.90 - Acute pancreatitis without necrosis or infection, unspecified
[2020-03-05] MEDS ORDERED: MoRPHine SULFATE 4 MG/ML 1 ML CARP\\VIAL IV PRN (18:49)
[2020-03-05] MEDS: METOPROLOL TARTRATE 1 MG/ML VIAL IV SCH (19:56)
[2020-03-05] MEDS: LACTATED RINGER'S 1,000 ML IV SCH (19:56)
[2020-03-06] MEDS: METOPROLOL TARTRATE 1 MG/ML VIAL IV SCH ×3 (00:28→11:24)
[2020-03-06] MEDS: NITROGLYCERIN 2% OINTMENT 30GM TUBE EXT SCH ×3 (00:28→11:24)
[2020-03-06] MEDS: LACTATED RINGER'S 1,000 ML IV SCH ×2 (02:48→10:52)
[2020-03-06] MEDS: LEVOTHYROXINE SODIUM 125 MCG TABLET PO SCH (04:54)
[2020-03-06 06:46] LABS: Basophils # (auto) 0.01 K/uL (0-0.2); Basophils % (auto) 0.1 %; Eosinophils # (auto) 0.03 K/uL (0-0.5); Eosinophils % (auto) 0.3 %; Hematocrit (blood only) 32.2 % (42-52); Hemoglobin 10.3 g/dL (14.0-18.0); Immature Granulocytes # (auto) 0.03 K/uL (0.00-0.02); Immature Granulocytes % (auto) 0.3 %; Lymphocytes # (auto) 0.76 K/uL (1.2-3.4); Lymphocytes % (auto) 7.2 %; Mean Corpuscular Hemoglobin 31.7 pg (25-34); Mean Corpuscular Volume 99.1 fL (80-100); Mean Platelet Volume 10.9 fL (7.4-10.4); Monocytes # (auto) 0.95 K/uL (0.11-0.59); Neutrophils # (auto) 8.83 K/uL (1.4-6.5); Neutrophils % (auto) 83.1 %; Platelet Count 130 K/uL (130-400); RDW Coefficient of Variation 17.2 % (11.5-14.5); Red Blood Count 3.25 M/uL (4.7-6.1); White Blood Count 10.61 K/uL (4.8-10.8)
[2020-03-06 07:04] LABS: INR 3.8 (0.9-1.1); Prothrombin Time 37.1 Seconds (9.0-12.0)
[2020-03-06 07:28] LABS: Albumin Globulin Ratio 0.8 (0.9-2); Albumin Level 2.7 gm/dl (3.4-5.0); BUN Creatinine Ratio 20.6 (10-20); Bilirubin,Total 0.6 mg/dl (0.2-1); Creatinine Clr Calc Pharmacy 18.3 ml/min; Est GFR (African American) 22.1; Est GFR (Non-African American) 19.1; Globulin 3.3 gm/dl (2.5-4.0); Magnesium 2.1 mg/dl (1.8-2.4); Potassium 4.5 mmol/L (3.5-5.1)
--- NOTE | 2020-03-06 08:23 | Gastroenterology Progress Note ---
Date of Service March 06, 2020 Assessment & Plan (1) Acute pancreatitis: 89 year old male admitted w/ abd pain, elevated lipase, CTAP concerning for acute pancreatitis and 2 cm panc lesions. EUS in 2017 showed suspected IPMN 7x11 in largest diameter undergoing cardiac workup given elevated troponin on admission Clinically improved, lipase improving, LFTs remain normal, appropriate 2 pt drop in HGB w/ hydration, wants to eat and go home Trial of clear liquid diet this AM If tolerates, can have low fat diet for lunch If tolerating low fat diet, no GI contraindication to discharge home Discuss OP EUS given 10 lb weight loss, PD dilation on CT and enlarging panc cyst Please recall if needed. Thank you for allowing us to participate in the care of this patient. Please call with any acute changes, questions or concerns. Please see addendum below with additional recommendation from my supervising physician. Admission and Anticipated Discharge Date Admission Date: March 05, 2020 Supervising Physician Co-Signing Physician Notes I have seen and examined the patient and discussed the management with LEANDRO Scales. Agree with further plan of care as per her assessment and plan. Overall feeling better- pain improving, advance diet as tolerated, outpt eus. Subjective Feeling well No abd pain No CP, SOB No nausea, vomiting Is hungry, wants to go home No fever, chills. Review of Systems Constitutional: no fever and no chills Respiratory: no cough and no dyspnea Cardiovascular: no chest pain and no dyspnea Gastrointestinal: + constipation; no abdominal pain, no nausea, no coffee ground emesis, no hematemesis, no diarrhea/loose stools, no blood in stools and no melena Physical Exam Constitutional: WD/WN, vitals as above Neck: trachea midline Respiratory: normal respiratory effort Gastrointestinal (Abdomen): normal bowel sounds, soft, nontender, no hepatosplenomegaly Results & Data ([facility]) Vital Signs (Past 12 Hours) Vital Signs Temp Pulse Pulse Resp BP BP BP 03/06/20 07:20 36.7 C 53 L 16 175/69 H 03/06/20 04:54 78 170/83 H 03/06/20 04:32 56 L 03/06/20 04:26 36.6 C 72 18 173/85 H 03/06/20 01:00 74 176/80 H 03/06/20 00:28 72 03/05/20 23:25 36.7 C 57 L 20 186/72 H Pulse Ox 03/06/20 07:20 92 03/06/20 04:54 03/06/20 04:32 03/06/20 04:26 90 03/06/20 01:00 03/06/20 00:28 03/05/20 23:25 91 Laboratory Results 03/06/20 03/06/20 03/06/20 Range/Units 06:33 06:33 06:33 WBC 10.61 (4.8-10.8) K/uL RBC 3.25 L (4.7-6.1) M/uL Hgb 10.3 L (14.0-18.0) g/dL Hct 32.2 L (42-52) % MCV 99.1 (80-100) fL MCH 31.7 (25-34) pg MCHC 32.0 (32-36) g/dL RDW Std Deviation 62.0 H (36.4-46.3) fL RDW Coeff of Yuri 17.2 H (11.5-14.5) % Plt Count 130 (130-400) K/uL MPV 10.9 H (7.4-10.4) fL Immature Gran % (Auto) 0.3 % Neut % (Auto) 83.1 % Lymph % (Auto) 7.2 % Cascade % (Auto) 9.0 % Eos % (Auto) 0.3 % Baso % (Auto) 0.1 % Neut # (Auto) 8.83 H (1.4-6.5) K/uL Lymph # (Auto) 0.76 L (1.2-3.4) K/uL Cascade # (Auto) 0.95 H (0.11-0.59) K/uL Eos # (Auto) 0.03 (0-0.5) K/uL Baso # (Auto) 0.01 (0-0.2) K/uL Immature Gran # (Auto) 0.03 H (0.00-0.02) K/uL PT 37.1 H (9.0-12.0) Seconds INR 3.8 H (0.9-1.1) ABG pH ABG pCO2 ABG pO2 ABG HCO3 ABG O2 Saturation ABG Base Excess Elijah Test Barometric Pressure Oxygen Given Sodium 143 (136-145) mmol/L Potassium 4.5 D (3.5-5.1) mmol/L Chloride 111 H (98-107) mmol/L Carbon Dioxide 27 (21-32) mmol/L Anion Gap 4.0 (3-11) BUN 59 H (7-18) mg/dl Creatinine 2.84 H (0.6-1.4) mg/dl Est Cr Clr Drug Dosing 18.3 ml/min Est GFR ( Amer) 22.1 Est GFR (Non-Af Amer) 19.1 BUN/Creatinine Ratio 20.6 H (10-20) Glucose 81 (70-99) mg/dl Calcium 9.0 (8.5-10.1) mg/dl Magnesium 2.1 (1.8-2.4) mg/dl Total Bilirubin 0.6 (0.2-1) mg/dl AST 37 (15-37) U/L ALT 35 (12-78) U/L Alkaline Phosphatase 63 (45-117) U/L Troponin I (0-0.045) ng/ml Total Protein 6.0 L (6.4-8.2) gm/dl Albumin 2.7 L (3.4-5.0) gm/dl Globulin 3.3 (2.5-4.0) gm/dl Albumin/Globulin Ratio 0.8 L (0.9-2) Lipase 2286 H (73-393) U/L 03/05/20 03/05/20 03/05/20 Range/Units 13:01 12:49 12:01 WBC (4.8-10.8) K/uL RBC (4.7-6.1) M/uL Hgb (14.0-18.0) g/dL Hct (42-52) % MCV (80-100) fL MCH (25-34) pg MCHC (32-36) g/dL RDW Std Deviation (36.4-46.3) fL RDW Coeff of Yuri (11.5-14.5) % Plt Count (130-400) K/uL MPV (7.4-10.4) fL Immature Gran % (Auto) % Neut % (Auto) % Lymph % (Auto) % Cascade % (Auto) % Eos % (Auto) % Baso % (Auto) % Neut # (Auto) (1.4-6.5) K/uL Lymph # (Auto) (1.2-3.4) K/uL Cascade # (Auto) (0.11-0.59) K/uL Eos # (Auto) (0-0.5) K/uL Baso # (Auto) (0-0.2) K/uL Immature Gran # (Auto) (0.00-0.02) K/uL PT (9.0-12.0) Seconds INR (0.9-1.1) ABG pH 7.43 Cancelled ABG pCO2 39 Cancelled ABG pO2 59 L Cancelled ABG HCO3 25 H Cancelled ABG O2 Saturation 91.0 Cancelled ABG Base Excess 0.6 Cancelled Elijah Test Pos Cancelled Barometric Pressure 718.9 Cancelled Oxygen Given ROOM AIR Cancelled Sodium (136-145) mmol/L Potassium (3.5-5.1) mmol/L Chloride (98-107) mmol/L Carbon Dioxide (21-32) mmol/L Anion Gap (3-11) BUN (7-18) mg/dl Creatinine (0.6-1.4) mg/dl Est Cr Clr Drug Dosing ml/min Est GFR ( Amer) Est GFR (Non-Af Amer) BUN/Creatinine Ratio (10-20) Glucose (70-99) mg/dl Calcium (8.5-10.1) mg/dl Magnesium (1.8-2.4) mg/dl Total Bilirubin (0.2-1) mg/dl AST (15-37) U/L ALT (12-78) U/L Alkaline Phosphatase (45-117) U/L Troponin I 0.343 H* (0-0.045) ng/ml Total Protein (6.4-8.2) gm/dl Albumin (3.4-5.0) gm/dl Globulin (2.5-4.0) gm/dl Albumin/Globulin Ratio (0.9-2) Lipase (73-393) U/L (1) Acute pancreatitis Acute pancreatitis complication: no infection or necrosis Pancreatitis type: unspecified pancreatitis type Qualified Code(s): K85.90 - Acute pancreatitis without necrosis or infection, unspecified
--- NOTE | 2020-03-06 10:41 | Cardiology Progress Note ---
Date of Service March 06, 2020 Assessment & Plan (1) Acute pancreatitis: 89-year-old male with complex constellation of underlying medical issues as outlined above. Patient presents with severe abdominal pain and evidence of pancreatitis (recurrent event). Troponin is elevated but flat on 2 serial testing likely reflecting demand issues of acute illness as well as underlying chronic renal insufficiency. EKG without evidence of acute ischemia. Echocardiogram demonstrates preserved LV function with chronic evidence of pulmonary hypertension present on prior study EKG this morning reveals no evidence of ischemia. Troponins remain flat Patient today clinically improved. Blood pressure somewhat labile. Gastroenterology assessment noted Would recommend resuming prehospital antihypertensive/cardiac regimen when able to take p.o. 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 Feels substantially better this morning abdominal pain is nearly resolved. No fevers or chills. No chest pain or shortness of breath. Review of Systems Review of Systems: All systems reviewed & are unremarkable except as noted in HPI & below Physical Exam Constitutional: WD/WN, vitals as above no acute distress Eyes: PERRL, conjunctivae normal, anicteric sclerae ENMT: external ear and nose normal, oropharynx normal Neck: trachea midline, no thyromegaly Respiratory: normal respiratory effort, lungs clear to auscultation Cardiovascular: Rate/Rhythm: regular rate and regular rhythm Heart Sounds: normal S1, normal S2 and + murmur (Grade 1/6 systolic); no gallop Palpation: normal PMI Vessels: no JVD and no carotid bruit Extremities: no edema Gastrointestinal (Abdomen): normal bowel sounds, soft, nontender, no hepatosplenomegaly Inspection/Auscultation: + hyperactive bowel sounds Musculoskeletal: no cyanosis or clubbing, extremities motor strength 5/5 Skin: no rashes, warm and dry Neurologic: PERRL, EOMI, accommodation nl, no face palsy, no dysarthria Psychiatric: A+Ox3, euthymic affect Results & Data ([facility]) Vital Signs (Past 12 Hours) Vital Signs Temp Pulse Pulse Resp BP BP BP 03/06/20 07:20 36.7 C 53 L 16 175/69 H 03/06/20 04:54 78 170/83 H 03/06/20 04:32 56 L 03/06/20 04:26 36.6 C 72 18 173/85 H 03/06/20 01:00 74 176/80 H 03/06/20 00:28 72 03/05/20 23:25 36.7 C 57 L 20 186/72 H Pulse Ox 03/06/20 07:20 92 03/06/20 04:54 03/06/20 04:32 03/06/20 04:26 90 03/06/20 01:00 03/06/20 00:28 03/05/20 23:25 91 Laboratory Results Laboratory Results - last 24 hr 03/05/20 03/05/20 03/05/20 12:01 12:49 13:01 WBC RBC Hgb Hct MCV MCH MCHC RDW Std Deviation RDW Coeff of Yuri Plt Count MPV Immature Gran % (Auto) Neut % (Auto) Lymph % (Auto) Walton % (Auto) Eos % (Auto) Baso % (Auto) Neut # (Auto) Lymph # (Auto) Walton # (Auto) Eos # (Auto) Baso # (Auto) Immature Gran # (Auto) PT INR ABG pH Cancelled 7.43 ABG pCO2 Cancelled 39 ABG pO2 Cancelled 59 L ABG HCO3 Cancelled 25 H ABG O2 Saturation Cancelled 91.0 ABG Base Excess Cancelled 0.6 Elijah Test Cancelled Pos Barometric Pressure Cancelled 718.9 Oxygen Given Cancelled ROOM AIR Sodium Potassium Chloride Carbon Dioxide Anion Gap BUN Creatinine Est Cr Clr Drug Dosing Est GFR ( Amer) Est GFR (Non-Af Amer) BUN/Creatinine Ratio Glucose Calcium Magnesium Total Bilirubin AST ALT Alkaline Phosphatase Troponin I 0.343 H* Total Protein Albumin Globulin Albumin/Globulin Ratio Lipase 03/06/20 03/06/20 03/06/20 06:33 06:33 06:33 WBC 10.61 RBC 3.25 L Hgb 10.3 L Hct 32.2 L MCV 99.1 MCH 31.7 MCHC 32.0 RDW Std Deviation 62.0 H RDW Coeff of Yuri 17.2 H Plt Count 130 MPV 10.9 H Immature Gran % (Auto) 0.3 Neut % (Auto) 83.1 Lymph % (Auto) 7.2 Walton % (Auto) 9.0 Eos % (Auto) 0.3 Baso % (Auto) 0.1 Neut # (Auto) 8.83 H Lymph # (Auto) 0.76 L Walton # (Auto) 0.95 H Eos # (Auto) 0.03 Baso # (Auto) 0.01 Immature Gran # (Auto) 0.03 H PT 37.1 H INR 3.8 H ABG pH ABG pCO2 ABG pO2 ABG HCO3 ABG O2 Saturation ABG Base Excess Elijah Test Barometric Pressure Oxygen Given Sodium 143 Potassium 4.5 D Chloride 111 H Carbon Dioxide 27 Anion Gap 4.0 BUN 59 H Creatinine 2.84 H Est Cr Clr Drug Dosing 18.3 Est GFR ( Amer) 22.1 Est GFR (Non-Af Amer) 19.1 BUN/Creatinine Ratio 20.6 H Glucose 81 Calcium 9.0 Magnesium 2.1 Total Bilirubin 0.6 AST 37 ALT 35 Alkaline Phosphatase 63 Troponin I Total Protein 6.0 L Albumin 2.7 L Globulin 3.3 Albumin/Globulin Ratio 0.8 L Lipase 2286 H (1) Acute pancreatitis Acute pancreatitis complication: no infection or necrosis Pancreatitis type: unspecified pancreatitis type Qualified Code(s): K85.90 - Acute pancreatitis without necrosis or infection, unspecified
[2020-03-06] MEDS: PANTOprazole 40 MG in SYRINGE 0 ML IV SCH (11:24)
--- NOTE | 2020-03-06 13:40 | Communication Note ---
Date of Service: March 06, 2020 Attending note : pt is symptomatically improved vitals stable Lipase improved form 20K to 1999 today , with normal LFT clear liquid diet ordered per GI recommendation If tolerates, will advance to low fat diet at dinner all PO meds except for Statin( ac pancreatitis ) and Coumadin ( INR > 3 ) Pt will be seen by in clinic plan for out pt EUS( endoscopic ultrasound ( given 10 lb weight loss) may need pancreatic duct dilatation -enlarged pancreatic cyst Hypertensive Urgency : PO BP meds resumed cont PRN IV meds for SBP > 160 Mary Beth Mckeon MD
[2020-03-06] MEDS: hydrALAZINE TAB 50 MG TAB PO SCH ×2 (14:33→20:44)
--- NOTE | 2020-03-06 15:30 | Electrocardiogram Report ---
Test Reason : Blood Pressure : / mmHG Vent. Rate : 054 BPM Atrial Rate : 054 BPM P-R Int : 128 ms QRS Dur : 094 ms QT Int : 412 ms P-R-T Axes : 032 050 115 degrees QTc Int : 390 ms Sinus bradycardia Nonspecific ST and T wave abnormality Prominent U waves(consider hypokalemia,drug effect, etc.) Abnormal ECG When compared with ECG of 05-MAR-2020 02:38, No significant change was found Confirmed by Alex Stevens ([id number]) on 03/06/2020 3:30:31 PM Referred By: REFERRED SELF Confirmed By:Joe Stevens
[2020-03-06] MEDS ORDERED: FUROSEMIDE 20 MG in SYRINGE 0 ML IV ONE (15:45)
--- NOTE | 2020-03-06 17:21 | XRay Report ---
XR chest 1V portable HISTORY: 89 years-old Male SOB /Hypoxia acute shortness of breath with hypoxia COMPARISON: Chest radiograph 03/05/2020 TECHNIQUE: Portable AP view of the chest FINDINGS: Cardiac silhouette is enlarged. Poorly vascular congestion with interstitial coarsening. No pneumotho rax. Mild blunting of the costophrenic angles. No large pleural effusion or lobar airspace consolidat ion. There is mildly improved aeration of the lungs. Degenerative changes of the shoulders and spine. IMPRESSION: Cardiomegaly with mildly decreased pulmonary edema. ACT 112: Negative or not required by law. The above report was generated using voice recognition software. It may contain grammatical, syntax o r spelling errors. Electronically signed by: Leonardo Cervantes M.D. 03/06/2020 5:19 PM
[2020-03-06] MEDS ORDERED: ISOSORBIDE MONO EXTENDED REL 30 MG TABCR PO ONE (18:00)
[2020-03-06] MEDS: hydrALAZINE HCL 20 MG/ML VIAL IV PRN (23:33)
[2020-03-07] MEDS: LEVOTHYROXINE SODIUM 125 MCG TABLET PO SCH (05:51)
[2020-03-07] MEDS: allopurinoL 100 MG TAB PO SCH (07:34)
[2020-03-07] MEDS: METOPROLOL SUCC 25MG EXT REL TAB PO SCH (07:35)
[2020-03-07] MEDS: TAMSULOSIN HCL 0.4 MG CAP PO SCH (07:35)
[2020-03-07] MEDS: hydrALAZINE TAB 50 MG TAB PO SCH ×4 (07:35→20:59)
[2020-03-07] MEDS: ISOSORBIDE MONO EXTENDED REL 60 MG TABCR PO SCH (07:35)
[2020-03-07] MEDS: FUROSEMIDE 80 MG TAB PO SCH (07:35)
[2020-03-07] MEDS: ASPIRIN 81 MG ECTAB PO SCH (07:35)
[2020-03-07] MEDS: FINASTERIDE 5 MG TAB PO SCH (07:35)
[2020-03-07] MEDS: CHOLECALCIFEROL 1,000 UNITS 25 MCG TAB PO SCH (07:35)
[2020-03-07] MEDS: AMIODARONE 200 MG TAB PO SCH (07:36)
[2020-03-07] MEDS: POTASSIUM CHLORIDE CRTAB 20 MEQ TABCR PO SCH (07:36)
[2020-03-07 08:31] LABS: INR 3.8 (0.9-1.1); Prothrombin Time 37.1 Seconds (9.0-12.0)
[2020-03-07 08:44] LABS: Albumin Level 2.7 gm/dl (3.4-5.0); BUN Creatinine Ratio 23.6 (10-20); Calcium 9.3 mg/dl (8.5-10.1); Creatinine Clr Calc Pharmacy 17.9 ml/min; Est GFR (African American) 21.6; Est GFR (Non-African American) 18.6; Potassium 3.9 mmol/L (3.5-5.1)
[2020-03-07 08:47] LABS: Albumin Globulin Ratio 0.7 (0.9-2); Bilirubin,Total 0.9 mg/dl (0.2-1); Globulin 3.6 gm/dl (2.5-4.0); Total Protein 6.3 gm/dl (6.4-8.2)
--- NOTE | 2020-03-07 11:16 | Cardiology Progress Note ---
Date of Service March 07, 2020 Assessment & Plan (1) Acute pancreatitis: 89-year-old male with complex constellation of underlying medical issues as outlined above. Patient presents with severe abdominal pain and evidence of pancreatitis (recurrent event). Troponin is elevated but flat on 2 serial testing likely reflecting demand issues of acute illness as well as underlying chronic renal insufficiency. EKG without evidence of acute ischemia. Echocardiogram demonstrates preserved LV function with chronic evidence of pulmonary hypertension present on prior study EKG reveals no evidence of ischemia. 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 Feels well this morning, abdominal pain resolved. No fevers or chills. No chest pain or shortness of breath. Patient has resumed oral regimen Review of Systems Review of Systems: All systems reviewed & are unremarkable except as noted in HPI & below Physical Exam Constitutional: WD/WN, vitals as above no acute distress Eyes: PERRL, conjunctivae normal, anicteric sclerae ENMT: external ear and nose normal, oropharynx normal Neck: trachea midline, no thyromegaly Respiratory: normal respiratory effort, lungs clear to auscultation Cardiovascular: Rate/Rhythm: regular rate and regular rhythm Heart Sounds: normal S1, normal S2 and + murmur (Grade 1/6 systolic); no gallop Palpation: normal PMI Vessels: no JVD and no carotid bruit Extremities: no edema Gastrointestinal (Abdomen): normal bowel sounds, soft, nontender, no hepatosplenomegaly Inspection/Auscultation: + hyperactive bowel sounds Percussion/Palpation: + abdomen tender Musculoskeletal: no cyanosis or clubbing, extremities motor strength 5/5 Skin: no rashes, warm and dry Neurologic: PERRL, EOMI, accommodation nl, no face palsy, no dysarthria Psychiatric: A+Ox3, euthymic affect Results & Data ([facility]) Vital Signs (Past 12 Hours) Vital Signs Temp Pulse Pulse Pulse Pulse Pulse Pulse 03/07/20 11:00 66 85 78 78 82 03/07/20 08:04 36.9 C 03/07/20 03:47 36.7 C 03/07/20 00:49 61 03/06/20 23:16 37.7 C H Pulse Pulse Pulse Resp Resp Resp Resp 03/07/20 11:00 78 74 20 22 21 03/07/20 08:04 58 L 16 03/07/20 03:47 63 17 03/07/20 00:49 03/06/20 23:16 57 L 21 Resp Resp Resp Resp BP Pulse Ox Pulse Ox 03/07/20 11:00 20 21 18 20 93 03/07/20 08:04 175/76 H 91 03/07/20 03:47 193/64 H 94 03/07/20 00:49 03/06/20 23:16 191/66 H 92 Pulse Ox Pulse Ox Pulse Ox Pulse Ox Pulse Ox Pulse Ox 03/07/20 11:00 85 L 87 L 93 77 L 93 77 L 03/07/20 08:04 03/07/20 03:47 03/07/20 00:49 03/06/20 23:16 (1) Acute pancreatitis Acute pancreatitis complication: no infection or necrosis Pancreatitis type: unspecified pancreatitis type Qualified Code(s): K85.90 - Acute pancreatitis without necrosis or infection, unspecified
--- NOTE | 2020-03-07 14:10 | Electrocardiogram Report ---
Test Reason : Blood Pressure : / mmHG Vent. Rate : 061 BPM Atrial Rate : 061 BPM P-R Int : 144 ms QRS Dur : 096 ms QT Int : 452 ms P-R-T Axes : 075 056 084 degrees QTc Int : 455 ms Normal sinus rhythm Nonspecific ST abnormality When compared with ECG of 06-MAR-2020 06:42, Nonspecific T wave abnormality, improved in Inferior leads QT has lengthened Confirmed by Alex Stevens ([id number]) on 03/07/2020 2:10:30 PM Referred By: REFERRED SELF Confirmed By:Joe Stevens
[2020-03-07] MEDS: hydrALAZINE HCL 20 MG/ML VIAL IV PRN (16:10)
[2020-03-07] MEDS: FUROSEMIDE 40 MG TAB PO SCH (17:48)
--- NOTE | 2020-03-07 19:13 | Hospitalist Progress Note ---
Date of Service March 07, 2020 Assessment & Plan (1) Acute pancreatitis: Present on admission with abdominal pain associated with elevated lipase 20K CT abdomen/pelvis showed subtle peripancreatic stranding involves the pancreatic tail suspicious for acute pancreatitis. Unchanged 2.0 cm cystic lesion of the pancreatic head with mild associated pancreatic ductal dilation. This is suggestive of a probable IPMN and is unchanged from 2016. Gastro on board and recommended supportive care Lipase normal Plan for outpatient EUS in 2-3 months with gastro Tolerated diet clinically stable Elevated troponin: mild elevation of troponin possible due to acute illness, demand ischemia appreciate input from Cardiology ECHO no wall motion abnormality Hypertension BP elevated Outpatient med resumed Continue monitor BP Hx of Afib cont IV beta preet hold coumadin , INR 3.8 FULL CODE DISPOSITION: expected to be discharged home when medically stable Admission and Anticipated Discharge Date Admission Date: March 05, 2020 Subjective Pt was seen and examined Lying in bed with no distress Pt said that he feels good He said that he does not have any abdominal pain and SOB Denies any chest pain, palpitation, dizziness and SOB Physical Exam Physical Exam: General- No acute distress Head- atraumatic Eyes- PERRL, EOMI, ENT- oropharynx clear Neck- supple, no JVD Lungs- clear to auscultation Heart- regular rhythm; Abdomen- normal bowel sounds, soft, nontender Extremities- no calf tenderness Neuro- alert, oriented x 3; PERRL, EOMI; no facial palsy; no dysarthria Skin- warm & dry Results & Data Results & Data ([facility]) Vital Signs (Past 12 Hours) Vital Signs Temp Pulse Pulse Pulse Pulse Pulse Pulse 03/07/20 17:50 03/07/20 15:58 36.9 C 56 L 03/07/20 11:41 37.2 C 62 03/07/20 11:00 66 85 78 78 82 03/07/20 08:04 36.9 C 58 L Pulse Pulse Resp Resp Resp Resp Resp 03/07/20 17:50 03/07/20 15:58 18 03/07/20 11:41 18 03/07/20 11:00 78 74 20 22 21 20 03/07/20 08:04 16 Resp Resp Resp BP BP Pulse Ox Pulse Ox 03/07/20 17:50 178/78 H 03/07/20 15:58 204/77 H 90 03/07/20 11:41 183/69 H 90 03/07/20 11:00 21 18 20 93 03/07/20 08:04 175/76 H 91 Pulse Ox Pulse Ox Pulse Ox Pulse Ox Pulse Ox Pulse Ox 03/07/20 17:50 03/07/20 15:58 03/07/20 11:41 03/07/20 11:00 85 L 87 L 93 77 L 93 77 L 03/07/20 08:04 (1) Acute pancreatitis Acute pancreatitis complication: no infection or necrosis Pancreatitis type: unspecified pancreatitis type Qualified Code(s): K85.90 - Acute pancreatitis without necrosis or infection, unspecified
[2020-03-08] MEDS: LEVOTHYROXINE SODIUM 125 MCG TABLET PO SCH (05:59)
[2020-03-08 06:37] LABS: Prothrombin Time 29.4 Seconds (9.0-12.0)
[2020-03-08] MEDS: hydrALAZINE TAB 50 MG TAB PO SCH ×4 (08:13→21:53)
[2020-03-08] MEDS: POTASSIUM CHLORIDE CRTAB 20 MEQ TABCR PO SCH (08:13)
[2020-03-08] MEDS: allopurinoL 100 MG TAB PO SCH (08:14)
[2020-03-08] MEDS: METOPROLOL SUCC 25MG EXT REL TAB PO SCH (08:14)
[2020-03-08] MEDS: FINASTERIDE 5 MG TAB PO SCH (08:14)
[2020-03-08] MEDS: ASPIRIN 81 MG ECTAB PO SCH (08:15)
[2020-03-08] MEDS: ISOSORBIDE MONO EXTENDED REL 60 MG TABCR PO SCH (08:15)
[2020-03-08] MEDS: TAMSULOSIN HCL 0.4 MG CAP PO SCH (08:15)
[2020-03-08] MEDS: AMIODARONE 200 MG TAB PO SCH (08:15)
[2020-03-08] MEDS: FUROSEMIDE 80 MG TAB PO SCH (08:16)
[2020-03-08] MEDS: CHOLECALCIFEROL 1,000 UNITS 25 MCG TAB PO SCH (08:17)
--- NOTE | 2020-03-08 11:50 | Cardiology Progress Note ---
Date of Service March 08, 2020 Assessment & Plan (1) Acute pancreatitis: 89-year-old male with complex constellation of underlying medical issues as outlined above. Patient presents with severe abdominal pain and evidence of pancreatitis (recurrent event). Troponin is elevated but flat on 2 serial testing likely reflecting demand issues of acute illness as well as underlying chronic renal insufficiency. EKG without evidence of acute ischemia. Echocardiogram demonstrates preserved LV function with chronic evidence of pulmonary hypertension present on prior study EKG revealed no evidence of ischemia. Troponins remain flat Would recommend prehospital antihypertensive/cardiac including furosemide, increase hydralazine to 4 times per day no other changes recommended. Stable overall from cardiac standpoint. Patient well versed on outpatient manage (2) Elevated troponin: (3) HTN (hypertension): (4) Paroxysmal atrial fibrillation: (5) CKD stage 4 secondary to hypertension: (6) PVD (peripheral vascular disease): Admission and Anticipated Discharge Date Admission Date: March 05, 2020 Subjective Patient was seen and examined, chart, medications, telemetry reviewed. "Feels great". No chest pain or shortness of breath. No dizziness or lightheadedness. No orthopnea Physical Exam Constitutional: WD/WN, vitals as above no acute distress Eyes: PERRL, conjunctivae normal, anicteric sclerae ENMT: external ear and nose normal, oropharynx normal Neck: trachea midline, no thyromegaly Respiratory: normal respiratory effort, lungs clear to auscultation Cardiovascular: Rate/Rhythm: regular rate and regular rhythm Heart Sounds: normal S1, normal S2 and + murmur (Grade 1/6 systolic); no gallop Palpation: normal PMI Vessels: no JVD and no carotid bruit Extremities: no edema Gastrointestinal (Abdomen): normal bowel sounds, soft, nontender, no hepatosplenomegaly Inspection/Auscultation: + hyperactive bowel sounds Percussion/Palpation: + abdomen tender Musculoskeletal: no cyanosis or clubbing, extremities motor strength 5/5 Skin: no rashes, warm and dry Neurologic: PERRL, EOMI, accommodation nl, no face palsy, no dysarthria Psychiatric: A+Ox3, euthymic affect Results & Data ([facility]) Vital Signs (Past 12 Hours) Vital Signs Temp Pulse Pulse Resp BP BP Pulse Ox 03/08/20 11:09 37.1 C 56 L 18 182/71 H 95 03/08/20 07:33 53 L 03/08/20 07:14 36.8 C 55 L 16 186/77 H 93 03/08/20 04:00 163/59 H 03/08/20 03:00 36.8 C 57 L 18 182/76 H 95 03/08/20 00:17 57 L Laboratory Results Laboratory Results - last 24 hr 03/08/20 03/08/20 05:48 05:48 PT 29.4 H INR 3.0 H Lipase 481 H (1) Acute pancreatitis Acute pancreatitis complication: no infection or necrosis Pancreatitis type: unspecified pancreatitis type Qualified Code(s): K85.90 - Acute pancreatitis without necrosis or infection, unspecified
[2020-03-08] MEDS: amLODIPine BESYLATE 5 MG TAB PO SCH (13:59)
[2020-03-08] MEDS: FUROSEMIDE 40 MG TAB PO SCH (17:13)
--- NOTE | 2020-03-08 19:00 | Hospitalist Progress Note ---
Date of Service March 08, 2020 Assessment & Plan (1) Acute pancreatitis: Present on admission with abdominal pain associated with elevated lipase 20K CT abdomen/pelvis showed subtle peripancreatic stranding involves the pancreatic tail suspicious for acute pancreatitis. Unchanged 2.0 cm cystic lesion of the pancreatic head with mild associated pancreatic ductal dilation. This is suggestive of a probable IPMN and is unchanged from 2016. Gastro on board and recommended supportive care Lipase normal Plan for outpatient EUS in 2-3 months with gastro Tolerated diet clinically stable Elevated troponin: mild elevation of troponin possible due to acute illness, demand ischemia appreciate input from Cardiology ECHO no wall motion abnormality Hypertension BP elevated possible related to hospital setting It seems the more i keep him in the hospital, the more his BP continue to elevate Continue home BP meds Amlodipine 5mg adding Continue monitor BP Hypoxia CXR on 03/06 showed cardiomegaly with mildly decreased pulmonary edema. Oxygen was titrate off Repeat 2 step today that suggested 2L NC with ambulation Will discuss with case management to arrange for oxygen Hx of Afib Continue metoproplol 25mg daily Coumadin resume with INR 3 today DVT px on Coumadin FULL CODE DISPOSITION: Will discharge home tomorrow Admission and Anticipated Discharge Date Admission Date: March 05, 2020 Subjective Follow up for high blood pressure and hypoxia Pt was seen and examined Pt said that he feels fine He said that his breathing feels perfect His blood pressure continue to elevate Denies any chest pain, palpitation, and SOB Physical Exam Physical Exam: General- No acute distress Head- atraumatic Eyes- PERRL, EOMI, ENT- oropharynx clear Neck- supple, no JVD Lungs- clear to auscultation Heart- regular rhythm; Abdomen- normal bowel sounds, soft, nontender Extremities- no calf tenderness Neuro- alert, oriented x 3; PERRL, EOMI; no facial palsy; no dysarthria Skin- warm & dry Results & Data Results & Data ([facility]) Vital Signs (Past 12 Hours) Vital Signs Temp Pulse Pulse Pulse Pulse Pulse Pulse 03/08/20 16:43 22 L 74 74 66 03/08/20 15:48 37.0 C 60 03/08/20 11:09 37.1 C 56 L 03/08/20 07:33 53 L 03/08/20 07:14 36.8 C 55 L Pulse Resp Resp Resp Resp Resp Resp 03/08/20 16:43 66 22 20 22 18 18 12/03/20 15:48 18 03/08/20 11:09 18 03/08/20 07:33 03/08/20 07:14 16 BP BP Pulse Ox Pulse Ox Pulse Ox Pulse Ox Pulse Ox 03/08/20 16:43 87 L 90 85 L 90 03/08/20 15:48 199/66 H 93 03/08/20 11:09 182/71 H 95 03/08/20 07:33 03/08/20 07:14 186/77 H 93 Pulse Ox 03/08/20 16:43 90 03/08/20 15:48 03/08/20 11:09 03/08/20 07:33 03/08/20 07:14 (1) Acute pancreatitis Acute pancreatitis complication: no infection or necrosis Pancreatitis type: unspecified pancreatitis type Qualified Code(s): K85.90 - Acute pancreatitis without necrosis or infection, unspecified
[2020-03-08] MEDS: hydrALAZINE HCL 20 MG/ML VIAL IV PRN (22:03)
[2020-03-09] MEDS: LEVOTHYROXINE SODIUM 125 MCG TABLET PO SCH (06:29)
[2020-03-09] MEDS: POTASSIUM CHLORIDE CRTAB 20 MEQ TABCR PO SCH (07:37)
[2020-03-09] MEDS: CHOLECALCIFEROL 1,000 UNITS 25 MCG TAB PO SCH (07:37)
[2020-03-09] MEDS: hydrALAZINE TAB 50 MG TAB PO SCH (07:37)
[2020-03-09] MEDS: FINASTERIDE 5 MG TAB PO SCH (07:37)
[2020-03-09] MEDS: AMIODARONE 200 MG TAB PO SCH (07:37)
[2020-03-09] MEDS: allopurinoL 100 MG TAB PO SCH (07:38)
[2020-03-09] MEDS: ASPIRIN 81 MG ECTAB PO SCH (07:38)
[2020-03-09] MEDS: FUROSEMIDE 80 MG TAB PO SCH (07:38)
[2020-03-09] MEDS: amLODIPine BESYLATE 5 MG TAB PO SCH (07:38)
[2020-03-09] MEDS: ISOSORBIDE MONO EXTENDED REL 60 MG TABCR PO SCH (07:38)
[2020-03-09] MEDS: TAMSULOSIN HCL 0.4 MG CAP PO SCH (07:38)
[2020-03-09] MEDS: METOPROLOL SUCC 25MG EXT REL TAB PO SCH (07:39)
[2020-03-09 08:10] LABS: INR 2.2 (0.9-1.1); Prothrombin Time 22.6 Seconds (9.0-12.0)
--- NOTE | 2020-03-09 11:08 | Hospitalist Progress Note ---
Date of Service March 09, 2020 Assessment & Plan (1) Acute pancreatitis: Present on admission with abdominal pain associated with elevated lipase 20K CT abdomen/pelvis showed subtle peripancreatic stranding involves the pancreatic tail suspicious for acute pancreatitis. Unchanged 2.0 cm cystic lesion of the pancreatic head with mild associated pancreatic ductal dilation. This is suggestive of a probable IPMN and is unchanged from 2016. Gastro on board and recommended supportive care Lipase normal Plan for outpatient EUS in 2-3 months with gastro Tolerated diet clinically stable Elevated troponin: mild elevation of troponin possible due to acute illness, demand ischemia appreciate input from Cardiology ECHO no wall motion abnormality Hypertension BP elevated possible related to hospital setting It seems the more i keep him in the hospital, the more his BP continue to elevate Continue home BP meds and Amlodipine 5mg daily BP stable Continue monitor BP Hypoxia CXR on 03/06 showed cardiomegaly with mildly decreased pulmonary edema. Oxygen was titrate off Repeat 2 step suggested 2L NC with ambulation Script given to case management to arrange for oxygen Hx of Afib Continue metoproplol 25mg daily Coumadin resume with INR 2.2 today DVT px on Coumadin FULL CODE DISPOSITION: Will discharge home today Admission and Anticipated Discharge Date Admission Date: March 05, 2020 Subjective Follow up for elevating blood pressure Pt was seen and examined Lying in bed with no distress Pt said that he feels fine His blood pressure stable today Denies any chest pain, palpitation, dizziness and SOB Physical Exam Physical Exam: General- No acute distress Head- atraumatic Eyes- PERRL, EOMI, ENT- oropharynx clear Neck- supple, no JVD Lungs- clear to auscultation Heart- regular rhythm; Abdomen- normal bowel sounds, soft, nontender Extremities- no calf tenderness Neuro- alert, oriented x 3; PERRL, EOMI; no facial palsy; no dysarthria Skin- warm & dry Results & Data Results & Data ([facility]) Vital Signs (Past 12 Hours) Vital Signs Temp Pulse Resp BP Pulse Ox 03/09/20 07:05 36.8 C 75 16 136/66 90 03/08/20 23:40 36.9 C 63 18 161/63 H 91 (1) Acute pancreatitis Acute pancreatitis complication: no infection or necrosis Pancreatitis type: unspecified pancreatitis type Qualified Code(s): K85.90 - Acute pancreatitis without necrosis or infection, unspecified
--- NOTE | 2020-03-10 00:03 | Discharge Summary ---
Date of Service March 09, 2020 Admission HPI Per Admitting Provider CHIEF COMPLAINT: Abdominal pain. HISTORY OF PRESENT ILLNESS: This is an 89-year-old male with past medical history significant for chronic gout, hypothyroidism, hyperlipidemia, hyperparathyroidism, history of peripheral artery disease, paroxysmal atrial fibrillation, chronic combined systolic and diastolic congestive heart failure, last EF of 45-50%, history of bradycardia, chronic ischemic heart disease, hypertension, carotid stenosis, chronic kidney disease stage IV, reflux esophagitis, history of dysphagia, BPH, sensorineural hearing loss bilaterally, pernicious anemia. The patient lives alone, ambulates without any support as per the patient, comes because of abdominal pain. The patient says yesterday since 5:00 p.m. he started to have abdominal pain and he could not sleep the night, so he came here, it is 7-8 to in severity, no radiation, not associated with nausea, vomiting. No fever, chills, no diarrhea. Received pain medications. In the ER, currently pain is much improved. He says it is about 4/10 in severity, resting comfortably. Blood pressure is running high. Denies any chest pain, no shortness of breath, no cough, no headache, no blurred vision, no earache, no runny nose, no sore throat. No loss of sense of smell or taste. Appetite is okay. Normal bowel and bladder movements. No swelling in the legs seen. 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 Admission Exam Per Admitting Provider GENERAL: The patient is old and frail, the patient is not in acute distress. VITAL SIGNS: Temperature 37, pulse 54, respiratory rate 20, blood pressure 234/74, oxygen 91% on room air. HEENT: Pupils equal, round, reactive to light. Oral mucosa moist. NECK: Supple, no neck masses seen. CARDIOVASCULAR: S1, S2 heard, regular rate and rhythm, no murmur, no gallop. RESPIRATORY SYSTEM: Normal AP diameter. No accessory muscle use. No wheezing, no crackles. ABDOMEN: Soft, bowel sounds present. Mild abdominal diffuse discomfort. No guarding, no rigidity. No distention. CENTRAL NERVOUS SYSTEM: Cranial nerves II-XII grossly intact, nonfocal. EXTREMITIES: No edema, no erythema. Principal Diagnosis ACUTE PANCREATITIS Elevated troponin Hypertension Hypoxia Hx of Atrial fibrillation Discharge Exam General- No acute distress Head- atraumatic Eyes- PERRL, EOMI, ENT- oropharynx clear Neck- supple, no JVD Lungs- clear to auscultation Heart- regular rhythm; Abdomen- normal bowel sounds, soft, nontender Extremities- no calf tenderness Neuro- alert, oriented x 3; PERRL, EOMI; no facial palsy; no dysarthria Skin- warm & dry Discharge Data Allergies Allergy/AdvReac Type Severity Reaction Status Date / Time Penicillins Allergy Unknown PENILE Verified 03/05/20 02:38 ENLARGEMENT tramadol AdvReac Unknown GI SYMPTOMS Verified 03/05/20 02:38 Consultations 03/05/20 03:31 ED Decision to Admit Stat 03/05/20 06:06 Consult Case Management - Discharge Planning Routine 03/05/20 08:00 Consult Cardiology Routine Consult Gastroenterology Routine Ordered Studies 03/05/20 02:28 CT abd pelvis wo con Urgent XR chest 1V portable HISTORY: 89 years-old Male SOB /Hypoxia acute shortness of breath with hypoxia COMPARISON: Chest radiograph 03/05/2020 TECHNIQUE: Portable AP view of the chest FINDINGS: Cardiac silhouette is enlarged. Poorly vascular congestion with interstitial coarsening. No pneumothorax. Mild blunting of the costophrenic angles. No large pleural effusion or lobar airspace consolidation. There is mildly improved aeration of the lungs. Degenerative changes of the shoulders and spine. IMPRESSION: Cardiomegaly with mildly decreased pulmonary edema. ACT 112: Negative or not required by law. The above report was generated using voice recognition software. It may contain grammatical, syntax or spelling errors. Electronically signed by: Leonardo Cervantes M.D. 03/06/2020 5:19 PM Dictated: 03/06/201717Transcribed: 03/06/208 XR chest 1V portable HISTORY: hypoxia, pancreatitis COMPARISON: Chest 09/13/2016. FINDINGS: Mild diffuse interstitial and vascular thickening. No pneumothorax. No pleural effusions. The heart is mildly enlarged. There are low lung volumes. Bibasilar linear densities favor subsegmental atelectasis. No focal lung consolidations to suggest pneumonia. IMPRESSION: Cardiomegaly with diffuse interstitial and vascular thickening suggestive of mild pulmonary edema. ACT 112: Negative or not required by law. Electronically signed by: Joe Singh M.D. 03/05/2020 4:12 PM Dictated: 03/05/20 1611Transcribed: 03/05/[address] WITHOUT CONTRAST CT DOSE: 428.20 mGy.cm HISTORY: Acute generalized abdominal pain diffuse vague abdominal pain TECHNIQUE: Multiaxial CT images of the abdomen and pelvis were performed without contrast. A dose lowering technique was utilized adhering to the principles of ALARA. COMPARISON STUDY: CT abdomen and pelvis 03/28/2016 FINDINGS: Mild cardiomegaly. Coronary artery and mitral annular calcifications. No pericardial effusion. Mild subpleural reticular opacities within the lung bases are suggestive of scarring. No pneumatosis or pneumoperitoneum. Calcified granulomata of the spleen. Limited evaluation of the solid abdominal organs without the use of IV contrast. Unremarkable adrenal glands. Mild gallbladder distention with cholelithiasis. No gallbladder wall thickening, pericholecystic fluid or choledocholithiasis. There is mild peripancreatic stranding adjacent to the pancreatic tail. There is unchanged mild pancreatic ductal dilation measuring up to approximately 4 mm. 2.0 cm ovoid cystic pancreatic head lesion is stable dating back to 2016. Mild to moderate generalized pancreatic atrophy. Hyperattenuation of the liver, Hounsfield unit of 100 is new from 2016. No evidence of cirrhosis or ascites. Indeterminate 4 mm hypodensity of the inferior right hepatic lobe, too small to characterize. Horseshoe kidney. Mild diffuse bilateral renal cortical thinning. Bilateral renal vascular calcifications. Superimposed nonobstructing renal calculi with be difficult to exclude. No ureteral calculi or obstructive uropathy. Mild bladder distention with associated wall thickening. Prostamegaly. Calcified plaque of the abdominal aorta without aneurysm. There is no adenopathy. Small hiatal hernia. Mild distal esophageal wall thickening. Trace free fluid within the dependent pelvis. Mild fecal retention of the right hemicolon. Terminal ileum and appendix appear normal. Tiny fat filled periumbilical hernia. Unremarkable soft tissues. Degenerative changes of the spine, pelvis and hips. No acute fracture or suspicious bone lesion. Multilevel central canal and foraminal narrowing of the lumbar spine. 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 IMPRESSION: 1. Subtle peripancreatic stranding involves the pancreatic tail suspicious for acute pancreatitis. Correlate with lipase level. 2. Unchanged 2.0 cm cystic lesion of the pancreatic head with mild associated pancreatic ductal dilation. This is suggestive of a probable IPMN and is unchanged from 2016. 3. Hyperattenuation of the liver is new from 2016. Primary differential consid erations would include iron deposition versus medication toxicity such as amiodarone or gold therapy. No evidence of cirrhosis. 4. Horseshoe kidney. 5. Prostamegaly with findings of chronic bladder outlet obstruction. 6. Cholelithiasis. 7. Additional findings as above. ACT 112: Negative or not required by law. The above report was generated using voice recognition software. It may contain grammatical, syntax or spelling errors. Electronically signed by: Leonardo Cervantes M.D. 03/05/2020 7:43 AM Dictated: 03/05/20729Transcribed: 03/05/20741 Hospital Course (1) Acute pancreatitis: Present on admission with abdominal pain associated with elevated lipase 20K CT abdomen/pelvis showed subtle peripancreatic stranding involves the pancreatic tail suspicious for acute pancreatitis. Unchanged 2.0 cm cystic lesion of the pancreatic head with mild associated pancreatic ductal dilation. This is suggestive of a probable IPMN and is unchanged from 2016. Gastro on board and recommended supportive care Lipase normal Plan for outpatient EUS in 2-3 months with gastro Tolerated diet clinically stable Elevated troponin: mild elevation of troponin possible due to acute illness, demand ischemia appreciate input from Cardiology ECHO no wall motion abnormality Hypertension BP elevated possible related to hospital setting It seems the more i keep him in the hospital, the more his BP continue to elevate Continue home BP meds and Amlodipine 5mg daily BP stable Continue monitor BP Hypoxia CXR on 03/06 showed cardiomegaly with mildly decreased pulmonary edema. Oxygen was titrate off Repeat 2 step suggested 2L NC with ambulation Script given to case management to arrange for oxygen Hx of Afib Continue metoproplol 25mg daily Coumadin resume with INR 2.2 today DVT px on Coumadin FULL CODE DISPOSITION: Will discharge home today Total Time Total Time Spent Total Time Spent (In Minutes): 35 minutes Total Time Includes: Examination of the Patient, Discharge Planning, Medication Reconciliation, Communication With Other Providers and Other Discharge Plan Discharge Items Patient Disposition: Home - Self-Care Reason For Visit: ABDOMINAL PAIN Discharge Diagnosis: ACUTE PANCREATITIS Elevated troponin Hypertension Hypoxia Hx of Atrial fibrillation Activity: Resume your previous activity Non-emergency contact: Primary Care Provider Call non-emergency contact if: you have any medication questions Follow-up/Referrals: Es San MD [Physician] - (FOLLOW UP AT GI CLINIC plan for out pt EUS( endoscopic ultrasound ) of pancreas ) Virgen Oliver MD [Primary Care Provider] - (Date & Time 03/13/2020 11:00 AM Provider Virgen Oliver MD Department General Internal Medicine [facility] ) Diet: Low Fat Addtl Attending Provider Instructions: Follow up with your primary care provider Dr. Oliver on 03/13/2020 11:00 AM Follow up with gastroenterology Dr San to arrange for the Endoscopy ultrasound (Please your provider will arrange for the referral) Follow up with the coumadin clinic to monitor your PT/INR Continue monitor your blood pressure Continue oxygen supplement with 2L NC with ambulation Continue a low fat diet Pending Studies at Discharge: Yes Stand-Alone Forms: My [employer], Smoking Cessation Medications and DC Order Prescriptions: New amlodipine [Norvasc] 5 mg Tablet 5 mg PO QAM 30 Days Qty: 30 RF: 0 Continued atorvastatin 40 mg tablet 40 mg PO DAILY RF: 0 amiodarone 200 mg tablet 200 mg PO DAILY RF: 0 allopurinol 100 mg tablet 200 mg PO DAILY RF: 0 isosorbide mononitrate 60 mg tablet extended release 24 hr 60 mg PO DAILY RF: 0 tamsulosin 0.4 mg capsule 0.4 mg PO DAILY RF: 0 furosemide 80 mg tablet 40 mg PO QPM RF: 0 furosemide 80 mg tablet 80 mg PO QAM RF: 0 aspirin 81 mg Tablet,Delayed Release (Dr/Ec) 81 mg PO DAILY RF: 0 levothyroxine 125 mcg tablet 125 mcg PO DAILY RF: 0 warfarin 2 mg tablet 1 - 2 mg PO DAILY RF: 0 metoprolol succinate 25 mg tablet extended release 24 hr 25 mg PO DAILY RF: 0 finasteride 5 mg tablet 5 mg PO DAILY RF: 0 polyethylene glycol 3350 [Miralax] 17 gram/dose Powder 17 g PO .EVERY 2 DAYS PRN (Reason: no bm) RF: 0 cholecalciferol (vitamin D3) [Vitamin D3] 50 mcg (2,000 unit) Tablet 100 mcg PO DAILY RF: 0 potassium chloride 20 mEq tablet,ER particles/crystals 20 meq PO DAILY RF: 0 hydralazine 50 mg tablet 50 mg PO TID RF: 0 Vitron-C 65 mg iron- 125 mg Tablet,Delayed Release (Dr/Ec) 1 tab PO BID RF: 0 bisacodyl 10 mg Suppository 10 mg OR DAILY PRN (Reason: Constipation) RF: 0 Discharge Orders: Discharge Order (Routine); Ordered 03/09/20 Ordered By: Farshad Morrow Admission Data Admit Date/Time: 03/05/20 04:37 Attending Provider: Farshad Morrow Admit Provider: Douglas Harden Primary Care Provider: Virgen Oliver Other Providers: Mary Beth Mckeon ; Douglas Harden ; Wesley Domínguez ; Brian Canada ; Mikey Mosquera ; Иван Garcia ; Owen Evans ; Rene Allison ; Heena Rogers ; Nunu Rendon ; Gael De La Torre ; Es Mackay Other Interventions: Discharge Summary Assessment (RN) Last Done: 03/09/20 11:27
== END 2020-03-09 13:55 | disposition home or self-care (01) | DRG 439 ==
LOC: ED 02:04 → SUATTDRO 04:37 → 2W 04:37

== ENCOUNTER 2021-07-24 22:33 | Observation (INO) ==
--- NOTE | 2021-07-24 23:19 | Emergency Department Note ---
History of Present Illness General Chief complaint: Flu Like Symptoms Stated complaint: FEVER, VOMITING, WEAKNESS Time Seen by Provider: 07/24/21 22:49 Source: patient History of Present Illness 89-year-old male presents emergency department with a 6-hour history of fever to 101.5 shaking chills and rigors. Patient denies cough cold congestion symptoms patient is COVID vaccinated. Patient denies urinary symptoms abdominal pain nausea vomiting chest pain or diarrhea. Patient denies any recent infections. Patient was concerned due to shaking chills and fever to 101.5. Home Medications Medication Instructions Recorded Confirmed Type allopurinol 100 mg tablet 200 mg PO DAILY 03/05/20 07/24/21 History aspirin 81 mg tablet,delayed 81 mg PO DAILY 03/05/20 07/24/21 History release atorvastatin 40 mg tablet 40 mg PO HS 03/05/20 07/24/21 History finasteride 5 mg tablet 5 mg PO DAILY 03/05/20 07/24/21 History furosemide 80 mg tablet See Rx Instructions .ROUTE .COMPLEX 03/05/20 07/24/21 History hydralazine 50 mg tablet 50 mg PO TID 03/05/20 07/24/21 History iron,carbonyl 65 mg-vitamin C 125 1 tab PO BID 03/05/20 07/24/21 History mg tablet,delayed release (Vitron-C) isosorbide mononitrate 60 mg 60 mg PO DAILY 03/05/20 07/24/21 History tablet,extended release 24 hr levothyroxine 125 mcg tablet 125 mcg PO DAILYBB 03/05/20 07/24/21 History polyethylene glycol 3350 17 17 g PO Q2D PRN 03/05/20 07/24/21 History gram/dose oral powder (Miralax) potassium chloride 20 mEq 20 meq PO DAILY 03/05/20 07/24/21 History tablet,extended release(part/cryst) tamsulosin 0.4 mg capsule 0.4 mg PO DAILY 03/05/20 07/24/21 History amiodarone 200 mg tablet 100 mg PO DAILY #30 tab 06/13/20 07/24/21 Rx amlodipine 5 mg tablet (Norvasc) 10 mg PO QAM 07/24/21 07/24/21 History wheat dextrin 3 gram/3.5 gram oral 3 g PO DAILY 07/24/21 07/24/21 History powder packet (Benefiber Clear Sugar Free(dextrin)) Allergies Allergy/AdvReac Type Severity Reaction Status Date / Time Penicillins AdvReac Intermediate PENILE Verified 07/24/21 23:30 ENLARGEMENT tramadol AdvReac Intermediate GI SYMPTOMS Verified 07/24/21 23:30 Past Med/Surg History Medical History Acute pancreatitis Anemia Atrial fibrillation BPH (benign prostatic hyperplasia) CKD stage 4 secondary to hypertension Dialysis patient "short term post ANETA from sepsis" Dyslipidemia Elevated troponin GERD (gastroesophageal reflux disease) Gout HTN (hypertension) Hypothyroidism Ischemic cardiomyopathy NSTEMI (non-ST elevated myocardial infarction) Paroxysmal atrial fibrillation Pernicious anemia PVD (peripheral vascular disease) Stress-induced cardiomyopathy "normal LVEF on most recent echo" Surgical History Status post carotid endarterectomy "right" Status post carpal tunnel release Status post cataract extraction Family History Other Diabetes Hypertension Stroke Social History Smoking Status: Never smoker Cigarettes Per Day: 60 per day.; Hx Alcohol Use: Yes Alcohol type: beer and wine Hx Substance Use: No Preferred Language: Latvian Communication Ability: Effective Brim Setter Required: No Beliefs That Will Affect Care: None marital status: / Current Living Situation: Alone How many Children do You have: 8 Feels Safe at Home: Yes Assistive Devices: Glasses Review of Systems A total of 10 systems reviewed and were otherwise negative Constitutional: + fever and + chills Ear, Nose, Mouth, Throat: no ear pain Respiratory: no cough Genitourinary (Male): no dysuria Physical Exam Vital Signs Vital Signs - 24 hr 07/24/21 22:38 07/24/21 22:51 07/24/21 23:09 Temperature 37.5 C Temperature Source Temporal Artery Scan Pulse Rate 97 H 90 Pulse Rate from SpO2 Sensor Respiratory Rate 16 16 Respiratory Effort / Characteristics Non-Labored Blood Pressure 166/66 H 179/68 H Blood Pressure Mean 99 105 Blood Pressure Position Sitting Pulse Oximetry 97 94 Oxygen Delivery Method Room Air Room Air Sepsis Recent Fever Within 48 Hours Yes Sepsis New/Unexplained Change in Mental Status No Sepsis Action Taken by Nursing No Action Required 07/24/21 23:21 07/24/21 23:30 07/25/21 00:00 Temperature Temperature Source Pulse Rate 88 75 Pulse Rate from SpO2 Sensor 75 Respiratory Rate 16 17 Respiratory Effort / Characteristics Non-Labored Non-Labored Non-Labored Blood Pressure 153/86 H 158/71 H Blood Pressure Mean 108 100 Blood Pressure Position Pulse Oximetry 94 93 Oxygen Delivery Method Room Air Room Air Sepsis Recent Fever Within 48 Hours Sepsis New/Unexplained Change in Mental Status Sepsis Action Taken by Nursing 07/25/21 00:30 07/25/21 01:00 07/25/21 01:30 Temperature Temperature Source Pulse Rate Pulse Rate from SpO2 Sensor Respiratory Rate Respiratory Effort / Characteristics Non-Labored Non-Labored Non-Labored Blood Pressure Blood Pressure Mean Blood Pressure Position Pulse Oximetry Oxygen Delivery Method Sepsis Recent Fever Within 48 Hours Sepsis New/Unexplained Change in Mental Status Sepsis Action Taken by Nursing 07/25/21 02:00 Temperature Temperature Source Pulse Rate Pulse Rate from SpO2 Sensor Respiratory Rate Respiratory Effort / Characteristics Non-Labored Blood Pressure Blood Pressure Mean Blood Pressure Position Pulse Oximetry Oxygen Delivery Method Sepsis Recent Fever Within 48 Hours Sepsis New/Unexplained Change in Mental Status Sepsis Action Taken by Nursing VITAL SIGNS - Vital signs and nursing notes were reviewed. GENERAL -89-year-old male appearing his stated age who is in no acute distress. Communicates well with provider and answers questions appropriately. SKIN - Without rashes. HEAD - NC/AT. EYES - PERRL with EOMI bilaterally. Sclera anicteric. Palpebral conjunctiva pink and moist with no injection noted. EARS - No deformities of external structures noted on gross examination jose alejandro aterally. NOSE - Midline and without cyanosis. No epistaxis or purulent drainage noted. Septum midline without deviation or septal hematoma noted. MOUTH/OROPHARYNX - Without perioral cyanosis. Buccal mucosa pink and moist NECK - Neck with FROM. Supple LUNGS - Chest wall symmetric without accessory muscle use, intercostals retractions, or central cyanosis. Normal vesicular breath sounds CTA B/L. No wheezes, rales, or rhonchi appreciated. CARDIAC - RRR with S1/S2. No murmur, rubs, or gallops appreciated. ABDOMEN - Abdominal contour soft without pulsations or visible masses. BS normoactive all four quadrants. No tenderness, palpable masses, hepatosplenomegaly, or ascites noted. EXTREMITIES - No clubbing or peripheral cyanosis. No pretibial edema present. . +5/5 strength noted in UE/LE bilaterally. NEUROLOGIC - Cranial nerves II through XII grossly intact. PSYCH - A&Ox3 and cooperates fully with examiner. Pt is very pleasant and interacts well with examiner. Course Reevaluation(s) Reevaluation #1: Patient is resting in no distress, he was started on empiric Rocephin, his pulse oximetry is 88 to 95% he is in no respiratory distress. I suspect he may have an early pneumonia his white count is elevated his lactate is normal he did have a fever I do not suspect septic shock at this time. This case was discussed with the [facility] hospitalist for admission at 2:30 AM Administered Medications Discontinued Medications Acetaminophen (Acetaminophen 500 Mg Tab) 1,000 mg PO NOW STA Stop: 07/25/21 01:55 Last Admin: 07/25/21 02:11 Dose: 1,000 mg Documented by: [id number] Ceftriaxone Sodium (Rocephin) 2,000 mg in 70 mls @ 140 mls/hr IV NOW STA Stop: 07/25/21 02:00 Last Infusion: 07/25/21 02:28 Dose: 0 mls/hr Documented by: [id number] Admin: 07/25/21 01:53 Dose: 140 mls/hr Documented by: [id number] Medical Decision Making Medical Records Attestation: I reviewed the patient's medical records. Home Medications Current Medication List: was personally reviewed by me Laboratory Data Attestation: I reviewed the patient's lab results. Result diagrams: 07/24/21 23:09 07/24/21 23:09 Lab Results 07/24/21 07/24/21 07/24/21 Range/Units 22:23 23:09 23:09 WBC 14.46 H (4.8-10.8) K/uL RBC 3.87 L (4.7-6.1) M/uL Hgb 12.4 L (14.0-18.0) g/dL Hct 37.2 L (42-52) % MCV 96.1 (80-100) fL MCH 32.0 (25-34) pg MCHC 33.3 (32-36) g/dL RDW Std Deviation 57.8 H (36.4-46.3) fL RDW Coeff of Yuri 16.6 H (11.5-14.5) % Plt Count 143 (130-400) K/uL MPV 10.1 (7.4-10.4) fL Immature Gran % (Auto) 0.1 % Neut % (Auto) 92.4 % Lymph % (Auto) 3.7 % Blanco % (Auto) 3.2 % Eos % (Auto) 0.5 % Baso % (Auto) 0.1 % Neut # (Auto) 13.37 H (1.4-6.5) K/uL Lymph # (Auto) 0.53 L (1.2-3.4) K/uL Bl[place] # (Auto) 0.46 (0.11-0.59) K/uL Eos # (Auto) 0.07 (0-0.5) K/uL Baso # (Auto) 0.01 (0-0.2) K/uL Immature Gran # (Auto) 0.02 (0.00-0.02) K/uL PT 11.4 (9.0-12.0) Seconds INR 1.1 (0.9-1.1) APTT 28.5 (21.0-31.0) Seconds PTT Ratio 1.0 Sodium (136-145) mmol/L Potassium (3.5-5.1) mmol/L Chloride (98-107) mmol/L Carbon Dioxide (21-32) mmol/L Anion Gap (3-11) BUN (6-23) mg/dl Creatinine (0.6-1.4) mg/dl Est Cr Clr Drug Dosing Est GFR ( Amer) ml/min Est GFR (Non-Af Amer) ml/min BUN/Creatinine Ratio (10-20) Glucose (70-99(Fasting)) mg/dl Lactate (0.4-2.0) mmol/L Calcium (8.5-10.1) mg/dl Magnesium (1.7-2.4) mg/dl Total Bilirubin (0.2-1.0) mg/dl AST (13-39) U/L ALT (7-52) U/L Alkaline Phosphatase (34-104) U/L Total Protein (6.0-8.3) gm/dl Albumin (3.4-5.0) gm/dl Globulin (2.5-4.0) gm/dl Albumin/Globulin Ratio (0.9-2) Urine Color Yellow Urine Appearance Clear (Clear) Urine pH 5.0 (4.5-7.5) Ur Specific [place] 1.014 (1.000-1.030) Urine Protein 2+ H (Negative) Urine Glucose (UA) Negative (Negative) Urine Ketones Negative (Negative) Urine Blood Negative (Negative) Urine Nitrite Negative (Negative) Urine Bilirubin Negative (Negative) Urine Urobilinogen Negative (Negative) Ur Leukocyte Esterase Negative (Negative) Urine WBC (Auto) 0 (0-5) /hpf Urine RBC (Auto) 0-4 (0-4) /hpf U Hyaline Cast (Auto) 1-5 (0-5) /lpf U Epithel Cells (Auto) 10-20 H (0-5) /lpf Urine Bacteria (Auto) Negative (Negative) SARS-CoV-2 (PCR) (Negative) Influenza Type A (PCR) (Neg) Influenza Type B (PCR) (Neg) RSV (RT-PCR) (Neg) 07/24/21 07/24/21 07/24/21 Range/Units 23:09 23:09 23:15 WBC (4.8-10.8) K/uL RBC (4.7-6.1) M/uL Hgb (14.0-18.0) g/dL Hct (42-52) % MCV (80-100) fL MCH (25-34) pg MCHC (32-36) g/dL RDW Std Deviation (36.4-46.3) fL RDW Coeff of Yuri (11.5-14.5) % Plt Count (130-400) K/uL MPV (7.4-10.4) fL Immature Gran % (Auto) % Neut % (Auto) % Lymph % (Auto) % Bl[place] % (Auto) % Eos % (Auto) % Baso % (Auto) % Neut # (Auto) (1.4-6.5) K/uL Lymph # (Auto) (1.2-3.4) K/uL [place] # (Auto) (0.11-0.59) K/uL Eos # (Auto) (0-0.5) K/uL Baso # (Auto) (0-0.2) K/uL Immature Gran # (Auto) (0.00-0.02) K/uL PT (9.0-12.0) Seconds INR (0.9-1.1) APTT (21.0-31.0) Seconds PTT Ratio Sodium 139 (136-145) mmol/L Potassium 3.5 (3.5-5.1) mmol/L Chloride 104 (98-107) mmol/L Carbon Dioxide 22 (21-32) mmol/L Anion Gap 13 H (3-11) BUN 56 H (6-23) mg/dl Creatinine 2.52 H (0.6-1.4) mg/dl Est Cr Clr Drug Dosing Not Reportable Est GFR ( Amer) 25.2 ml/min Est GFR (Non-Af Amer) 21.7 ml/min BUN/Creatinine Ratio 22.2 H (10-20) Glucose 117 H (70-99(Fasting)) mg/dl Lactate 1.1 (0.4-2.0) mmol/L Calcium 8.7 (8.5-10.1) mg/dl Magnesium 1.8 (1.7-2.4) mg/dl Total Bilirubin 0.7 (0.2-1.0) mg/dl AST 17 (13-39) U/L ALT 12 (7-52) U/L Alkaline Phosphatase 55 (34-104) U/L Total Protein 6.2 (6.0-8.3) gm/dl Albumin 3.8 (3.4-5.0) gm/dl Globulin 2.4 L (2.5-4.0) gm/dl Albumin/Globulin Ratio 1.6 (0.9-2) Urine Color Urine Appearance (Clear) Urine pH (4.5-7.5) Ur Specific [place] (1.000-1.030) Urine Protein (Negative) Urine Glucose (UA) (Negative) Urine Ketones (Negative) Urine Blood (Negative) Urine Nitrite (Negative) Urine Bilirubin (Negative) Urine Urobilinogen (Negative) Ur Leukocyte Esterase (Negative) Urine WBC (Auto) (0-5) /hpf Urine RBC (Auto) (0-4) /hpf U Hyaline Cast (Auto) (0-5) /lpf U Epithel Cells (Auto) (0-5) /lpf Urine Bacteria (Auto) (Negative) SARS-CoV-2 (PCR) NEGATIVE (Negative) Influenza Type A (PCR) Negative (Neg) Influenza Type B (PCR) Negative (Neg) RSV (RT-PCR) Negative (Neg) Imaging Data Attestation: I personally reviewed and interpreted this imaging study as follows: My Impression: Chest x-ray interpreted by me calcific aorta ? rll infiltrate no pleural effusion no pneumothorax no rib fractures ECG Data Attestation: I personally reviewed and interpreted this ECG as follows: Additional Comments: EKG interpreted by me normal sinus rhythm rate of 84 normal intervals normal axis no obvious ST segment elevation or depression, left ventricular hypertrophy is present MDM Narrative Medical decision making differential diagnosis sepsis, Sirs, urinary tract infection derangement, dehydration,, COVID, influenza; will check labs, sepsis protocol Impression & Plan Febrile illness, acute, Pneumonia, CKD (chronic kidney disease) Discharge Plan Visit Data Chief Complaint: Flu Like Symptoms Stated Complaint: FEVER, VOMITING, WEAKNESS ED Provider: Wesley Cisneros Discharge Problem: Febrile illness, acute, Pneumonia, CKD (chronic kidney disease) Patient Disposition: Being Evaluated by Hospitalist Forms Stand Alone Forms: My [facility] Prescriptions Prescriptions: No Action atorvastatin 40 mg tablet 40 mg PO HS RF: 0 allopurinol 100 mg tablet 200 mg PO DAILY RF: 0 isosorbide mononitrate 60 mg tablet extended release 24 hr 60 mg PO DAILY RF: 0 tamsulosin 0.4 mg capsule 0.4 mg PO DAILY RF: 0 furosemide 80 mg tablet See Rx Instructions .ROUTE .COMPLEX RF: 0 aspirin 81 mg Tablet,Delayed Release (Dr/Ec) 81 mg PO DAILY RF: 0 levothyroxine 125 mcg tablet 125 mcg PO DAILYBB RF: 0 finasteride 5 mg tablet 5 mg PO DAILY RF: 0 polyethylene glycol 3350 [Miralax] 17 gram/dose Powder 17 g PO Q2D PRN (Reason: Constipation) RF: 0 potassium chloride 20 mEq tablet,ER particles/crystals 20 meq PO DAILY RF: 0 hydralazine 50 mg tablet 50 mg PO TID RF: 0 Vitron-C 65 mg iron- 125 mg Tablet,Delayed Release (Dr/Ec) 1 tab PO BID RF: 0 amiodarone 200 mg Tablet 100 mg PO DAILY Qty: 30 RF: 1 Benefiber Clear SF (dextrin) 3 gram/3.5 gram Powder In Packet 3 g PO DAILY RF: 0 amlodipine [Norvasc] 5 mg tablet 10 mg PO QAM RF: 0 Referrals Referrals: Virgen Oliver MD [Primary Care Provider] -
[2021-07-24 23:30] LABS: Hematocrit (blood only) 37.2 % (42-52); Hemoglobin 12.4 g/dL (14.0-18.0); Mean Corpuscular Hgb Conc 33.3 g/dL (32-36); Mean Corpuscular Volume 96.1 fL (80-100); Mean Platelet Volume 10.1 fL (7.4-10.4); Platelet Count 143 K/uL (130-400); RDW Coefficient of Variation 16.6 % (11.5-14.5); RDW Standard Deviation 57.8 fL (36.4-46.3); Red Blood Count 3.87 M/uL (4.7-6.1); White Blood Count 14.46 K/uL (4.8-10.8)
[2021-07-24 23:38] LABS: Appearance Urine Clear (Clear); Bacteria Urine Automated Negative (Negative); Bilirubin Urine Negative (Negative); Blood Urine Negative (Negative); Color Urine Yellow; Glucose Urine UA Negative (Negative); Ketones Urine Negative (Negative); Leukocyte Esterase Urine Negative (Negative); Nitrite Urine Negative (Negative); Protein Urine 2+ (Negative); RBC Urine Automated 0-4 /hpf (0-4); Specific Gravity Urine 1.014 (1.000-1.030); Urobilinogen Urine Negative (Negative); WBC Urine Automated 0 /hpf (0-5)
[2021-07-24 23:42] LABS: INR 1.1 (0.9-1.1); Partial Thromboplastin Time 28.5 Seconds (21.0-31.0); Prothrombin Time 11.4 Seconds (9.0-12.0)
[2021-07-24 23:49] LABS: Basophils # (auto) 0.01 K/uL (0-0.2); Basophils % (auto) 0.1 %; Eosinophils # (auto) 0.07 K/uL (0-0.5); Eosinophils % (auto) 0.5 %; Immature Granulocytes # (auto) 0.02 K/uL (0.00-0.02); Immature Granulocytes % (auto) 0.1 %; Lymphocytes # (auto) 0.53 K/uL (1.2-3.4); Lymphocytes % (auto) 3.7 %; Monocytes # (auto) 0.46 K/uL (0.11-0.59); Monocytes % (auto) 3.2 %; Neutrophils # (auto) 13.37 K/uL (1.4-6.5); Neutrophils % (auto) 92.4 %
[2021-07-25 00:12] LABS: Influenza A virus by PCR Negative (Neg); Influenza B virus by PCR Negative (Neg); RSV by PCR Negative (Neg); SARS CoV2 RNA(COVID-19) InHosp NEGATIVE (Negative)
[2021-07-25 00:26] LABS: Alanine Aminotransferase 12 U/L (7-52); Albumin Globulin Ratio 1.6 (0.9-2); Albumin Level 3.8 gm/dl (3.4-5.0); Alkaline Phosphatase 55 U/L (34-104); Anion Gap 13 (3-11); Aspartate Aminotransferase 17 U/L (13-39); BUN Creatinine Ratio 22.2 (10-20); Bilirubin,Total 0.7 mg/dl (0.2-1.0); Blood Urea Nitrogen 56 mg/dl (6-23); Calcium 8.7 mg/dl (8.5-10.1); Carbon Dioxide 22 mmol/L (21-32); Chloride 104 mmol/L (98-107); Est GFR (African American) 25.2 ml/min; Est GFR (Non-African American) 21.7 ml/min; Globulin 2.4 gm/dl (2.5-4.0); Glucose 117 mg/dl (70-99(Fasting)); Magnesium 1.8 mg/dl (1.7-2.4); Potassium 3.5 mmol/L (3.5-5.1); Sodium 139 mmol/L (136-145); Total Protein 6.2 gm/dl (6.0-8.3)
[2021-07-25] MEDS ORDERED: cefTRIAXone SODIUM 2,000 MG/70 ML BAG IV STA (01:31)
[2021-07-25] MEDS ORDERED: ACETAMINOPHEN 500 MG TAB PO STA (01:54)
[2021-07-25] MEDS ORDERED: LACTATED RINGER'S 1,000 ML IV ONE (02:37)
--- NOTE | 2021-07-25 03:12 | History & Physical Report ---
Date of Service July 25, 2021 Assessment & Plan (1) Sepsis: Plan: Possible sepsis, possible atypical pneumonia Note of elevated procalcitonin chronic diastolic heart failure (EF 65 to 70%, TTE 2019 ), patient on the dry side given mild AGMA AF, rate controlled, off Coumadin secondary to GI bleed pulmonary hypertension as per records HTN, slightly elevated hyperlipidemia on statin Rx PVD status post surgery CRI, creatinine at baseline chronic anemia, hemoglobin at baseline hypothyroidism, euthyroid as of recent outpatient TSH Hyperglycemia rule out DM past tobacco abuse GMF CS, Doxycycline for now IVF, hold home diuretic for now until patient euvolemic Check hemoglobin A1c DVT prophylaxis. Heparin subcu Full code Text document was generated using [employer] voice recognition software. It may contain grammatical or spelling errors. Kindly contact undersigned for clarification of any documentation item in question. History of Present Illness Chief Complaint: Fever, shaking Primary Care Provider: Virgen Oliver MD History obtained from patient and records. Medical history significant for chronic diastolic heart failure (EF 65 to 70%, TTE 2019 ), PAF off Coumadin secondary to GI bleed, pulmonary hypertension as per records, HTN, hyperlipidemia, PVD status post surgery, CRI (baseline creatinine 2.7), chronic anemia (baseline hemoglobin 10), hypothyroidism, past tobacco abuse. Last confinement June 2020 for GI bleed. No obvious bleeding lesions on endoscopy. Coumadin stopped on discharge. Yesterday, patient had fever of 101.5 at home associated with shaking chills and rigors. Patient denies chest pain, cough, flulike symptoms, abdominal pain, diarrhea, dysuria. Appetite okay. No known recent sick contacts. Patient completed COVID-19 vaccination. Patient given Ceftriaxone at the ER for possible pneumonia. 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 Allergies Allergy/AdvReac Type Severity Reaction Status Date / Time Penicillins AdvReac Intermediate PENILE Verified 07/24/21 23:30 ENLARGEMENT tramadol AdvReac Intermediate GI SYMPTOMS Verified 07/24/21 23:30 Home Medications Medication Instructions Recorded Confirmed Type allopurinol 100 mg tablet 200 mg PO DAILY 03/05/20 07/24/21 History aspirin 81 mg tablet,delayed 81 mg PO DAILY 03/05/20 07/24/21 History release atorvastatin 40 mg tablet 40 mg PO HS 03/05/20 07/24/21 History finasteride 5 mg tablet 5 mg PO DAILY 03/05/20 07/24/21 History furosemide 80 mg tablet See Rx Instructions .ROUTE .COMPLEX 03/05/20 07/24/21 History hydralazine 50 mg tablet 50 mg PO TID 03/05/20 07/24/21 History iron,carbonyl 65 mg-vitamin C 125 1 tab PO BID 03/05/20 07/24/21 History mg tablet,delayed release (Vitron-C) isosorbide mononitrate 60 mg 60 mg PO DAILY 03/05/20 07/24/21 History tablet,extended release 24 hr levothyroxine 125 mcg tablet 125 mcg PO DAILYBB 03/05/20 07/24/21 History polyethylene glycol 3350 17 17 g PO Q2D PRN 03/05/20 07/24/21 History gram/dose oral powder (Miralax) potassium chloride 20 mEq 20 meq PO DAILY 03/05/20 07/24/21 History tablet,extended release(part/cryst) tamsulosin 0.4 mg capsule 0.4 mg PO DAILY 03/05/20 07/24/21 History amiodarone 200 mg tablet 100 mg PO DAILY #30 tab 06/13/20 07/24/21 Rx amlodipine 5 mg tablet (Norvasc) 10 mg PO QAM 07/24/21 07/24/21 History wheat dextrin 3 gram/3.5 gram oral 3 g PO DAILY 07/24/21 07/24/21 History powder packet (Benefiber Clear Sugar Free(dextrin)) Past Med/Surg History Medical History Acute pancreatitis Anemia Atrial fibrillation BPH (benign prostatic hyperplasia) CKD stage 4 secondary to hypertension Dialysis patient "short term post ANETA from sepsis" Dyslipidemia Elevated troponin GERD (gastroesophageal reflux disease) Gout HTN (hypertension) Hypothyroidism Ischemic cardiomyopathy NSTEMI (non-ST elevated myocardial infarction) Paroxysmal atrial fibrillation Pernicious anemia PVD (peripheral vascular disease) Stress-induced cardiomyopathy "normal LVEF on most recent echo" Surgical History Status post carotid endarterectomy "right" Status post carpal tunnel release Status post cataract extraction Family History Other Diabetes Hypertension Stroke Social History Smoking Status: Never smoker Cigarettes Per Day: 60 per day.; Hx Alcohol Use: Yes Alcohol type: beer and wine Hx Substance Use: No Preferred Language: Jamaican Communication Ability: Effective Forward Air Controller/Air Officer Required: No Beliefs That Will Affect Care: None marital status: / Current Living Situation: Alone How many Children do You have: 8 Feels Safe at Home: Yes Assistive Devices: Glasses Review of Systems Review of Systems: As per HPI, all other systems reviewed and negative Physical Exam 2 Physical Exam: GENERAL: Comfortable, pleasant, slightly hard of hearing, no respiratory distress SKIN: Pallor, warm HEENT: Pale palpebral conjunctivae, no ptosis, dry buccal mucosa NECK : Supple, no tenderness CHEST : CTA, no tenderness HEART : Irregular, apical systolic murmur ABDOMEN: Some distention, nontender EXTREMITIES : No LE swelling/tenderness, no other conspicuous deformities noted NEUROLOGIC : Coherent, no facial asymmetry, mild hearing impairment, no other gross focality Results & Data Results & Data ([facility]) Vital Signs (Past 12 Hours) Vital Signs Temp Pulse Resp BP Pulse Ox 07/25/21 03:11 37.2 C 07/25/21 03:00 67 143/75 H 94 07/25/21 02:30 69 15 149/76 H 98 07/25/21 02:00 17 144/69 H 95 07/25/21 01:30 77 23 151/60 H 93 07/25/21 01:00 73 23 153/73 H 93 07/25/21 00:30 79 14 152/69 H 93 07/25/21 00:00 75 17 158/71 H 93 07/24/21 23:30 88 16 153/86 H 94 07/24/21 23:09 90 16 179/68 H 94 07/24/21 22:38 37.5 C 97 H 16 166/66 H 97 Laboratory Results Laboratory Results WBC 14.46 K/uL (4.8-10.8) H 07/24/21 23:09 RBC 3.87 M/uL (4.7-6.1) L 07/24/21 23:09 Hgb 12.4 g/dL (14.0-18.0) L 07/24/21 23:09 Hct 37.2 % (42-52) L 07/24/21 23:09 MCV 96.1 fL (80-100) 07/24/21 23:09 MCH 32.0 pg (25-34) 07/24/21 23:09 MCHC 33.3 g/dL (32-36) 07/24/21 23:09 RDW Std Deviation 57.8 fL (36.4-46.3) H 07/24/21 23:09 RDW Coeff of Yuri 16.6 % (11.5-14.5) H 07/24/21 23:09 Plt Count 143 K/uL (130-400) 07/24/21 23:09 MPV 10.1 fL (7.4-10.4) 07/24/21 23:09 Immature Gran % (Auto) 0.1 % 07/24/21 23:09 Neut % (Auto) 92.4 % 07/24/21 23:09 Lymph % (Auto) 3.7 % 07/24/21 23:09 [place] % (Auto) 3.2 % 07/24/21 23:09 Eos % (Auto) 0.5 % 07/24/21 23:09 Baso % (Auto) 0.1 % 07/24/21 23:09 Neut # (Auto) 13.37 K/uL (1.4-6.5) H 07/24/21 23:09 Lymph # (Auto) 0.53 K/uL (1.2-3.4) L 07/24/21 23:09 [place] # (Auto) 0.46 K/uL (0.11-0.59) 07/24/21 23:09 Eos # (Auto) 0.07 K/uL (0-0.5) 07/24/21 23:09 Baso # (Auto) 0.01 K/uL (0-0.2) 07/24/21 23:09 Immature Gran # (Auto) 0.02 K/uL (0.00-0.02) 07/24/21 23:09 PT 11.4 Seconds (9.0-12.0) 07/24/21 23:09 INR 1.1 (0.9-1.1) 07/24/21 23:09 APTT 28.5 Seconds (21.0-31.0) 07/24/21 23:09 PTT Ratio 1.0 07/24/21 23:09 Sodium 139 mmol/L (136-145) 07/24/21 23:09 Potassium 3.5 mmol/L (3.5-5.1) 07/24/21 23:09 Chloride 104 mmol/L (98-107) 07/24/21 23:09 Carbon Dioxide 22 mmol/L (21-32) 07/24/21 23:09 Anion Gap 13 (3-11) H 07/24/21 23:09 BUN 56 mg/dl (6-23) H 07/24/21 23:09 Creatinine 2.52 mg/dl (0.6-1.4) H 07/24/21 23:09 Est Cr Clr Drug Dosing Not Reportable 07/24/21 23:09 Est GFR ( Amer) 25.2 ml/min 07/24/21 23:09 Est GFR (Non-Af Amer) 21.7 ml/min 07/24/21 23:09 BUN/Creatinine Ratio 22.2 (10-20) H 07/24/21 23:09 Glucose 117 mg/dl (70-99(Fasting)) H 07/24/21 23:09 Lactate 1.1 mmol/L (0.4-2.0) 07/24/21 23:09 Calcium 8.7 mg/dl (8.5-10.1) 07/24/21 23:09 Magnesium 1.8 mg/dl (1.7-2.4) 07/24/21 23:09 Total Bilirubin 0.7 mg/dl (0.2-1.0) 07/24/21 23:09 AST 17 U/L (13-39) 07/24/21 23:09 ALT 12 U/L (7-52) 07/24/21 23:09 Alkaline Phosphatase 55 U/L (34-104) 07/24/21 23:09 Total Protein 6.2 gm/dl (6.0-8.3) 07/24/21 23:09 Albumin 3.8 gm/dl (3.4-5.0) 07/24/21 23:09 Globulin 2.4 gm/dl (2.5-4.0) L 07/24/21 23:09 Albumin/Globulin Ratio 1.6 (0.9-2) 07/24/21 23:09 Urine Color Yellow 07/24/21 22:23 Urine Appearance Clear (Clear) 07/24/21 22:23 Urine pH 5.0 (4.5-7.5) 07/24/21 22:23 Ur Specific [place] 1.014 (1.000-1.030) 07/24/21 22: Urine Protein 2+ (Negative) H 07/24/21 22:23 Urine Glucose (UA) Negative (Negative) 07/24/21 22: Urine Ketones Negative (Negative) 07/24/21 22: Urine Blood Negative (Negative) 07/24/21: Urine Nitrite Negative (Negative) 07/24/21 22: Urine Bilirubin Negative (Negative) 07/24/21 22:23 Urine Urobilinogen Negative (Negative) 07/24/21: Ur Leukocyte Esterase Negative (Negative) 07/24/21 22:23 Urine WBC (Auto) 0 /hpf (0-5) 07/24/21 22:23 Urine RBC (Auto) 0-4 /hpf (0-4) 07/24/21 22:23 U Hyaline Cast (Auto) 1-5 /lpf (0-5) 07/24/21 22: U Epithel Cells (Auto) 10-20 /lpf (0-5) H 07/24/21 22:23 Urine Bacteria (Auto) Negative (Negative) 07/24/21 22:23 SARS-CoV-2 (PCR) NEGATIVE (Negative) 07/24/21 23:15 Influenza Type A (PCR) Negative (Neg) 07/24/21 23:15 Influenza Type B (PCR) Negative (Neg) 07/24/21 23:15 RSV (RT-PCR) Negative (Neg) 07/24/21 23:15 Diagnostic Findings Chest x-ray as per my interpretation cardiomegaly, elevated right hemidiaphragm, no obvious infiltrate EKG as per my interpretation : Rate 85, A. fib, normal axis, T wave flattening lateral leads, LVH
[2021-07-25] MEDS ORDERED: DOXYCYCLINE HYCLATE 100 MG in DEXTROSE 5% 100 ML IV STA (03:44)
[2021-07-25] MEDS ORDERED: POLYETHYLENE (MIRALAX) 17 GM PACK PO PRN (05:44)
[2021-07-25] MEDS ORDERED: PROMETHAZINE HCL 6.25 MG in SODIUM CHLORIDE 0.9% 50 ML IV PRN (05:44)
[2021-07-25] MEDS ORDERED: ACETAMINOPHEN 325 MG TAB PO PRN (05:44)
[2021-07-25] MEDS ORDERED: LEVOTHYROXINE SODIUM 125 MCG TABLET PO SCH (06:30)
--- NOTE | 2021-07-25 06:47 | XRay Report ---
XR chest 1V portable HISTORY: 89 years-old Male SEPSIS acute flulike symptoms COMPARISON: Chest radiograph 06/11/2020 TECHNIQUE: AP view of the chest FINDINGS: The cardiac silhouette is enlarged. Atherosclerosis of the aorta. Mild pulmonary vascular congestion. No pneumothorax, large pleural effusion or lobar airspace consolidation. Mild blunting of the costop hrenic angles. Degenerative changes of the shoulders and spine. IMPRESSION: Cardiomegaly with pulmonary vascular congestion. ACT 112: Negative or not required by law. The above report was generated using voice recognition software. It may contain grammatical, syntax o r spelling errors. Electronically signed by: Alli Cervantes M.D. 07/25/2021 6:45 AM
[2021-07-25 07:35] LABS: Estimated Average Glucose 111 mg/dl; Hemoglobin A1C 5.5 % (4.5-5.6)
[2021-07-25 08:29] LABS: Base Excess VBG 0.7 mEq/L; Oxygen Saturation VBG 79.4 %; pH VBG 7.45 (7.36-7.41)
[2021-07-25 08:41] LABS: Basophils # (auto) 0.01 K/uL (0-0.2); Basophils % (auto) 0.1 %; Eosinophils # (auto) 0.02 K/uL (0-0.5); Eosinophils % (auto) 0.1 %; Hematocrit (blood only) 33.6 % (42-52); Hemoglobin 11.1 g/dL (14.0-18.0); Immature Granulocytes # (auto) 0.03 K/uL (0.00-0.02); Immature Granulocytes % (auto) 0.2 %; Lymphocytes # (auto) 0.82 K/uL (1.2-3.4); Lymphocytes % (auto) 5.7 %; Mean Corpuscular Hemoglobin 31.7 pg (25-34); Mean Platelet Volume 10.6 fL (7.4-10.4); Monocytes # (auto) 0.39 K/uL (0.11-0.59); Monocytes % (auto) 2.7 %; Neutrophils # (auto) 13.17 K/uL (1.4-6.5); Neutrophils % (auto) 91.2 %; Platelet Count 139 K/uL (130-400); RDW Coefficient of Variation 16.5 % (11.5-14.5); RDW Standard Deviation 57.6 fL (36.4-46.3); White Blood Count 14.44 K/uL (4.8-10.8)
[2021-07-25] MEDS ORDERED: FINASTERIDE 5 MG TAB PO SCH (09:00)
[2021-07-25] MEDS ORDERED: amLODIPine BESYLATE 5 MG TAB PO SCH (09:00)
[2021-07-25] MEDS ORDERED: ASPIRIN 81 MG ECTAB PO SCH (09:00)
[2021-07-25] MEDS ORDERED: allopurinoL 100 MG TAB PO SCH (09:00)
[2021-07-25] MEDS ORDERED: ISOSORBIDE MONO EXTENDED REL 60 MG TABCR PO SCH (09:00)
[2021-07-25] MEDS ORDERED: AMIODARONE 200 MG TAB PO SCH (09:00)
[2021-07-25] MEDS ORDERED: TAMSULOSIN HCL 0.4 MG CAP PO SCH (09:00)
[2021-07-25 09:04] LABS: BUN Creatinine Ratio 26.4 (10-20); Calcium 8.4 mg/dl (8.5-10.1); Creatinine Clr Calc Pharmacy 19.8 ml/min; Est GFR (African American) 25.4 ml/min; Est GFR (Non-African American) 21.9 ml/min; Potassium 3.6 mmol/L (3.5-5.1)
[2021-07-25] MEDS: hydrALAZINE TAB 50 MG TAB PO SCH ×2 (10:25→15:10)
[2021-07-25] MEDS ORDERED: ADVANCED PROBIOTIC 1250 MG CAPSULE PO SCH (13:15)
--- NOTE | 2021-07-25 13:47 | Discharge Summary ---
Date of Service July 25, 2021 Admission HPI Per Admitting Provider History obtained from patient and records. Medical history significant for chronic diastolic heart failure (EF 65 to 70%, TTE 2019 ), PAF off Coumadin secondary to GI bleed, pulmonary hypertension as per records, HTN, hyperlipidemia, PVD status post surgery, CRI (baseline creatinine 2.7), chronic anemia (baseline hemoglobin 10), hypothyroidism, past tobacco abuse. Last confinement June 2020 for GI bleed. No obvious bleeding lesions on endoscopy. Coumadin stopped on discharge. Yesterday, patient had fever of 101.5 at home associated with shaking chills and rigors. Patient denies chest pain, cough, flulike symptoms, abdominal pain, diarrhea, dysuria. Appetite okay. No known recent sick contacts. Patient completed COVID-19 vaccination. Patient given Ceftriaxone at the ER for possible pneumonia. 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 Admission Exam Per Admitting Provider GENERAL: Comfortable, pleasant, slightly hard of hearing, no respiratory distress SKIN: Pallor, warm HEENT: Pale palpebral conjunctivae, no ptosis, dry buccal mucosa NECK : Supple, no tenderness CHEST : CTA, no tenderness HEART : Irregular, apical systolic murmur ABDOMEN: Some distention, nontender EXTREMITIES : No LE swelling/tenderness, no other conspicuous deformities noted NEUROLOGIC : Coherent, no facial asymmetry, mild hearing impairment, no other gross focality Principal Diagnosis Community-acquired pneumonia Discharge Exam GENERAL: Alert and oriented x3. NAD, on RA. HEENT: No pallor, no icterus. Pupils equal, round and reactive to light. Oral mucosa moist. NECK: No JVD, no neck masses. HEART: S1 and S2 heard. Regular rate and rhythm. No murmur, no gallop. RESPIRATORY SYSTEM: Normal AP diameter. No accessory muscle use. No wheezing, no crackles. ABDOMEN: Soft, bowel sounds present, nontender, no distention. CENTRAL NERVOUS SYSTEM: No facial droop. Speech is clear. Obeys simple commands. Moves extremities. EXTREMITIES: No edema, no erythema seen. Discharge Data Allergies Allergy/AdvReac Type Severity Reaction Status Date / Time Penicillins AdvReac Intermediate PENILE Verified 04/20/22 23:30 ENLARGEMENT tramadol AdvReac Intermediate GI SYMPTOMS Verified 07/24/21 23:30 Consultations 07/25/21 02:24 ED Decision to Admit Stat Hospital Course (1) Pneumonia: Patient was admitted with complaint of fever and chills. Patient was appropriate while in the hospital. Patient was getting treatment for possible CAP. Patient feels better and back to his baseline. Patient insists on going home. Patient is being discharged to home with antibiotics for 5 days and blood work CBC in 5 days. Have the results forwarded to the PCP. Patient made aware that if his blood cultures come back positive, he might need to come back to the hospital. Otherwise patient is subjectively doing great and at his baseline. Per chart review, sepsis was not present at admission. WBC was elevated but there was only 1 time elevation in pulse rate above 90. Following instructions were communicated to the patient at the point of discharge: Follow-up with your primary care physician within 1 week time. You have been discharged on 2 antibiotics, take them for 5 more days. Take probiotics for the same duration. Get your blood work CBC done in a week time. Take your medications as prescribed. Total Time Total Time Spent Total Time Spent (In Minutes): 35 Discharge Plan Discharge Items Patient Disposition: Home - Self-Care Reason For Visit: SEPSIS Discharge Diagnosis: Possible community-acquired pneumonia Activity: Resume your previous activity Non-emergency contact: Primary Care Provider Call non-emergency contact if: you have any medication questions, your symptoms worsen and your temperature is above 101 Follow-up/Referrals: Virgen Oliver MD [Primary Care Provider] - Diet: Heart Healthy Addtl Attending Provider Instructions: Follow-up with your primary care physician within 1 week time. You have been discharged on 2 antibiotics, take them for 5 more days. Take probiotics for the same duration. Get your blood work CBC done in a week time. Take your medications as prescribed. Pending Studies at Discharge: Yes (Admitting blood culture.) Stand-Alone Forms: My [employer], Smoking Cessation Medications and DC Order Prescriptions: New Cefdinir Cap [Omnicef Cap] 300 mg PO DAILY 5 Days Qty: 5 RF: 0 Doxycycline Hyclate [Vibramycin] 100 mg PO BID 5 Days Qty: 10 RF: 0 Lactobacillus Acidophilus [Probiotic] 2 cap PO DAILY 5 Days Qty: 10 RF: 0 Continued atorvastatin 40 mg tablet 40 mg PO HS RF: 0 allopurinol 100 mg tablet 200 mg PO DAILY RF: 0 isosorbide mononitrate 60 mg tablet extended release 24 hr 60 mg PO DAILY RF: 0 tamsulosin 0.4 mg capsule 0.4 mg PO DAILY RF: 0 furosemide 80 mg tablet See Rx Instructions .ROUTE .COMPLEX RF: 0 aspirin 81 mg Tablet,Delayed Release (Dr/Ec) 81 mg PO DAILY RF: 0 levothyroxine 125 mcg tablet 125 mcg PO DAILYBB RF: 0 finasteride 5 mg tablet 5 mg PO DAILY RF: 0 polyethylene glycol 3350 [Miralax] 17 gram/dose Powder 17 g PO Q2D PRN (Reason: Constipation) RF: 0 potassium chloride 20 mEq tablet,ER particles/crystals 20 meq PO DAILY RF: 0 hydralazine 50 mg tablet 50 mg PO TID RF: 0 Vitron-C 65 mg iron- 125 mg Tablet,Delayed Release (Dr/Ec) 1 tab PO BID RF: 0 amiodarone 200 mg Tablet 100 mg PO DAILY Qty: 30 RF: 1 Benefiber Clear SF (dextrin) 3 gram/3.5 gram Powder In Packet 3 g PO DAILY RF: 0 amlodipine [Norvasc] 5 mg tablet 10 mg PO QAM RF: 0 Discharge Orders: Discharge Order (Routine); Ordered 07/25/21 Ordered By: Carson Edwards/Other Patient Handouts: A1C Admission Data Admit Date/Time: 07/25/21 03:18 Attending Provider: Carson Morales Admit Provider: Vinod Dugan Primary Care Provider: Virgen Oliver Other Providers: Vinod Dugan
[2021-07-25] MEDS ORDERED: HEPARIN SOD 5,000 UNIT/0.5 ML VIAL SQ SCH (14:00)
[2021-07-25] MEDS ORDERED: CEFDINIR 300 MG CAP PO SCH (14:00)
--- NOTE | 2021-07-25 18:09 | Electrocardiogram Report ---
Test Reason : Blood Pressure : / mmHG Vent. Rate : 084 BPM Atrial Rate : 075 BPM P-R Int : 000 ms QRS Dur : 088 ms QT Int : 402 ms P-R-T Axes : 000 022 132 degrees QTc Int : 475 ms Poor data quality, interpretation may be adversely affected Sinus rhythm with PACs Left ventricular hypertrophy with repolarization abnormality Abnormal ECG Confirmed by Alex Stevens ([id number]) on 07/25/2021 6:09:45 PM Referred By: REFERRED SELF Confirmed By:Joe Stevens
[2021-07-25] MEDS ORDERED: DOXYCYCLINE HYCLATE 100 MG CAP PO SCH (21:00)
[2021-07-25] MEDS ORDERED: ATORVASTATIN 40 MG TAB PO SCH (21:00)
== END 2021-07-25 17:04 | disposition home or self-care (01) ==
LOC: ED 22:33 → INTOOBSV 07-25 03:18 → 3W 07-25 03:18

== ENCOUNTER 2021-08-08 03:28 | Inpatient (IN) ==
--- NOTE | 2021-08-08 04:12 | Emergency Department Note ---
Impression & Plan Hypoxia, CHF (congestive heart failure), Non-ST elevation (NSTEMI) myocardial infarction Admit to the [facility] service ED Provider Note NAME: CARLOS DAVEY AGE: 89 SEX: M ARRIVES VIA: Walk-In INFORMANT: Patient ED PROVIDER(S): Renée Guadalupe DO CHIEF COMPLAINT: Shortness of breath PLAN: Disposition: Admit to the [facility] Condition: Guarded MEDICAL DECISION MAKING: This is an 89-year-old male patient who presents to the emergency department with weakness and shortness of breath. Was hypoxic on presentation saturations at 83% on room air. Patient described being febrile at home and chest x-ray was somewhat concerning for a right-sided opacity. The patient had an elevated white blood cell count, elevated troponin elevated D-dimer and elevated BNP. He was started on IV antibiotics and remains on supplemental oxygen. Patient has atrial fibrillation and does not take anticoagulation as he has previously been anemic. This would be concerning for PE. I am unable to obtain CT angiogram at this time as the patient's creatinine is too high. He will require VQ scan. Although, patient's presentation is concerning for congestive heart failure and NSTEMI. [facility] Nursing notes reviewed and agree with them. Additional history obtained from the patient's son who is at the bedside Prior medical records reviewed Vital Signs: reviewed and remarkable for hypoxia and hypertension Differential diagnosis: CHF, pneumonia, pulmonary embolism, pneumothorax ER treatment provided: IV Levaquin Diagnostics interpreted by me: ECG: Atrial fibrillation at a rate of [address] segment elevation. There is ST segment depression in leads V6, II, III and aVF there is a prolonged QT at 533 ms. Cardiac Monitoring: A. fib at 77 Laboratory studies: See below Imaging studies: As per my interpretation Chest x-ray: Right lower lobe opacity with moderate pulmonary vascular congestion consistent with CHF HPI: 89/M arrives for evaluation of shortness of breath. The patient felt feverish at home and took some Tylenol and then began to feel short of breath. Patient was here 2 weeks ago in the emergency department for shortness of breath and was diagnosed with a probable pneumonia. He was admitted to the hospital for 1 day on antibiotics. The patient describes a cough as of breath tonight. He did get his COVID booster earlier in the day and wondered if it could be related to this. ROS: See above HPI for pertinent positives & negatives. A total of 10 systems reviewed and were otherwise negative. PAST MEDICAL HISTORY:See Below PAST SURGICAL HISTORY:See Below FAMILY HISTORY:See Below SOCIAL HISTORY:Patient lives alone HOME MEDICATIONS:See list ALLERGIES:See list VITALS:See Below PHYSICAL EXAMINATION: HEENT: Head - normocephalic and atraumatic. Pupils are equal, round, and reactive to light. Extraocular eye muscles are intact, and sclera are anicteric. Nose - moist nasal mucosa without discharge. Mouth - moist buccal mucosa. Oropharynx is nonerythematous and there is no tonsillar exudate or edema noted. Neck: Supple; no JVD or cervical lymphadenopathy Heart: Irregularly irregular rhythm with a controlled rate there is a normal S1 and S2 with no murmurs, clicks, or gallops appreciated. Lungs: Diminished breath sounds at the right base compared to the left. Mild rales heard in all lung myers Abdomen: Soft, completely nontender, nondistended, with good bowel sounds. There are no palpable pulsatile masses or hepatosplenomegaly. There is no guarding, rigidity, or rebound noted. Extremities: No evidence of cyanosis, clubbing, or edema. There are easily palpable peripheral pulses. Skin: warm and dry with good turgor and no rashes. ED COURSE: Times/Reassessments: 350: The patient was evaluated in room C9. A complete history and physical was performed. An order was placed for continuous cardiac monitoring. The patient was in A. fib at a rate of 77. Laboratory studies were drawn as above. A twelve-lead EKG was obtained as described above. A portable chest x-ray was performed. I kept the patient and his son abreast of the situation. The patient remained hemodynamically stable. He was started on IV Levaquin for possible pneumonia. I explained the patient that he would need to go for CT scan of the chest to rule in/out pneumonia and then a VQ scan to rule out PE. Discussed the case with the [facility] hospitalist and they will evaluate for further management. I have personally spent greater than 30 minutes of critical care time in the direct management of this patient. This includes bedside care, interpretation of diagnostic studies, and testing, discussion with consultants, patient, and family members, and other required patient management activities. This 30 minutes is in excess of all separately billable procedures. Renée Guadalupe DO Past Med/Surg History Medical History Acute pancreatitis Anemia Atrial fibrillation BPH (benign prostatic hyperplasia) CKD stage 4 secondary to hypertension Dialysis patient "short term post ANETA from sepsis" Dyslipidemia Elevated troponin GERD (gastroesophageal reflux disease) Gout HTN (hypertension) Hypothyroidism Ischemic cardiomyopathy NSTEMI (non-ST elevated myocardial infarction) Paroxysmal atrial fibrillation Pernicious anemia PVD (peripheral vascular disease) Stress-induced cardiomyopathy "normal LVEF on most recent echo" Surgical History Status post carotid endarterectomy "right" Status post carpal tunnel release Status post cataract extraction Family History Other Diabetes Hypertension Stroke Social History Smoking Status: Never smoker Cigarettes Per Day: 60 per day.; Second Hand Exposure: No; Hx Alcohol Use: No Hx Substance Use: No Preferred Language: Nepali Communication Ability: Effective Travel Specialist Required: Yes Beliefs That Will Affect Care: None marital status: / Current Living Situation: Alone How many Children do You have: 2 Other Information That Helps Us Care for You: No Feels Safe at Home: Yes Safety Concerns: Feels Safe At This Time Assistive Devices: None Allergies Allergies Allergy/AdvReac Type Severity Reaction Status Date / Time Penicillins AdvReac Intermediate PENILE Verified 08/08/21 06:27 ENLARGEMENT tramadol AdvReac Intermediate GI SYMPTOMS Verified 08/08/21 06:27 Home Meds Home Medications Medication Instructions Recorded Confirmed allopurinol 100 mg tablet 200 mg PO QAM 03/05/20 08/08/21 aspirin 81 mg tablet,delayed 81 mg PO QAM 03/05/20 08/08/21 release atorvastatin 40 mg tablet 40 mg PO HS 03/05/20 08/08/21 finasteride 5 mg tablet 5 mg PO QAM 03/05/20 08/08/21 furosemide 80 mg tablet See Rx Instructions .ROUTE .COMPLEX 03/05/20 08/08/21 hydralazine 50 mg tablet 50 mg PO TID 03/05/20 08/08/21 iron,carbonyl 65 mg-vitamin C 125 1 tab PO BID 03/05/20 08/08/21 mg tablet,delayed release (Vitron-C) isosorbide mononitrate 60 mg 60 mg PO HS 03/05/20 08/08/21 tablet,extended release 24 hr levothyroxine 125 mcg tablet 125 mcg PO DAILYBB 03/05/20 08/08/21 potassium chloride 20 mEq 20 meq PO HS 03/05/20 08/08/21 tablet,extended release(part/cryst) tamsulosin 0.4 mg capsule 0.4 mg PO HS 03/05/20 08/08/21 amlodipine 5 mg tablet (Norvasc) 10 mg PO HS 07/24/21 08/08/21 wheat dextrin 3 gram/3.5 gram oral 3 g PO HS 07/24/21 08/08/21 powder packet (Benefiber Clear Sugar Free(dextrin)) amiodarone 200 mg tablet 100 mg PO QAM 08/08/21 08/08/21 Results & Data (ED) Vital Signs Vital Signs - 24 hr 08/08/21 03:30 08/08/21 03:38 08/08/21 04:00 Temperature 37.1 C 37.2 C Temperature Source Oral Oral Pulse Rate 77 75 Pulse Rate [Apical] 85 Pulse Rhythm Regular Pulse Rhythm [Apical] Regular Pulse Strength [Apical] Normal Respiratory Rate 18 20 18 Respiratory Effort / Characteristics Non-Labored Spontaneous Non-Labored Spontaneous Respiratory Depth Normal Shallow Blood Pressure 186/76 H Blood Pressure [Left Arm] 186/76 H Blood Pressure Mean 112 Blood Pressure Mean [Left Arm] 112 Blood Pressure Position Sitting Blood Pressure Position [Left Arm] Lying Pulse Oximetry 95 83 L 95 Oxygen Delivery Method Nasal Cannula Room Air Nasal Cannula Oxygen Flow Rate 5 5 4 Sepsis Recent Fever Within 48 Hours Yes Sepsis New/Unexplained Change in Mental Status No Sepsis Action Taken by Nursing No Action Required 08/08/21 04:15 08/08/21 05:00 Temperature Temperature Source Pulse Rate 71 Pulse Rate [Apical] 66 Pulse Rhythm Regular Pulse Rhythm [Apical] Regular Pulse Strength [Apical] Normal Respiratory Rate 18 18 Respiratory Effort / Characteristics Non-Labored Spontaneous Respiratory Depth Normal Blood Pressure Blood Pressure [Left Arm] 186/76 H Blood Pressure Mean Blood Pressure Mean [Left Arm] 112 Blood Pressure Position Blood Pressure Position [Left Arm] Lying Pulse Oximetry 95 94 Oxygen Delivery Method Nasal Cannula Nasal Cannula Oxygen Flow Rate 4 4 Sepsis Recent Fever Within 48 Hours Sepsis New/Unexplained Change in Mental Status Sepsis Action Taken by Nursing Laboratory Data Result diagrams: 08/08/21 03:48 08/08/21 03:48 Lab Results 08/08/21 08/08/21 08/08/21 Range/Units 03:48 03:48 03:48 WBC 16.67 H (4.8-10.8) K/uL RBC 3.59 L (4.7-6.1) M/uL Hgb 11.2 L (14.0-18.0) g/dL Hct 33.7 L (42-52) % MCV 93.9 (80-100) fL MCH 31.2 (25-34) pg MCHC 33.2 (32-36) g/dL RDW Std Deviation 56.5 H (36.4-46.3) fL RDW Coeff of Yuri 16.4 H (11.5-14.5) % Plt Count 169 (130-400) K/uL MPV 10.4 (7.4-10.4) fL Immature Gran % (Auto) 0.3 % Neut % (Auto) 87.5 % Lymph % (Auto) 4.6 % [place] % (Auto) 6.9 % Eos % (Auto) 0.6 % Baso % (Auto) 0.1 % Neut # (Auto) 14.59 H (1.4-6.5) K/uL Lymph # (Auto) 0.76 L (1.2-3.4) K/uL [place] # (Auto) 1.15 H (0.11-0.59) K/uL Eos # (Auto) 0.10 (0-0.5) K/uL Baso # (Auto) 0.02 (0-0.2) K/uL Immature Gran # (Auto) 0.05 H (0.00-0.02) K/uL RBC Morphology Unremarkable APTT (21.0-31.0) Seconds PTT Ratio D-Dimer 1200 H* (0-500) ug/L FEU Sodium (136-145) mmol/L Potassium (3.5-5.1) mmol/L Chloride (98-107) mmol/L Carbon Dioxide (21-32) mmol/L Anion Gap (3-11) BUN (6-23) mg/dl Creatinine (0.6-1.4) mg/dl Est Cr Clr Drug Dosing ml/min Est GFR ( Amer) ml/min Est GFR (Non-Af Amer) ml/min BUN/Creatinine Ratio (10-20) Glucose (70-99(Fasting)) mg/dl Calcium (8.5-10.1) mg/dl Total Bilirubin (0.2-1.0) mg/dl AST (13-39) U/L ALT (7-52) U/L Alkaline Phosphatase (34-104) U/L Troponin I High Sens 134.4 H* (0-20) pg/ml B-Natriuretic Peptide (0-100) pg/ml Total Protein (6.0-8.3) gm/dl Albumin (3.4-5.0) gm/dl Globulin (2.5-4.0) gm/dl Albumin/Globulin Ratio (0.9-2) Procalcitonin (0-0.5) ng/ml 08/08/21 08/08/21 08/08/21 Range/Units 03:48 03:48 03:48 WBC (4.8-10.8) K/uL RBC (4.7-6.1) M/uL Hgb (14.0-18.0) g/dL Hct (42-52) % MCV (80-100) fL MCH (25-34) pg MCHC (32-36) g/dL RDW Std Deviation (36.4-46.3) fL RDW Coeff of Yuri (11.5-14.5) % Plt Count (130-400) K/uL MPV (7.4-10.4) fL Immature Gran % (Auto) % Neut % (Auto) % Lymph % (Auto) % [place] % (Auto) % Eos % (Auto) % Baso % (Auto) % Neut # (Auto) (1.4-6.5) K/uL Lymph # (Auto) (1.2-3.4) K/uL [place] # (Auto) (0.11-0.59) K/uL Eos # (Auto) (0-0.5) K/uL Baso # (Auto) (0-0.2) K/uL Immature Gran # (Auto) (0.00-0.02) K/uL RBC Morphology APTT 33.7 H (21.0-31.0) Seconds PTT Ratio 1.2 D-Dimer (0-500) ug/L FEU Sodium 136 (136-145) mmol/L Potassium 3.4 L (3.5-5.1) mmol/L Chloride 103 (98-107) mmol/L Carbon Dioxide 21 (21-32) mmol/L Anion Gap 12 H (3-11) BUN 59 H (6-23) mg/dl Creatinine 2.50 H (0.6-1.4) mg/dl Est Cr Clr Drug Dosing 18.7 ml/min Est GFR ( Amer) 25.4 ml/min Est GFR (Non-Af Amer) 21.9 ml/min BUN/Creatinine Ratio 23.6 H (10-20) Glucose 129 H (70-99(Fasting)) mg/dl Calcium 9.0 (8.5-10.1) mg/dl Total Bilirubin 1.2 H (0.2-1.0) mg/dl AST 20 (13-39) U/L ALT 15 (7-52) U/L Alkaline Phosphatase 58 (34-104) U/L Troponin I High Sens (0-20) pg/ml B-Natriuretic Peptide (0-100) pg/ml Total Protein 6.4 (6.0-8.3) gm/dl Albumin 3.7 (3.4-5.0) gm/dl Globulin 2.7 (2.5-4.0) gm/dl Albumin/Globulin Ratio 1.4 (0.9-2) Procalcitonin 0.18 (0-0.5) ng/ml 08/08/21 Range/Units 04:35 WBC (4.8-10.8) K/uL RBC (4.7-6.1) M/uL Hgb (14.0-18.0) g/dL Hct (42-52) % MCV (80-100) fL MCH (25-34) pg MCHC (32-36) g/dL RDW Std Deviation (36.4-46.3) fL RDW Coeff of Yuri (11.5-14.5) % Plt Count (130-400) K/uL MPV (7.4-10.4) fL Immature Gran % (Auto) % Neut % (Auto) % Lymph % (Auto) % [place] % (Auto) % Eos % (Auto) % Baso % (Auto) % Neut # (Auto) (1.4-6.5) K/uL Lymph # (Auto) (1.2-3.4) K/uL [place] # (Auto) (0.11-0.59) K/uL Eos # (Auto) (0-0.5) K/uL Baso # (Auto) (0-0.2) K/uL Immature Gran # (Auto) (0.00-0.02) K/uL RBC Morphology APTT (21.0-31.0) Seconds PTT Ratio D-Dimer (0-500) ug/L FEU Sodium (136-145) mmol/L Potassium (3.5-5.1) mmol/L Chloride (98-107) mmol/L Carbon Dioxide (21-32) mmol/L Anion Gap (3-11) BUN (6-23) mg/dl Creatinine (0.6-1.4) mg/dl Est Cr Clr Drug Dosing ml/min Est GFR ( Amer) ml/min Est GFR (Non-Af Amer) ml/min BUN/Creatinine Ratio (10-20) Glucose (70-99(Fasting)) mg/dl Calcium (8.5-10.1) mg/dl Total Bilirubin (0.2-1.0) mg/dl AST (13-39) U/L ALT (7-52) U/L Alkaline Phosphatase (34-104) U/L Troponin I High Sens (0-20) pg/ml B-Natriuretic Peptide 1894 H (0-100) pg/ml Total Protein (6.0-8.3) gm/dl Albumin (3.4-5.0) gm/dl Globulin (2.5-4.0) gm/dl Albumin/Globulin Ratio (0.9-2) Procalcitonin (0-0.5) ng/ml Administered Medications Allopurinol (Allopurinol 100 Mg Tab) 200 mg PO DAILY MARBIN Stop: 09/07/21 10:08 Last Admin: 08/08/21 10:53 Dose: 200 mg Documented by: [id number] Amiodarone HCl (Amiodarone 200 Mg Tab) 100 mg PO DAILY MARBIN Stop: 09/07/21 10:08 Last Admin: 08/08/21 10:54 Dose: 100 mg Documented by: [id number] Aspirin (Aspirin 81 Mg Ectab) 81 mg PO DAILY MARBIN Stop: 09/07/21 10:08 Last Admin: 08/08/21 10:54 Dose: 81 mg Documented by: [id number] Atorvastatin Calcium (Atorvastatin 40 Mg Tab) 40 mg PO HS MARBIN Stop: 09/07/21 20:59 Last Admin: 08/08/21 21:19 Dose: 40 mg Documented by: [id number] Finasteride (Finasteride 5 Mg Tab) 5 mg PO DAILY MARBIN Stop: 09/07/21 10:08 Last Admin: 08/08/21 10:54 Dose: 5 mg Documented by: [id number] Furosemide (Furosemide 40 Mg/4 Ml Vial) 40 mg IV BID MARBIN Stop: 09/07/21 20:59 Last Admin: 08/08/21 21:18 Dose: 40 mg Documented by: [id number] Hydralazine HCl (Hydralazine Tab 50 Mg Tab) 50 mg PO TID MARBIN Stop: 09/07/21 10:29 Last Admin: 08/08/21 21:19 Dose: 50 mg Documented by: [id number] Admin: 08/08/21 15:36 Dose: 50 mg Documented by: [id number] Admin: 08/08/21 10:55 Dose: 50 mg Documented by: [id number] Isosorbide Mononitrate (Isosorbide [place] Extended Rel 60 Mg Tabcr) 60 mg PO DAILY MARBIN Stop: 09/07/21 10:08 Last Admin: 08/08/21 10:54 Dose: 60 mg Documented by: [id number] Levothyroxine Sodium (Levothyroxine Sodium 125 Mcg Tablet) 125 mcg PO DAILYBB MARBIN Stop: 09/07/21 10:08 Last Admin: 08/08/21 10:55 Dose: 125 mcg Documented by: [id number] Potassium Chloride (Potassium Chloride Crtab 20 Meq Tabcr) 20 meq PO BID MARBIN Stop: 09/07/21 19:59 Last Admin: 08/08/21 21:19 Dose: 20 meq Documented by: [id number] Tamsulosin HCl (Tamsulosin Hcl 0.4 Mg Cap) 0.4 mg PO DAILY MARBIN Stop: 09/07/21 10:08 Last Admin: 08/08/21 10:55 Dose: 0.4 mg Documented by: [id number] Discontinued Medications Amlodipine Besylate (Amlodipine Besylate 5 Mg Tab) 10 mg PO NOW STA Stop: 08/08/21 05:14 Last Admin: 08/08/21 05:35 Dose: 10 mg Documented by: [id number] Furosemide (Furosemide 40 Mg/4 Ml Vial) 40 mg IV DAILY MARBIN Stop: 09/07/21 09:44 Last Admin: 08/08/21 10:31 Dose: 40 mg Documented by: [id number] Heparin Sodium/Dextrose (Heparin Iv Adult Wt-Based Low-Dose *No* Bolus Protocol) 1 ea IV ONE STA; Protocol Stop: 08/08/21 05:58 Last Admin: 08/08/21 07:40 Dose: 1 ea Documented by: [id number] Levofloxacin/Dextrose (Levaquin/D5w) 750 mg in 150 mls @ 100 mls/hr IV NOW STA Stop: 08/08/21 06:21 Last Infusion: 08/08/21 07:34 Dose: 0 mls/hr Documented by: [id number] Admin: 08/08/21 05:36 Dose: 100 mls/hr Documented by: [id number] Heparin Sodium/Dextrose (Heparin Sodium/Dextrose) 25,000 units in 500 mls @ 16 mls/hr IV .Q24H MARBIN; Protocol Stop: 09/07/21 07:29 Last Titration: 08/08/21 17:26 Dose: 0 units/hr, 0 mls/hr Documented by: [id number] Cosigned by: [id number] Admin: 08/08/21 07:39 Dose: 800 units/hr, 16 mls/hr Documented by: [id number] Cosigned by: [id number] Lactated Ringer's (Lr) 1,000 mls @ 40 mls/hr IV .Q24H STA Stop: 08/09/21 06:01 Last Admin: 08/08/21 09:29 Dose: Not Given Documented by: [id number] Methylprednisolone (Methylprednisolone 40 Mg/Ml Vial) 20 mg IV NOW STA Stop: 08/08/21 05:12 Last Admin: 08/08/21 05:35 Dose: 20 mg Documented by: [id number] Potassium Chloride (Potassium Chloride Pwd 20 Meq Pack) 40 meq PO NOW STA Stop: 08/08/21 05:17 Last Admin: 08/08/21 05:35 Dose: 40 meq Documented by: [id number] Imaging Data Radiologist's Impression: Chest X-Ray 08/08/21 04:03 XR chest 1V portable HISTORY: Dyspnea COMPARISON: Chest 07/24/2021. FINDINGS: No pneumothorax. The cardiac silhouette remains mildly enlarged. There is progressive interstitial/vascular thickening and small bilateral pleural effusions consistent with pulmonary edema. No acute rib fractures. IMPRESSION: Interval progression of the mild interstitial pulmonary edema and small bilateral pleural effusions. ACT 112: Negative or not required by law. Electronically signed by: Joe Singh M.D. 08/08/2021 7:59 AM Discharge Plan Visit Data Chief Complaint: Fever Stated Complaint: SLIGHT FEVER,WEAKNESS ED Provider: Renée Guadalupe Discharge Problem: Hypoxia, CHF (congestive heart failure), Non-ST elevation (NSTEMI) myocardial infarction Patient Disposition: Admitted As Inpatient Discharge Instructions Interventions: ED Discharge Assessment Last Done: 08/08/21 07:46 Discharge Problem: CHF (congestive heart failure) Qualifiers: Heart failure type: unspecified Heart failure chronicity: acute Qualified Code(s): I50.9 - Heart failure, unspecified
[2021-08-08 04:13] LABS: Hematocrit (blood only) 33.7 % (42-52); Hemoglobin 11.2 g/dL (14.0-18.0); Mean Corpuscular Hemoglobin 31.2 pg (25-34); Mean Corpuscular Hgb Conc 33.2 g/dL (32-36); Mean Corpuscular Volume 93.9 fL (80-100); Mean Platelet Volume 10.4 fL (7.4-10.4); Platelet Count 169 K/uL (130-400); RDW Coefficient of Variation 16.4 % (11.5-14.5); RDW Standard Deviation 56.5 fL (36.4-46.3); Red Blood Count 3.59 M/uL (4.7-6.1); White Blood Count 16.67 K/uL (4.8-10.8)
[2021-08-08 04:33] LABS: Basophils # (auto) 0.02 K/uL (0-0.2); Basophils % (auto) 0.1 %; Eosinophils % (auto) 0.6 %; Immature Granulocytes # (auto) 0.05 K/uL (0.00-0.02); Immature Granulocytes % (auto) 0.3 %; Lymphocytes # (auto) 0.76 K/uL (1.2-3.4); Lymphocytes % (auto) 4.6 %; Monocytes # (auto) 1.15 K/uL (0.11-0.59); Monocytes % (auto) 6.9 %; Neutrophils # (auto) 14.59 K/uL (1.4-6.5); Neutrophils % (auto) 87.5 %; RBC Morphology Unremarkable
[2021-08-08 04:36] LABS: Albumin Globulin Ratio 1.4 (0.9-2); Albumin Level 3.7 gm/dl (3.4-5.0); BUN Creatinine Ratio 23.6 (10-20); Bilirubin,Total 1.2 mg/dl (0.2-1.0); Creatinine Clr Calc Pharmacy 18.7 ml/min; Est GFR (African American) 25.4 ml/min; Est GFR (Non-African American) 21.9 ml/min; Globulin 2.7 gm/dl (2.5-4.0); Potassium 3.4 mmol/L (3.5-5.1); Total Protein 6.4 gm/dl (6.0-8.3)
[2021-08-08 04:50] LABS: D Dimer 1200 ug/L FEU (0-500)
[2021-08-08] MEDS ORDERED: levoFLOXacin/D5W 750 MG/150 ML BAG IV STA (04:52)
[2021-08-08] MEDS ORDERED: amLODIPine BESYLATE 5 MG TAB PO STA (05:13)
[2021-08-08] MEDS ORDERED: POTASSIUM CHLORIDE PWD 20 MEQ PACK PO STA (05:16)
[2021-08-08 05:34] LABS: Partial Thromboplastin Ratio 1.2; Partial Thromboplastin Time 33.7 Seconds (21.0-31.0)
[2021-08-08] MEDS ORDERED: Heparin IV Adult Wt-Based Low-Dose *NO* Bolus Protocol IV STA (05:57)
--- NOTE | 2021-08-08 05:57 | History & Physical Report ---
Date of Service August 08, 2021 Assessment & Plan (1) Acute hypoxemic respiratory failure: Plan: Rule out pulmonary embolism chronic diastolic heart failure (EF 65 to 70%, TTE 2019 ), equivocal volume status given mild AGMA and pulmonary congestion. AF, rate controlled, off Coumadin secondary to GI bleed (06/2020) pulmonary hypertension as per records HTN, slightly elevated Troponin elevation secondary to respiratory failure, uncontrolled BP, kidney dysfunction hyperlipidemia on statin Rx PVD status post surgery CRI, creatinine at baseline chronic anemia, hemoglobin at baseline hypothyroidism, euthyroid as of recent outpatient TSH Hypokalemia secondary to home diuretic Rx past tobacco abuse patient in the ER is hopeless she just wanted to take drugs again been provided via just could not wait till next year it is right PCU given troponin elevation Supplemental O2 Baseline ABG Low-dose IV heparin until PE ruled out by VQ scan/LE Dopplers (CT angio study precluded by abnormal kidney function) CT chest noncontrast study Re: Hypoxemia (Hold off on additional antibiotics until definite pneumonia found on CT imaging.) Facilitate home BP meds Follow troponin, TTE if with progression Replace potassium DVT prophylaxis. IV Heparin Full code Text document was generated using [employer] voice recognition software. It may contain grammatical or spelling errors. Kindly contact undersigned for clarification of any documentation item in question. History of Present Illness Chief Complaint: Shortness of breath Primary Care Provider: Virgen Oliver MD History obtained from patient and records. Medical history significant for chronic diastolic heart failure (EF 65 to 70%, TTE 2019 ), PAF off Coumadin secondary to GI bleed, pulmonary hypertension as per records, HTN, hyperlipidemia, PVD status post surgery, CRI (baseline creatinine 2.7), chronic anemia (baseline hemoglobin 10), hypothyroidism, past tobacco abuse. Last confinement 2 weeks ago for sepsis secondary to atypical pneumonia. Patient discharged on cefdinir and doxycycline course. Patient roused from sleep this morning with sudden shortness of breath with substernal pain. No cough symptoms. No unusual swelling/fluid retention. Denies aspiration. O2 sats 80s on room air upon arrival at the ER. Patient given Levaquin in the ER for possible pneumonia. Patient currently comfortable. 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 Allergies Allergy/AdvReac Type Severity Reaction Status Date / Time Penicillins AdvReac Intermediate PENILE Verified 08/08/21 06:27 ENLARGEMENT tramadol AdvReac Intermediate GI SYMPTOMS Verified 08/08/21 06:27 Home Medications Medication Instructions Recorded Confirmed Type allopurinol 100 mg tablet 200 mg PO QAM 03/05/20 08/08/21 History aspirin 81 mg tablet,delayed 81 mg PO QAM 03/05/20 08/08/21 History release atorvastatin 40 mg tablet 40 mg PO HS 03/05/20 08/08/21 History finasteride 5 mg tablet 5 mg PO QAM 03/05/20 08/08/21 History furosemide 80 mg tablet See Rx Instructions .ROUTE .COMPLEX 03/05/20 08/08/21 History hydralazine 50 mg tablet 50 mg PO TID 03/05/20 08/08/21 History iron,carbonyl 65 mg-vitamin C 125 1 tab PO BID 03/05/20 08/08/21 History mg tablet,delayed release (Vitron-C) isosorbide mononitrate 60 mg 60 mg PO HS 03/05/20 08/08/21 History tablet,extended release 24 hr levothyroxine 125 mcg tablet 125 mcg PO DAILYBB 03/05/20 08/08/21 History potassium chloride 20 mEq 20 meq PO HS 03/05/20 08/08/21 History tablet,extended release(part/cryst) tamsulosin 0.4 mg capsule 0.4 mg PO HS 03/05/20 08/08/21 History amlodipine 5 mg tablet (Norvasc) 10 mg PO HS 07/24/21 08/08/21 History wheat dextrin 3 gram/3.5 gram oral 3 g PO HS 07/24/21 08/08/21 History powder packet (Benefiber Clear Sugar Free(dextrin)) amiodarone 200 mg tablet 100 mg PO QAM 08/08/21 08/08/21 History Past Med/Surg History Medical History Acute pancreatitis Anemia Atrial fibrillation BPH (benign prostatic hyperplasia) CKD stage 4 secondary to hypertension Dialysis patient "short term post ANETA from sepsis" Dyslipidemia Elevated troponin GERD (gastroesophageal reflux disease) Gout HTN (hypertension) Hypothyroidism Ischemic cardiomyopathy NSTEMI (non-ST elevated myocardial infarction) Paroxysmal atrial fibrillation Pernicious anemia PVD (peripheral vascular disease) Stress-induced cardiomyopathy "normal LVEF on most recent echo" Surgical History Status post carotid endarterectomy "right" Status post carpal tunnel release Status post cataract extraction Family History Other Diabetes Hypertension Stroke Social History Smoking Status: Never smoker Cigarettes Per Day: 60 per day.; Second Hand Exposure: No; Hx Alcohol Use: Yes Alcohol type: beer, wine and hard liquor Hx Substance Use: No Preferred Language: Arabic Communication Ability: Effective 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: Yes Beliefs That Will Affect Care: None marital status: / Current Living Situation: Alone How many Children do You have: 2 Feels Safe at Home: Yes Assistive Devices: None Review of Systems Review of Systems: As per HPI, all other systems reviewed and negative Physical Exam Physical Exam: GENERAL: Comfortable, pleasant, slightly anxious , no respiratory distress SKIN: Pallor, warm HEENT: Pale palpebral conjunctivae, no ptosis, dry buccal mucosa, nasal cannula in place NECK : Supple, no tenderness CHEST : Decreased breath sounds, no tenderness HEART : Irregular, apical systolic murmur ABDOMEN: Some distention, nontender EXTREMITIES : No LE swelling/tenderness, no other conspicuous deformities noted NEUROLOGIC : Coherent, no facial asymmetry, mild hearing impairment, no other gross focality Results & Data Results & Data ([facility]) Vital Signs (Past 12 Hours) Vital Signs Temp Pulse Pulse Resp BP BP Pulse Ox 08/08/21 04:15 71 18 95 08/08/21 04:00 75 18 95 08/08/21 03:38 37.2 C 77 20 186/76 H 83 L 08/08/21 03:30 37.1 C 85 18 186/76 H 95 Laboratory Results Laboratory Results WBC 16.67 K/uL (4.8-10.8) H 08/08/21 03:48 RBC 3.59 M/uL (4.7-6.1) L 08/08/21 03:48 Hgb 11.2 g/dL (14.0-18.0) L 08/08/21 03:48 Hct 33.7 % (42-52) L 08/08/21 03:48 MCV 93.9 fL (80-100) 08/08/21 03:48 MCH 31.2 pg (25-34) 08/08/21 03:48 MCHC 33.2 g/dL (32-36) 08/08/21 03:48 RDW Std Deviation 56.5 fL (36.4-46.3) H 08/08/21 03:48 RDW Coeff of Yuri 16.4 % (11.5-14.5) H 08/08/21 03:48 Plt Count 169 K/uL (130-400) 08/08/21 03:48 MPV 10.4 fL (7.4-10.4) 08/08/21 03:48 Immature Gran % (Auto) 0.3 % 08/08/21 03:48 Neut % (Auto) 87.5 % 08/08/21 03:48 Lymph % (Auto) 4.6 % 08/08/21 03:48 [place] % (Auto) 6.9 % 08/08/21 03:48 Eos % (Auto) 0.6 % 08/08/21 03:48 Baso % (Auto) 0.1 % 08/08/21 03:48 Neut # (Auto) 14.59 K/uL (1.4-6.5) H 08/08/21 03:48 Lymph # (Auto) 0.76 K/uL (1.2-3.4) L 08/08/21 03:48 [place] # (Auto) 1.15 K/uL (0.11-0.59) H 08/08/21 03:48 Eos # (Auto) 0.10 K/uL (0-0.5) 08/08/21 03:48 Baso # (Auto) 0.02 K/uL (0-0.2) 08/08/21 03:48 Immature Gran # (Auto) 0.05 K/uL (0.00-0.02) H 08/08/21 03:48 RBC Morphology Unremarkable 08/08/21 03:48 APTT 33.7 Seconds (21.0-31.0) H 08/08/21 03:48 PTT Ratio 1.2 08/08/21 03:48 D-Dimer 1200 ug/L FEU (0-500) H* 08/08/21 03:48 Sodium 136 mmol/L (136-145) 08/08/21 03:48 Potassium 3.4 mmol/L (3.5-5.1) L 08/08/21 03:48 Chloride 103 mmol/L (98-107) 08/08/21 03:48 Carbon Dioxide 21 mmol/L (21-32) 08/08/21 03:48 Anion Gap 12 (3-11) H 08/08/21 03:48 BUN 59 mg/dl (6-23) H 08/08/21 03:48 Creatinine 2.50 mg/dl (0.6-1.4) H 08/08/21 03:48 Est Cr Clr Drug Dosing 18.7 ml/min 08/08/21 03:48 Est GFR ( Amer) 25.4 ml/min 08/08/21 03:48 Est GFR (Non-Af Amer) 21.9 ml/min 08/08/21 03:48 BUN/Creatinine Ratio 23.6 (10-20) H 08/08/21 03:48 Glucose 129 mg/dl (70-99(Fasting)) H 08/08/21 03:48 Calcium 9.0 mg/dl (8.5-10.1) 08/08/21 03:48 Total Bilirubin 1.2 mg/dl (0.2-1.0) H 08/08/21 03:48 AST 20 U/L (13-39) 08/08/21 03:48 ALT 15 U/L (7-52) 08/08/21 03:48 Alkaline Phosphatase 58 U/L (34-104) 08/08/21 03:48 Troponin I High Sens 134.4 pg/ml (0-20) H* 08/08/21 03:48 B-Natriuretic Peptide 1894 pg/ml (0-100) H 08/08/21 04:35 Total Protein 6.4 gm/dl (6.0-8.3) 08/08/21 03:48 Albumin 3.7 gm/dl (3.4-5.0) 08/08/21 03:48 Globulin 2.7 gm/dl (2.5-4.0) 08/08/21 03:48 Albumin/Globulin Ratio 1.4 (0.9-2) 08/08/21 03:48 Procalcitonin 0.18 ng/ml (0-0.5) 08/08/21 03:48 Diagnostic Findings Chest x-ray as per my interpretation congestion EKG as per my interpretation : Rate 85, A. fib, normal axis, septal infarct, T wave flattening lateral leads, LVH
[2021-08-08] MEDS ORDERED: LACTATED RINGER'S 1,000 ML IV STA (06:02)
[2021-08-08 07:06] LABS: Allen Test Pos (Pos); Base Excess ABG -1.2 mEq/L (-9-1.8); HCO3 ABG 21 mmol/L (19-24); Oxygen Saturation ABG 98.3 % (90-95); PCO2 ABG 29 mmHg (35-46); PO2 ABG 108 mmHg (80-95); pH ABG 7.49 (7.35-7.45)
[2021-08-08 07:18] LABS: Influenza A virus by PCR Negative (Neg); Influenza B virus by PCR Negative (Neg); RSV by PCR Negative (Neg); SARS CoV2 RNA(COVID-19) InHosp NEGATIVE (Negative)
[2021-08-08 07:22] LABS: Magnesium 2.1 mg/dl (1.7-2.4)
[2021-08-08 07:30] LABS: Troponin I High Sensitivity 155.8 pg/ml (0-20)
[2021-08-08] MEDS ORDERED: HEPARIN SODIUM/DEXTROSE 25,000 UNITS/500 ML BAG IV SCH (07:30)
--- NOTE | 2021-08-08 08:00 | XRay Report ---
XR chest 1V portable HISTORY: Dyspnea COMPARISON: Chest 07/24/2021. FINDINGS: No pneumothorax. The cardiac silhouette remains mildly enlarged. There is progressive inter stitial/vascular thickening and small bilateral pleural effusions consistent with pulmonary edema. No acute rib fractures. IMPRESSION: Interval progression of the mild interstitial pulmonary edema and small bilateral pleural effusions. ACT 112: Negative or not required by law. Electronically signed by: Joe Singh M.D. 08/08/2021 7:59 AM
--- NOTE | 2021-08-08 08:43 | Ultrasound Report ---
ULTRASOUND BILATERAL LOWER EXTREMITY VENOUS CLINICAL HISTORY: Elevated d-dimer. Hypoxia. COMPARISON STUDY: No priors. TECHNIQUE: Real-time, grayscale, and color Doppler sonography of the deep veins of the right and left lower extremity was performed from the inguinal crease to the calf. Compression and augmentation wer e utilized. FINDINGS: There is no sonographic evidence of deep venous thrombosis identified in the right or left lower extremity. The common femoral, superficial femoral, and popliteal veins are patent and normally compressible bilaterally. The greater saphenous vein and the profunda femoris vein at the junction w ith the common femoral vein are clear in both legs. The visualized calf veins are patent bilaterally. IMPRESSION: There is no sonographic evidence of deep venous thrombosis identified in the right or lef t lower extremity. ACT 112: Negative or not required by law. Electronically signed by: Eddie Fairchild M.D. 08/08/2021 8:42 AM
--- NOTE | 2021-08-08 09:03 | CT Scan Report ---
CT SCAN OF THE CHEST WITHOUT IV CONTRAST CLINICAL HISTORY: Hypoxia. Dyspnea. Chest discomfort COMPARISON STUDY: Chest x-ray dated 08/08/2021. Chest CT dated 12/08/2015. TECHNIQUE: CT scan of the thorax was performed from the thoracic inlet to the upper abdomen. Images are reviewed in the axial, sagittal, and coronal planes. IV contrast was not administered for this ex amination as per the referring clinician. A dose lowering technique was utilized adhering to the anselmo wilson of BR[facility]. CT DOSE: 249.42 mGy.cm FINDINGS: Thyroid: Normal in size and heterogeneous in attenuation. Thoracic aorta: There is atherosclerotic calcification of the thoracic aorta, which is normal in [place] and demonstrates standard 3-vessel arch anatomy. Heart: The heart is enlarged noting trace pericardial effusion. The coronary arteries are densely krystal cified. There is diminished attenuation of the cardiac blood pool as compared to the myocardium sugge sting anemia. The pulmonary trunk is dilated, measuring up to 3.4 cm. This suggests pulmonary artery hypertension. Lungs and pleural spaces: Emphysematous change is noted. The trachea and central airways are clear. T here is no airspace consolidation typical for pneumonia. There are small pleural effusions with depen dent atelectasis. Intralobular septal thickening is noted throughout both lungs. There are scattered calcified granulomas. Mediastinum: There are numerous mildly enlarged mediastinal lymph nodes which measure up to 13 mm in short axis. These have not appreciably changed from 12/08/2015 and several containing calcifications. Iliana: There are calcified left hilar lymph nodes. Note that the iliana are not well assessed without IV contrast. Axillae: There is no axillary lymphadenopathy. Upper abdomen: There are calcified splenic granulomas. Partially visualized upper abdominal viscera i s otherwise grossly unremarkable Skeletal structures: The skeletal structures are osteopenic. Degener ative change and hyperkyphosis are noted in the thoracic spine. No lytic or blastic bony lesions are seen. IMPRESSION: 1. Cardiomegaly and emphysema with evidence of congestive failure. 2. There are small pleural effusions with dependent atelectasis. 3. Additional findings as above. ACT 112: Negative or not required by law. Electronically signed by: Eddie Fairchild M.D. 08/08/2021 9:00 AM
[2021-08-08] MEDS ORDERED: FUROSEMIDE 40 MG/4 ML VIAL IV SCH (09:45)
[2021-08-08] MEDS ORDERED: traMADol HCL 50 MG TABLET PO PRN (10:09)
[2021-08-08] MEDS ORDERED: PROMETHAZINE HCL 6.25 MG in SODIUM CHLORIDE 0.9% 50 ML IV PRN (10:09)
[2021-08-08] MEDS ORDERED: HYDROmorphone INJ 0.5 MG/0.5 ML SYR IV PRN (10:09)
--- NOTE | 2021-08-08 10:50 | Nuclear Medicine Report ---
NM pul perfusion CLINICAL HISTORY: Shortness of breath; pls relay result to md once available. COMPARISON STUDY: Chest CT 08/08/2021. Chest x-ray 08/08/2021. TECHNIQUE: Immediately following the intravenous administration of 5 mCi of technetium 99 M MAA for t he perfusion scan, anterior, oblique, lateral, and posterior views of the chest were obtained. Ventil ation scan was not performed due to coronavirus protocol. FINDINGS: Mild blunting of the costophrenic sulci and prominence of the cardiac silhouette. However, no perfusion defects identified within the lungs. IMPRESSION: No perfusion defects identified within the lungs. ACT 112: Negative or not required by law. Electronically signed by: Joe Singh M.D. 08/08/2021 10:49 AM
[2021-08-08] MEDS: allopurinoL 100 MG TAB PO SCH (10:53)
[2021-08-08] MEDS: ASPIRIN 81 MG ECTAB PO SCH (10:54)
[2021-08-08] MEDS: ISOSORBIDE MONO EXTENDED REL 60 MG TABCR PO SCH (10:54)
[2021-08-08] MEDS: FINASTERIDE 5 MG TAB PO SCH (10:54)
[2021-08-08] MEDS: AMIODARONE 200 MG TAB PO SCH (10:54)
[2021-08-08] MEDS: LEVOTHYROXINE SODIUM 125 MCG TABLET PO SCH (10:55)
[2021-08-08] MEDS: TAMSULOSIN HCL 0.4 MG CAP PO SCH (10:55)
[2021-08-08] MEDS: hydrALAZINE TAB 50 MG TAB PO SCH ×3 (10:55→21:19)
--- NOTE | 2021-08-08 14:23 | Electrocardiogram Report ---
Test Reason : Blood Pressure : / mmHG Vent. Rate : 083 BPM Atrial Rate : 119 BPM P-R Int : 000 ms QRS Dur : 098 ms QT Int : 454 ms P-R-T Axes : 000 072 096 degrees QTc Int : 533 ms Atrial fibrillation Moderate voltage criteria for LVH, may be normal variant Nonspecific ST abnormality Prolonged QT Abnormal ECG When compared with ECG of 24-JUL-2021 23:07, No significant change Confirmed by Vinay Castillo ([id number]) on 08/08/2021 2:23:16 PM Referred By: REFERRED SELF Confirmed By:Vinay Castillo
[2021-08-08 15:25] LABS: Partial Thromboplastin Ratio 1.9
[2021-08-08 15:31] LABS: Partial Thromboplastin Time 52.1 Seconds (21.0-31.0)
--- NOTE | 2021-08-08 17:56 | Hospitalist Progress Note ---
Date of Service August 08, 2021 Assessment & Plan Admission and Anticipated Discharge Date Admission Date: August 08, 2021 Subjective Patient admitted this morning for hypoxia. Patient was seen and evaluated in his room 212. Chart was reviewed. Patient feels well, already asking when he can return home. Perfusion scan negative for defect, will discontinue heparin drip Hypoxia likely from CHF. CT chest shows bilateral pleural effusion, no pneumonia. Started lasix 40mg IV BID. Demand ischemia. In setting of CHF, CKD stage 4. TTE ordered Results & Data Results & Data ([facility]) Vital Signs (Past 12 Hours) Vital Signs Temp Pulse Pulse Resp BP BP Pulse Ox 08/08/21 15:32 36.8 C 65 18 158/77 H 98 08/08/21 11:50 37 C 90 16 148/84 H 97 08/08/21 09:18 36.7 C 74 20 147/108 H 97 08/08/21 07:46 70 18 150/73 H 96
[2021-08-08] MEDS ORDERED: POTASSIUM CHLORIDE CRTAB 20 MEQ TABCR PO SCH (20:00)
[2021-08-08] MEDS: FUROSEMIDE 40 MG/4 ML VIAL IV SCH (21:18)
[2021-08-08] MEDS: ATORVASTATIN 40 MG TAB PO SCH (21:19)
[2021-08-09 04:53] LABS: Appearance Urine Clear (Clear); Bacteria Urine Automated Negative (Negative); Bilirubin Urine Negative (Negative); Blood Urine Negative (Negative); Color Urine Yellow; Glucose Urine UA Negative (Negative); Ketones Urine Negative (Negative); Leukocyte Esterase Urine Negative (Negative); Nitrite Urine Negative (Negative); Protein Urine Trace (Negative); RBC Urine Automated 0-4 /hpf (0-4); Specific Gravity Urine 1.012 (1.000-1.030); Urobilinogen Urine Negative (Negative); WBC Urine Automated 0 /hpf (0-5)
[2021-08-09] MEDS: LEVOTHYROXINE SODIUM 125 MCG TABLET PO SCH (06:11)
[2021-08-09 07:24] LABS: Basophils # (auto) 0.01 K/uL (0-0.2); Basophils % (auto) 0.1 %; Eosinophils # (auto) 0.01 K/uL (0-0.5); Eosinophils % (auto) 0.1 %; Hematocrit (blood only) 29.2 % (42-52); Hemoglobin 9.8 g/dL (14.0-18.0); Immature Granulocytes # (auto) 0.02 K/uL (0.00-0.02); Immature Granulocytes % (auto) 0.2 %; Lymphocytes # (auto) 1.22 K/uL (1.2-3.4); Lymphocytes % (auto) 12.7 %; Mean Corpuscular Hemoglobin 31.5 pg (25-34); Mean Corpuscular Hgb Conc 33.6 g/dL (32-36); Mean Corpuscular Volume 93.9 fL (80-100); Mean Platelet Volume 10.5 fL (7.4-10.4); Monocytes # (auto) 0.04 K/uL (0.11-0.59); Monocytes % (auto) 0.4 %; Neutrophils # (auto) 8.34 K/uL (1.4-6.5); Neutrophils % (auto) 86.5 %; Platelet Count 143 K/uL (130-400); RDW Coefficient of Variation 16.3 % (11.5-14.5); RDW Standard Deviation 56.4 fL (36.4-46.3); Red Blood Count 3.11 M/uL (4.7-6.1); White Blood Count 9.64 K/uL (4.8-10.8)
[2021-08-09 08:01] LABS: BUN Creatinine Ratio 25.4 (10-20); Calcium 8.8 mg/dl (8.5-10.1); Creatinine Clr Calc Pharmacy 16.1 ml/min; Est GFR (African American) 21.2 ml/min; Est GFR (Non-African American) 18.3 ml/min; Magnesium 2.3 mg/dl (1.7-2.4); Potassium 3.7 mmol/L (3.5-5.1)
[2021-08-09] MEDS ORDERED: POTASSIUM CHLORIDE CRTAB 20 MEQ TABCR PO ONE (08:27)
[2021-08-09] MEDS: amLODIPine BESYLATE 5 MG TAB PO SCH (09:48)
[2021-08-09] MEDS: hydrALAZINE TAB 50 MG TAB PO SCH ×2 (09:49→14:35)
[2021-08-09] MEDS: TAMSULOSIN HCL 0.4 MG CAP PO SCH (09:49)
[2021-08-09] MEDS: ISOSORBIDE MONO EXTENDED REL 60 MG TABCR PO SCH (09:50)
[2021-08-09] MEDS: ASPIRIN 81 MG ECTAB PO SCH (09:50)
[2021-08-09] MEDS: allopurinoL 100 MG TAB PO SCH (09:50)
[2021-08-09] MEDS: FINASTERIDE 5 MG TAB PO SCH (09:50)
[2021-08-09] MEDS: AMIODARONE 200 MG TAB PO SCH (09:50)
--- NOTE | 2021-08-09 15:42 | Hospitalist Progress Note ---
Date of Service August 09, 2021 Assessment & Plan (1) Acute hypoxemic respiratory failure: Plan: Acute on chronic diastolic CHF -Repeat TTE unchanged compared to previous -s/p Lasix 40mg IV x 2 doses yesterday, further doses held today due to rise in Cr -At home, takes lasix 80mg QAM and 40mg QPM. Reports compliance -BP on arrival up to 180. Possible component of poorly controlled hypertension -Will ask for Cardiology evaluation for medication optimization -will repeat CXR tomorrow CKD stage 4 -Cr fluctuates but appears to be baseline 2.5-3. -sees Dr Sarabia as an outpatient -Cr on admission 2.5, mariam to 2.9 today, monitor Cr with diuresis Acute hypoxic respiratory failure -O2 sat down to 80s on arrival -Today weaned down to RA briefly and now back on 2L NC -due to #1 above Demand ischemia -trop elevation with peak at 155 -no chest pain. TTE negative for wall motion abnormality Leukocytosis -likely reactive -s/p ABx in ER, but no evidence of pneumonia on imaging, negative procalcitonin -monitor off antibiotics PAF -amiodarone 100mg daily, aspirin 81mg, not on AC due to history of GIB Poorly controlled HTN -home regimen: hydralazine 50mg TID, Imdur 60mg QHS, amlodipine 10mg QHS which are continued here BPH -flomax DVT ppx Start SQ heparin Admission and Anticipated Discharge Date Admission Date: August 08, 2021 Subjective Patient was briefly weaned off oxygen. Worked with PT and at end of session was hypoxic with O2 sat <90% on RA and was placed back on 2L NC Patient feels better. He is anxious to be discharged Family (daughter and son) have lots of questions about inciting event. He sees Dr Evans outpatient Physical Exam Physical Exam: Appears comfortable, pleasant and non toxic Respiratory: +crackles at bases bilaterally, no wheezing/rhonchi/rales Cardiovascular: regular rate and rhythm, no murmurs/rubs/gallops Gastrointestinal (Abdomen): soft, non tender, non distended Musculoskeletal: No edema Neurologic: awake, alert, spontaneously moving extremities Results & Data Results & Data ([facility]) Vital Signs (Past 12 Hours) Vital Signs Temp Pulse Pulse Pulse Resp BP BP 08/09/21 15:15 08/09/21 14:34 70 151/66 H 08/09/21 11:55 167/83 H 08/09/21 11:44 36.7 C 76 18 162/107 H 08/09/21 09:34 36.4 C L 65 18 158/70 H 08/09/21 07:34 65 08/09/21 04:21 37.0 C 67 18 157/59 H Pulse Ox 08/09/21 15:15 93 08/09/21 14:34 08/09/21 11:55 08/09/21 11:44 92 08/09/21 09:34 96 08/09/21 07:34 08/09/21 04:21 95 Laboratory Results Short CBC 08/09/21 Range/Units 06:59 WBC 9.64 (4.8-10.8) K/uL Hgb 9.8 L (14.0-18.0) g/dL Hct 29.2 L (42-52) % Plt Count 143 (130-400) K/uL BMP 08/09/21 06:59 Sodium 138 Potassium 3.7 Chloride 106 Carbon Dioxide 21 BUN 74 H Creatinine 2.91 H D Glucose 102 H Calcium 8.8 Urine 08/09/21 Range/Units 04:25 Urine Color Yellow Urine Appearance Clear (Clear) Urine pH 5.0 (4.5-7.5) Ur Specific [place] 1.012 (1.000-1.030) Urine Protein Trace H (Negative) Urine Glucose (UA) Negative (Negative) Medications Administered Current Inpatient Medications Acetaminophen (Acetaminophen 325 Mg Tab) 650 mg PO Q4H PRN PRN Reason: Pain or Fever Stop: 09/07/21 10:08 Allopurinol (Allopurinol 100 Mg Tab) 200 mg PO DAILY [facility] Stop: 09/07/21 10:08 Last Admin: 08/09/21 09:50 Dose: 200 mg Documented by: Amiodarone HCl (Amiodarone 200 Mg Tab) 100 mg PO DAILY [place] Stop: 09/07/21 10:08 Last Admin: 08/09/21 09:50 Dose: 100 mg Documented by: Amlodipine Besylate (Amlodipine Besylate 5 Mg Tab) 10 mg PO QAM [facility] Stop: 09/08/21 08:59 Last Admin: 08/09/21 09:48 Dose: 10 mg Documented by: Aspirin (Aspirin 81 Mg Ectab) 81 mg PO DAILY [facility] Stop: 09/07/21 10:08 Last Admin: 08/09/21 09:50 Dose: 81 mg Documented by: Atorvastatin Calcium (Atorvastatin 40 Mg Tab) 40 mg PO HS [facility] Stop: 09/07/21 20:59 Last Admin: 08/08/21 21:19 Dose: 40 mg Documented by: Finasteride (Finasteride 5 Mg Tab) 5 mg PO DAILY [facility] Stop: 09/07/21 10:08 Last Admin: 08/09/21 09:50 Dose: 5 mg Documented by: Furosemide (Furosemide 40 Mg/4 Ml Vial) 40 mg IV BID [facility] Stop: 09/07/21 20:59 Last Admin: 08/08/21 21:18 Dose: 40 mg Documented by: Hydralazine HCl (Hydralazine Tab 50 Mg Tab) 50 mg PO TID [facility] Stop: 09/07/21 10:29 Last Admin: 08/09/21 14:35 Dose: 50 mg Documented by: Hydromorphone HCl (Hydromorphone Inj 0.5 Mg/0.5 Ml Syr) 0.25 mg IV Q6H PRN PRN Reason: Pain Stop: 08/22/21 10:08 Promethazine HCl 6.25 mg/ (Sodium Chloride) 50.25 mls @ 201 mls/hr IV Q6H PRN PRN Reason: Nausea And Vomiting Stop: 09/07/21 10:08 Isosorbide Mononitrate (Isosorbide [place] Extended Rel 60 Mg Tabcr) 60 mg PO DAILY [facility] Stop: 09/07/21 10:08 Last Admin: 08/09/21 09:50 Dose: 60 mg Documented by: Levothyroxine Sodium (Levothyroxine Sodium 125 Mcg Tablet) 125 mcg PO DAILYBB [facility] Stop: 09/07/21 10:08 Last Admin: 08/09/21 06:11 Dose: 125 mcg Documented by: Tamsulosin HCl (Tamsulosin Hcl 0.4 Mg Cap) 0.4 mg PO DAILY [facility] Stop: 09/07/21 10:08 Last Admin: 08/09/21 09:49 Dose: 0.4 mg Documented by: Tramadol HCl (Tramadol Hcl 50 Mg Tablet) 25 mg PO Q4H PRN PRN Reason: Pain Stop: 09/07/21 10:08
--- NOTE | 2021-08-09 17:08 | Cardiology Consultation ---
Date of Consultation August 09, 2021 Assessment & Plan (1) Hypoxia: (2) CHF (congestive heart failure): (3) Hypertensive urgency: (4) CKD (chronic kidney disease): (5) Anemia: (6) Elevated troponin I level: (7) Ischemic cardiomyopathy: (8) PAD (peripheral artery disease): 89-year-old male admitted on August 08, 2021, presenting with acute on chronic dyspnea/PND. Suspect acute decompensated diastolic heart failure precipitated by hypertensive urgency in the setting of diffuse vascular disease and stage IV chronic kidney disease. Minimal troponin elevation likely explained by the above. Resting echocardiography reveals preserved systolic function without wall motion abnormality, moderate LVH. Agree with use of IV furosemide, likely switching to oral furosemide at 80 mg twice per day in the morning; this dosage represents an increase from his outpatient dosage which was 80 mg in the morning and 40 mg in the afternoon. Hydralazine can be increased to 75 mg 3 times per day if needed for for additional blood pressure control. Recommend continuation of amlodipine 10 mg/day and isosorbide 60 mg/day. Continue low-dose amiodarone for the PAF noting contraindications to anticoagulation. Avoid QTC prolonging agents if able. Recommend assessing need for supplemental oxygen on discharge noting tobacco abuse history as well as emphysematous changes on CT. Supervising Physician Co-Signing Physician Notes 89-year-old patient admitted with shortness of breath. Diagnosed with acute decompensated heart failure with preserved ejection fraction in the setting of elevated blood pressure. Symptomatically improved with diuresis. Fluid balance -650 cc today. Creatinine trending upward slightly however within patient's usual range. Reports home blood pressure readings typically run 150s-160s. Occasional he notes systolic blood pressure in the 130s. Denies palpitations, orthopnea, or PND. No palpitations, lightheadedness, dizziness, syncope, or near syncope. PE: VSS. Mild hypoxia requiring 2 L nasal cannula. Room air oxygen 93% General: NAD, awake alert [place] x3. HEENT: Mucous membranes moist no scleral icterus. Heart: Irregular rhythm, normal S1-S2. No murmur appreciated. Lungs: Diminished breath sounds bilaterally with scant crackles at the base. Extremities: No edema. A/P: Agree with above PA-C history, physical exam, assessment and plan. Resume oral diuretics in a.m. pending review of lab studies. That her titration of hydralazine to 75 mg 3 times daily. Beta-preet discontinued in the past due to bradycardia. Previously treated with low-dose metoprolol. Continue am iodarone as previously ordered. With history of heavy tobacco abuse and COPD, assess need for supplemental oxygen on discharge. History of Present Illness Reason for Consultation: Decompensated heart failure Requesting Physician: Saray Attending Physician: Saray History of Present Illness Patient is a very pleasant 89-year-old male who presented to the [facility] ER in early hours of August 08, 2021, awakening with acute dyspnea around 2 AM. Patient was notably hypoxic on presentation with oxygen saturation of 83% on room air. He noted being mildly febrile after receiving a COVID booster the day before, aided by Tylenol. He was afebrile on presentation and has been afebrile throughout this admission. White blood cell count was elevated on presentation. Chest x- ray was somewhat concerning for right-sided opacity per documentation. In the emergency room he was given supplemental oxygen and IV Levaquin despite chronic use of amiodarone. EKG was interpreted as atrial fibrillation with a ventricular rate of 83 bpm, with moderate voltage criteria for LVH and nonspecific ST abnormality. QTc was 533 ms. As per my interpretation, the rhythm is sinus with frequent premature atrial contractions and premature ventricular contractions. There are nonspecific ST abnormalities and the QTC is prolonged. An elevated D-dimer led to venous duplex which was negative for DVT and a VQ scan showing no perfusion defects. Blood pressure was elevated on presentation, 186/76, improving throughout the hospitalization low remaining elevated with systolic readings ranging from 147-186. Given concern for acute decompensated heart failure, the patient received IV furosemide, 40 mg twice per day, with improvement in symptoms. His outpatient dose of furosemide is 80 mg in the morning and 40 mg in the evening. High-sensitivity troponin peaked at 155. Resting echocardiography interpreted by Dr. Garcia on August 08, 2021 showed no significant change compared to the prior study. LV systolic function was preserved, without wall motion abnormality. Ejection fraction was 55 to 60%. Moderate concentric LVH was noted along with mild mitral regurgitation. There was moderate aortic valve sclerosis without significant stenosis, mild aortic regurgitation, and mild tricuspid regurgitation. Estimated systolic pulmonary pressure was 59 mmHg. At the time of my evaluation the patient is resting comfortably. He notes improvement in presenting dyspnea. He is basically feeling back to baseline. No chest pain. No palpitations. No dizziness or near syncope. No subjective f isaac or rigors. No GI issues. No lower extremity peripheral edema. Allergies Allergy/AdvReac Type Severity Reaction Status Date / Time Penicillins AdvReac Intermediate PENILE Verified 08/08/21 06:27 ENLARGEMENT tramadol AdvReac Intermediate GI SYMPTOMS Verified 08/08/21 06:27 Home Medications Medication Instructions Recorded Confirmed Type allopurinol 100 mg tablet 200 mg PO QAM 03/05/20 08/08/21 History aspirin 81 mg tablet,delayed 81 mg PO QAM 03/05/20 08/08/21 History release atorvastatin 40 mg tablet 40 mg PO HS 03/05/20 08/08/21 History finasteride 5 mg tablet 5 mg PO QAM 03/05/20 08/08/21 History furosemide 80 mg tablet See Rx Instructions .ROUTE .COMPLEX 03/05/20 08/08/21 History hydralazine 50 mg tablet 50 mg PO TID 03/05/20 08/08/21 History iron,carbonyl 65 mg-vitamin C 125 1 tab PO BID 03/05/20 08/08/21 History mg tablet,delayed release (Vitron-C) isosorbide mononitrate 60 mg 60 mg PO HS 03/05/20 08/08/21 History tablet,extended release 24 hr levothyroxine 125 mcg tablet 125 mcg PO DAILYBB 03/05/20 08/08/21 History potassium chloride 20 mEq 20 meq PO HS 03/05/20 08/08/21 History tablet,extended release(part/cryst) tamsulosin 0.4 mg capsule 0.4 mg PO HS 03/05/20 08/08/21 History amlodipine 5 mg tablet (Norvasc) 10 mg PO HS 07/24/21 08/08/21 History wheat dextrin 3 gram/3.5 gram oral 3 g PO HS 07/24/21 08/08/21 History powder packet (Benefiber Clear Sugar Free(dextrin)) amiodarone 200 mg tablet 100 mg PO QAM 08/08/21 08/08/21 History Patient History Medical History Acute pancreatitis Anemia Atrial fibrillation BPH (benign prostatic hyperplasia) CKD stage 4 secondary to hypertension Dialysis patient "short term post ANETA from sepsis" Dyslipidemia Elevated troponin GERD (gastroesophageal reflux disease) Gout HTN (hypertension) Hypothyroidism Ischemic cardiomyopathy NSTEMI (non-ST elevated myocardial infarction) Paroxysmal atrial fibrillation Pernicious anemia PVD (peripheral vascular disease) Stress-induced cardiomyopathy "normal LVEF on most recent echo" Surgical History Status post carotid endarterectomy "right" Status post carpal tunnel release Status post cataract extraction Family History Other Diabetes Hypertension Stroke Social History Smoking Status: Never smoker Cigarettes Per Day: 60 per day.; Second Hand Exposure: No; Hx Alcohol Use: No Hx Substance Use: No Preferred Language: Khmer Communication Ability: Effective 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 Patient recalls a hospitalization 6 or 7 years ago requiring intubation, with extensive PEs. Off anticoagulation approximately 1 year ago after significant GI bleeding requiring transfusion of 4 units packed red blood cells. Previously treated with metoprolol, discontinued due to bradycardia. Hospitalized on July 25, 2021 x 1 day with pneumonia. Patient denies coughing or choking while eating. Followed by Dr. Sarabia, stage IV chronic kidney disease. No uremic symptoms. History of gout, without recent exacerbation. Complete review of system is otherwise as stated above, negative, or noncontributory. Physical Exam Physical Exam: General: A&Ox3. NAD. [place]. HENT: Normocephalic. Atraumatic. PER. Eyes: Conjunctiva pink, sclera clear. Neck: + JVD. + HJR. + Carotid bruits. Heart: Irregular at 70 bpm. Systolic ejection murmur. No rub. No gallop. PMI is nondisplaced. Lungs: Fine somewhat dry bibasilar rales. Somewhat diminished at the bases. No wheeze. Abdomen: +BS. Soft. Nontender. No masses or organomegaly. Extremities: No clubbing, cyanosis, or edema. Limited neurological examination is without focal deficits. Pulses: radial=2/4, posterior tibial=0/4. Results & Data ([facility]) Vital Signs (Past 12 Hours) Vital Signs Temp Pulse Pulse Pulse Resp BP BP 08/09/21 16:26 78 08/09/21 15:15 08/09/21 14:34 70 151/66 H 08/09/21 11:55 167/83 H 08/09/21 11:44 36.7 C 76 18 162/107 H 08/09/21 09:34 36.4 C L 65 18 158/70 H 08/09/21 07:34 65 Pulse Ox 08/09/21 16:26 08/09/21 15:15 93 08/09/21 14:34 08/09/21 11:55 08/09/21 11:44 92 08/09/21 09:34 96 08/09/21 07:34 Laboratory Results Laboratory Results - last 48 hr 08/08/21 08/08/21 08/08/21 03:48 03:48 03:48 WBC 16.67 H RBC 3.59 L Hgb 11.2 L Hct 33.7 L MCV 93.9 MCH 31.2 MCHC 33.2 RDW Std Deviation 56.5 H RDW Coeff of Yuri 16.4 H Plt Count 169 MPV 10.4 Immature Gran % (Auto) 0.3 Neut % (Auto) 87.5 Lymph % (Auto) 4.6 [place] % (Auto) 6.9 Eos % (Auto) 0.6 Baso % (Auto) 0.1 Neut # (Auto) 14.59 H Lymph # (Auto) 0.76 L [place] # (Auto) 1.15 H Eos # (Auto) 0.10 Baso # (Auto) 0.02 Immature Gran # (Auto) 0.05 H RBC Morphology Unremarkable APTT PTT Ratio D-Dimer 1200 H* ABG pH ABG pCO2 ABG pO2 ABG HCO3 ABG O2 Saturation ABG Base Excess Elijah Test Barometric Pressure Oxygen Given Sodium Potassium Chloride Carbon Dioxide Anion Gap BUN Creatinine Est Cr Clr Drug Dosing Est GFR ( Amer) Est GFR (Non-Af Amer) BUN/Creatinine Ratio Glucose Lactate Calcium Magnesium Total Bilirubin AST ALT Alkaline Phosphatase Troponin I High Sens 134.4 H* B-Natriuretic Peptide Total Protein Albumin Globulin Albumin/Globulin Ratio Procalcitonin Urine Color Urine Appearance Urine pH Ur Specific [place] Urine Protein Urine Glucose (UA) Urine Ketones Urine Blood Urine Nitrite Urine Bilirubin Urine Urobilinogen Ur Leukocyte Esterase Urine WBC (Auto) Urine RBC (Auto) U Hyaline Cast (Auto) U Epithel Cells (Auto) Urine Bacteria (Auto) SARS-CoV-2 (PCR) Influenza Type A (PCR) Influenza Type B (PCR) RSV (RT-PCR) 08/08/21 08/08/21 08/08/21 03:48 03:48 03:48 WBC RBC Hgb Hct MCV MCH MCHC RDW Std Deviation RDW Coeff of Yuri Plt Count MPV Immature Gran % (Auto) Neut % (Auto) Lymph % (Auto) [place] % (Auto) Eos % (Auto) Baso % (Auto) Neut # (Auto) Lymph # (Auto) [place] # (Auto) Eos # (Auto) Baso # (Auto) Immature Gran # (Auto) RBC Morphology APTT 33.7 H PTT Ratio 1.2 D-Dimer ABG pH ABG pCO2 ABG pO2 ABG HCO3 ABG O2 Saturation ABG Base Excess Elijah Test Barometric Pressure Oxygen Given Sodium 136 Potassium 3.4 L Chloride 103 Carbon Dioxide 21 Anion Gap 12 H BUN 59 H Creatinine 2.50 H Est Cr Clr Drug Dosing 18.7 Est GFR ( Amer) 25.4 Est GFR (Non-Af Amer) 21.9 BUN/Creatinine Ratio 23.6 H Glucose 129 H Lactate Calcium 9.0 Magnesium Total Bilirubin 1.2 H AST 20 ALT 15 Alkaline Phosphatase 58 Troponin I High Sens B-Natriuretic Peptide Total Protein 6.4 Albumin 3.7 Globulin 2.7 Albumin/Globulin Ratio 1.4 Procalcitonin 0.18 Urine Color Urine Appearance Urine pH Ur Specific [place] Urine Protein Urine Glucose (UA) Urine Ketones Urine Blood Urine Nitrite Urine Bilirubin Urine Urobilinogen Ur Leukocyte Esterase Urine WBC (Auto) Urine RBC (Auto) U Hyaline Cast (Auto) U Epithel Cells (Auto) Urine Bacteria (Auto) SARS-CoV-2 (PCR) Influenza Type A (PCR) Influenza Type B (PCR) RSV (RT-PCR) 08/08/21 08/08/21 08/08/21 04:35 06:20 06:49 WBC RBC Hgb Hct MCV MCH MCHC RDW Std Deviation RDW Coeff of Yuri Plt Count MPV Immature Gran % (Auto) Neut % (Auto) Lymph % (Auto) [place] % (Auto) Eos % (Auto) Baso % (Auto) Neut # (Auto) Lymph # (Auto) [place] # (Auto) Eos # (Auto) Baso # (Auto) Immature Gran # (Auto) RBC Morphology APTT PTT Ratio D-Dimer ABG pH ABG pCO2 ABG pO2 ABG HCO3 ABG O2 Saturation ABG Base Excess Elijah Test Barometric Pressure Oxygen Given Sodium Potassium Chloride Carbon Dioxide Anion Gap BUN Creatinine Est Cr Clr Drug Dosing Est GFR ( Amer) Est GFR (Non-Af Amer) BUN/Creatinine Ratio Glucose Lactate 0.5 Calcium Magnesium Total Bilirubin AST ALT Alkaline Phosphatase Troponin I High Sens B-Natriuretic Peptide 1894 H Total Protein Albumin Globulin Albumin/Globulin Ratio Procalcitonin Urine Color Urine Appearance Urine pH Ur Specific [place] Urine Protein Urine Glucose (UA) Urine Ketones Urine Blood Urine Nitrite Urine Bilirubin Urine Urobilinogen Ur Leukocyte Esterase Urine WBC (Auto) Urine RBC (Auto) U Hyaline Cast (Auto) U Epithel Cells (Auto) Urine Bacteria (Auto) SARS-CoV-2 (PCR) NEGATIVE Influenza Type A (PCR) Negative Influenza Type B (PCR) Negative RSV (RT-PCR) Negative 08/08/21 08/08/21 08/08/21 06:49 06:49 11:45 WBC RBC Hgb Hct MCV MCH MCHC RDW Std Deviation RDW Coeff of Yuri Plt Count MPV Immature Gran % (Auto) Neut % (Auto) Lymph % (Auto) [place] % (Auto) Eos % (Auto) Baso % (Auto) Neut # (Auto) Lymph # (Auto) [place] # (Auto) Eos # (Auto) Baso # (Auto) Immature Gran # (Auto) RBC Morphology APTT PTT Ratio D-Dimer ABG pH 7.49 H ABG pCO2 29 L ABG pO2 108 H ABG HCO3 21 ABG O2 Saturation 98.3 H ABG Base Excess -1.2 Elijah Test Pos Barometric Pressure 735.3 Oxygen Given 4 Sodium Potassium Chloride Carbon Dioxide Anion Gap BUN Creatinine Est Cr Clr Drug Dosing Est GFR ( Amer) Est GFR (Non-Af Amer) BUN/Creatinine Ratio Glucose Lactate Calcium Magnesium 2.1 Total Bilirubin AST ALT Alkaline Phosphatase Troponin I High Sens 155.8 H* 131.4 H* B-Natriuretic Peptide Total Protein Albumin Globulin Albumin/Globulin Ratio Procalcitonin Urine Color Urine Appearance Urine pH Ur Specific [place] Urine Protein Urine Glucose (UA) Urine Ketones Urine Blood Urine Nitrite Urine Bilirubin Urine Urobilinogen Ur Leukocyte Esterase Urine WBC (Auto) Urine RBC (Auto) U Hyaline Cast (Auto) U Epithel Cells (Auto) Urine Bacteria (Auto) SARS-CoV-2 (PCR) Influenza Type A (PCR) Influenza Type B (PCR) RSV (RT-PCR) 08/08/21 08/09/21 08/09/21 14:25 04:25 06:59 WBC 9.64 RBC 3.11 L Hgb 9.8 L Hct 29.2 L MCV 93.9 MCH 31.5 MCHC 33.6 RDW Std Deviation 56.4 H RDW Coeff of Yuri 16.3 H Plt Count 143 MPV 10.5 H Immature Gran % (Auto) 0.2 Neut % (Auto) 86.5 Lymph % (Auto) 12.7 [place] % (Auto) 0.4 Eos % (Auto) 0.1 Baso % (Auto) 0.1 Neut # (Auto) 8.34 H Lymph # (Auto) 1.22 [place] # (Auto) 0.04 L Eos # (Auto) 0.01 Baso # (Auto) 0.01 Immature Gran # (Auto) 0.02 RBC Morphology APTT 52.1 H* PTT Ratio 1.9 D-Dimer ABG pH ABG pCO2 ABG pO2 ABG HCO3 ABG O2 Saturation ABG Base Excess Elijah Test Barometric Pressure Oxygen Given Sodium Potassium Chloride Carbon Dioxide Anion Gap BUN Creatinine Est Cr Clr Drug Dosing Est GFR ( Amer) Est GFR (Non-Af Amer) BUN/Creatinine Ratio Glucose Lactate Calcium Magnesium Total Bilirubin AST ALT Alkaline Phosphatase Troponin I High Sens B-Natriuretic Peptide Total Protein Albumin Globulin Albumin/Globulin Ratio Procalcitonin Urine Color Yellow Urine Appearance Clear Urine pH 5.0 Ur Specific [place] 1.012 Urine Protein Trace H Urine Glucose (UA) Negative Urine Ketones Negative Urine Blood Negative Urine Nitrite Negative Urine Bilirubin Negative Urine Urobilinogen Negative Ur Leukocyte Esterase Negative Urine WBC (Auto) 0 Urine RBC (Auto) 0-4 U Hyaline Cast (Auto) 1-5 U Epithel Cells (Auto) 5-10 H Urine Bacteria (Auto) Negative SARS-CoV-2 (PCR) Influenza Type A (PCR) Influenza Type B (PCR) RSV (RT-PCR) 08/09/21 06:59 WBC RBC Hgb Hct MCV MCH MCHC RDW Std Deviation RDW Coeff of Yuri Plt Count MPV Immature Gran % (Auto) Neut % (Auto) Lymph % (Auto) [place] % (Auto) Eos % (Auto) Baso % (Auto) Neut # (Auto) Lymph # (Auto) [place] # (Auto) Eos # (Auto) Baso # (Auto) Immature Gran # (Auto) RBC Morphology APTT PTT Ratio D-Dimer ABG pH ABG pCO2 ABG pO2 ABG HCO3 ABG O2 Saturation ABG Base Excess Elijah Test Barometric Pressure Oxygen Given Sodium 138 Potassium 3.7 Chloride 106 Carbon Dioxide 21 Anion Gap 11 BUN 74 H Creatinine 2.91 H D Est Cr Clr Drug Dosing 16.1 Est GFR ( Amer) 21.2 Est GFR (Non-Af Amer) 18.3 BUN/Creatinine Ratio 25.4 H Glucose 102 H Lactate Calcium 8.8 Magnesium 2.3 Total Bilirubin AST ALT Alkaline Phosphatase Troponin I High Sens B-Natriuretic Peptide Total Protein Albumin Globulin Albumin/Globulin Ratio Procalcitonin Urine Color Urine Appearance Urine pH Ur Specific [place] Urine Protein Urine Glucose (UA) Urine Ketones Urine Blood Urine Nitrite Urine Bilirubin Urine Urobilinogen Ur Leukocyte Esterase Urine WBC (Auto) Urine RBC (Auto) U Hyaline Cast (Auto) U Epithel Cells (Auto) Urine Bacteria (Auto) SARS-CoV-2 (PCR) Influenza Type A (PCR) Influenza Type B (PCR) RSV (RT-PCR) Diagnostic Findings Continuous telemetry monitoring reveals sinus with frequent atrial ectopy, occasional PVCs. No overt atrial fibrillation. No significant bradycardia. No pauses. (1) CHF (congestive heart failure) Heart failure chronicity: acute Heart failure type: unspecified Qualified Code(s): I50.9 - Heart failure, unspecified (2) Anemia Anemia type: other cause Other causes of anemia: acute posthemorrhagic Qualified Code(s): D62 - Acute posthemorrhagic anemia
[2021-08-09] MEDS: hydrALAZINE HCL 25 MG TAB PO SCH (21:17)
[2021-08-09] MEDS: HEPARIN SOD 5,000 UNIT/0.5 ML VIAL SQ SCH (21:17)
[2021-08-09] MEDS: ATORVASTATIN 40 MG TAB PO SCH (21:17)
[2021-08-09] MEDS: ACETAMINOPHEN 325 MG TAB PO PRN (23:02)
[2021-08-09] MEDS ORDERED: XOPENEX/ATROVENT 1.25mg/0.5MG NEB COMBO NEB STA (23:11)
[2021-08-09] MEDS ORDERED: LEVALBUTEROL 1.25MG/0.5ML NEB INH STA (23:18)
[2021-08-09] MEDS ORDERED: IPRATROPIUM BROMIDE NEB SOLN 0.02% 2.5 ML VIAL INH STA (23:18)
[2021-08-09 23:57] LABS: Base Excess ABG -1.9 mEq/L (-9-1.8); HCO3 ABG 21 mmol/L (19-24); Oxygen Saturation ABG 88.6 % (90-95); PCO2 ABG 29 mmHg (35-46); PO2 ABG 54 mmHg (80-95); pH ABG 7.47 (7.35-7.45)
[2021-08-10 00:03] LABS: Allen Test POS (Pos)
[2021-08-10] MEDS ORDERED: methylPREDNISolone 20 MG in SYRINGE 0 ML IV ONE (00:15)
[2021-08-10 00:20] LABS: BUN Creatinine Ratio 28.8 (10-20); Creatinine Clr Calc Pharmacy 16.7 ml/min; Est GFR (African American) 22.1 ml/min; Est GFR (Non-African American) 19.1 ml/min; Potassium 3.7 mmol/L (3.5-5.1)
[2021-08-10] MEDS ORDERED: ALBUMIN 25% 12.5 GM/50 ML VIAL IV ONE (01:52)
[2021-08-10] MEDS: LEVOTHYROXINE SODIUM 125 MCG TABLET PO SCH (05:37)
--- NOTE | 2021-08-10 07:01 | XRay Report ---
XR chest 1V portable CLINICAL HISTORY: follow up CHF, pleural effusion COMPARISON STUDY: Chest CT August 08, 2021. Chest radiograph August 09, 2021. FINDINGS: There is no pneumothorax. Small left pleural effusion has slightly increased. Left basilar opacity is increased. There is a small right pleural effusion. Pulmonary edema persists. Cardiomedias tinal silhouette is stable. IMPRESSION: Persistent pulmonary edema and bilateral pleural effusions. Left pleural effusion has in creased in size. ACT 112: Negative or not required by law. Electronically signed by: Hao Gardner M.D. 08/10/2021 6:59 AM
[2021-08-10] MEDS ORDERED: FUROSEMIDE 40 MG/4 ML VIAL IV ONE (08:00)
--- NOTE | 2021-08-10 08:21 | XRay Report ---
XR chest 1V portable HISTORY: 89 years-old Male low o2 acute hypoxia COMPARISON: Chest radiograph 08/08/2020 08/10/2021 TECHNIQUE: Portable AP view of the chest FINDINGS: Cardiac silhouette is enlarged. Emphysema. Pulmonary vascular congestion with interstitial coarsening and ill-defined right greater than left airspace opacities. No pneumothorax. Small pleural effusions . Degenerative changes of the shoulders and spine. IMPRESSION: 1. Cardiomegaly with intermixed interstitial and alveolar opacities, right greater than left suggesti ve of asymmetric pulmonary edema, progressively worsened from prior. 2. Small pleural effusions. 3. Emphysema. ACT 112: Negative or not required by law. The above report was generated using voice recognition software. It may contain grammatical, syntax o r spelling errors. Electronically signed by: Alli Cervantes M.D. 08/10/2021 8:19 AM
[2021-08-10 08:28] LABS: Hemoglobin 11.3 g/dL (14.0-18.0); Mean Corpuscular Hgb Conc 33.2 g/dL (32-36); Mean Corpuscular Volume 93.4 fL (80-100); Mean Platelet Volume 10.8 fL (7.4-10.4); Platelet Count 165 K/uL (130-400); RDW Coefficient of Variation 16.2 % (11.5-14.5); Red Blood Count 3.64 M/uL (4.7-6.1)
[2021-08-10] MEDS: AMIODARONE 200 MG TAB PO SCH (08:55)
[2021-08-10] MEDS: amLODIPine BESYLATE 5 MG TAB PO SCH (08:56)
[2021-08-10] MEDS: ISOSORBIDE MONO EXTENDED REL 60 MG TABCR PO SCH (08:56)
[2021-08-10] MEDS: FINASTERIDE 5 MG TAB PO SCH (08:56)
[2021-08-10] MEDS: ASPIRIN 81 MG ECTAB PO SCH (08:56)
[2021-08-10] MEDS: hydrALAZINE HCL 25 MG TAB PO SCH ×3 (08:56→21:31)
[2021-08-10] MEDS: HEPARIN SOD 5,000 UNIT/0.5 ML VIAL SQ SCH ×2 (08:57→21:32)
[2021-08-10] MEDS: allopurinoL 100 MG TAB PO SCH (08:57)
[2021-08-10 09:16] LABS: BUN Creatinine Ratio 29.3 (10-20); Calcium 9.2 mg/dl (8.5-10.1); Creatinine Clr Calc Pharmacy 16.1 ml/min; Est GFR (African American) 21.3 ml/min; Est GFR (Non-African American) 18.3 ml/min; Magnesium 2.5 mg/dl (1.7-2.4); Potassium 3.9 mmol/L (3.5-5.1)
--- NOTE | 2021-08-10 10:56 | Hospitalist Progress Note ---
Date of Service August 10, 2021 Assessment & Plan (1) Acute hypoxemic respiratory failure: Plan: Acute on chronic diastolic CHF -Repeat TTE unchanged compared to previous -At home, takes lasix 80mg QAM and 40mg QPM. Reports compliance -SBP on arrival up to 180. Possible component of poorly controlled hypertension -CXR shows worsening CHF -Appreciate Cardiology input -08/08: s/p Lasix 40mg IV x 2 doses 08/08. 08/09: Additional doses held due to rise in Cr. Overnight with worsening SOB - resumed lasix 40mg IV BID today. May need higher doses of lasix with his CKD stage 4, but will continue with this dose for now. Would repeat CXR again in a couple days CKD stage 4 -Cr fluctuates but appears to be baseline 2.5-3. -sees Dr Sarabia as an outpatient -Monitor with diuresis -may need to tolerate a higher Cr to allow for diuresis Acute hypoxic respiratory failure -O2 sat down to 80s on arrival -Today weaned down to RA briefly and now back on 2L NC -due to #1 above Demand ischemia -trop elevation with peak at 155 -no chest pain. TTE negative for wall motion abnormality Leukocytosis -likely reactive -s/p ABx in ER, but no evidence of pneumonia on imaging, negative procalcitonin -monitor off antibiotics PAF -amiodarone 100mg daily, aspirin 81mg, not on AC due to history of GIB Poorly controlled HTN -home regimen: hydralazine 50mg TID--increased to 75mg TID 08/09, Imdur 60mg QHS, amlodipine 10mg QHS -Improved BP currently BPH -flomax DVT ppx SQ heparin Admission and Anticipated Discharge Date Admission Date: August 08, 2021 Subjective Had an eventful night. Woke up with shortness of breath was placed on oxymask 10L and now weaned back down tl 8L NC CXR shows worsening CHF, pleural effusion Feels better now Physical Exam Physical Exam: Appears well, pleasant and comfortable Respiratory: +diminished bilateral bases, no wheezing/rhonchi/rales Cardiovascular: regular rate and rhythm, no murmurs/rubs/gallops Gastrointestinal (Abdomen): soft, non tender, non distended Musculoskeletal: no edema Neurologic: awake, alert, spontaneously moving extremities Results & Data Results & Data ([facility]) Vital Signs (Past 12 Hours) Vital Signs Temp Pulse Pulse Resp BP Pulse Ox 08/10/21 08:25 75 08/10/21 08:06 36.9 C 79 20 142/94 H 96 08/10/21 04:43 36.6 C 77 22 137/62 97 08/10/21 01:00 92 08/10/21 00:26 88 08/10/21 00:21 95 08/10/21 00:07 89 20 96 08/10/21 00:03 36.8 C 88 20 146/76 H 96 08/09/21 23:08 104 H 22 144/61 H 93 08/09/21 23:01 37.8 C H Laboratory Results Short CBC 08/10/21 Range/Units 08:01 WBC 7.70 (4.8-10.8) K/uL Hgb 11.3 L (14.0-18.0) g/dL Hct 34.0 L (42-52) % Plt Count 165 (130-400) K/uL BMP 08/09/21 08/10/21 23:40 08:01 Sodium 136 136 Potassium 3.7 3.9 Chloride 104 104 Carbon Dioxide 20 L 20 L BUN 81 H 85 H Creatinine 2.81 H 2.90 H Glucose 120 H 155 H Calcium 9.0 9.2 Medications Administered Current Inpatient Medications Acetaminophen (Acetaminophen 325 Mg Tab) 650 mg PO Q4H PRN PRN Reason: Pain or Fever Stop: 09/07/21 10:08 Last Admin: 08/09/21 23:02 Dose: 650 mg Documented by: Allopurinol (Allopurinol 100 Mg Tab) 200 mg PO DAILY [facility] Stop: 09/07/21 10:08 Last Admin: 08/10/21 08:57 Dose: 200 mg Documented by: Amiodarone HCl (Amiodarone 200 Mg Tab) 100 mg PO DAILY [facility] Stop: 09/07/21 10:08 Last Admin: 08/10/21 08:55 Dose: 100 mg Documented by: Amlodipine Besylate (Amlodipine Besylate 5 Mg Tab) 10 mg PO QAM [facility] Stop: 09/08/21 08:59 Last Admin: 08/10/21 08:56 Dose: 10 mg Documented by: Aspirin (Aspirin 81 Mg Ectab) 81 mg PO DAILY [facility] Stop: 09/07/21 10:08 Last Admin: 08/10/21 08:56 Dose: 81 mg Documented by: Atorvastatin Calcium (Atorvastatin 40 Mg Tab) 40 mg PO HS [facility] Stop: 09/07/21 20:59 Last Admin: 08/09/21 21:17 Dose: 40 mg Documented by: Finasteride (Finasteride 5 Mg Tab) 5 mg PO DAILY [facility] Stop: 09/07/21 10:08 Last Admin: 08/10/21 08:56 Dose: 5 mg Documented by: Furosemide (Furosemide 40 Mg/4 Ml Vial) 40 mg IV BID [facility] Stop: 09/07/21 20:59 Last Admin: 08/08/21 21:18 Dose: 40 mg Documented by: Heparin Sodium (Porcine) (Heparin Sod 5,000 Unit/0.5 Ml Vial) 5,000 units SQ Q12 [facility] Stop: 09/08/21 20:59 Last Admin: 08/10/21 08:57 Dose: 5,000 units Documented by: Hydralazine HCl (Hydralazine Hcl 25 Mg Tab) 75 mg PO TID [facility] Stop: 09/08/21 20:59 Last Admin: 08/10/21 08:56 Dose: 75 mg Documented by: Hydromorphone HCl (Hydromorphone Inj 0.5 Mg/0.5 Ml Syr) 0.25 mg IV Q6H PRN PRN Reason: Pain Stop: 08/22/21 10:08 Promethazine HCl 6.25 mg/ (Sodium Chloride) 50.25 mls @ 201 mls/hr IV Q6H PRN PRN Reason: Nausea And Vomiting Stop: 09/07/21 10:08 Isosorbide Mononitrate (Isosorbide Evans Extended Rel 60 Mg Tabcr) 60 mg PO DAILY [facility] Stop: 09/07/21 10:08 Last Admin: 08/10/21 08:56 Dose: 60 mg Documented by: Levothyroxine Sodium (Levothyroxine Sodium 125 Mcg Tablet) 125 mcg PO DAILYBB [facility] Stop: 09/07/21 10:08 Last Admin: 08/10/21 05:37 Dose: 125 mcg Documented by: Tamsulosin HCl (Tamsulosin Hcl 0.4 Mg Cap) 0.4 mg PO DAILY [facility] Stop: 09/07/21 10:08 Last Admin: 08/09/21 09:49 Dose: 0.4 mg Documented by: Tramadol HCl (Tramadol Hcl 50 Mg Tablet) 25 mg PO Q4H PRN PRN Reason: Pain Stop: 09/07/21 10:08
[2021-08-10] MEDS: TAMSULOSIN HCL 0.4 MG CAP PO SCH (11:11)
--- NOTE | 2021-08-10 13:57 | Cardiology Progress Note ---
Date of Service August 10, 2021 Assessment & Plan (1) Hypoxia: (2) CHF (congestive heart failure): (3) Hypertensive urgency: (4) CKD (chronic kidney disease): (5) Anemia: (6) Elevated troponin I level: (7) Ischemic cardiomyopathy: (8) PAD (peripheral artery disease): Plan: 89-year-old patient with acute on chronic heart failure, worsening hypoxia overnight. X-ray evidence of pulmonary edema. Urine output limited by chronic renal dysfunction. Recommend restart furosemide 40 mg twice daily. May require higher dose due to chronic kidney disease. Consider nephrology consultation. Hydralazine titrated to 75 mg 3 times daily with improvement of blood pressure control. Monitor daily weight, fluid balance, and GFR. Follow blood pressure closely, consider addition of topical nitrates. Supplemental oxygen as needed. Admission and Anticipated Discharge Date Admission Date: August 08, 2021 Subjective Patient seen examined the bedside. Became acutely short of breath last evening with x-ray evidence of worsening pulmonary edema today. Received dose 40 mg IV Lasix this morning. Fluid balance negative approximately 700 cc. Hydralazine titrated to 75 mg 3 times daily to improve blood pressure control. Review of Systems Review of Systems: All systems reviewed & are unremarkable except as noted in Subjective Physical Exam Constitutional: + ill appearing; no acute distress Respiratory: no respiratory distress, no labored breathing and no retractions Auscultation: + rales (Bases bilateral); no rhonchi and no wheezes Cardiovascular: Rate/Rhythm: + irregularly irregular Heart Sounds: normal S1 and normal S2 Vessels: no JVD and no carotid bruit Extremities: no edema Gastrointestinal (Abdomen): Inspection/Auscultation: abdomen normal to inspection; abdomen not distended Percussion/Palpation: abdomen soft; abdomen nontender, no guarding and abdomen not rigid Neurologic: CN's II-XI intact bilaterally and moves all extremities; no focal motor deficits Psychiatric: A+Ox3, euthymic affect Results & Data ([facility]) Vital Signs (Past 12 Hours) Vital Signs Temp Pulse Pulse Resp BP Pulse Ox 08/10/21 08:25 75 08/10/21 08:06 36.9 C 79 20 142/94 H 96 08/10/21 04:43 36.6 C 77 22 137/62 97 (1) CHF (congestive heart failure) Heart failure chronicity: acute Heart failure type: unspecified Qualified Code(s): I50.9 - Heart failure, unspecified (2) Anemia Anemia type: other cause Other causes of anemia: acute posthemorrhagic Qualified Code(s): D62 - Acute posthemorrhagic anemia
[2021-08-10] MEDS: ATORVASTATIN 40 MG TAB PO SCH (21:31)
[2021-08-10] MEDS: FUROSEMIDE 40 MG/4 ML VIAL IV SCH (21:31)
[2021-08-11] MEDS ORDERED: XOPENEX/ATROVENT 1.25mg/0.5MG NEB COMBO NEB STA (01:05)
[2021-08-11] MEDS ORDERED: FUROSEMIDE 40 MG/4 ML VIAL IV SCH (01:05)
[2021-08-11] MEDS ORDERED: LEVALBUTEROL 1.25MG/0.5ML NEB INH STA (01:08)
[2021-08-11] MEDS ORDERED: IPRATROPIUM BROMIDE NEB SOLN 0.02% 2.5 ML VIAL INH STA (01:08)
[2021-08-11] MEDS: ACETAMINOPHEN 325 MG TAB PO PRN (01:28)
[2021-08-11] MEDS ORDERED: FUROSEMIDE INJ 20 MG/2 ML VIAL IV ONE (01:42)
[2021-08-11] MEDS ORDERED: ALBUMIN 25% 12.5 GM/50 ML VIAL IV ONE (01:44)
[2021-08-11 02:01] LABS: Base Excess ABG -3.5 mEq/L (-9-1.8); HCO3 ABG 20 mmol/L (19-24); Oxygen Saturation ABG 99.6 % (90-95); PCO2 ABG 30 mmHg (35-46); PO2 ABG 212 mmHg (80-95); pH ABG 7.44 (7.35-7.45)
[2021-08-11 02:03] LABS: Allen Test POS (Pos)
[2021-08-11 02:08] LABS: Hematocrit (blood only) 32.5 % (42-52); Immature Granulocytes # (auto) 0.04 K/uL (0.00-0.02); Immature Granulocytes % (auto) 0.3 %; Lymphocytes # (auto) 1.08 K/uL (1.2-3.4); Lymphocytes % (auto) 7.6 %; Mean Corpuscular Hemoglobin 31.5 pg (25-34); Mean Corpuscular Hgb Conc 33.8 g/dL (32-36); Mean Corpuscular Volume 93.1 fL (80-100); Mean Platelet Volume 10.7 fL (7.4-10.4); Monocytes # (auto) 0.51 K/uL (0.11-0.59); Monocytes % (auto) 3.6 %; Neutrophils # (auto) 12.55 K/uL (1.4-6.5); Neutrophils % (auto) 88.5 %; Platelet Count 192 K/uL (130-400); RDW Coefficient of Variation 15.9 % (11.5-14.5); RDW Standard Deviation 54.3 fL (36.4-46.3); Red Blood Count 3.49 M/uL (4.7-6.1); White Blood Count 14.18 K/uL (4.8-10.8)
[2021-08-11 02:16] LABS: BUN Creatinine Ratio 30.2 (10-20); Calcium 9.1 mg/dl (8.5-10.1); Creatinine Clr Calc Pharmacy 15.5 ml/min; Est GFR (African American) 20.3 ml/min; Est GFR (Non-African American) 17.5 ml/min; Magnesium 2.3 mg/dl (1.7-2.4); Potassium 3.9 mmol/L (3.5-5.1)
--- NOTE | 2021-08-11 05:08 | Communication Note ---
Date of Service: August 11, 2021 1 AM Patient with increasing O2 requirement and shortness of breath especially with motion as per RN. 1:30 AM Patient noted to be in respiratory distress, short of breath with accessory muscle use as per RN. O2 sats 90s on 15 LPM O2 mask Patient without chest pain or cough symptoms as per RN. Chest x-ray as per my interpretation : Pulmonary congestion creatinine 3.01 (from 2.9, 5/7) AP Worsening hypoxemic respiratory failure Cardiorenal syndrome BiPAP Additional Lasix dosed for renal function Campbell catheter for accurate IOs Renal ultrasound, Nephrology consult in a.m. Will relay to AM provider.
[2021-08-11] MEDS: LEVOTHYROXINE SODIUM 125 MCG TABLET PO SCH (06:22)
--- NOTE | 2021-08-11 07:23 | Ultrasound Report ---
RENAL ULTRASOUND CLINICAL HISTORY: arf ckd COMPARISON STUDY: CT of the abdomen and pelvis March 05, 2020. TECHNIQUE: Sonography of the kidneys and the urinary bladder was performed. 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 However, no hydronephrosis is evident. Renal cortical thinning is better depicted on prior CT. Size of the horseshoe kidney is dif ficult to assess by sonography. Bladder is decompressed, containing a Campbell balloon. IMPRESSION: Partially obscured horseshoe kidney but no hydronephrosis. ACT 112: Negative or not required by law. Electronically signed by: Hao Gardner M.D. 08/11/2021 7:22 AM
--- NOTE | 2021-08-11 07:47 | XRay Report ---
XR chest 1V portable HISTORY: 89 years-old Male sob acute shortness of breath COMPARISON: Chest radiograph 08/10/2021 TECHNIQUE: Portable AP view of the chest FINDINGS: Cardiac silhouette is enlarged. Atherosclerosis of the aorta. Mixed interstitial and alveolar opaciti es are noted with progressive consolidation of the lung bases. Small pleural effusions. Degenerative changes of the shoulders and spine. IMPRESSION: 1. Cardiomegaly with progressively worsened mixed interstitial and alveolar opacities. 2. Small pleural effusions with progressive bibasilar consolidation. ACT 112: Negative or not required by law. The above report was generated using voice recognition software. It may contain grammatical, syntax o r spelling errors. Electronically signed by: Alli Cervantes M.D. 08/11/2021 7:46 AM
[2021-08-11] MEDS ORDERED: metOLazone 2.5 MG TABLET PO ONE ×2 (08:55→19:00)
[2021-08-11] MEDS: allopurinoL 100 MG TAB PO SCH (09:30)
[2021-08-11] MEDS: ASPIRIN 81 MG ECTAB PO SCH (09:31)
[2021-08-11] MEDS: AMIODARONE 200 MG TAB PO SCH (09:31)
[2021-08-11] MEDS: ISOSORBIDE MONO EXTENDED REL 60 MG TABCR PO SCH (09:31)
[2021-08-11] MEDS: FINASTERIDE 5 MG TAB PO SCH (09:31)
[2021-08-11] MEDS: hydrALAZINE HCL 25 MG TAB PO SCH ×3 (09:31→20:04)
[2021-08-11] MEDS: HEPARIN SOD 5,000 UNIT/0.5 ML VIAL SQ SCH ×2 (09:32→20:04)
[2021-08-11] MEDS: TAMSULOSIN HCL 0.4 MG CAP PO SCH (09:32)
[2021-08-11] MEDS: amLODIPine BESYLATE 5 MG TAB PO SCH (09:32)
[2021-08-11] MEDS: FUROSEMIDE 40 MG/4 ML VIAL IV SCH ×3 (09:51→21:02)
[2021-08-11 10:58] LABS: Appearance Urine Clear (Clear); Bacteria Urine Automated Negative (Negative); Bilirubin Urine Negative (Negative); Blood Urine Negative (Negative); Color Urine Yellow; Epithelial Cell Urine Auto >30 /lpf (0-5); Glucose Urine UA Negative (Negative); Ketones Urine Negative (Negative); Leukocyte Esterase Urine 2+ (Negative); Nitrite Urine Negative (Negative); Protein Urine Negative (Negative); RBC Urine Automated 0-4 /hpf (0-4); Urobilinogen Urine Negative (Negative)
--- NOTE | 2021-08-11 12:14 | Nephrology Consultation ---
Date of Consultation August 11, 2021 Assessment & Plan (1) CKD (chronic kidney disease): baseline creatinine about 2.7. progressive respiratory failure in the setting of some missed lasix dosing a few days back with worsening renal function and acute decompensated HF. overall as of this AM (if I/O complete) he is 500 negative on the admission. this AM I increased his lasix from 40 mg iv bid to 80 mg iv tid and gave metolazone 2.5mg x 1> from one dose on higher lasix w/ metolazone he made 450 mL urine his chemistries are acceptable; he is not floridly volume overloaded on exam but his fluid balance/overall clinical picture suggests we are still behind on diuresis Agree w/ pulmonary consultation and eval for viral PNA. Case discussed w/ critical care as well > would have low threshold for moving him to ICU given tenuous respiratory status >Will for today give lasix 80 mg IV q 6 hrs and another dose of metolazone 2.5 mg before next lasix dose 1999 >RN to call me w/ update on output from second 80 mg lasix dose IV just give >Recheck bmp 1800 ordered If we cannot adequately diurese (and that remains to be seen), he will need dialysis. He is aware of this; I obtained consent which is on the chart. History of Present Illness Reason for Consultation: ANETA on CKD4 Requesting Physician: Dr So Attending Physician: Shamika So MD History of Present Illness 89 y/o M w/ advanced CKD 4 whom I'm asked to see for aneta on CKD in the setting of respiratory failure attributed to decompensated acute diastolic heart failure. PMH includes uncontrolled HTN, CKD4 w/ history of dialysis dependence and subsequent renal recovery several years back, chronic diastolic heart failure, advanced kidney disease, hypertension, peripheral vascular disease and atrial fibrillation (no AC d/t GI bleeding hx), hypothyroid, significant unexplained weight loss past year. he was obs'd here on 07/25 for community acquired pneumonia and left hospital after about a day on his own insistence in part. He follows w/ me in CKD clinic with baseline creatinine of 2.7 -2.8 most recently though these values are labile. He had nocturnal dypsnea on 08/08 and returned to ER w/ sats in 80s on RA. No evidence of PE on VQ/TTE; TTE essentially unchanged from prior. No evidence of PNA on CT and so no IV abtx after initial levaquin dose. Covid test negative. he was started on lasix 40 mg IV bid though all doses were held on 08/09, presumably d/t worries about renal function. His creatinine was 2.5 on presentation but 2.9 by 08/09 and has hung in this range ever since. He tells me he felt well enough on arrival but has since had progressive and more consistent dyspnea. he has been on bipap intermittently since 199 today and on oxymask 8L or more since 08/100. he is per I/O documented 450 negative on the admission to date. no confusion, no F, no n/v, no edema, no chest pain/pressure, no rash. Allergies Allergy/AdvReac Type Severity Reaction Status Date / Time Penicillins AdvReac Intermediate PENILE Verified 08/08/21 06:27 ENLARGEMENT tramadol AdvReac Intermediate GI SYMPTOMS Verified 08/08/21 06:27 Home Medications Medication Instructions Recorded Confirmed Type allopurinol 100 mg tablet 200 mg PO QAM 03/05/20 08/08/21 History aspirin 81 mg tablet,delayed 81 mg PO QAM 03/05/20 08/08/21 History release atorvastatin 40 mg tablet 40 mg PO HS 03/05/20 08/08/21 History finasteride 5 mg tablet 5 mg PO QAM 03/05/20 08/08/21 History furosemide 80 mg tablet See Rx Instructions .ROUTE .COMPLEX 03/05/20 08/08/21 History hydralazine 50 mg tablet 50 mg PO TID 03/05/20 08/08/21 History iron,carbonyl 65 mg-vitamin C 125 1 tab PO BID 03/05/20 08/08/21 History mg tablet,delayed release (Vitron-C) isosorbide mononitrate 60 mg 60 mg PO HS 03/05/20 08/08/21 History tablet,extended release 24 hr levothyroxine 125 mcg tablet 125 mcg PO DAILYBB 03/05/20 08/08/21 History potassium chloride 20 mEq 20 meq PO HS 03/05/20 08/08/21 History tablet,extended release(part/cryst) tamsulosin 0.4 mg capsule 0.4 mg PO HS 03/05/20 08/08/21 History amlodipine 5 mg tablet (Norvasc) 10 mg PO HS 07/24/21 08/08/21 History wheat dextrin 3 gram/3.5 gram oral 3 g PO HS 07/24/21 08/08/21 History powder packet (Benefiber Clear Sugar Free(dextrin)) amiodarone 200 mg tablet 100 mg PO QAM 08/08/21 08/08/21 History Patient History Medical History (Updated 08/11/21 @ 14:07 by Linda Alarcon MD, PhD) Acute pancreatitis Anemia Atrial fibrillation BPH (benign prostatic hyperplasia) CKD stage 4 secondary to hypertension Dialysis patient "x several months approx 2018 post ANETA from sepsis" Dyslipidemia Elevated troponin GERD (gastroesophageal reflux disease) Gout HTN (hypertension) Hypothyroidism Ischemic cardiomyopathy NSTEMI (non-ST elevated myocardial infarction) Paroxysmal atrial fibrillation Pernicious anemia PVD (peripheral vascular disease) Stress-induced cardiomyopathy "normal LVEF on most recent echo" Surgical History Status post carotid endarterectomy "right" Status post carpal tunnel release Status post cataract extraction Family History Other Diabetes Hypertension Stroke Social History Smoking Status: Never smoker Cigarettes Per Day: 60 per day.; Second Hand Exposure: No; Hx Alcohol Use: No Hx Substance Use: No Preferred Language: Montenegrin Communication Ability: Effective [employer]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 [employer] Required: Yes Beliefs That Will Affect Care: None marital status: / Current Living Situation: Alone How many Children do You have: 2 Other Information That Helps Us Care for You: No Feels Safe at Home: Yes Safety Concerns: Feels Safe At This Time Assistive Devices: None Review of Systems Review of Systems: All systems reviewed & are unremarkable except as noted in HPI & below Physical Exam Constitutional: well developed, + thin and cooperative; no acute distress Eyes: EOM intact bilaterally ENMT: Ears: no external ear abnormality Nose: no external nose abnormality Mouth: + dry oral mucous membranes Neck: no nuchal rigidity Respiratory: normal respiratory effort Auscultation: + diminished lung sounds (on Bipap) Cardiovascular: Rate/Rhythm: + irregularly irregular Heart Sounds: + murmur Extremities: no edema Gastrointestinal (Abdomen): Inspection/Auscultation: normal bowel sounds Percussion/Palpation: abdomen soft; abdomen nontender Musculoskeletal: Extremities: strength 5/5 throughout Skin: no rashes, warm and dry Neurologic: stephen, fluent speech, no tremor Psychiatric: Orientation: oriented x 3 Genitourinary: puentes w/ light yellow urine Results & Data ([facility]) Vital Signs (Past 12 Hours) Vital Signs Temp Pulse Pulse Resp BP Pulse Ox Pulse Ox 08/11/21 11:58 37.2 C 97 H 16 146/85 H 88 L 08/11/21 09:10 36.4 C L 93 H 16 159/73 H 93 08/11/21 07:43 101 H 20 92 08/11/21 07:42 101 H 08/11/21 05:32 94 08/11/21 05:06 95 H 08/11/21 04:42 36.8 C 102 H 26 H 144/88 H 94 08/11/21 01:46 104 H 114 H 27 H 98 08/11/21 01:24 36.8 C 103 H 28 H 154/72 H 90 Laboratory Results 08/11/21 01:42 08/11/21 01:[address] no con 5/5 Thyroid: Normal in size and heterogeneous in attenuation. Thoracic aorta: There is atherosclerotic calcification of the thoracic aorta, which is normal in caliber and demonstrates standard 3-vessel arch anatomy. Heart: The heart is enlarged noting trace pericardial effusion. The coronary arteries are densely calcified. There is diminished attenuation of the cardiac blood pool as compared to the myocardium suggesting anemia. The pulmonary trunk is dilated, measuring up to 3.4 cm. This suggests pulmonary artery hypertension. Lungs and pleural spaces: Emphysematous change is noted. The trachea and central airways are clear. There is no airspace consolidation typical for pneumonia. There are small pleural effusions with dependent atelectasis. Intralobular septal thickening is noted throughout both lungs. There are scattered calcified granulomas. Mediastinum: There are numerous mildly enlarged mediastinal lymph nodes which measure up to 13 mm in short axis. These have not appreciably changed from 12/08/2015 and several containing calcifications. Iliana: There are calcified left hilar lymph nodes. Note that the iliana are not well assessed without IV contrast. Axillae: There is no axillary lymphadenopathy. Upper abdomen: There are calcified splenic granulomas. Partially visualized upper abdominal viscera is otherwise grossly unremarkable Skeletal structures: The skeletal structures are osteopenic. Degenerative change and hyperkyphosis are noted in the thoracic spine. No lytic or blastic bony lesions are seen. IMPRESSION: 1. Cardiomegaly and emphysema with evidence of congestive failure. 2. There are small pleural effusions with dependent atelectasis. 3. Additional findings as above. cxr this am 1. Cardiomegaly with progressively worsened mixed interstitial and alveolar opacities. 2. Small pleural effusions with progressive bibasilar consolidation. 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 However, no hydronephrosis is evident. Renal cortical thinning is better depicted on prior CT. Size of the horseshoe kidney is difficult to assess by sonography. Bladder is decompressed, containing a Puentes balloon. IMPRESSION: Partially obscured horseshoe kidney but no hydronephrosis. TTE 08/08 LV systolic function preserved, without wall motion abnormality. Ejection fraction 55 to 60%. Moderate concentric LVH and mild mitral regurgitation; mode rate aortic valve sclerosis without significant stenosis, mild aortic regurgitation, and mild tricuspid regurgitation. Estimated systolic pulmonary pressure 59 mmHg
--- NOTE | 2021-08-11 12:38 | Hospitalist Progress Note ---
Date of Service August 11, 2021 Assessment & Plan (1) Acute hypoxemic respiratory failure: Plan: Acute on chronic diastolic CHF -Repeat TTE unchanged compared to previous -At home, takes lasix 80mg QAM and 40mg QPM. Reports compliance -SBP on arrival up to 180. Possible component of poorly controlled hypertension -Daily CXR shows worsening CHF -Patient not responding well to current doses of lasix 40mg IV BID. Nephrology consulted to help with diuresis management--> lasix increased to 80mg IV TID and 1 dose metolazone given this morning Acute hypoxic respiratory failure -now requiring intermittent BIPAP -Patient confirmed to be full code -Reportedly with recent 2nd Covid booster and respiratory symptoms started shortly after. Will check ESR/CRP to evaluate for underlying inflammatory process, also check respiratory viral panel -Pulmonology consulted to help with management. Patient at increased risk for intubation with his declining respiratory status despite diuresis CKD stage 4 -Cr fluctuates but appears to be baseline 2.5-3. -sees Dr Sarabia as an outpatient Demand ischemia -trop elevation with peak at 155 -no chest pain. TTE negative for wall motion abnormality Leukocytosis -likely reactive -s/p ABx in ER, but no evidence of pneumonia on imaging, negative procalcitonin -monitor off antibiotics PAF -amiodarone 100mg daily, aspirin 81mg, not on AC due to history of GIB Poorly controlled HTN -home regimen: hydralazine 50mg TID--increased to 75mg TID 5/6, Imdur 60mg QHS, amlodipine 10mg QHS -Improved BP currently BPH -flomax DVT ppx SQ heparin Admission and Anticipated Discharge Date Admission Date: August 08, 2021 Subjective Overnight with worsening respiratory distress, was placed on BIPAP which he tolerated for 4.5 hours only and then spent rest of night on oxymask Currently with SOB Puentes placed overnight for more accurate I/O Physical Exam Physical Exam: Appears in distress, dyspneic with speaking Respiratory: dyspneic with speaking, lung sounds are diminished diffusely, no audible wheezing/rhonchi Cardiovascular: regular rate and rhythm, no murmurs/rubs/gallops Gastrointestinal (Abdomen): soft, non tender Musculoskeletal: no edema Neurologic: awake, alert, spontaneously moving extremities Genitourinary: puentes now in place, draining clear yellow urine Results & Data Results & Data ([facility]) Vital Signs (Past 12 Hours) Vital Signs Temp Pulse Pulse Resp BP Pulse Ox Pulse Ox 08/11/21 11:58 37.2 C 97 H 16 146/85 H 88 L 08/11/21 09:10 36.4 C L 93 H 16 159/73 H 93 08/11/21 07:43 101 H 20 92 08/11/21 07:42 101 H 08/11/21 05:32 94 08/11/21 05:06 95 H 08/11/21 04:42 36.8 C 102 H 26 H 144/88 H 94 08/11/21 01:46 104 H 114 H 27 H 98 08/11/21 01:24 36.8 C 103 H 28 H 154/72 H 90 Laboratory Results Short CBC 08/11/21 Range/Units 01:42 WBC 14.18 H (4.8-10.8) K/uL Hgb 11.0 L (14.0-18.0) g/dL Hct 32.5 L (42-52) % Plt Count 192 (130-400) K/uL BMP 08/11/21 01:42 Sodium 135 L Potassium 3.9 Chloride 103 Carbon Dioxide 19 L BUN 91 H Creatinine 3.01 H Glucose 132 H Calcium 9.1 Urine 08/11/21 Range/Units 10:32 Urine Color Yellow Urine Appearance Clear (Clear) Urine pH 5.0 (4.5-7.5) Ur Specific Gates 1.010 (1.000-1.030) Urine Protein Negative (Negative) Urine Glucose (UA) Negative (Negative) Medications Administered Current Inpatient Medications Acetaminophen (Acetaminophen 325 Mg Tab) 650 mg PO Q4H PRN PRN Reason: Pain or Fever Stop: 09/07/21 10:08 Last Admin: 08/11/21 01:28 Dose: 650 mg Documented by: Allopurinol (Allopurinol 100 Mg Tab) 50 mg PO DAILY [facility] Stop: 09/10/21 08:59 Last Admin: 08/11/21 09:30 Dose: 50 mg Documented by: Amiodarone HCl (Amiodarone 200 Mg Tab) 100 mg PO DAILY [facility] Stop: 09/07/21 10:08 Last Admin: 08/11/21 09:31 Dose: 100 mg Documented by: Amlodipine Besylate (Amlodipine Besylate 5 Mg Tab) 10 mg PO QAM [facility] Stop: 09/08/21 08:59 Last Admin: 08/11/21 09:32 Dose: 10 mg Documented by: Aspirin (Aspirin 81 Mg Ectab) 81 mg PO DAILY [facility] Stop: 09/07/21 10:08 Last Admin: 08/11/21 09:31 Dose: 81 mg Documented by: Atorvastatin Calcium (Atorvastatin 40 Mg Tab) 40 mg PO HS [facility] Stop: 09/07/21 20:59 Last Admin: 08/10/21 21:31 Dose: 40 mg Documented by: Finasteride (Finasteride 5 Mg Tab) 5 mg PO DAILY [facility] Stop: 09/07/21 10:08 Last Admin: 08/11/21 09:31 Dose: 5 mg Documented by: Furosemide (Furosemide 40 Mg/4 Ml Vial) 80 mg IV TID [facility] Stop: 09/10/21 08:59 Last Admin: 08/11/21 09:51 Dose: 80 mg Documented by: Heparin Sodium (Porcine) (Heparin Sod 5,000 Unit/0.5 Ml Vial) 5,000 units SQ Q12 [facility] Stop: 09/08/21 20:59 Last Admin: 08/11/21 09:32 Dose: 5,000 units Documented by: Hydralazine HCl (Hydralazine Hcl 25 Mg Tab) 75 mg PO TID [facility] Stop: 09/08/21 20:59 Last Admin: 08/11/21 09:31 Dose: 75 mg Documented by: Hydromorphone HCl (Hydromorphone Inj 0.5 Mg/0.5 Ml Syr) 0.25 mg IV Q6H PRN PRN Reason: Pain Stop: 08/22/21 10:08 Promethazine HCl 6.25 mg/ (Sodium Chloride) 50.25 mls @ 201 mls/hr IV Q6H PRN PRN Reason: Nausea And Vomiting Stop: 09/07/21 10:08 Isosorbide Mononitrate (Isosorbide Campbell Extended Rel 60 Mg Tabcr) 60 mg PO DAILY [facility] Stop: 09/07/21 10:08 Last Admin: 08/11/21 09:31 Dose: 60 mg Documented by: Levothyroxine Sodium (Levothyroxine Sodium 125 Mcg Tablet) 125 mcg PO DAILYBB [facility] Stop: 09/07/21 10:08 Last Admin: 08/11/21 06:22 Dose: 125 mcg Documented by: Tamsulosin HCl (Tamsulosin Hcl 0.4 Mg Cap) 0.4 mg PO DAILY [facility] Stop: 09/07/21 10:08 Last Admin: 08/11/21 09:32 Dose: 0.4 mg Documented by: Tramadol HCl (Tramadol Hcl 50 Mg Tablet) 25 mg PO Q4H PRN PRN Reason: Pain Stop: 09/07/21 10:08
--- NOTE | 2021-08-11 12:38 | Cardiology Progress Note ---
Date of Service August 11, 2021 Assessment & Plan (1) Hypoxia: (2) CHF (congestive heart failure): (3) Hypertensive urgency: (4) CKD (chronic kidney disease): (5) Anemia: (6) Elevated troponin I level: (7) Ischemic cardiomyopathy: (8) PAD (peripheral artery disease): Plan: 89-year-old patient with acute on chronic heart failure, and worsening hypoxia. Fluid balance minimally negative. Agree with assessment for viral pneumonitis. Appreciate nephrology input regarding escalation of diuretic therapy. Follow daily weight, fluid balance, GFR, electrolytes. Blood pressure remains reasonable. Continue other cardiovascular medications as previously ordered. Admission and Anticipated Discharge Date Admission Date: August 08, 2021 Subjective Patient seen and examined at bedside. Respiratory status continues to decline. Currently receiving high flow nasal cannula oxygen. Fluid balance minimally negative. Creatinine trending upward. Review of Systems Review of Systems: All systems reviewed & are unremarkable except as noted in Subjective Physical Exam Constitutional: + ill appearing; no acute distress Respiratory: no respiratory distress, no labored breathing and no retractions Auscultation: + rales (Bases bilateral); no rhonchi and no wheezes Cardiovascular: Rate/Rhythm: + irregularly irregular Heart Sounds: normal S1 and normal S2 Vessels: no JVD and no carotid bruit Extremities: no edema Gastrointestinal (Abdomen): Inspection/Auscultation: abdomen normal to inspection; abdomen not distended Percussion/Palpation: abdomen soft; abdomen nontender, no guarding and abdomen not rigid Neurologic: CN's II-XI intact bilaterally and moves all extremities; no focal motor deficits Psychiatric: A+Ox3, euthymic affect Results & Data ([facility]) Vital Signs (Past 12 Hours) Vital Signs Temp Pulse Pulse Resp BP Pulse Ox Pulse Ox 08/11/21 11:58 37.2 C 97 H 16 146/85 H 88 L 08/11/21 09:10 36.4 C L 93 H 16 159/73 H 93 08/11/21 07:43 101 H 20 92 08/11/21 07:42 101 H 08/11/21 05:32 94 08/11/21 05:06 95 H 08/11/21 04:42 36.8 C 102 H 26 H 144/88 H 94 08/11/21 01:46 104 H 114 H 27 H 98 08/11/21 01:24 36.8 C 103 H 28 H 154/72 H 90 (1) CHF (congestive heart failure) Heart failure chronicity: acute Heart failure type: unspecified Qualified Code(s): I50.9 - Heart failure, unspecified (2) Anemia Anemia type: other cause Other causes of anemia: acute posthemorrhagic Qualified Code(s): D62 - Acute posthemorrhagic anemia
--- NOTE | 2021-08-11 13:32 | Pulmonary Consultation ---
Date of Consultation August 11, 2021 Assessment & Plan (1) Acute hypoxemic respiratory failure: Secondary to decompensated CHF and worsening renal failure. Agree with BiPAP therapy and IV diuresis. Patient wants to remain a full code. Low threshold for ICU transfer and closer monitoring should he decompensate. Small effusions noted bilaterally, likely to be playing a significant role in his hypoxia. Atelectasis seen bilaterally as well. Will order incentive spirometry and flutter valve. COVID negative on 08/08/21 (2) Non-ST elevation (NSTEMI) myocardial infarction: Followed by cardiology. Will defer management to them. (3) CHF (congestive heart failure): Currently on IV diuretic therapy. Heart failure chronicity: acute Heart failure type: unspecified Qualified Code(s): I50.9 - Heart failure, unspecified (4) Acute kidney injury superimposed on chronic kidney disease: Worsening creatinine. IV diuresis increased by nephrology. Hopefully, will not progress to needing dialysis. History of Present Illness Reason for Consultation: Hypoxemic respiratory failure Attending Physician: Shamika So MD History of Present Illness 89-year-old male with a past medical history of diastolic heart failure, advanced kidney disease, hypertension, peripheral vascular disease and atrial fibrillation who presented to the hospital due to an acute episode of nocturnal dyspnea. Hypoxic on hospital admission to 83% on room air. He is on BiPAP support with an FiO2 of 70%. He notes that his breathing is improved slightly compared to yesterday. He is receiving IV diuretics. Nephrology is following the patient along with cardiology. Patient is denying chest pain, fevers or chills. He has a slight nonproductive cough. He notes that 6 years ago he was on a mechanical ventilator after sustaining a myocardial infarction. His labs are notable for worsening creatinine. Renal ultrasound we did today demonstrates partially obscured horseshoe kidney but no hydronephrosis. Chest CT 08/08/2021 reviewed which showed emphysema, small pleural effusions with dependent atelectasis and interlobular septal thickening consistent with CHF. Perfusion study completed 08/08/2021 without any evidence of perfusion defects identified in the lung making this a low probability study. Chest x-ray from today indicated small pleural effusions with progressive bibasilar consolidation. Chest x-ray from 07/24/2021 with mild vascular congestion. There has been definite progression of interstitial pulmonary edema on the latest chest x-rays. Allergies Allergy/AdvReac Type Severity Reaction Status Date / Time Penicillins AdvReac Intermediate PENILE Verified 08/08/21 06:27 ENLARGEMENT tramadol AdvReac Intermediate GI SYMPTOMS Verified 08/08/21 06:27 Home Medications Medication Instructions Recorded Confirmed Type allopurinol 100 mg tablet 200 mg PO QAM 03/05/20 08/08/21 History aspirin 81 mg tablet,delayed 81 mg PO QAM 03/05/20 08/08/21 History release atorvastatin 40 mg tablet 40 mg PO HS 03/05/20 08/08/21 History finasteride 5 mg tablet 5 mg PO QAM 03/05/20 08/08/21 History furosemide 80 mg tablet See Rx Instructions .ROUTE .COMPLEX 03/05/20 08/08/21 History hydralazine 50 mg tablet 50 mg PO TID 03/05/20 08/08/21 History iron,carbonyl 65 mg-vitamin C 125 1 tab PO BID 03/05/20 08/08/21 History mg tablet,delayed release (Vitron-C) isosorbide mononitrate 60 mg 60 mg PO HS 03/05/20 08/08/21 History tablet,extended release 24 hr levothyroxine 125 mcg tablet 125 mcg PO DAILYBB 03/05/20 08/08/21 History potassium chloride 20 mEq 20 meq PO HS 03/05/20 08/08/21 History tablet,extended release(part/cryst) tamsulosin 0.4 mg capsule 0.4 mg PO HS 03/05/20 08/08/21 History amlodipine 5 mg tablet (Norvasc) 10 mg PO HS 07/24/21 08/08/21 History wheat dextrin 3 gram/3.5 gram oral 3 g PO HS 07/24/21 08/08/21 History powder packet (Benefiber Clear Sugar Free(dextrin)) amiodarone 200 mg tablet 100 mg PO QAM 08/08/21 08/08/21 History Patient History Medical History Acute pancreatitis Anemia Atrial fibrillation BPH (benign prostatic hyperplasia) CKD stage 4 secondary to hypertension Dialysis patient "short term post ANETA from sepsis" Dyslipidemia Elevated troponin GERD (gastroesophageal reflux disease) Gout HTN (hypertension) Hypothyroidism Ischemic cardiomyopathy NSTEMI (non-ST elevated myocardial infarction) Paroxysmal atrial fibrillation Pernicious anemia PVD (peripheral vascular disease) Stress-induced cardiomyopathy "normal LVEF on most recent echo" Surgical History Status post carotid endarterectomy "right" Status post carpal tunnel release Status post cataract extraction Family History Other Diabetes Hypertension Stroke Social History Smoking Status: Never smoker Cigarettes Per Day: 60 per day.; Second Hand Exposure: No; Hx Alcohol Use: No Hx Substance Use: No Preferred Language: Tunisian Communication Ability: Effective [employer] Apprentice Required: Yes Beliefs That Will Affect Care: None marital status: / Current Living Situation: Alone How many Children do You have: 2 Other Information That Helps Us Care for You: No Feels Safe at Home: Yes Safety Concerns: Feels Safe At This Time Assistive Devices: None Review of Systems Review of Systems: All systems reviewed & are unremarkable except as noted in HPI & below Physical Exam Constitutional: Frail and elderly appearing. BiPAP mask in place. Eyes: PERRL, conjunctivae normal, anicteric sclerae ENMT: external ear and nose normal, oropharynx normal Respiratory: Crackles bilaterally. Mildly increased work of breathing. Cardiovascular: RRR, no murmur, no edema Gastrointestinal (Abdomen): normal bowel sounds, soft, nontender, no hepatosplenomegaly Musculoskeletal: no cyanosis or clubbing, extremities motor strength 5/5 Skin: no rashes, warm and dry Neurologic: PERRL, EOMI, accommodation nl, no face palsy, no dysarthria Psychiatric: A+Ox3, euthymic affect Results & Data Results & Data ([facility]) Vital Signs (Past 12 Hours) Vital Signs Temp Pulse Pulse Resp BP Pulse Ox Pulse Ox 08/11/21 11:58 37.2 C 97 H 16 146/85 H 88 L 08/11/21 09:10 36.4 C L 93 H 16 159/73 H 93 08/11/21 07:43 101 H 20 92 08/11/21 07:42 101 H 08/11/21 05:32 94 08/11/21 05:06 95 H 08/11/21 04:42 36.8 C 102 H 26 H 144/88 H 94 08/11/21 01:46 104 H 114 H 27 H 98 08/11/21 01:24 36.8 C 103 H 28 H 154/72 H 90 PG Care Time/CCT Total # of Minutes Spent Total Time Spent with Patient: Total time spent is greater than 50% in coordination of care (as documented) at patient's floor/unit and/or counseling patient: Coding Level of Care Code 81964 Initial Inpt Care Lvl 2 Diagnoses CHF (congestive heart failure) I50.9 Heart failure chronicity: acute Heart failure type: unspecified Acute hypoxemic respiratory failure J96.01 Non-ST elevation (NSTEMI) myocardial infarction I21.4 Acute kidney injury superimposed on chronic kidney disease N17.9; N18.9
[2021-08-11] MEDS ORDERED: FUROSEMIDE 40 MG/4 ML VIAL IV STA (13:45)
--- NOTE | 2021-08-11 15:06 | Critical Care Consultation ---
Date of Consultation August 11, 2021 Assessment & Plan (1) Acute hypoxemic respiratory failure: Reason Critically Ill: Acute hypoxic respiratory failure PLAN: Resp: Acute hypoxic respiratory failure -Secondary to volume overload and acute decompensated diastolic heart failure CV: Acute decompensated congestive heart failure: Diastolic -Reviewed cardiology notes, recently increased hydralazine for blood pressure control Fluids/Renal: Acute kidney injury on chronic kidney disease stage IV -Reviewed nephrology notes -Aggressive diuresis if no improvement would proceed with temporary dialysis catheter ID: Influenza, RSV, COVID-negative -elevated white count however afebrile, doubtful this represents acute bacterial pneumonia GI/Nutrition: Heart healthy diet order with fluid restriction of 1500 mL Heme: Anemia: At baseline DVT prophylaxis: Heparin 5000 twice daily Endocrine: ICU hyperglycemia protocol Vascular access: Peripheral IVs Code Status: DNR/DNI in event of cardiac arrest Disposition: Remains on PCU telemetry, if we proceed with temporary dialysis would transfer to ICU. Patient is critically ill. (2) Non-ST elevation (NSTEMI) myocardial infarction: (3) CHF (congestive heart failure): (4) Acute kidney injury superimposed on chronic kidney disease: History of Present Illness Reason for Consultation: Acute hypoxic respiratory failure secondary to volume overload Requesting Physician: Linda Sarabia MD Attending Physician: Shamika So MD History of Present Illness Patient is an 89-year-old male with significant past medical history of diastolic heart failure, chronic kidney disease stage IV, hypertension, peripheral vascular disease, atrial fibrillation not on anticoagulation secondary to prior anemia who presented to the hospital for increasing shortness of breath. I was contacted by nephrology for concerns of possible urgent/emergent dialysis and temporary dialysis line placement. He is scheduled to undergo a tunneled catheter placement tomorrow with vascular surgery. During my evaluation the patient is dyspneic tolerating a BiPAP, reports that he does not feel significantly improved in the last 3 to 6 hours since receiving his diuretics this morning. In discussion with nephrology we are attempting another Lasix bolus and if that improves his symptomatology he will hopefully be able to bridge until tomorrow when he receives his tunneled dialysis catheter and white possibly would require dialysis at that time. I discussed extensively with the patient wishes should he experience a cardiac arrest, I informed him our success is generally less than 20% and subsequently 90% have long-term ill effects which may preclude independent living. Risks of CPR also include broken ribs and bruised lungs, he reports that he would not want to be kept in a vegetative state and would not want to undergo heroic resuscitative efforts in event of cardiac arrest. This was discussion took place in the presence of his daughter and son. At this point we will update his CODE STATUS to DO NOT RESUSCITATE in event of cardiac arrest he is comfortable with intubation mechanical ventilation for respiratory insufficiency. Patient was also verbally consented for temporary dialysis catheter should it be required. Allergies Allergy/AdvReac Type Severity Reaction Status Date / Time Penicillins AdvReac Intermediate PENILE Verified 08/08/21 06:27 ENLARGEMENT tramadol AdvReac Intermediate GI SYMPTOMS Verified 08/08/21 06:27 Home Medications Medication Instructions Recorded Confirmed Type allopurinol 100 mg tablet 200 mg PO QAM 03/05/20 08/08/21 History aspirin 81 mg tablet,delayed 81 mg PO QAM 03/05/20 08/08/21 History release atorvastatin 40 mg tablet 40 mg PO HS 03/05/20 08/08/21 History finasteride 5 mg tablet 5 mg PO QAM 03/05/20 08/08/21 History furosemide 80 mg tablet See Rx Instructions .ROUTE .COMPLEX 03/05/20 08/08/21 History hydralazine 50 mg tablet 50 mg PO TID 03/05/20 08/08/21 History iron,carbonyl 65 mg-vitamin C 125 1 tab PO BID 03/05/20 08/08/21 History mg tablet,delayed release (Vitron-C) isosorbide mononitrate 60 mg 60 mg PO HS 03/05/20 08/08/21 History tablet,extended release 24 hr levothyroxine 125 mcg tablet 125 mcg PO DAILYBB 03/05/20 08/08/21 History potassium chloride 20 mEq 20 meq PO HS 03/05/20 08/08/21 History tablet,extended release(part/cryst) tamsulosin 0.4 mg capsule 0.4 mg PO HS 03/05/20 08/08/21 History amlodipine 5 mg tablet (Norvasc) 10 mg PO HS 07/24/21 08/08/21 History wheat dextrin 3 gram/3.5 gram oral 3 g PO HS 07/24/21 08/08/21 History powder packet (Benefiber Clear Sugar Free(dextrin)) amiodarone 200 mg tablet 100 mg PO QAM 08/08/21 08/08/21 History Patient History Medical History Acute pancreatitis Anemia Atrial fibrillation BPH (benign prostatic hyperplasia) CKD stage 4 secondary to hypertension Dialysis patient "x several months approx 2018 post ANETA from sepsis" Dyslipidemia Elevated troponin GERD (gastroesophageal reflux disease) Gout HTN (hypertension) Hypothyroidism Ischemic cardiomyopathy NSTEMI (non-ST elevated myocardial infarction) Paroxysmal atrial fibrillation Pernicious anemia PVD (peripheral vascular disease) Stress-induced cardiomyopathy "normal LVEF on most recent echo" Surgical History Status post carotid endarterectomy "right" Status post carpal tunnel release Status post cataract extraction Family History Other Diabetes Hypertension Stroke Social History Smoking Status: Never smoker Cigarettes Per Day: 60 per day.; Second Hand Exposure: No; Hx Alcohol Use: No Hx Substance Use: No Preferred Language: Bahraini Communication Ability: Effective Bonsai Tender Required: Yes Beliefs That Will Affect Care: None marital status: / Current Living Situation: Alone How many Children do You have: 2 Other Information That Helps Us Care for You: No Feels Safe at Home: Yes Safety Concerns: Feels Safe At This Time Assistive Devices: None Review of Systems Review of Systems: Denies chest pain, is short of breath, denies palpitations Physical Exam Physical Exam: General: Alert. nontoxic. Skin: Warm, dry, Head: Atraumatic Ears, nose, mouth and throat: airway patent, BiPAP mask in place Cardiovascular: Normal peripheral perfusion, irregularly irregular rhythm, atrial fibrillation on the monitor Respiratory: Mild tachypnea, he is able to speak in full sentences through the BiPAP mask Gastrointestinal: Non distended Musculoskeletal: No deformity Results & Data Results & Data ([facility]) Vital Signs (Past 12 Hours) Vital Signs Temp Pulse Pulse Pulse Resp BP Pulse Ox 08/11/21 14:20 111 H 135/104 H 08/11/21 11:58 37.2 C 97 H 16 146/85 H 88 L 08/11/21 11:55 115 H 18 92 08/11/21 09:10 36.4 C L 93 H 16 159/73 H 93 08/11/21 07:43 101 H 20 08/11/21 07:42 101 H 08/11/21 05:32 94 08/11/21 05:06 95 H 08/11/21 04:42 36.8 C 102 H 26 H 144/88 H 94 Pulse Ox 08/11/21 14:20 08/11/21 11:58 08/11/21 11:55 08/11/21 09:10 08/11/21 07:43 92 08/11/21 07:42 08/11/21 05:32 08/11/21 05:06 08/11/21 04:42 Critical Care Results & Data Vital Signs (Past 12 Hours) Vital Signs Temp Pulse Pulse Pulse Resp BP Pulse Ox 08/11/21 14:20 111 H 135/104 H 08/11/21 11:58 37.2 C 97 H 16 146/85 H 88 L 08/11/21 11:55 115 H 18 92 08/11/21 09:10 36.4 C L 93 H 16 159/73 H 93 08/11/21 07:43 101 H 20 08/11/21 07:42 101 H 08/11/21 05:32 94 08/11/21 05:06 95 H 08/11/21 04:42 36.8 C 102 H 26 H 144/88 H 94 Pulse Ox 08/11/21 14:20 08/11/21 11:58 08/11/21 11:55 08/11/21 09:10 08/11/21 07:43 92 08/11/21 07:42 08/11/21 05:32 08/11/21 05:06 08/11/21 04:42 Lab & Micro Results (Past 24 Hours) RBC 3.49 M/uL (4.7-6.1) L 08/11/21 WBC 14.18 K/uL (4.8-10.8) H 08/11/21 Hgb 11.0 g/dL (14.0-18.0) L 08/11/21 Hct 32.5 % (42-52) L 08/11/21 MCV 93.1 fL (80-100) 08/11/21 MCH 31.5 pg (25-34) 08/11/21 MCHC 33.8 g/dL (32-36) 08/11/21 RDW Standard Deviation 54.3 fL (36.4-46.3) H 08/11/21 RDW Coefficient of Variation 15.9 % (11.5-14.5) H 08/11/21 Plt Count 192 K/uL (130-400) 08/11/21 MPV 10.7 fL (7.4-10.4) H 08/11/21 Neutrophils (%) (Auto) 88.5 % 08/11/21 Lymphocytes (%) (Auto) 7.6 % 08/11/21 Monocytes # (Auto) 0.51 K/uL (0.11-0.59) 08/11/21 Eosinophils # (Auto) 0.00 K/uL (0-0.5) 08/11/21 Immature Granulocyte % (Auto) 0.3 % 08/11/21 Neutrophils # (Auto) 12.55 K/uL (1.4-6.5) H 08/11/21 Lymphocytes # (Auto) 1.08 K/uL (1.2-3.4) L 08/11/21 Monocytes # (Auto) 0.51 K/uL (0.11-0.59) 08/11/21 Eosinophils # (Auto) 0.00 K/uL (0-0.5) 08/11/21 Basophils # (Auto) 0.00 K/uL (0-0.2) 08/11/21 Immature Granulocyte # (Auto) 0.04 K/uL (0.00-0.02) H 08/11/21 Na 135 mmol/L (136-145) L 08/11/21 K 3.9 mmol/L (3.5-5.1) 08/11/21 Cl 103 mmol/L (98-107) 08/11/21 CO2 19 mmol/L (21-32) L 08/11/21 Anion Gap 13 (3-11) H 08/11/21 BUN 91 mg/dl (6-23) H 08/11/21 Creatinine 3.01 mg/dl (0.6-1.4) H 08/11/21 Estimated GFR ( Amer) 20.3 ml/min 08/11/21 Estimated GFR (Non-Af Amer) 17.5 ml/min 08/11/21 BUN/Creatinine Ratio 30.2 (10-20) H 08/11/21 Glu 132 mg/dl (70-99(Fasting)) H 08/11/21 Ca 9.1 mg/dl (8.5-10.1) 08/11/21 Mg 2.3 mg/dl (1.7-2.4) 08/11/21 01:42 08/11/21 Calcium Level 9.1 mg/dl (8.5-10.1) 08/11/21 01:42 08/11/21 Blood Gas Barometric Pressure [employer] 08/11/21 01:47 08/11/21 Arterial Blood pH 7.44 (7.35-7.45) 08/11/21 01:47 08/11/21 Arterial Blood Partial Pressure CO2 30 mmHg (35-46) L 08/11/21 01:47 08/11/21 Arterial Blood Partial Pressure O2 212 mmHg (80-95) H 08/11/21 01:47 0 08/11/21 Arterial Blood HCO3 20 mmol/L (19-24) 08/11/21 01:47 08/11/21 Arterial Blood Base Excess -3.5 mEq/L (-9-1.8) 08/11/21 01:47 08/11/21 Arterial Blood Oxygen Saturation 99.6 % (90-95) H 08/11/21 01:47 08/11/21 Blood Gas Oxygen Given FiO2 100% 08/11/21 01:47 08/11/21 Elijah Test POS (Pos) 08/11/21 01:47 08/11/21 Blood Gas Barometric Pressure [employer] 08/11/21 01:47 08/11/21 Diagnostic Findings (Past 24 Hours) Chest X-Ray 08/11/21 01:28 XR chest 1V portable HISTORY: 89 years-old Male sob acute shortness of breath COMPARISON: Chest radiograph 08/10/2021 TECHNIQUE: Portable AP view of the chest FINDINGS: Cardiac silhouette is enlarged. Atherosclerosis of the aorta. Mixed interstitial and alveolar opacities are noted with progressive consolidation of the lung bases. Small pleural effusions. Degenerative changes of the shoulders and spine. IMPRESSION: 1. Cardiomegaly with progressively worsened mixed interstitial and alveolar opacities. 2. Small pleural effusions with progressive bibasilar consolidation. ACT 112: Negative or not required by law. The above report was generated using voice recognition software. It may contain grammatical, syntax or spelling errors. Electronically signed by: Alli Cervantes M.D. 08/11/2021 7:46 AM Renal Ultrasound 08/11/21 05:09 RENAL ULTRASOUND CLINICAL HISTORY: arf ckd COMPARISON STUDY: CT of the abdomen and pelvis March 05, 2020. TECHNIQUE: Sonography of the kidneys and the urinary bladder was performed. 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 However, no hydronephrosis is evident. Renal cortical thinning is better depicted on anselmo or CT. Size of the horseshoe kidney is difficult to assess by sonography. Bladder is decompressed, containing a Campbell balloon. IMPRESSION: Partially obscured horseshoe kidney but no hydronephrosis. ACT 112: Negative or not required by law. Electronically signed by: Hao Gardner M.D. 08/11/2021 7:22 AM I & O Totals 24 Hours 08/10/21 08/11/21 08/12/21 06:59 06:59 06:59 Intake Total 40 / 40 510 / 510 Output Total 200 / 200 800 / 800 425 / 425 Balance -160 / -160 -290 / -290 -425 / -425 Cumulative 08/08/21 03:28 thru 08/11/21 14:00 Intake Total 1650 Output Total 2525 Balance -875 RT Ventilator Mngmt (Last Documented) Ventilator Ordered Settings Respiratory Rate 16 08/11/21 11:58 Fraction of Inspired Oxygen 70 08/11/21 11:58 Ventilator - PT Measurements Respiratory Rate 16 Coding Level of Care Code Critical Care 1st 30-74 mins Diagnoses Acute hypoxemic respiratory failure J96.01 Non-ST elevation (NSTEMI) myocardial infarction I21.4 CHF (congestive heart failure) I50.9 Heart failure chronicity: acute Heart failure type: unspecified Acute kidney injury superimposed on chronic kidney disease N17.9; N18.9 Time Spent (min) 45 (1) CHF (congestive heart failure) Heart failure chronicity: acute Heart failure type: unspecified Qualified Code(s): I50.9 - Heart failure, unspecified
[2021-08-11 16:38] LABS: Influenza A virus by PCR Negative (Neg); Influenza B virus by PCR Negative (Neg); RSV by PCR Negative (Neg); SARS CoV2 RNA(COVID-19) InHosp NEGATIVE (Negative)
[2021-08-11 18:43] LABS: BUN Creatinine Ratio 30.9 (10-20); Calcium 9.1 mg/dl (8.5-10.1); Creatinine Clr Calc Pharmacy 13.7 ml/min; Est GFR (African American) 17.7 ml/min; Est GFR (Non-African American) 15.3 ml/min; Potassium 3.6 mmol/L (3.5-5.1)
--- NOTE | 2021-08-11 19:00 | Communication Note ---
Date of Service: August 11, [address] Clarified code status with Dr Jimenez, patient is a DNR/DNI in the event of cardiac arrest. But patient is ok with intubation for respiratory distress. Will transfer to ICU for closer monitoring. He has remained on BIPAP for most of the day and requested to take a break and is now on 11L NC. Received 2nd dose of IV lasix 80mg and is only net (-) 675 cc so far today
[2021-08-11] MEDS: ATORVASTATIN 40 MG TAB PO SCH (20:05)
[2021-08-11] MEDS ORDERED: POTASSIUM CHLORIDE CRTAB 20 MEQ TABCR PO ONE (20:12)
--- NOTE | 2021-08-11 20:21 | Communication Note ---
Date of Service: August 11, 2021 Patient transferred down to ICU for concerns of worsening tachypnea and hypoxia that appeared to occur when patient wanted a break from his BiPAP. Patient was evaluated earlier in day by both pulmonary and critical care. Overall patient arrived with RR in the mid 20s and SPo2 02%, placed on his BiPAP with RR< 20 and SPo2 increased to mid 90s. He is not conversationally dyspneic at this time, he is also having good urine output following his diuretic dosing that was just administered. No acute need for dialysis at this time based on response to his BiPAP as well as urine output appears to be currently responding to his diuretic dosing and electrolytes are without derangements. If urine output drops off despite his q6 hours of Lasix have room for additional metolazone dosing. Will follow his electrolytes through PM with diuresing as well as with increasing renal function- replete judiciously as needed. follow infectious markers, fever curve and CXR in am. Appreciate Nephrology update following transfer. Nixon ROSARIO-BC PT SKILLED- Critical Care
[2021-08-12] MEDS: FUROSEMIDE 40 MG/4 ML VIAL IV SCH ×4 (02:05→21:01)
[2021-08-12 02:43] LABS: BUN Creatinine Ratio 31.1 (10-20); Calcium 8.8 mg/dl (8.5-10.1); Creatinine Clr Calc Pharmacy 13.2 ml/min; Est GFR (African American) 16.9 ml/min; Est GFR (Non-African American) 14.6 ml/min; Potassium 3.7 mmol/L (3.5-5.1)
[2021-08-12] MEDS: LEVOTHYROXINE SODIUM 125 MCG TABLET PO SCH ×2 (04:51→08:25)
[2021-08-12 05:24] LABS: Hematocrit (blood only) 30.9 % (42-52); Hemoglobin 10.4 g/dL (14.0-18.0); Mean Corpuscular Hemoglobin 30.9 pg (25-34); Mean Corpuscular Hgb Conc 33.7 g/dL (32-36); Mean Corpuscular Volume 91.7 fL (80-100); Mean Platelet Volume 10.4 fL (7.4-10.4); Platelet Count 146 K/uL (130-400); RDW Coefficient of Variation 16.2 % (11.5-14.5); RDW Standard Deviation 54.3 fL (36.4-46.3); Red Blood Count 3.37 M/uL (4.7-6.1); White Blood Count 7.65 K/uL (4.8-10.8)
[2021-08-12 05:39] LABS: BUN Creatinine Ratio 31.7 (10-20); Calcium 9.1 mg/dl (8.5-10.1); Creatinine Clr Calc Pharmacy 12.7 ml/min; Est GFR (African American) 16.5 ml/min; Est GFR (Non-African American) 14.3 ml/min; Magnesium 2.7 mg/dl (1.7-2.4); Phosphorus 6.1 mg/dl (2.5-4.9); Potassium 3.6 mmol/L (3.5-5.1)
--- NOTE | 2021-08-12 07:48 | XRay Report ---
XR chest 1V portable CLINICAL HISTORY: evaluate lung opacities and volume status. COMPARISON STUDY: 08/11/2021 TECHNIQUE: 1 view of the chest FINDINGS: Single frontal view of the chest demonstrates the heart to again be enlarged. Compared to previous [facility], there has been partial resolution of diffuse interstitial and alveolar opacities, most likely re presenting edema. No confluent alveolar opacities or air bronchograms are seen. There is evidence for bilateral pleural effusions and bibasilar atelectasis. There is no acute osseous pathology. IMPRESSION: 1. Partial interval clearing of diffuse interstitial and alveolar edema. 2. Bilateral pleural effusions and bibasilar atelectasis are again seen. ACT 112: Negative or not required by law. Electronically signed by: Antonio Martin M.D. 08/12/2021 7:46 AM
[2021-08-12] MEDS: ASPIRIN 81 MG ECTAB PO SCH (08:17)
[2021-08-12] MEDS: AMIODARONE 200 MG TAB PO SCH (08:17)
[2021-08-12] MEDS: amLODIPine BESYLATE 5 MG TAB PO SCH (08:17)
[2021-08-12] MEDS: allopurinoL 100 MG TAB PO SCH (08:17)
[2021-08-12] MEDS: FINASTERIDE 5 MG TAB PO SCH (08:18)
[2021-08-12] MEDS: HEPARIN SOD 5,000 UNIT/0.5 ML VIAL SQ SCH ×2 (08:18→20:52)
[2021-08-12] MEDS: ISOSORBIDE MONO EXTENDED REL 60 MG TABCR PO SCH (08:18)
[2021-08-12] MEDS: hydrALAZINE HCL 25 MG TAB PO SCH ×3 (08:18→20:52)
[2021-08-12] MEDS: TAMSULOSIN HCL 0.4 MG CAP PO SCH (08:18)
--- NOTE | 2021-08-12 09:15 | Nephrology Progress Note ---
Date of Service August 12, 2021 Assessment & Plan (1) CKD (chronic kidney disease): Plan: ESRD needing dialysis. baseline creatinine about 2.7. progressive respiratory failure in the setting of some missed lasix dosing a few days back with worsening renal function and acute decompensated HF. overall as of this AM (if I/O complete) he has moved from being 500 negative on the admission yesterday AM to now 2.3L negative on the admission. >>we had another extended discussion about goals of care >> he has been on outpatient dialysis in the past x 4 mos. had consistently told me he does not wish to do OP dialysis again in the past; however willing to consider OP dialysis now. independent community dwelling; hoping to ride his motorcycle this spring, involved grown children. >>agrees to short term outpatient dialysis (if we can get him there) and revisit goals of care as outpatient -continue lasix 80 mg qid IV -will give metolazone 5 mg bid on hour before 2 lasix doses today -consult placed to vascular for TDC > to be placed tomorrow PM >dialysis consent on chart consent Care coordinated w/ [facility] Admission and Anticipated Discharge Date Admission Date: August 08, 2021 Subjective feels better; ate breakfast; quiet/ comfortable night though still on bipap / hi flow 02NC 8-9L. no pain, tolerating puentes. we talked goals of care. Review of Systems Review of Systems: All systems reviewed & are unremarkable except as noted in Subjective Physical Exam Constitutional: well developed, + thin and cooperative; no acute distress Eyes: EOM intact bilaterally ENMT: Ears: no external ear abnormality Nose: no external nose abnormality Mouth: + dry oral mucous membranes Neck: no nuchal rigidity Respiratory: normal respiratory effort Auscultation: + diminished lung sounds (on Bipap) Cardiovascular: Rate/Rhythm: + tachycardic and + irregularly irregular Extremities: no edema Gastrointestinal (Abdomen): Inspection/Auscultation: normal bowel sounds Percussion/Palpation: abdomen soft; abdomen nontender Musculoskeletal: Extremities: strength 5/5 throughout Skin: no rashes, warm and dry Neurologic: stephen, fluent speech, no tremor Psychiatric: Orientation: oriented x 3 Genitourinary: puentes w/ ample light yellow urine Results & Data ([facility]) Vital Signs (Past 12 Hours) Vital Signs Temp Pulse Resp BP Pulse Ox 08/12/21 08:00 36.8 C 100 H 21 138/82 92 08/12/21 07:00 106 H 20 152/112 H 88 L 08/12/21 06:00 97 H 20 134/83 97 08/12/21 05:00 106 H 22 136/77 94 08/12/21 04:10 95 H 18 92 08/12/21 04:03 36.7 C 08/12/21 04:00 90 28 H 128/76 92 08/12/21 03:00 96 H 22 128/73 93 08/12/21 02:00 87 24 130/82 91 08/12/21 01:00 93 H 20 122/70 94 08/12/21 00:00 95 H 23 122/60 91 08/11/21 23:43 36.7 C 08/11/21 23:00 105 H 22 145/92 H 94 08/11/21 22:00 102 H 20 133/65 96 08/11/21 21:46 100 H 20 98 Laboratory Results 08/12/21 05:05 08/12/21 05:05 phos 6 Diagnostic Findings cxr 1. Partial interval clearing of diffuse interstitial and alveolar edema. 2. Bilateral pleural effusions and bibasilar atelectasis are again seen.
--- NOTE | 2021-08-12 09:50 | Consultation ---
Date of Consultation August 12, 2021 Assessment & Plan (1) Acute kidney injury superimposed on chronic kidney disease: Pt discussed with Dr Delarosa, planning on permcath insertion tomorrow. Procedure. risks, benefits and alternatives discussed with pt at Dr Delarosa's request. Pt is agreeable. History of Present Illness Reason for Consultation: ANETA Attending Physician: Shamika So MD History of Present Illness 89 yo m with hx of CKD, HTN, CHF, NSTEMI, ischemic cardiomyopathy, a fib not on AC d/t GI bleed, gout, hypothyroidism, BPH, carotid disease s/p R CEA, PAD, anemia, admitted with worsening renal fxn, seen in consultation today for permcath insertion for HD. Pt states was on HD for a short time in the past, but had renal recovery and no longer needed it. Admits SOB, fatigue. Denies CROWLEY, fever, chest pain, abd pain, N/V, rest pain, claudication, other complaints. Allergies Allergy/AdvReac Type Severity Reaction Status Date / Time Penicillins AdvReac Intermediate PENILE Verified 08/08/21 06:27 ENLARGEMENT tramadol AdvReac Intermediate GI SYMPTOMS Verified 08/08/21 06:27 Home Medications Medication Instructions Recorded Confirmed Type allopurinol 100 mg tablet 200 mg PO QAM 03/05/20 08/08/21 History aspirin 81 mg tablet,delayed 81 mg PO QAM 03/05/20 08/08/21 History release atorvastatin 40 mg tablet 40 mg PO HS 03/05/20 08/08/21 History finasteride 5 mg tablet 5 mg PO QAM 03/05/20 08/08/21 History furosemide 80 mg tablet See Rx Instructions .ROUTE .COMPLEX 03/05/20 08/08/21 History hydralazine 50 mg tablet 50 mg PO TID 03/05/20 08/08/21 History iron,carbonyl 65 mg-vitamin C 125 1 tab PO BID 03/05/20 08/08/21 History mg tablet,delayed release (Vitron-C) isosorbide mononitrate 60 mg 60 mg PO HS 03/05/20 08/08/21 History tablet,extended release 24 hr levothyroxine 125 mcg tablet 125 mcg PO DAILYBB 03/05/20 08/08/21 History potassium chloride 20 mEq 20 meq PO HS 03/05/20 08/08/21 History tablet,extended release(part/cryst) tamsulosin 0.4 mg capsule 0.4 mg PO HS 03/05/20 08/08/21 History amlodipine 5 mg tablet (Norvasc) 10 mg PO HS 07/24/21 08/08/21 History wheat dextrin 3 gram/3.5 gram oral 3 g PO HS 07/24/21 08/08/21 History powder packet (Benefiber Clear Sugar Free(dextrin)) amiodarone 200 mg tablet 100 mg PO QAM 08/08/21 08/08/21 History Patient History Medical History Acute pancreatitis Anemia Atrial fibrillation BPH (benign prostatic hyperplasia) CKD stage 4 secondary to hypertension Dialysis patient "x several months approx 2018 post ANETA from sepsis" Dyslipidemia Elevated troponin GERD (gastroesophageal reflux disease) Gout HTN (hypertension) Hypothyroidism Ischemic cardiomyopathy NSTEMI (non-ST elevated myocardial infarction) Paroxysmal atrial fibrillation Pernicious anemia PVD (peripheral vascular disease) Stress-induced cardiomyopathy "normal LVEF on most recent echo" Surgical History Status post carotid endarterectomy "right" Status post carpal tunnel release Status post cataract extraction Family History Other Diabetes Hypertension Stroke Social History Smoking Status: Never smoker Cigarettes Per Day: 60 per day.; Second Hand Exposure: No; Hx Alcohol Use: No Hx Substance Use: No Preferred Language: Georgian Communication Ability: Effective Rabbit Dresser Required: Yes Beliefs That Will Affect Care: None marital status: / Current Living Situation: Alone How many Children do You have: 2 Other Information That Helps Us Care for You: No Feels Safe at Home: Yes Safety Concerns: Feels Safe At This Time Assistive Devices: None Review of Systems Review of Systems: All systems reviewed & are unremarkable except as noted in HPI & below Physical Exam Constitutional: WD/WN, vitals as above + ill appearing, cooperative and comfortable; not in distress ENMT: Ears: + hearing impairment Neck: trachea midline Respiratory: + labored breathing, + cough and able to speak in complete sentences Auscultation: + diminished lung sounds, + crackles and + rales Cardiovascular: Rate/Rhythm: regular rate and regular rhythm Vessels: femoral pulses present and radial pulses present; + abnormal peripheral pulses Extremities: normal capillary refill and + edema Gastrointestinal (Abdomen): Inspection/Auscultation: abdomen normal to inspection and normal bowel sounds Percussion/Palpation: abdomen soft; abdomen nontender Musculoskeletal: no cyanosis or clubbing, extremities motor strength 5/5 Skin: no rashes, warm and dry Neurologic: moves all extremities and awake; no focal motor deficits and not confused Psychiatric: A+Ox3, euthymic affect Results & Data ([facility]) Vital Signs (Past 12 Hours) Vital Signs Temp Pulse Resp BP Pulse Ox 08/12/21 09:38 91 08/12/21 09:00 87 17 130/69 93 08/12/21 08:00 36.8 C 100 H 21 138/82 92 08/12/21 07:00 106 H 20 152/112 H 88 L 08/12/21 06:00 97 H 20 134/83 97 08/12/21 05:00 106 H 22 136/77 94 08/12/21 04:10 95 H 18 92 08/12/21 04:03 36.7 C 08/12/21 04:00 90 28 H 128/76 92 08/12/21 03:00 96 H 22 128/73 93 08/12/21 02:00 87 24 130/82 91 08/12/21 01:00 93 H 20 122/70 94 08/12/21 00:00 95 H 23 122/60 91 08/11/21 23:43 36.7 C 08/11/21 23:00 105 H 22 145/92 H 94 08/11/21 22:00 102 H 20 133/65 96 08/11/21 21:46 100 H 20 98
--- NOTE | 2021-08-12 10:04 | Cardiology Progress Note ---
Date of Service August 12, 2021 Assessment & Plan (1) Hypoxia: (2) CHF (congestive heart failure): (3) Hypertensive urgency: (4) CKD (chronic kidney disease): (5) Anemia: (6) Elevated troponin I level: (7) Ischemic cardiomyopathy: (8) PAD (peripheral artery disease): Plan: 89-year-old patient with acute on chronic heart failure, acute on chronic renal failure. Patient clinically slightly improved after increased diuretics but progressing towards dialysis. Appreciate nephrology input and management Currently rhythm atrial fibrillation with past paroxysmal atrial fibrillation on chronic amiodarone therapy We will add low-dose beta-preet for further blood pressure and heart rate control May consider discontinuing amiodarone depending on clinical course Admission and Anticipated Discharge Date Admission Date: August 08, 2021 Subjective Patient seen and examined, chart, medications, telemetry reviewed. Patient feels improved this morning, less dyspneic able to eat breakfast. Responded to diuretic increase but with progressive decline in renal function Rhythm atrial fibrillation with mildly elevated heart rate response Review of Systems Review of Systems: All systems reviewed & are unremarkable except as noted in Subjective Physical Exam Constitutional: no acute distress Eyes: PERRL, conjunctivae normal, anicteric sclerae ENMT: external ear and nose normal, oropharynx normal Respiratory: no respiratory distress, no labored breathing and no retractions Auscultation: + rales (Bases bilateral); no rhonchi and no wheezes Cardiovascular: Rate/Rhythm: + irregularly irregular Heart Sounds: normal S1 and normal S2 Vessels: no JVD and no carotid bruit Extremities: no edema Gastrointestinal (Abdomen): Inspection/Auscultation: abdomen normal to inspection; abdomen not distended Percussion/Palpation: abdomen soft; abdomen nontender, no guarding and abdomen not rigid Neurologic: CN's II-XI intact bilaterally and moves all extremities; no focal motor deficits Psychiatric: A+Ox3, euthymic affect Results & Data ([facility]) Vital Signs (Past 12 Hours) Vital Signs Temp Pulse Resp BP Pulse Ox 08/12/21 09:38 91 08/12/21 09:00 87 17 130/69 93 08/12/21 08:00 36.8 C 100 H 21 138/82 92 08/12/21 07:00 106 H 20 152/112 H 88 L 08/12/21 06:00 97 H 20 134/83 97 08/12/21 05:00 106 H 22 136/77 94 08/12/21 04:10 95 H 18 92 08/12/21 04:03 36.7 C 08/12/21 04:00 90 28 H 128/76 92 08/12/21 03:00 96 H 22 128/73 93 08/12/21 02:00 87 24 130/82 91 08/12/21 01:00 93 H 20 122/70 94 08/12/21 00:00 95 H 23 122/60 91 08/11/21 23:43 36.7 C 08/11/21 23:00 105 H 22 145/92 H 94 Laboratory Results Laboratory Results - last 24 hr 08/11/21 08/11/21 08/11/21 10:32 11:47 11:47 WBC RBC Hgb Hct MCV MCH MCHC RDW Std Deviation RDW Coeff of Yuri Plt Count MPV ESR 64 H Sodium Potassium Chloride Carbon Dioxide Anion Gap BUN Creatinine Est Cr Clr Drug Dosing Est GFR ( Amer) Est GFR (Non-Af Amer) BUN/Creatinine Ratio Glucose POC Glucose Calcium Phosphorus Magnesium C-Reactive Protein 11.66 H Urine Color Yellow Urine Appearance Clear Urine pH 5.0 Ur Specific [place] 1.010 Urine Protein Negative Urine Glucose (UA) Negative Urine Ketones Negative Urine Blood Negative Urine Nitrite Negative Urine Bilirubin Negative Urine Urobilinogen Negative Ur Leukocyte Esterase 2+ H Urine WBC (Auto) 10-30 H Urine RBC (Auto) 0-4 U Hyaline Cast (Auto) 1-5 U Epithel Cells (Auto) >30 H Urine Bacteria (Auto) Negative Nasal Screen MRSA (PCR) SARS-CoV-2 (PCR) Hep Bs Antigen Hep Bs Ag Confirmation Hep Bs Antibody, Quant Influenza Type A (PCR) Influenza Type B (PCR) RSV (RT-PCR) 08/11/21 08/11/21 08/11/21 15:20 18:00 19:30 WBC RBC Hgb Hct MCV MCH MCHC RDW Std Deviation RDW Coeff of Yuri Plt Count MPV ESR Sodium 134 L Potassium 3.6 Chloride 101 Carbon Dioxide 18 L Anion Gap 15 H BUN 104 H Creatinine 3.37 H D Est Cr Clr Drug Dosing 13.7 Est GFR ( Amer) 17.7 Est GFR (Non-Af Amer) 15.3 BUN/Creatinine Ratio 30.9 H Glucose 128 H POC Glucose Calcium 9.1 Phosphorus Magnesium C-Reactive Protein Urine Color Urine Appearance Urine pH Ur Specific [place] Urine Protein Urine Glucose (UA) Urine Ketones Urine Blood Urine Nitrite Urine Bilirubin Urine Urobilinogen Ur Leukocyte Esterase Urine WBC (Auto) Urine RBC (Auto) U Hyaline Cast (Auto) U Epithel Cells (Auto) Urine Bacteria (Auto) Nasal Screen MRSA (PCR) Negative SARS-CoV-2 (PCR) NEGATIVE Hep Bs Antigen Hep Bs Ag Confirmation Hep Bs Antibody, Quant Influenza Type A (PCR) Negative Influenza Type B (PCR) Negative RSV (RT-PCR) Negative 08/11/21 08/12/21 08/12/21 23:26 01:38 05:05 WBC RBC Hgb Hct MCV MCH MCHC RDW Std Deviation RDW Coeff of Yuri Plt Count MPV ESR Sodium 134 L Potassium 3.7 Chloride 101 Carbon Dioxide 21 Anion Gap 12 H BUN 109 H Creatinine 3.50 H Est Cr Clr Drug Dosing 13.2 Est GFR ( Amer) 16.9 Est GFR (Non-Af Amer) 14.6 BUN/Creatinine Ratio 31.1 H Glucose 118 H POC Glucose 131 H Calcium 8.8 Phosphorus Magnesium C-Reactive Protein Urine Color Urine Appearance Urine pH Ur Specific [place] Urine Protein Urine Glucose (UA) Urine Ketones Urine Blood Urine Nitrite Urine Bilirubin Urine Urobilinogen Ur Leukocyte Esterase Urine WBC (Auto) Urine RBC (Auto) U Hyaline Cast (Auto) U Epithel Cells (Auto) Urine Bacteria (Auto) Nasal Screen MRSA (PCR) SARS-CoV-2 (PCR) Hep Bs Antigen Pending Hep Bs Ag Confirmation Pending Hep Bs Antibody, Quant Pending Influenza Type A (PCR) Influenza Type B (PCR) RSV (RT-PCR) 08/12/21 08/12/21 05:05 05:05 WBC 7.65 RBC 3.37 L Hgb 10.4 L Hct 30.9 L MCV 91.7 MCH 30.9 MCHC 33.7 RDW Std Deviation 54.3 H RDW Coeff of Yuri 16.2 H Plt Count 146 MPV 10.4 ESR Sodium 136 Potassium 3.6 Chloride 101 Carbon Dioxide 20 L Anion Gap 15 H BUN 113 H Creatinine 3.57 H Est Cr Clr Drug Dosing 12.7 Est GFR ( Amer) 16.5 Est GFR (Non-Af Amer) 14.3 BUN/Creatinine Ratio 31.7 H Glucose 112 H POC Glucose Calcium 9.1 Phosphorus 6.1 H Magnesium 2.7 H C-Reactive Protein Urine Color Urine Appearance Urine pH Ur Specific [place] Urine Protein Urine Glucose (UA) Urine Ketones Urine Blood Urine Nitrite Urine Bilirubin Urine Urobilinogen Ur Leukocyte Esterase Urine WBC (Auto) Urine RBC (Auto) U Hyaline Cast (Auto) U Epithel Cells (Auto) Urine Bacteria (Auto) Nasal Screen MRSA (PCR) SARS-CoV-2 (PCR) Hep Bs Antigen Hep Bs Ag Confirmation Hep Bs Antibody, Quant Influenza Type A (PCR) Influenza Type B (PCR) RSV (RT-PCR) (1) CHF (congestive heart failure) Heart failure chronicity: acute Heart failure type: unspecified Qualified Code(s): I50.9 - Heart failure, unspecified (2) Anemia Anemia type: other cause Other causes of anemia: acute posthemorrhagic Qualified Code(s): D62 - Acute posthemorrhagic anemia
--- NOTE | 2021-08-12 10:37 | Pulmonology Progress Note ---
Date of Service August 12, 2021 Assessment & Plan (1) Acute hypoxemic respiratory failure: Plan: Secondary to decompensated CHF and worsening renal failure. Agree with BiPAP therapy and IV diuresis. Small effusions noted bilaterally, unlikely to be playing a significant role in his hypoxia. Atelectasis seen bilaterally as well. COVID negative on 08/08/21. (2) Non-ST elevation (NSTEMI) myocardial infarction: Plan: Followed by cardiology. Will defer management to them. (3) CHF (congestive heart failure): Plan: Currently on IV diuretic therapy. Heart failure chronicity: acute Heart failure type: unspecified Qualified Code(s): I50.9 - Heart failure, unspecified (4) Acute kidney injury superimposed on chronic kidney disease: Plan: Worsening creatinine. IV diuresis increased by nephrology. Patient to undergo tunneled dialysis cath tomorrow with HD. Admission and Anticipated Discharge Date Admission Date: August 08, 2021 Subjective Patient seen and examined. Stable on 6 L of oxygen. Tolerating his diet well. Campbell catheter in place with adequate urine. Review of Systems Review of Systems: All systems reviewed & are unremarkable except as noted in HPI & below Physical Exam Eyes: PERRL, conjunctivae normal, anicteric sclerae ENMT: external ear and nose normal, oropharynx normal Cardiovascular: RRR, no murmur, no edema Gastrointestinal (Abdomen): normal bowel sounds, soft, nontender, no hepatosplenomegaly Musculoskeletal: no cyanosis or clubbing, extremities motor strength 5/5 Skin: no rashes, warm and dry Neurologic: PERRL, EOMI, accommodation nl, no face palsy, no dysarthria Psychiatric: A+Ox3, euthymic affect Results & Data Results & Data ([facility]) Vital Signs (Past 12 Hours) Vital Signs Temp Pulse Resp BP Pulse Ox 08/12/21 09:38 91 08/12/21 09:00 87 17 130/69 93 08/12/21 08:00 36.8 C 100 H 21 138/82 92 08/12/21 07:00 106 H 20 152/112 H 88 L 08/12/21 06:00 97 H 20 134/83 97 08/12/21 05:00 106 H 22 136/77 94 08/12/21 04:10 95 H 18 92 08/12/21 04:03 36.7 C 08/12/21 04:00 90 28 H 128/76 92 08/12/21 03:00 96 H 22 128/73 93 08/12/21 02:00 87 24 130/82 91 08/12/21 01:00 93 H 20 122/70 94 08/12/21 00:00 95 H 23 122/60 91 08/11/21 23:43 36.7 C 08/11/21 23:00 105 H 22 145/92 H 94 PG Care Time/CCT Total # of Minutes Spent Total Time Spent with Patient: Total time spent is greater than 50% in coordination of care (as documented) at patient's floor/unit and/or counseling patient: Coding Level of Care Code 75430 Subseq Hosp Care Lvl 2 Diagnoses Acute hypoxemic respiratory failure J96.01 Non-ST elevation (NSTEMI) myocardial infarction I21.4 CHF (congestive heart failure) I50.9 Heart failure chronicity: acute Heart failure type: unspecified Acute kidney injury superimposed on chronic kidney disease N17.9; N18.9
[2021-08-12] MEDS: METOPROLOL TARTRATE 25 MG TAB PO SCH ×2 (11:30→20:52)
--- NOTE | 2021-08-12 12:43 | Anesthesiology Consultation ---
Date of Service August 12, 2021 Assessment & Plan (1) Encounter for pre-operative examination: Chart Review Chart Review: Acceptable Risk for Surgery (necessary surgery) and Patient NOT seen in Pre Admission Testing Consults Requested none History Surgery Operation Date: 08/13/21 10:50 Proposed Procedures p Perm Catheter Placement - Alex Delarosa MD Height/Weight Height: 6 ft 1 in Weight: 64.2 kg Allergies Allergy/AdvReac Type Severity Reaction Status Date / Time Penicillins AdvReac Intermediate PENILE Verified 08/08/21 06:27 ENLARGEMENT tramadol AdvReac Intermediate GI SYMPTOMS Verified 08/08/21 06:27 Medications Home Medications Medication Instructions Recorded Confirmed Last Taken allopurinol 100 mg tablet 200 mg PO QAM 03/05/20 08/08/21 08/07/21 aspirin 81 mg tablet,delayed 81 mg PO QAM 03/05/20 08/08/21 08/07/21 release atorvastatin 40 mg tablet 40 mg PO HS 03/05/20 08/08/21 08/07/21 finasteride 5 mg tablet 5 mg PO QAM 03/05/20 08/08/21 08/07/21 furosemide 80 mg tablet See Rx Instructions .ROUTE .COMPLEX 03/05/20 08/08/21 08/07/21 hydralazine 50 mg tablet 50 mg PO TID 03/05/20 08/08/21 08/07/21 iron,carbonyl 65 mg-vitamin C 125 1 tab PO BID 03/05/20 08/08/21 08/07/21 mg tablet,delayed release (Vitron-C) isosorbide mononitrate 60 mg 60 mg PO HS 03/05/20 08/08/21 08/07/21 tablet,extended release 24 hr levothyroxine 125 mcg tablet 125 mcg PO DAILYBB 03/05/20 08/08/21 08/07/21 potassium chloride 20 mEq 20 meq PO HS 03/05/20 08/08/21 08/07/21 tablet,extended release(part/cryst) tamsulosin 0.4 mg capsule 0.4 mg PO HS 03/05/20 08/08/21 08/07/21 amlodipine 5 mg tablet (Norvasc) 10 mg PO HS 07/24/21 08/08/21 08/07/21 wheat dextrin 3 gram/3.5 gram oral 3 g PO HS 07/24/21 08/08/21 08/07/21 powder packet (Benefiber Clear Sugar Free(dextrin)) amiodarone 200 mg tablet 100 mg PO QAM 08/08/21 08/08/21 08/07/21 Active Medications Generic Name Dose Route Start Last Admin Trade Name Freq PRN Reason Stop Dose Admin Acetaminophen 650 mg 08/08/21 10:09 08/11/21 01:28 Acetaminophen 325 Mg Tab PO 09/07/21 10:08 650 mg Q4H PRN Administration Pain or Fever Allopurinol 50 mg 08/11/21 09:00 08/12/21 08:17 Allopurinol 100 Mg Tab PO 09/10/21 08:59 50 mg DAILY MARBIN Administration Amiodarone HCl 100 mg 08/08/21 10:09 08/12/21 08:17 Amiodarone 200 Mg Tab PO 09/07/21 10:08 100 mg DAILY MARBIN Administration Amlodipine Besylate 10 mg 08/09/21 09:00 08/12/21 08:17 Amlodipine Besylate 5 Mg Tab PO 09/08/21 08:59 10 mg QAM MARBIN Administration Aspirin 81 mg 08/08/21 10:09 08/12/21 08:17 Aspirin 81 Mg Ectab PO 09/07/21 10:08 81 mg DAILY MARBIN Administration Atorvastatin Calcium 40 mg 08/08/21 21:00 08/11/21 20:05 Atorvastatin 40 Mg Tab PO 09/07/21 20:59 40 mg HS MARBIN Administration Finasteride 5 mg 08/08/21 10:09 08/12/21 08:18 Finasteride 5 Mg Tab PO 09/07/21 10:08 5 mg DAILY [facility] Administration Furosemide 80 mg 08/11/21 20:00 08/12/21 08:17 Furosemide 40 Mg/4 Ml Vial IV 09/10/21 19:59 80 mg Q6H MARBIN Administration Heparin Sodium (Porcine) 5,000 units 08/09/21 21:00 08/12/21 08:18 Heparin Sod 5,000 Unit/0.5 Ml Vial SQ 09/08/21 20:59 5,000 units Q12 MARBIN Administration Hydralazine HCl 75 mg 08/09/21 21:00 08/12/21 08:18 Hydralazine Hcl 25 Mg Tab PO 09/08/21 20:59 75 mg TID MARBIN Administration Isosorbide Mononitrate 60 mg 08/08/21 10:09 08/12/21 08:18 Isosorbide [place] Extended Rel 60 Mg Tabcr PO 09/07/21 10:08 60 mg DAILY MARBIN Administration Levothyroxine Sodium 125 mcg 08/08/21 10:09 08/12/21 08:25 Levothyroxine Sodium 125 Mcg Tablet PO 09/07/21 10:08 125 mcg DAILYBB MARBIN Administration Metolazone 5 mg 08/12/21 13:00 08/12/21 12:44 Metolazone 5 Mg Tablet PO 09/11/21 12:59 5 mg BID@0700,1900 [facility] Administration Metoprolol Tartrate 12.5 mg 08/12/21 10:30 08/12/21 11:30 Metoprolol Tartrate 25 Mg Tab PO 09/11/21 10:29 12.5 mg BID MARBIN Administration Tamsulosin HCl 0.4 mg 08/08/21 10:09 08/12/21 08:18 Tamsulosin Hcl 0.4 Mg Cap PO 09/07/21 10:08 0.4 mg DAILY MARBIN Administration Past Medical History Medical History Acute pancreatitis Anemia Atrial fibrillation BPH (benign prostatic hyperplasia) CKD stage 4 secondary to hypertension Dialysis patient "x several months approx 2018 post ANETA from sepsis" Dyslipidemia Elevated troponin GERD (gastroesophageal reflux disease) Gout HTN (hypertension) Hypothyroidism Ischemic cardiomyopathy NSTEMI (non-ST elevated myocardial infarction) Paroxysmal atrial fibrillation Pernicious anemia PVD (peripheral vascular disease) Stress-induced cardiomyopathy "normal LVEF on most recent echo" Past Family History Family History Other Diabetes Hypertension Stroke Past Surgical History Surgical History Status post carotid endarterectomy "right" Status post carpal tunnel release Status post cataract extraction Social History Smoking Status: Never smoker tobacco type: cigarettes Smoking cigarettes per day: 60 per day. Hx Alcohol Use: No Alcohol type: beer, wine and hard liquor alcohol intake frequency: holidays/special occasions only Hx Substance Use: No Physical Exam Vital Signs Last Vital Signs Temp 36.7 C 08/12/21 11:34 Pulse 105 H 08/12/21 12:00 Resp 12 08/12/21 12:00 BP 128/76 08/12/21 12:00 Pulse Ox 94 08/12/21 12:00 Testing Laboratory Results 08/12/21 05:05 08/12/21 05:05 APTT 52.1 Seconds (21.0-31.0) H* 08/08/21 14:25 Urine Color Yellow 08/11/21 10:32 Urine Appearance Clear (Clear) 08/11/21 10:32 Urine pH 5.0 (4.5-7.5) 08/11/21 10:32 Ur Specific [place] 1.010 (1.000-1.030) 08/11/21 10:32 Urine Protein Negative (Negative) 08/11/21 10:32 Urine Glucose (UA) Negative (Negative) 08/11/21 10:32 Urine Ketones Negative (Negative) 08/11/21 10:32 Urine Nitrite Negative (Negative) 08/11/21 10:32 Ur Leukocyte Esterase 2+ (Negative) H 08/11/21 10:32 Urine WBC (Auto) 10-30 /hpf (0-5) H 08/11/21 10:32 Urine RBC (Auto) 0-4 /hpf (0-4) 08/11/21 10:32 U Hyaline Cast (Auto) 1-5 /lpf (0-5) 08/11/21 10:32 U Epithel Cells (Auto) >30 /lpf (0-5) H 08/11/21 10:32 Urine Bacteria (Auto) Negative (Negative) 08/11/21 10:32 08/08/21 06:49 Aerobic Blood Culture - Preliminary Blood No growth in Aerobic bottle after 48 hours. Anaerobic Blood Culture - Final 08/08/21 06:49 Aerobic Blood Culture - Preliminary Blood No growth in Aerobic bottle after 48 hours. Anaerobic Blood Culture - Final Electrocardiogram Date: 08/11/21 Findings: + LVH, + NSST changes, + AFIB @ (RVR 102) and + T wave inversion (lateral lead) PVCs Chest X-Ray Date: 08/12/21 XR chest 1V portable CLINICAL HISTORY: evaluate lung opacities and volume status. COMPARISON STUDY: 08/11/2021 TECHNIQUE: 1 view of the chest FINDINGS: Single frontal view of the chest demonstrates the heart to again be enlarged. Compared to previous study, there has been partial resolution of diffuse interstitial and alveolar opacities, most likely representing edema. No confluent alveolar opacities or air bronchograms are seen. There is evidence for bilateral pleural effusions and bibasilar atelectasis. There is no acute osseous pathology. IMPRESSION: 1. Partial interval clearing of diffuse interstitial and alveolar edema. 2. Bilateral pleural effusions and bibasilar atelectasis are again seen. ACT 112: Negative or not required by law. Electronically signed by: Antonio Martin M.D. 08/12/2021 7:46 AM Dictated:08/12/2143 Transcribed: 08/12/2143 Echocardiogram Date: 08/08/21 EF: 55-60 LV Function: normal Other Findings: + LVH (moderate concentric) Valvular Disease: + AI (mild) and + MR (mild) mild TR, systolic pulmonary pressure 59 mm Hg
[2021-08-12] MEDS: metOLazone 5 MG TABLET PO SCH ×2 (12:44→20:50)
[2021-08-12] MEDS ORDERED: POTASSIUM CHLORIDE CRTAB 20 MEQ TABCR PO ONE (17:03)
--- NOTE | 2021-08-12 17:21 | Hospitalist Progress Note ---
Date of Service August 12, 2021 Assessment & Plan (1) Acute hypoxemic respiratory failure: Plan: Acute on chronic diastolic CHF -Repeat TTE unchanged compared to previous -At home, takes lasix 80mg QAM and 40mg QPM. Reports compliance although upon further questioning, had several missed doses of lasix -SBP on arrival up to 180. Possible component of poorly controlled hypertension -Currently on lasix 80mg IV Q 6 hours and metolazone BID managed by Nephrology Acute hypoxic respiratory failure -had required bipap PRN, now weaned to 6-7L NC CKD stage 4 -Cr fluctuates but appears to be baseline 2.5-3. -sees Dr Sarabia as an outpatient -Diuresing better and with improving respiratory status but progressing towards dialysis -Patient agreeable for trial of dialysis, plan for permacath tomorrow Demand ischemia -trop elevation with peak at 155 -no chest pain. TTE negative for wall motion abnormality Leukocytosis -likely reactive -s/p ABx in ER, but no evidence of pneumonia on imaging, negative procalcitonin -monitor off antibiotics PAF -amiodarone 100mg daily, aspirin 81mg, not on AC due to history of GIB Poorly controlled HTN -home regimen: hydralazine 50mg TID--increased to 75mg TID /6, Imdur 60mg QHS, amlodipine 10mg QHS -Improved BP currently BPH -flomax DVT ppx SQ heparin Disposition- Patient will need OP dialysis to be arranged, message sent to Admission and Anticipated Discharge Date Admission Date: August 08, 2021 Subjective Diuresing well. Weaned off BiPAP to 6L NC Patient feels much better After much thought, he is now agreeable for trial of OP dialysis again Physical Exam Physical Exam: Comfortable, non toxic, no acute distress Respiratory: Breathing comfortable, improved airflow bilaterally, no wheezing Cardiovascular: regular rate and rhythm, no murmurs/rubs/gallops Gastrointestinal (Abdomen): soft, non tender Musculoskeletal: no edema Neurologic: awake, alert, spontaneously moving extremities Results & Data Results & Data ([facility]) Vital Signs (Past 12 Hours) Vital Signs Temp Pulse Pulse Resp BP BP Pulse Ox 08/12/21 15:49 36.9 C 103 H 19 129/69 93 08/12/21 15:06 93 H 08/12/21 14:00 88 26 H 91 08/12/21 13:00 102 H 24 94 08/12/21 12:00 105 H 12 128/76 94 08/12/21 11:34 36.7 C 92 08/12/21 11:33 116 H 20 124/93 90 08/12/21 11:00 100 H 15 125/88 92 08/12/21 10:00 98 H 16 125/79 91 08/12/21 09:38 91 08/12/21 09:00 87 17 130/69 93 08/12/21 08:00 36.8 C 100 H 21 138/82 92 08/12/21 07:00 106 H 20 152/112 H 88 L 08/12/21 06:00 97 H 20 134/83 97 Laboratory Results Short CBC 08/12/21 Range/Units 05:05 WBC 7.65 (4.8-10.8) K/uL Hgb 10.4 L (14.0-18.0) g/dL Hct 30.9 L (42-52) % Plt Count 146 (130-400) K/uL BMP 08/11/21 08/12/21 08/12/21 18:00 01:38 05:05 Sodium 134 L 134 L 136 Potassium 3.6 3.7 3.6 Chloride 101 101 101 Carbon Dioxide 18 L 21 20 L BUN 104 H 109 H 113 H Creatinine 3.37 H D 3.50 H 3.57 H Glucose 128 H 118 H 112 H Calcium 9.1 8.8 9.1 Medications Administered Current Inpatient Medications Acetaminophen (Acetaminophen 325 Mg Tab) 650 mg PO Q4H PRN PRN Reason: Pain or Fever Stop: 09/07/21 10:08 Last Admin: 08/11/21 01:28 Dose: 650 mg Documented by: Allopurinol (Allopurinol 100 Mg Tab) 50 mg PO DAILY [facility] Stop: 09/10/21 08:59 Last Admin: 08/12/21 08:17 Dose: 50 mg Documented by: Amiodarone HCl (Amiodarone 200 Mg Tab) 100 mg PO DAILY [facility] Stop: 09/07/21 10:08 Last Admin: 08/12/21 08:17 Dose: 100 mg Documented by: Amlodipine Besylate (Amlodipine Besylate 5 Mg Tab) [facility] [place]: 09/08/21 08:59 Last Admin: 08/12/21 08:17 Dose: 10 mg Documented by: Aspirin (Aspirin 81 Mg Ectab) 81 mg PO DAILY [facility] Stop: 09/07/21 10:08 Last Admin: 08/12/21 08:17 Dose: 81 mg Documented by: Atorvastatin Calcium (Atorvastatin 40 Mg Tab) 40 mg PO HS [facility] Stop: 09/07/21 20:59 Last Admin: 08/11/21 20:05 Dose: 40 mg Documented by: Finasteride (Finasteride 5 Mg Tab) 5 mg PO DAILY [facility] Stop: 09/07/21 10:08 Last Admin: 08/12/21 08:18 Dose: 5 mg Documented by: Furosemide (Furosemide 40 Mg/4 Ml Vial) 80 mg IV Q6H [facility] Stop: 09/10/21 19:59 Last Admin: 08/12/21 13:53 Dose: 80 mg Documented by: Heparin Sodium (Porcine) (Heparin Sod 5,000 Unit/0.5 Ml Vial) 5,000 units SQ Q12 [facility] Stop: 09/08/21 20:59 Last Admin: 08/12/21 08:18 Dose: 5,000 units Documented by: Hydralazine HCl (Hydralazine Hcl 25 Mg Tab) 75 mg PO TID [facility] Stop: 09/08/21 20:59 Last Admin: 08/12/21 13:53 Dose: 75 mg Documented by: Hydromorphone HCl (Hydromorphone Inj 0.5 Mg/0.5 Ml Syr) 0.25 mg IV Q6H PRN PRN Reason: Pain Stop: 08/22/21 10:08 Promethazine HCl 6.25 mg/ (Sodium Chloride) 50.25 mls @ 201 mls/hr IV Q6H PRN PRN Reason: Nausea And Vomiting Stop: 09/07/21 10:08 Clindamycin Phosphate (Cleocin) 600 mg in 54 mls @ 100 mls/hr IV PREOP [facility] Stop: 08/14/21 05:59 Isosorbide Mononitrate (Isosorbide [place] Extended Rel 60 Mg Tabcr) 60 mg PO DAILY [facility] Stop: 09/07/21 10:08 Last Admin: 08/12/21 08:18 Dose: 60 mg Documented by: Levothyroxine Sodium (Levothyroxine Sodium 125 Mcg Tablet) 125 mcg PO DAILYBB [facility] Stop: 09/07/21 10:08 Last Admin: 08/12/21 08:25 Dose: 125 mcg Documented by: Metolazone (Metolazone 5 Mg Tablet) 5 mg PO BID@0700,1900 [facility] Stop: 09/11/21 12:59 Last Admin: 08/12/21 12:44 Dose: 5 mg Documented by: Metoprolol Tartrate (Metoprolol Tartrate 25 Mg Tab) 12.5 mg PO BID [facility] Stop: 09/11/21 10:29 Last Admin: 08/12/21 11:30 Dose: 12.5 mg Documented by: Tamsulosin HCl (Tamsulosin Hcl 0.4 Mg Cap) 0.4 mg PO DAILY [facility] Stop: 09/07/21 10:08 Last Admin: 08/12/21 08:18 Dose: 0.4 mg Documented by: Tramadol HCl (Tramadol Hcl 50 Mg Tablet) 25 mg PO Q4H PRN PRN Reason: Pain Stop: 09/07/21 10:08
[2021-08-12] MEDS: ATORVASTATIN 40 MG TAB PO SCH (20:52)
[2021-08-13] MEDS: FUROSEMIDE 40 MG/4 ML VIAL IV SCH ×4 (02:20→19:20)
[2021-08-13] MEDS: LEVOTHYROXINE SODIUM 125 MCG TABLET PO SCH (05:41)
[2021-08-13] MEDS ORDERED: CLINDAMYCIN 600 MG/54 ML BAG IV SCH (06:00)
[2021-08-13 06:05] LABS: Hematocrit (blood only) 31.2 % (42-52); Hemoglobin 10.5 g/dL (14.0-18.0); Mean Corpuscular Hemoglobin 30.8 pg (25-34); Mean Corpuscular Hgb Conc 33.7 g/dL (32-36); Mean Corpuscular Volume 91.5 fL (80-100); Mean Platelet Volume 10.5 fL (7.4-10.4); Platelet Count 168 K/uL (130-400); RDW Coefficient of Variation 15.9 % (11.5-14.5); RDW Standard Deviation 53.6 fL (36.4-46.3); Red Blood Count 3.41 M/uL (4.7-6.1); White Blood Count 6.32 K/uL (4.8-10.8)
--- NOTE | 2021-08-13 06:14 | Electrocardiogram Report ---
Test Reason : Blood Pressure : / mmHG Vent. Rate : 102 BPM Atrial Rate : 093 BPM P-R Int : 000 ms QRS Dur : 092 ms QT Int : 382 ms P-R-T Axes : 000 070 167 degrees QTc Int : 497 ms Atrial fibrillation with rapid ventricular response with premature ventricular or aberrantly conducte d complexes Moderate voltage criteria for LVH, may be normal variant Abnormal ECG When compared with ECG of 08-AUG-2021 03:47, Premature ventricular complexes are no longer Present Confirmed by Jj Dumont ([id number]) on 08/13/2021 6:14:35 AM Referred By: REFERRED SELF Confirmed By:Jj Dumont
[2021-08-13] MEDS: metOLazone 5 MG TABLET PO SCH (06:22)
[2021-08-13 06:26] LABS: INR 1.1 (0.9-1.1)
[2021-08-13 06:34] LABS: BUN Creatinine Ratio 33.9 (10-20); Creatinine Clr Calc Pharmacy 11.8 ml/min; Est GFR (African American) 14.9 ml/min; Est GFR (Non-African American) 12.9 ml/min; Magnesium 2.8 mg/dl (1.7-2.4); Phosphorus 5.9 mg/dl (2.5-4.9); Potassium 3.3 mmol/L (3.5-5.1)
[2021-08-13] MEDS ORDERED: ATROPINE SULFATE 0.1 MG/ML 10ML SYR IV PRN (06:52)
[2021-08-13] MEDS ORDERED: ePHEDrine sulfate 50 MG/ML AMP IV PRN (06:52)
[2021-08-13] MEDS ORDERED: fentaNYL citrate 100 MCG/2 ML VIAL IV PRN (06:52)
[2021-08-13] MEDS ORDERED: ONDANSETRON INJ 2 MG/ML 2 ML VIAL IV PRN (06:52)
--- NOTE | 2021-08-13 07:35 | Nephrology Progress Note ---
Date of Service August 13, 2021 Assessment & Plan (1) CKD (chronic kidney disease): Plan: ESRD needing dialysis. baseline creatinine about 2.7. progressive respiratory failure in the setting of some missed lasix dosing a few days back with worsening renal function and acute decompensated HF. overall as of this AM (if I/O complete) he has moved from being 500 negative on the admission 5/8 AM to now 3.4L negative on the admission. >>for TDC today midday and first HD later today 2 hr >> he has been on outpatient dialysis in the past x 4 mos. had consistently told me he does not wish to do OP dialysis again in the past; however willing to consider OP dialysis now. independent community dwelling; hoping to ride his motorcycle this spring, involved grown children. >>agrees to short term outpatient dialysis (if we can get him there) [facility] and revisit goals of care as outpatient >> please have him ready for first HD OP at [facility] -continue lasix 80 mg qid IV for now -stopped metolazone -lowered hydralazine to 25 mg tid w/ hold parameters -critical care and vascular surgery assistance appreciated >dialysis consent on chart Admission and Anticipated Discharge Date Admission Date: August 08, 2021 Subjective got TDC; anxioius for d/c home; breathing much better (still on 6L) Review of Systems Review of Systems: All systems reviewed & are unremarkable except as noted in Subjective Physical Exam Constitutional: well developed, + thin and cooperative; no acute distress Eyes: EOM intact bilaterally ENMT: Ears: no external ear abnormality Nose: no external nose abnormality Mouth: + dry oral mucous membranes Neck: no nuchal rigidity Respiratory: normal respiratory effort Auscultation: + diminished lung sounds Cardiovascular: Rate/Rhythm: + tachycardic and + irregularly irregular Heart Sounds: + murmur Extremities: no edema Gastrointestinal (Abdomen): Inspection/Auscultation: normal bowel sounds Percussion/Palpation: abdomen soft; abdomen nontender Musculoskeletal: Extremities: strength 5/5 throughout Skin: no rashes, warm and dry Neurologic: stephen, fluent speech, no tremor Psychiatric: Orientation: oriented x 3 Results & Data ([facility]) Vital Signs (Past 12 Hours) Vital Signs Temp Pulse Pulse Resp BP BP Pulse Ox 08/13/21 07:18 36.8 C 100 H 18 128/62 95 08/13/21 03:46 36.9 C 99 H 16 123/53 L 92 08/12/21 23:20 37.0 C 99 H 18 116/62 92 08/12/21 22:30 97 H 08/12/21 19:35 36.5 C 98 H 18 117/79 94 Laboratory Results 08/13/21 05:37 08/13/21 05:37
[2021-08-13] MEDS ORDERED: fentaNYL citrate 100 MCG/2 ML VIAL ONE (07:42)
[2021-08-13] MEDS ORDERED: MIDAZOLAM HCL 1 MG/ML 2ML VIAL ONE (07:42)
--- NOTE | 2021-08-13 07:42 | History & Physical Bridge Note ---
Date of Service August 13, 2021 History & Physical Bridge Note Patient for permcath today. I have discussed the risks options and benefits of the procedure with the patient. The patient understands the risks options and benefits and agrees to the procedure. I have examined the patient, reviewed the History & Physical and in the interval since the performance of the History & Physical I have noted the following changes of clinical significance: no changes noted
[2021-08-13] MEDS ORDERED: HEPARIN SOD (PORCINE) 5,000 UNITS/ML VIAL ONE (07:55)
[2021-08-13] MEDS ORDERED: POTASSIUM CHLORIDE CRTAB 20 MEQ TABCR PO ONE ×2 (08:28→14:15)
[2021-08-13] MEDS ORDERED: LIDOCAINE 1% LOCAL 20 ML VIAL INFIL ONE (08:29)
--- NOTE | 2021-08-13 08:32 | Post Operative Brief Note ---
Immediate Post Op Note v1 Date of Surgery August 13, 2021 Pre & Post Diagnosis Operation Date: 08/13/21 10:50 Pre-Op Diagnosis: End Stage Renal Disease Post-Op Diagnosis: End Stage Renal Disease I identified the patient and participated in the time-out.: Yes Procedure Operation Date: 08/13/21 10:50 Actual Procedures p Insertion of Perm Catheter, Right Internal Jugular Approach, Ultrasound Localization of Right Internal Jugular Vein, Fluoroscopy for Positioning (Right) - Alex Delarosa MD Surgeon Alex Delarosa MD Plate Glass Grinder MD Renard Estimated Blood Loss 2 Findings Consistent with Post-Op Diagnosis Anesthesia Type MAC Complications none Disposition Accompanied Patient To Recovery: No Disposition: Recovery Room
--- NOTE | 2021-08-13 08:39 | Operative Report ---
Post Operative Report Pre & Post Diagnosis Operation Date: 08/13/21 10:50 Pre-Op Diagnosis: End Stage Renal Disease Post-Op Diagnosis: End Stage Renal Disease I identified the patient and participated in the time-out.: Yes Procedure Operation Date: 08/13/21 10:50 Actual Procedures p Insertion of Perm Catheter, Right Internal Jugular Approach, Ultrasound Lo calization of Right Internal Jugular Vein, Fluoroscopy for Positioning (Right) - Pierre Delarosa MD Surgeon Pierre Delarosa MD Polymer Scientist Thi Osborn MD Estimated Blood Loss 2 Findings Consistent with Post-Op Diagnosis Perm cath ending in the SVC Specimens none Drains None Anesthesia Type MAC Complications None Indications 89 yo m with hx of CKD, HTN, CHF, NSTEMI, ischemic cardiomyopathy, a fib not on AC d/t GI bleed, gout, hypothyroidism, BPH, carotid disease s/p R CEA, PAD, anemia, admitted with worsening renal fxn, seen in consultation today for permcath insertion for HD.Patient was consented for permcath placement Description of Procedure Patient was taken to the angio suite and placed in the supine position. The Right side of the neck and chest wall were prepped and draped in a sterile manner. Local anesthesia was then administered to the appropriate areas of the neck and chest wall. Ultrasound was then used to locate the Right internal jugular vein. The vein compressed easily, had no filing defects, and was patent. The vein was then punctured under direct ultrasound imaging. A guidewire was then passed centrally under fluoroscopic imaging. A stab wound was then made in the anterior chest wall and a 19 cm permcath was passed from the stab wound on the chest wall to the puncture site on the neck. The puncture site was then dilated till the 14Fr peel away sheath was inserted. The permcath was then inserted through the sheath to a central position in the distal superior vena cava. The peel away sheath was then removed. We had to rewire t he catheter to straighten it out. Satisfactory smooth bend was achieved. The catheter was then sutured in place using nylon sutures. The puncture was then closed using a 4-0 Vicryl subcuticular suture. Dermabond was used for a dressing on the puncture site. Both ports aspirated and flushed easily and were then packed with heparin. A sterile dressing was applied to the catheter. The patient left the angio suite in good condition and tolerated the procedure well. Dr. Delarosa was present and scrubbed for the entire procedure. I attest to the content of the Intraoperative Record and any orders documented therein. Any exceptions are noted below. Supervising Physician Co-Signing Physician Notes pierre Delarosa
--- NOTE | 2021-08-13 09:57 | Anesthesiology Progress Note ---
Date of Service August 13, 2021 Anesthesia Post Procedure Vital Signs Vital Signs: Temp Pulse Pulse Pulse Resp BP BP 08/13/21 09:33 98.8 F 93 H 19 123/63 08/13/21 09:05 99.0 F 98 H 20 08/13/21 08:55 98 H 20 08/13/21 08:45 98 H 16 08/13/21 08:36 97.9 F 98 H 10 L 08/13/21 07:18 98.2 F 100 H 18 128/62 08/13/21 03:46 98.4 F 99 H 16 08/12/21 23:20 98.6 F 99 H 18 08/12/21 22:30 97 H 08/12/21 19:35 97.7 F 98 H 18 08/12/21 19:20 98.1 F 99 H 20 08/12/21 15:49 98.4 F 103 H 19 129/69 08/12/21 15:06 93 H 08/12/21 14:00 88 26 H 08/12/21 13:00 102 H 24 08/12/21 12:00 105 H 12 128/76 08/12/21 11:34 98.1 F 08/12/21 11:33 116 H 20 124/93 08/12/21 11:00 100 H 15 125/88 08/12/21 10:00 98 H 16 125/79 BP Pulse Ox 08/13/21 09:33 93 08/13/21 09:05 121/65 92 08/13/21 08:55 119/64 92 08/13/21 08:45 114/64 90 08/13/21 08:36 121/64 92 08/13/21 07:18 95 08/13/21 03:46 123/53 L 92 08/12/21 23:20 116/62 92 08/12/21 22:30 08/12/21 19:35 117/79 94 08/12/21 19:20 132/78 94 08/12/21 15:49 93 08/12/21 15:06 08/12/21 14:00 91 08/12/21 13:00 94 08/12/21 12:00 94 08/12/21 11:34 92 08/12/21 11:33 90 08/12/21 11:00 92 08/12/21 10:00 91 Transfer of Care Handoff Completed per policy Notes Mental Status: alert / awake / arousable and participated in evaluation Patient Amnestic to Procedure: Yes Nausea / Vomiting: adequately controlled Pain: adequately controlled Airway Patency, RR, SpO2: stable & adequate BP & HR: stable & adequate Hydration State: stable & adequate Anesthetic Complications: no major complications apparent and Pt Satisfied with anesthetic care
[2021-08-13] MEDS ORDERED: SODIUM CHLORIDE 0.9% 1000ML 1,000 ML IV PRN (10:04)
--- NOTE | 2021-08-13 10:12 | Cardiology Progress Note ---
Date of Service August 13, 2021 Assessment & Plan (1) Hypoxia: (2) CHF (congestive heart failure): (3) Hypertensive urgency: (4) CKD (chronic kidney disease): (5) Anemia: (6) Elevated troponin I level: (7) Ischemic cardiomyopathy: (8) PAD (peripheral artery disease): Plan: 89-year-old patient with acute on chronic heart failure with acute on chronic renal failure. Underwent tunneled dialysis catheter placement this morning. Tolerated procedure. To go for dialysis later today. Currently persistent atrial flutter with a HR of 100 bpm on monitor and EKG. Has been on amiodarone due to atrial arrhythmias, but given ongoing hypoxia and worsening pulmonary status during this admission may need to discontinue Titrate metoprolol to 25 mg BID for ongoing rate control. Not anticoagulated due to prior issues with GI bleeding. Supplement potassium. To go for dialysis today Case discussed with Dr. Mosquera. Admission and Anticipated Discharge Date Admission Date: August 08, 2021 Supervising Physician Co-Signing Physician Notes Patient seen and personally examined post dialysis. Tolerated 1/2 L dialysis without hemodynamic change. Now to receive medications No chest pains or worsening shortness of breath. Plan as outlined above increase metoprolol dosing today and may ultimately discontinue amiodarone but continue until rate and rhythm controlled Subjective Patient returned from catheter placement. Going to dialysis soon. Tolerated procedure without issues. Reports his breathing is "normal" but remain on oxymask. Denies chest pain or symptoms of SOB. No edema. No sense of palpitations. No dizziness. Review of Systems Review of Systems: All systems reviewed & are unremarkable except as noted in HPI & below Physical Exam Constitutional: no acute distress Eyes: PERRL, conjunctivae normal, anicteric sclerae ENMT: external ear and nose normal, oropharynx normal Respiratory: no respiratory distress, no labored breathing and no retractions Auscultation: + diminished lung sounds and + rales (faint); no rhonchi and no wheezes Cardiovascular: Rate/Rhythm: regular rate Heart Sounds: normal S1 and normal S2 Vessels: + JVD; no carotid bruit Extremities: no edema Gastrointestinal (Abdomen): Inspection/Auscultation: abdomen normal to inspection; abdomen not distended Percussion/Palpation: abdomen soft; abdomen nontender, no guarding and abdomen not rigid Neurologic: CN's II-XI intact bilaterally and moves all extremities; no focal motor deficits Psychiatric: A+Ox3, euthymic affect Results & Data ([facility]) Vital Signs (Past 12 Hours) Vital Signs Temp Pulse Pulse Pulse Resp BP BP 08/13/21 09:33 37.1 C 93 H 19 123/63 08/13/21 09:05 37.2 C 98 H 20 121/65 08/13/21 08:55 98 H 20 119/64 08/13/21 08:45 98 H 16 114/64 08/13/21 08:36 36.6 C 98 H 10 L 121/64 08/13/21 07:18 36.8 C 100 H 18 128/62 08/13/21 03:46 36.9 C 99 H 16 123/53 L 08/12/21 23:20 37.0 C 99 H 18 116/62 08/12/21 22:30 97 H Pulse Ox 08/13/21 09:33 93 08/13/21 09:05 92 08/13/21 08:55 92 08/13/21 08:45 90 08/13/21 08:36 92 08/13/21 07:18 95 08/13/21 03:46 92 08/12/21 23:20 92 08/12/21 22:30 Laboratory Results 08/13/21 08/13/21 08/13/21 Range/Units 05:37 05:37 05:37 WBC 6.32 (4.8-10.8) K/uL RBC 3.41 L (4.7-6.1) M/uL Hgb 10.5 L (14.0-18.0) g/dL Hct 31.2 L (42-52) % MCV 91.5 (80-100) fL MCH 30.8 (25-34) pg MCHC 33.7 (32-36) g/dL RDW Std Deviation 53.6 H (36.4-46.3) fL RDW Coeff of Yuri 15.9 H (11.5-14.5) % Plt Count 168 (130-400) K/uL MPV 10.5 H (7.4-10.4) fL PT 12.0 (9.0-12.0) Seconds INR 1.1 (0.9-1.1) Sodium 136 (136-145) mmol/L Potassium 3.3 L (3.5-5.1) mmol/L Chloride 100 (98-107) mmol/L Carbon Dioxide 23 (21-32) mmol/L Anion Gap 13 H (3-11) BUN 132 H (6-23) mg/dl Creatinine 3.89 H D (0.6-1.4) mg/dl Est Cr Clr Drug Dosing 11.8 ml/min Est GFR ( Amer) 14.9 ml/min Est GFR (Non-Af Amer) 12.9 ml/min BUN/Creatinine Ratio 33.9 H (10-20) Glucose 99 (70-99(Fasting)) mg/dl Calcium 9.0 (8.5-10.1) mg/dl Phosphorus 5.9 H (2.5-4.9) mg/dl Magnesium 2.8 H (1.7-2.4) mg/dl Diagnostic Findings Telemetry reviewed - Regular rhythm, appears to be atrial flutter with 2:1 conduction EKG: atrial flutter with a HR of 100 bpm Chest xray pending post catheter placement. Medications Administered Current Inpatient Medications Acetaminophen (Acetaminophen 325 Mg Tab) 650 mg PO Q4H PRN PRN Reason: Pain or Fever Stop: 09/07/21 10:08 Last Admin: 08/11/21 01:28 Dose: 650 mg Documented by: Allopurinol (Allopurinol 100 Mg Tab) 50 mg PO DAILY [facility] Stop: 09/10/21 08:59 Last Admin: 08/12/21 08:17 Dose: 50 mg Documented by: Amiodarone HCl (Amiodarone 200 Mg Tab) 100 mg PO DAILY [facility] Stop: 09/07/21 10:08 Last Admin: 08/12/21 08:17 Dose: 100 mg Documented by: Amlodipine Besylate (Amlodipine Besylate 5 Mg Tab) 10 mg PO QA [facility] Stop: 09/08/21 08:59 Last Admin: 08/12/21 08:17 Dose: 10 mg Documented by: Aspirin (Aspirin 81 Mg Ectab) 81 mg PO DAILY [facility] Stop: 09/07/21 10:08 Last Admin: 08/12/21 08:17 Dose: 81 mg Documented by: Atorvastatin Calcium (Atorvastatin 40 Mg Tab) 40 mg PO HS [facility] Stop: 09/07/21 20:59 Last Admin: 08/12/21 20:52 Dose: 40 mg Documented by: Atropine Sulfate (Atropine Sulfate 0.1 Mg/Ml 10ml Syr) 0.5 mg IV Q1M PRN PRN Reason: PACU Use-HR<40 &/or Bradycardi Stop: 08/13/21 14:52 Ephedrine Sulfate (Ephedrine Sulfate 50 Mg/Ml Amp) 5 mg IV Q5M PRN PRN Reason: PACU Use Only-SBP<90 mmHg Stop: 08/13/21 14:52 Fentanyl Citrate (Fentanyl Citrate 100 Mcg/2 Ml Vial) 25 mcg IV Q5M PRN PRN Reason: PACU Use Only-Pain Stop: 08/13/21 14:52 Finasteride (Finasteride 5 Mg Tab) 5 mg PO DAILY [facility] Stop: 09/07/21 10:08 Last Admin: 08/12/21 08:18 Dose: 5 mg Documented by: Furosemide (Furosemide 40 Mg/4 Ml Vial) 80 mg IV Q6H [facility] Stop: 09/10/21 19:59 Last Admin: 08/13/21 02:20 Dose: 80 mg Documented by: Heparin Sodium (Porcine) (Heparin Sod 5,000 Unit/0.5 Ml Vial) 5,000 units SQ Q12 [facility] Stop: 09/08/21 20:59 Last Admin: 08/12/21 20:52 Dose: 5,000 units Documented by: Hydralazine HCl (Hydralazine Hcl 25 Mg Tab) 75 mg PO TID [facility] Stop: 09/08/21 20:59 Last Admin: 08/12/21 20:52 Dose: 75 mg Documented by: Hydromorphone HCl (Hydromorphone Inj 0.5 Mg/0.5 Ml Syr) 0.25 mg IV Q6H PRN PRN Reason: Pain Stop: 08/22/21 10:08 Promethazine HCl 6.25 mg/ (Sodium Chloride) 50.25 mls @ 201 mls/hr IV Q6H PRN PRN Reason: Nausea And Vomiting Stop: 09/07/21 10:08 Isosorbide Mononitrate (Isosorbide [place] Extended Rel 60 Mg Tabcr) 60 mg PO DAILY [facility] Stop: 09/07/21 10:08 Last Admin: 08/12/21 08:18 Dose: 60 mg Documented by: Levothyroxine Sodium (Levothyroxine Sodium 125 Mcg Tablet) 125 mcg PO DAILYBB [facility] Stop: 09/07/21 10:08 Last Admin: 08/13/21 05:41 Dose: 125 mcg Documented by: Metolazone (Metolazone 5 Mg Tablet) 5 mg PO BID@0700,1900 [facility] Stop: 09/11/21 12:59 Last Admin: 08/13/21 06:22 Dose: 5 mg Documented by: Metoprolol Tartrate (Metoprolol Tartrate 25 Mg Tab) 12.5 mg PO BID [facility] Stop: 09/11/21 10:29 Last Admin: 08/12/21 20:52 Dose: 12.5 mg Documented by: Ondansetron HCl (Ondansetron Inj 2 Mg/Ml 2 Ml Vial) 4 mg IV ONCE PRN PRN Reason: PACU Use Only-Nausea/Vomiting Stop: 08/13/21 14:52 Tamsulosin HCl (Tamsulosin Hcl 0.4 Mg Cap) 0.4 mg PO DAILY [facility] Stop: 09/07/21 10:08 Last Admin: 08/12/21 08:18 Dose: 0.4 mg Documented by: Tramadol HCl (Tramadol Hcl 50 Mg Tablet) 25 mg PO Q4H PRN PRN Reason: Pain Stop: 09/07/21 10:08 (1) CHF (congestive heart failure) Heart failure chronicity: acute Heart failure type: unspecified Qualified Code(s): I50.9 - Heart failure, unspecified (2) Anemia Anemia type: other cause Other causes of anemia: acute posthemorrhagic Qualified Code(s): D62 - Acute posthemorrhagic anemia
--- NOTE | 2021-08-13 10:21 | XRay Report ---
SINGLE VIEW CHEST CLINICAL HISTORY: Dyspnea. FINDINGS: An AP, portable, upright chest radiograph is compared to study dated 08/12/2021 and correlate d with chest CT dated 08/08/2021. The heart is enlarged noting atherosclerotic calcification of the tho racic aorta. There is perivascular congestion with interstitial edema. Small pleural effusions are no lisa with dependent consolidation. No pneumothorax is seen. The skeletal structures are osteopenic. Th e bony thorax is grossly intact. IMPRESSION: 1. Cardiomegaly with evidence of congestive failure and pulmonary edema. This is similar to yesterday . Continued follow-up to resolution is recommended. 2. Small pleural effusions with dependent consolidation. Correlate clinically for evidence of a super imposed infectious/inflammatory pneumonitis. ACT 112: Negative or not required by law. Electronically signed by: Eddie Fairchild M.D. 08/13/2021 10:20 AM
[2021-08-13] MEDS: hydrALAZINE HCL 25 MG TAB PO SCH ×3 (10:37→20:32)
[2021-08-13] MEDS: AMIODARONE 200 MG TAB PO SCH ×2 (10:37→13:45)
[2021-08-13] MEDS: METOPROLOL TARTRATE 25 MG TAB PO SCH ×3 (10:37→20:32)
[2021-08-13] MEDS: ISOSORBIDE MONO EXTENDED REL 60 MG TABCR PO SCH (13:44)
[2021-08-13] MEDS: amLODIPine BESYLATE 5 MG TAB PO SCH ×2 (13:44→20:33)
[2021-08-13] MEDS: TAMSULOSIN HCL 0.4 MG CAP PO SCH (13:44)
[2021-08-13] MEDS: FINASTERIDE 5 MG TAB PO SCH (13:44)
[2021-08-13] MEDS: allopurinoL 100 MG TAB PO SCH (13:45)
[2021-08-13] MEDS: ASPIRIN 81 MG ECTAB PO SCH (13:45)
--- NOTE | 2021-08-13 13:45 | Hospitalist Progress Note ---
Date of Service August 13, 2021 Assessment & Plan (1) Acute hypoxemic respiratory failure: Plan: Acute on chronic diastolic CHF -Repeat TTE unchanged compared to previous -At home, takes lasix 80mg QAM and 40mg QPM. Reports compliance initially although upon further questioning, had several missed doses of lasix -SBP on arrival up to 180. Possible component of poorly controlled hypertension -Currently on lasix 80mg IV Q 6 hours. S/p several doses of metolazone. Dialysis initiated 08/13. Diuresis managed by Nephrology Acute hypoxic respiratory failure -had required bipap PRN, now weaned to 6-7L NC CKD stage 4 -Cr fluctuates but appears to be baseline 2.5-3. -sees Dr Sarabia as an outpatient -Diuresis managed by Nephrology -Permcath placed 08/13 -1st dialysis 08/13 -Discussed with Nephrology, patient should be arranged at [facility] with goal of 1st OP dialysis session this Wednesday 08/16 Demand ischemia -trop elevation with peak at 155 -no chest pain. TTE negative for wall motion abnormality Leukocytosis -likely reactive -s/p ABx in ER, but no evidence of pneumonia on imaging, negative procalcitonin -monitor off antibiotics PAF -amiodarone 100mg daily, aspirin 81mg, not on AC due to history of GIB, metoprolol 25mg BID -managed by Cardiology Poorly controlled HTN -home regimen: hydralazine 50mg TID--increased to 75mg TID 08/09, Imdur 60mg QHS, amlodipine 10mg QHS -Improved BP currently BPH -flomax, finasteride -Puentes placed here for accurate I/O when he was critically ill and NOT for urinary obstruction. Will remove puentes catheter DVT ppx SQ heparin Disposition- Patient will need OP dialysis to be arranged, message sent to CM. PT/OT evaluation ordered Admission and Anticipated Discharge Date Admission Date: August 08, 2021 Subjective Permacath placed today Patient feels well, inquiring when he can go home Still remains on oxygen --6L Physical Exam Physical Exam: Appears well, no acute distress, pleasant and comfortable Respiratory: Diminished at bases, no wheezing/rhonchi/rales Cardiovascular: regular rate and rhythm, no murmurs/rubs/gallops Gastrointestinal (Abdomen): soft, non tender Musculoskeletal: No edema Neurologic: awake, alert, spontaneously moving extremities Results & Data Results & Data ([facility]) Vital Signs (Past 12 Hours) Vital Signs Temp Pulse Pulse Pulse Resp BP BP 08/13/21 13:15 99 H 122/70 08/13/21 13:00 100 H 124/66 08/13/21 12:45 116 H 111/83 08/13/21 12:30 105 H 114/55 L 08/13/21 12:15 111 H 114/55 L 08/13/21 12:00 107 H 122/74 08/13/21 11:45 112 H 119/88 08/13/21 11:30 94 H 116/62 08/13/21 10:56 36.4 C L 102 H 08/13/21 10:00 100 H 19 127/67 08/13/21 09:45 99 H 19 128/99 08/13/21 09:33 37.1 C 98 H 93 H 19 123/63 08/13/21 09:05 37.2 C 98 H 20 08/13/21 08:55 98 H 20 08/13/21 08:45 98 H 16 08/13/21 08:36 36.6 C 98 H 10 L 08/13/21 07:18 36.8 C 100 H 18 128/62 08/13/21 03:46 36.9 C 99 H 16 BP Pulse Ox 08/13/21 13:15 08/13/21 13:00 08/13/21 12:45 08/13/21 12:30 08/13/21 12:15 08/13/21 12:00 08/13/21 11:45 08/13/21 11:30 08/13/21 10:56 08/13/21 10:00 97 08/13/21 09:45 94 08/13/21 09:33 93 08/13/21 09:05 121/65 92 08/13/21 08:55 119/64 92 08/13/21 08:45 114/64 90 08/13/21 08:36 121/64 92 08/13/21 07:18 95 08/13/21 03:46 123/53 L 92 Laboratory Results Short CBC 08/13/21 Range/Units 05:37 WBC 6.32 (4.8-10.8) K/uL Hgb 10.5 L (14.0-18.0) g/dL Hct 31.2 L (42-52) % Plt Count 168 (130-400) K/uL BMP 08/13/21 05:37 Sodium 136 Potassium 3.3 L Chloride 100 Carbon Dioxide 23 BUN 132 H Creatinine 3.89 H D Glucose 99 Calcium 9.0 Medications Administered Current Inpatient Medications Acetaminophen (Acetaminophen 325 Mg Tab) 650 mg PO Q4H PRN PRN Reason: Pain or Fever Stop: 09/07/21 10:08 Last Admin: 08/11/21 01:28 Dose: 650 mg Documented by: Allopurinol (Allopurinol 100 Mg Tab) 50 mg PO DAILY [facility] Stop: 09/10/21 08:59 Last Admin: 08/12/21 08:17 Dose: 50 mg Documented by: Amiodarone HCl (Amiodarone 200 Mg Tab) 100 mg PO QAM [facility] Stop: 09/12/21 12:14 Amlodipine Besylate (Amlodipine Besylate 5 Mg Tab) 10 mg PO QPM [facility] Stop: 09/12/21 20:59 Aspirin (Aspirin 81 Mg Ectab) 81 mg PO DAILY [facility] Stop: 09/07/21 10:08 Last Admin: 08/12/21 08:17 Dose: 81 mg Documented by: Atorvastatin Calcium (Atorvastatin 40 Mg Tab) 40 mg PO HS [facility] Stop: 09/07/21 20:59 Last Admin: 08/12/21 20:52 Dose: 40 mg Documented by: Atropine Sulfate (Atropine Sulfate 0.1 Mg/Ml 10ml Syr) 0.5 mg IV Q1M PRN PRN Reason: PACU Use-HR<40 &/or Bradycardi Stop: 08/13/21 14:52 Ephedrine Sulfate (Ephedrine Sulfate 50 Mg/Ml Amp) 5 mg IV Q5M PRN PRN Reason: PACU Use Only-SBP<90 mmHg Stop: 08/13/21 14:52 Fentanyl Citrate (Fentanyl Citrate 100 Mcg/2 Ml Vial) 25 mcg IV Q5M PRN PRN Reason: PACU Use Only-Pain Stop: 08/13/21 14:52 Finasteride (Finasteride 5 Mg Tab) 5 mg PO DAILY [facility] Stop: 09/07/21 10:08 Last Admin: 08/12/21 08:18 Dose: 5 mg Documented by: Furosemide (Furosemide 40 Mg/4 Ml Vial) 80 mg IV Q6H [facility] Stop: 09/10/21 19:59 Last Admin: 08/13/21 02:20 Dose: 80 mg Documented by: Heparin Sodium (Porcine) (Heparin Sod 5,000 Unit/0.5 Ml Vial) 5,000 units SQ Q12 [facility] Stop: 09/08/21 20:59 Last Admin: 08/12/21 20:52 Dose: 5,000 units Documented by: Hydralazine HCl (Hydralazine Hcl 25 Mg Tab) 25 mg PO TID [facility] Stop: 09/12/21 13:59 Hydromorphone HCl (Hydromorphone Inj 0.5 Mg/0.5 Ml Syr) 0.25 mg IV Q6H PRN PRN Reason: Pain Stop: 08/22/21 10:08 Promethazine HCl 6.25 mg/ (Sodium Chloride) 50.25 mls @ 201 mls/hr IV Q6H PRN PRN Reason: Nausea And Vomiting Stop: 09/07/21 10:08 Sodium Chloride (Nss 1000ml) 1,000 mls @ 0 mls/hr IV .Q0M PRN PRN Reason: For Hemodialysis Use ONLY Stop: 08/13/21 16:03 Isosorbide Mononitrate (Isosorbide [place] Extended Rel 60 Mg Tabcr) 60 mg PO DAILY [facility] Stop: 09/07/21 10:08 Last Admin: 08/12/21 08:18 Dose: 60 mg Documented by: Levothyroxine Sodium (Levothyroxine Sodium 125 Mcg Tablet) 125 mcg PO DAILYBB [facility] Stop: 09/07/21 10:08 Last Admin: 08/13/21 05:41 Dose: 125 mcg Documented by: Metoprolol Tartrate (Metoprolol Tartrate 25 Mg Tab) 25 mg PO BID [facility] Stop: 09/12/21 10:14 Ondansetron HCl (Ondansetron Inj 2 Mg/Ml 2 Ml Vial) 4 mg IV ONCE PRN PRN Reason: PACU Use Only-Nausea/Vomiting Stop: 08/13/21 14:52 Tamsulosin HCl (Tamsulosin Hcl 0.4 Mg Cap) 0.4 mg PO DAILY [facility] Stop: 09/07/21 10:08 Last Admin: 08/12/21 08:18 Dose: 0.4 mg Documented by: Tramadol HCl (Tramadol Hcl 50 Mg Tablet) 25 mg PO Q4H PRN PRN Reason: Pain Stop: 09/07/21 10:08
[2021-08-13] MEDS: HEPARIN SOD 5,000 UNIT/0.5 ML VIAL SQ SCH ×2 (13:46→20:33)
[2021-08-13 15:51] LABS: HBSAG NON-REACTIVE (NON-REACTIVE); Hepatitis B Surface Ab, Quant <5 mIU/mL (> OR = 10)
[2021-08-13] MEDS: ATORVASTATIN 40 MG TAB PO SCH (20:32)
[2021-08-14] MEDS: FUROSEMIDE 40 MG/4 ML VIAL IV SCH ×4 (02:16→19:49)
[2021-08-14] MEDS: LEVOTHYROXINE SODIUM 125 MCG TABLET PO SCH (05:30)
[2021-08-14 06:58] LABS: Hematocrit (blood only) 30.8 % (42-52); Hemoglobin 10.3 g/dL (14.0-18.0); Mean Corpuscular Hgb Conc 33.4 g/dL (32-36); Mean Corpuscular Volume 92.8 fL (80-100); Mean Platelet Volume 10.7 fL (7.4-10.4); Platelet Count 172 K/uL (130-400); RDW Coefficient of Variation 15.9 % (11.5-14.5); RDW Standard Deviation 53.9 fL (36.4-46.3); Red Blood Count 3.32 M/uL (4.7-6.1); White Blood Count 7.34 K/uL (4.8-10.8)
--- NOTE | 2021-08-14 07:17 | Nephrology Progress Note ---
Date of Service August 14, 2021 Assessment & Plan (1) ESRD (end stage renal disease) on dialysis: Plan: ESRD needing dialysis. baseline creatinine about 2.7. progressive respiratory failure in the setting of some missed lasix dosing a few days back with worsening renal function and acute decompensated HF; underlying resistant HTN and advanced CKD 4. >>got dialysis catheter 08/12 and first HD later same day >had consistently told me he does not wish to do OP dialysis again in the past; however willing to consider OP dialysis now. independent community dwelling; hoping to ride his motorcycle this spring, involved grown children. >>agrees to short term outpatient dialysis (if we can get him there) [facility] and revisit goals of care as outpatient >> please have him ready for first HD OP at [facility] 08/16/21 -continue lasix 80 mg qid IV for now >HD today 3.5 hr w/ goal UF 1.3L >next HD tomorrow most likely > may need daily dialysis until 02 needs improve -stopped metolazone -stopped hydralazine today and lowered lowered amlodipine to 5 mg hs from 10 -cardiology and vascular surgery assistance appreciated >dialysis consent on chart Admission and Anticipated Discharge Date Admission Date: August 08, 2021 Subjective remains on 10L 02nc; some poor sleep; did ok on tx yesterday Review of Systems Review of Systems: All systems reviewed & are unremarkable except as noted in Subjective Physical Exam Constitutional: well developed, + thin and cooperative; no acute distress Eyes: EOM intact bilaterally ENMT: Ears: no external ear abnormality Nose: no external nose abnormality Mouth: + dry oral mucous membranes Neck: no nuchal rigidity Respiratory: normal respiratory effort Auscultation: + diminished lung sounds (leonid R posterior) and + crackles (L base) Cardiovascular: Rate/Rhythm: regular rate and + irregularly irregular Heart Sounds: + murmur Extremities: no edema Gastrointestinal (Abdomen): Inspection/Auscultation: normal bowel sounds Percussion/Palpation: abdomen soft; abdomen nontender Musculoskeletal: Extremities: strength 5/5 throughout Skin: no rashes, warm and dry Neurologic: stephen, fluent speech, notremor Psychiatric: Orientation: oriented x 3 Results & Data ([facility]) Vital Signs (Past 12 Hours) Vital Signs Temp Pulse Pulse Resp BP Pulse Ox 08/14/21 03:10 36.6 C 60 16 118/43 L 91 08/14/21 00:00 54 L 08/13/21 23:00 36.8 C 59 L 20 121/50 L 92 Laboratory Results 08/14/21 06:43 08/14/21 06:43
[2021-08-14] MEDS ORDERED: SODIUM CHLORIDE 0.9% 1000ML 1,000 ML IV PRN (07:18)
[2021-08-14] MEDS ORDERED: HEPARIN SOD (PORCINE) 1000 UNIT/ML IV ONE (07:18)
[2021-08-14 07:40] LABS: BUN Creatinine Ratio 28.5 (10-20); Calcium 8.7 mg/dl (8.5-10.1); Creatinine Clr Calc Pharmacy 13.2 ml/min; Est GFR (African American) 17.5 ml/min; Est GFR (Non-African American) 15.1 ml/min; Magnesium 2.5 mg/dl (1.7-2.4); Phosphorus 4.8 mg/dl (2.5-4.9); Potassium 4.1 mmol/L (3.5-5.1)
[2021-08-14] MEDS ORDERED: EPOETIN ALFA 10,000 UNITS/ML VIAL IV SCH (08:00)
[2021-08-14] MEDS: hydrALAZINE HCL 25 MG TAB PO SCH (09:37)
--- NOTE | 2021-08-14 09:38 | Hospitalist Progress Note ---
Date of Service August 14, 2021 Assessment & Plan (1) Acute hypoxemic respiratory failure: Plan: Acute on chronic diastolic CHF -Repeat TTE unchanged compared to previous -At home, takes lasix 80mg QAM and 40mg QPM. Reports compliance initially although upon further questioning, had several missed doses of lasix -SBP on arrival up to 180. Possible component of poorly controlled hypertension -Currently on lasix 80mg IV Q 6 hours. S/p several doses of metolazone. Dialysis initiated 08/13. Diuresis managed by Nephrology Acute hypoxic respiratory failure -had required bipap PRN, now on high flow NC 6-10 L CKD stage 4 -Cr fluctuates but appears to be baseline 2.5-3. -sees Dr Alarcon as an outpatient -Diuresis managed by Nephrology -Permcath placed 08/13 -1st dialysis 08/13 -Discussed with Nephrology, patient should be arranged at [facility] with goal of 1st OP dialysis session this Wednesday 08/16 Demand ischemia -trop elevation with peak at 155 -no chest pain. TTE negative for wall motion abnormality Leukocytosis -likely reactive -s/p ABx in ER, but no evidence of pneumonia on imaging, negative procalcitonin -monitor off antibiotics PAF -amiodarone 100mg daily, aspirin 81mg, not on AC due to history of GIB, metoprolol 25mg BID -managed by Cardiology Poorly controlled HTN -home regimen: hydralazine 50mg TID--increased to 75mg TID 08/09, Imdur 60mg QHS, amlodipine 10mg QHS - now hydralazine stopped by nephro and amlodipine down to 5 (08/14) -Improved BP currently BPH -flomax, finasteride -Campbell placed here for accurate I/O when he was critically ill and NOT for urinary obstruction. Campbell catheter to be removed DVT ppx SQ heparin Disposition- Patient will need OP dialysis to be arranged, message sent to CM. PT/OT evaluation ordered Admission and Anticipated Discharge Date Admission Date: August 08, 2021 Subjective Patient seen in follow-up of acute CHF exacerbation, hypoxic respiratory failure Permacath placed yesterday, tolerated HD session Patient seen and examined during dialysis He is in good spirits, however reports poor sleep last night due to oxygen alarm Denies chest pain or increased shortness of breath, however stays on high flow nasal cannula, 10 L No abdominal pain, fevers chills Review of Systems Review of Systems: All systems reviewed & are unremarkable except as noted in Subjective Physical Exam Physical Exam: Physical Exam: elderly thin M in no acute distress, on HD Respiratory: Diminished,+ crack les L base, no whe ezing Cardiovascular:I regular rate and r hythm, no murmurs/ rubs/gallops Gastrointestinal ( Abdomen): soft, non tender t o palpation Musculoskeletal: No LE edema Neurologic: awake, alert, answ ers questions appr opriately, speech fluent, spontaneou sly moving extremi ties Results & Data Results & Data ([facility]) Vital Signs (Past 12 Hours) Vital Signs Temp Pulse Pulse Resp BP Pulse Ox 08/14/21 08:00 36.5 C 69 18 127/70 92 08/14/21 03:10 36.6 C 60 16 118/43 L 91 08/14/21 00:00 54 L 08/13/21 23:00 36.8 C 59 L 20 121/50 L 92 Laboratory Results 08/14/21 08/14/21 08/12/21 Range/Units 06:43 06:43 05:05 WBC 7.34 (4.8-10.8) K/uL RBC 3.32 L (4.7-6.1) M/uL Hgb 10.3 L (14.0-18.0) g/dL Hct 30.8 L (42-52) % MCV 92.8 (80-100) fL MCH 31.0 (25-34) pg MCHC 33.4 (32-36) g/dL RDW Std Deviation 53.9 H (36.4-46.3) fL RDW Coeff of Yuri 15.9 H (11.5-14.5) % Plt Count 172 (130-400) K/uL MPV 10.7 H (7.4-10.4) fL Sodium 139 (136-145) mmol/L Potassium 4.1 D (3.5-5.1) mmol/L Chloride 104 (98-107) mmol/L Carbon Dioxide 23 (21-32) mmol/L Anion Gap 12 H (3-11) BUN 97 H D (6-23) mg/dl Creatinine 3.40 H D (0.6-1.4) mg/dl Est Cr Clr Drug Dosing 13.2 ml/min Est GFR ( Amer) 17.5 ml/min Est GFR (Non-Af Amer) 15.1 ml/min BUN/Creatinine Ratio 28.5 H (10-20) Glucose 109 H (70-99(Fasting)) mg/dl Calcium 8.7 (8.5-10.1) mg/dl Phosphorus 4.8 D (2.5-4.9) mg/dl Magnesium 2.5 H (1.7-2.4) mg/dl Hep Bs Antigen NON-REACTIVE (NON-REACTIVE) Hep Bs Ag Confirmation TNP Hep Bs Antibody, Quant <5 L (> OR = 10) mIU/mL Medications Administered Current Inpatient Medications Acetaminophen (Acetaminophen 325 Mg Tab) 650 mg PO Q4H PRN PRN Reason: Pain or Fever Stop: 09/07/21 10:08 Last Admin: 08/11/21 01:28 Dose: 650 mg Documented by: Allopurinol (Allopurinol 100 Mg Tab) 50 mg PO DAILY [facility] Stop: 09/10/21 08:59 Last Admin: 08/13/21 13:45 Dose: 50 mg Documented by: Amiodarone HCl (Amiodarone 200 Mg Tab) 100 mg PO QAM [facility] Stop: 09/12/21 12:14 Last Admin: 08/13/21 13:45 Dose: 100 mg Documented by: Amlodipine Besylate (Amlodipine Besylate 5 Mg Tab) 10 mg PO QPM [facility] Stop: 09/12/21 20:59 Last Admin: 08/13/21 20:33 Dose: 10 mg Documented by: Aspirin (Aspirin 81 Mg Ectab) 81 mg PO DAILY [facility] Stop: 09/07/21 10:08 Last Admin: 08/13/21 13:45 Dose: 81 mg Documented by: Atorvastatin Calcium (Atorvastatin 40 Mg Tab) 40 mg PO HS [facility] Stop: 09/07/21 20:59 Last Admin: 08/13/21 20:32 Dose: 40 mg Documented by: Epoetin Alistair (Epoetin Alistair 10,000 Units/Ml Vial) 10,000 units IV TODAY@0800 [facility] Stop: 08/14/21 16:00 Finasteride (Finasteride 5 Mg Tab) 5 mg PO DAILY [facility] Stop: 09/07/21 10:08 Last Admin: 08/13/21 13:44 Dose: 5 mg Documented by: Furosemide (Furosemide 40 Mg/4 Ml Vial) 80 mg IV Q6H [facility] Stop: 09/10/21 19:59 Last Admin: 08/14/21 08:38 Dose: 80 mg Documented by: Heparin Sodium (Porcine) (Heparin Sod 5,000 Unit/0.5 Ml Vial) 5,000 units SQ Q12 [facility] Stop: 09/08/21 20:59 Last Admin: 08/13/21 20:33 Dose: 5,000 units Documented by: Hydralazine HCl (Hydralazine Hcl 25 Mg Tab) 25 mg PO TID [facility] Stop: 09/12/21 13:59 Last Admin: 08/13/21 20:32 Dose: 25 mg Documented by: Hydromorphone HCl (Hydromorphone Inj 0.5 Mg/0.5 Ml Syr) 0.25 mg IV Q6H PRN PRN Reason: Pain Stop: 08/22/21 10:08 Last Admin: 08/13/21 16:24 Dose: 0.25 mg Documented by: Promethazine HCl 6.25 mg/ (Sodium Chloride) 50.25 mls @ 201 mls/hr IV Q6H PRN PRN Reason: Nausea And Vomiting Stop: 09/07/21 10:08 Sodium Chloride (Nss 1000ml) 1,000 mls @ 0 mls/hr IV .Q0M PRN PRN Reason: For Hemodialysis Use ONLY Stop: 08/14/21 13:17 Isosorbide Mononitrate (Isosorbide [place] Extended Rel 60 Mg Tabcr) 60 mg PO DAILY [facility] Stop: 09/07/21 10:08 Last Admin: 08/13/21 13:44 Dose: 60 mg Documented by: Levothyroxine Sodium (Levothyroxine Sodium 125 Mcg Tablet) 125 mcg PO DAILYBB [facility] Stop: 09/07/21 10:08 Last Admin: 08/14/21 05:30 Dose: 125 mcg Documented by: Metoprolol Tartrate (Metoprolol Tartrate 25 Mg Tab) 25 mg PO BID [facility] Stop: 09/12/21 10:14 Last Admin: 08/13/21 20:32 Dose: 25 mg Documented by: Tamsulosin HCl (Tamsulosin Hcl 0.4 Mg Cap) 0.4 mg PO DAILY [facility] Stop: 09/07/21 10:08 Last Admin: 08/13/21 13:44 Dose: 0.4 mg Documented by: Tramadol HCl (Tramadol Hcl 50 Mg Tablet) 25 mg PO Q4H PRN PRN Reason: Pain Stop: 09/07/21 10:08
[2021-08-14] MEDS: HEPARIN SOD 5,000 UNIT/0.5 ML VIAL SQ SCH ×2 (09:42→20:44)
[2021-08-14] MEDS: HEPARIN SOD (PORCINE) 1000 UNIT/ML IV SCH ×2 (10:24→14:02)
--- NOTE | 2021-08-14 10:44 | Cardiology Progress Note ---
Date of Service August 14, 2021 Assessment & Plan (1) Hypoxia: (2) CHF (congestive heart failure): (3) Hypertensive urgency: (4) CKD (chronic kidney disease): (5) Anemia: (6) Elevated troponin I level: (7) Ischemic cardiomyopathy: (8) PAD (peripheral artery disease): Plan: 89-year-old patient with acute on chronic heart failure with acute on chronic renal failure. Underwent tunneled dialysis catheter placement yesterday. Tolerated procedure and tolerated first dialysis session with removal of 1/2 Liter of fluid Atrial tach resolved. Continue amiodarone and metoprolol at 25 mg BID Not anticoagulated due to prior issues with GI bleeding. Receiving Dialysis currently Case discussed with Dr. Mosquera. Admission and Anticipated Discharge Date Admission Date: August 08, 2021 Supervising Physician Co-Signing Physician Notes Patient was seen and examined on dialysis. Tolerating it hemodynamically. No acute complaints though still with oxygen requirements Blood pressures improved with hemodialysis hopefully pulmonary status will follow. Atrial arrhythmias now resolved Assessment and plan as above Subjective Patient resting comfortably. Still requiring high flow oxygen but can carry on conversation without significant dyspnea. No chest pain. Currently receiving dialysis at bedside. Tolerating. Prior atrial tach resolved last evening. HR's improved, appeared NSR at this time. He denies acute symptoms. Review of Systems Review of Systems: All systems reviewed & are unremarkable except as noted in HPI & below Physical Exam Constitutional: no acute distress Eyes: PERRL, conjunctivae normal, anicteric sclerae ENMT: external ear and nose normal, oropharynx normal Respiratory: patient laying supine for dialysis. limited pulm exam. No conversational dyspnea Cardiovascular: Rate/Rhythm: regular rate Heart Sounds: normal S1 and normal S2 Vessels: + JVD; no carotid bruit Extremities: no edema Gastrointestinal (Abdomen): Inspection/Auscultation: abdomen normal to inspection; abdomen not distended Percussion/Palpation: abdomen soft; abdomen nontender, no guarding and abdomen not rigid Neurologic: CN's II-XI intact bilaterally and moves all extremities; no focal motor deficits Psychiatric: A+Ox3, euthymic affect Results & Data ([facility]) Vital Signs (Past 12 Hours) Vital Signs Temp Pulse Pulse Pulse Resp BP Pulse Ox 08/14/21 09:30 36.6 C 61 08/14/21 08:00 36.5 C 64 69 18 127/70 92 08/14/21 03:10 36.6 C 60 16 118/43 L 91 08/14/21 00:00 54 L 08/13/21 23:00 36.8 C 59 L 20 121/50 L 92 Laboratory Results 08/14/21 08/14/21 08/12/21 Range/Units 06:43 06:43 05:05 WBC 7.34 (4.8-10.8) K/uL RBC 3.32 L (4.7-6.1) M/uL Hgb 10.3 L (14.0-18.0) g/dL Hct 30.8 L (42-52) % MCV 92.8 (80-100) fL MCH 31.0 (25-34) pg MCHC 33.4 (32-36) g/dL RDW Std Deviation 53.9 H (36.4-46.3) fL RDW Coeff of Yuri 15.9 H (11.5-14.5) % Plt Count 172 (130-400) K/uL MPV 10.7 H (7.4-10.4) fL Sodium 139 (136-145) mmol/L Potassium 4.1 D (3.5-5.1) mmol/L Chloride 104 (98-107) mmol/L Carbon Dioxide 23 (21-32) mmol/L Anion Gap 12 H (3-11) BUN 97 H D (6-23) mg/dl Creatinine 3.40 H D (0.6-1.4) mg/dl Est Cr Clr Drug Dosing 13.2 ml/min Est GFR ( Amer) 17.5 ml/min Est GFR (Non-Af Amer) 15.1 ml/min BUN/Creatinine Ratio 28.5 H (10-20) Glucose 109 H (70-99(Fasting)) mg/dl Calcium 8.7 (8.5-10.1) mg/dl Phosphorus 4.8 D (2.5-4.9) mg/dl Magnesium 2.5 H (1.7-2.4) mg/dl Hep Bs Antigen NON-REACTIVE (NON-REACTIVE) Hep Bs Ag Confirmation TNP Hep Bs Antibody, Quant <5 L (> OR = 10) mIU/mL Diagnostic Findings Telemetry reviewed: Currently NSR, Sinus bradycardia in the upper 50's - low 60's. Persistent atrial tach resolved last evening. No recurrence. Medications Administered Current Inpatient Medications Acetaminophen (Acetaminophen 325 Mg Tab) 650 mg PO Q4H PRN PRN Reason: Pain or Fever Stop: 09/07/21 10:08 Last Admin: 08/11/21 01:28 Dose: 650 mg Documented by: Allopurinol (Allopurinol 100 Mg Tab) 50 mg PO DAILY [facility] Stop: 09/10/21 08:59 Last Admin: 08/13/21 13:45 Dose: 50 mg Documented by: Amiodarone HCl (Amiodarone 200 Mg Tab) 100 mg PO QAM [facility] Stop: 09/12/21 12:14 Last Admin: 08/13/21 13:45 Dose: 100 mg Documented by: Amlodipine Besylate (Amlodipine Besylate 5 Mg Tab) 10 mg PO QPM [facility] Stop: 09/12/21 20:59 Last Admin: 08/13/21 20:33 Dose: 10 mg Documented by: Aspirin (Aspirin 81 Mg Ectab) 81 mg PO DAILY [facility] Stop: 09/07/21 10:08 Last Admin: 08/13/21 13:45 Dose: 81 mg Documented by: Atorvastatin Calcium (Atorvastatin 40 Mg Tab) 40 mg PO HS [facility] Stop: 09/07/21 20:59 Last Admin: 08/13/21 20:32 Dose: 40 mg Documented by: Epoetin Alistair (Epoetin Alistair 10,000 Units/Ml Vial) 10,000 units IV TODAY@0800 [facility] Stop: 08/14/21 16:00 Last Admin: 08/14/21 10:25 Dose: 10,000 units Documented by: Finasteride (Finasteride 5 Mg Tab) 5 mg PO DAILY [facility] Stop: 09/07/21 10:08 Last Admin: 08/13/21 13:44 Dose: 5 mg Documented by: Furosemide (Furosemide 40 Mg/4 Ml Vial) 80 mg IV Q6H [facility] Stop: 09/10/21 19:59 Last Admin: 08/14/21 08:38 Dose: 80 mg Documented by: Heparin Sodium (Porcine) (Heparin Sod 5,000 Unit/0.5 Ml Vial) 5,000 units SQ Q12 [facility] Stop: 09/08/21 20:59 Last Admin: 08/14/21 09:42 Dose: Not Given Documented by: Hydromorphone HCl (Hydromorphone Inj 0.5 Mg/0.5 Ml Syr) 0.25 mg IV Q6H PRN PRN Reason: Pain Stop: 08/22/21 10:08 Last Admin: 08/13/21 16:24 Dose: 0.25 mg Documented by: Promethazine HCl 6.25 mg/ (Sodium Chloride) 50.25 mls @ 201 mls/hr IV Q6H PRN PRN Reason: Nausea And Vomiting Stop: 09/07/21 10:08 Sodium Chloride (Nss 1000ml) 1,000 mls @ 0 mls/hr IV .Q0M PRN PRN Reason: For Hemodialysis Use ONLY Stop: 08/14/21 13:17 Isosorbide Mononitrate (Isosorbide [place] Extended Rel 60 Mg Tabcr) 60 mg PO DAILY [facility] Stop: 09/07/21 10:08 Last Admin: 08/13/21 13:44 Dose: 60 mg Documented by: Levothyroxine Sodium (Levothyroxine Sodium 125 Mcg Tablet) 125 mcg PO DAILYBB [facility] Stop: 09/07/21 10:08 Last Admin: 08/14/21 05:30 Dose: 125 mcg Documented by: Metoprolol Tartrate (Metoprolol Tartrate 25 Mg Tab) 25 mg PO BID [facility] Stop: 09/12/21 10:14 Last Admin: 08/13/21 20:32 Dose: 25 mg Documented by: Tamsulosin HCl (Tamsulosin Hcl 0.4 Mg Cap) 0.4 mg PO DAILY [facility] Stop: 09/07/21 10:08 Last Admin: 08/13/21 13:44 Dose: 0.4 mg Documented by: Tramadol HCl (Tramadol Hcl 50 Mg Tablet) 25 mg PO Q4H PRN PRN Reason: Pain Stop: 09/07/21 10:08 (1) CHF (congestive heart failure) Heart failure chronicity: acute Heart failure type: unspecified Qualified Code(s): I50.9 - Heart failure, unspecified (2) Anemia Anemia type: other cause Other causes of anemia: acute posthemorrhagic Qualified Code(s): D62 - Acute posthemorrhagic anemia
[2021-08-14] MEDS: allopurinoL 100 MG TAB PO SCH (14:00)
[2021-08-14] MEDS: AMIODARONE 200 MG TAB PO SCH (14:00)
[2021-08-14] MEDS: ISOSORBIDE MONO EXTENDED REL 60 MG TABCR PO SCH (14:01)
[2021-08-14] MEDS: FINASTERIDE 5 MG TAB PO SCH (14:01)
[2021-08-14] MEDS: ASPIRIN 81 MG ECTAB PO SCH (14:01)
[2021-08-14] MEDS: METOPROLOL TARTRATE 25 MG TAB PO SCH ×2 (14:01→20:44)
[2021-08-14] MEDS: TAMSULOSIN HCL 0.4 MG CAP PO SCH (14:02)
[2021-08-14] MEDS: POLYETHYLENE (MIRALAX) 17 GM PACK PO SCH (15:00)
[2021-08-14] MEDS: SENNA 8.6 MG TAB PO SCH (17:25)
[2021-08-14] MEDS: ATORVASTATIN 40 MG TAB PO SCH (20:44)
[2021-08-14] MEDS: amLODIPine BESYLATE 5 MG TAB PO SCH (20:44)
[2021-08-15] MEDS: FUROSEMIDE 40 MG/4 ML VIAL IV SCH ×2 (01:22→07:55)
[2021-08-15] MEDS: LEVOTHYROXINE SODIUM 125 MCG TABLET PO SCH (05:35)
--- NOTE | 2021-08-15 05:40 | Electrocardiogram Report ---
Test Reason : Blood Pressure : / mmHG Vent. Rate : 100 BPM Atrial Rate : 100 BPM P-R Int : 154 ms QRS Dur : 110 ms QT Int : 406 ms P-R-T Axes : 000 055 196 degrees QTc Int : 523 ms Normal sinus rhythm Incomplete left bundle block Left ventricular hypertrophy with repolarization abnormality Prolonged QT Abnormal ECG When compared with ECG of 11-AUG-2021 23:35, Sinus rhythm has replaced Atrial fibrillation Confirmed by Jj Dumont ([id number]) on 08/15/2021 5:39:57 AM Referred By: REFERRED SELF Confirmed By:Jj Dumont
[2021-08-15 06:43] LABS: Hematocrit (blood only) 30.8 % (42-52); Hemoglobin 10.3 g/dL (14.0-18.0); Mean Corpuscular Hemoglobin 31.4 pg (25-34); Mean Corpuscular Hgb Conc 33.4 g/dL (32-36); Mean Corpuscular Volume 93.9 fL (80-100); Mean Platelet Volume 10.4 fL (7.4-10.4); Nucleated RBC # (auto) 0.06 K/uL (0-0); Nucleated RBC % (auto) 0.6 %; Platelet Count 178 K/uL (130-400); RDW Standard Deviation 55.2 fL (36.4-46.3); Red Blood Count 3.28 M/uL (4.7-6.1); White Blood Count 8.83 K/uL (4.8-10.8)
[2021-08-15 07:05] LABS: BUN Creatinine Ratio 21.1 (10-20); Calcium 8.6 mg/dl (8.5-10.1); Creatinine Clr Calc Pharmacy 17.6 ml/min; Est GFR (African American) 25.3 ml/min; Est GFR (Non-African American) 21.8 ml/min; Magnesium 2.2 mg/dl (1.7-2.4); Phosphorus 3.4 mg/dl (2.5-4.9)
[2021-08-15] MEDS: HEPARIN SOD 5,000 UNIT/0.5 ML VIAL SQ SCH ×2 (08:02→20:53)
[2021-08-15] MEDS ORDERED: SODIUM CHLORIDE 0.9% 1000ML 1,000 ML IV PRN (08:12)
[2021-08-15] MEDS ORDERED: EPOETIN ALFA 10,000 UNITS/ML VIAL IV ONE (08:12)
[2021-08-15] MEDS ORDERED: HEPARIN SOD (PORCINE) 1000 UNIT/ML IV ONE (08:12)
--- NOTE | 2021-08-15 08:25 | Nephrology Progress Note ---
Date of Service August 15, 2021 Assessment & Plan (1) ESRD (end stage renal disease) on dialysis: Plan: ESRD needing dialysis. baseline creatinine about 2.7. progressive respiratory failure in the setting of some missed lasix dosing a few days back with worsening renal function and acute decompensated HF; underlying resistant HTN and advanced CKD 4. his optimized blood pressures are lowering our ability to remove fluid and lower 02 needs. >lowered BP meds >> held imdur, lowered metoprolol to 12.5 mg bid; stopped amlodipine >stopped lasix >HD today 4 hr goal 2L UF as BP tolerates >needs daily dialysis until 02 needs improve; no 02 needs at baseline >>got dialysis catheter 08/12 and first HD later same day >had consistently told me he does not wish to do OP dialysis again in the past; however willing to consider OP dialysis now. independent community dwelling; hoping to ride his motorcycle this spring, involved grown children. >>agrees to short term outpatient dialysis (if we can get him there) [facility] and revisit goals of care as outpatient >> please have him ready for first HD OP at [facility] 08/19/21 -cardiology and vascular surgery assistance appreciated >dialysis consent on chart Admission and Anticipated Discharge Date Admission Date: August 08, 2021 Subjective feeling good but did request bipap for SOB ON. also some urinary retention and decreased UOP noted > has been straight cath'd a few times ; 1.3 LUF yesterday Review of Systems Review of Systems: All systems reviewed & are unremarkable except as noted in Subjective Physical Exam Constitutional: well developed, + thin and cooperative; no acute distress Eyes: EOM intact bilaterally ENMT: Ears: no external ear abnormality Nose: no external nose abnormality Mouth: + dry oral mucous membranes Neck: no nuchal rigidity Respiratory: normal respiratory effort Auscultation: + diminished lung sounds (leonid R posterior) Cardiovascular: Rate/Rhythm: regular rhythm and + bradycardic Extremities: no edema Gastrointestinal (Abdomen): Inspection/Auscultation: normal bowel sounds Percussion/Palpation: abdomen soft; abdomen nontender Musculoskeletal: Extremities: strength 5/5 throughout Skin: no rashes, warm and dry Neurologic: stephen, fluent speech, no tremor Psychiatric: Orientation: oriented x 3 Results & Data ([facility]) Vital Signs (Past 12 Hours) Vital Signs Temp Pulse Pulse Pulse Resp BP Pulse Ox 05/12/22 07:38 36.4 C L 58 L 17 114/56 L 94 08/15/21 07:11 55 L 08/15/21 04:01 57 L 21 96 08/15/21 03:21 36.6 C 55 L 20 124/54 L 08/15/21 01:25 65 20 98 08/14/21 23:59 37.2 C 59 L 22 124/56 L 92 08/14/21 22:57 61 Laboratory Results 08/15/21 06:01 08/15/21 06:01
[2021-08-15] MEDS ORDERED: FUROSEMIDE 40 MG/4 ML VIAL IV SCH (09:00)
--- NOTE | 2021-08-15 09:45 | Hospitalist Progress Note ---
Date of Service August 15, 2021 Assessment & Plan (1) Acute hypoxemic respiratory failure: Plan: Acute on chronic diastolic CHF -Repeat TTE unchanged compared to previous -At home, takes lasix 80mg QAM and 40mg QPM. Reports compliance initially although upon further questioning, had several missed doses of lasix -SBP on arrival up to 180. Possible component of poorly controlled hypertension -Started on lasix 80mg IV Q 6 hours. S/p several doses of metolazone. Dialysis initiated 08/13. 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 -sees Dr Alarcon as an outpatient -Diuresis managed by Nephrology -Permcath placed 08/13 -1st dialysis 08/13 -Discussed with Nephrology, patient should be arranged at [facility] with goal of 1st OP dialysis session 08/19 Demand ischemia -trop elevation with peak at 155 -no chest pain. TTE negative for wall motion abnormality Leukocytosis -likely reactive -s/p ABx in ER, but no evidence of pneumonia on imaging, negative procalcitonin -monitor off antibiotics PAF -amiodarone 100mg daily, aspirin 81mg, not on AC due to history of GIB, metoprolol 25mg BID -managed by Cardiology Poorly controlled HTN -home regimen: hydralazine 50mg TID--increased to 75mg TID 08/09, Imdur 60mg QHS, amlodipine 10mg QHS - now hydralazine stopped by nephro and amlodipine down to 5 (08/14) -Improved BP currently however doesn't allow for HD (amlodipine stopped 08/15) BPH -flomax, finasteride -Campbell placed here for accurate I/O when he was critically ill and NOT for urinary obstruction. Campbell catheter removed -pt now requiring straight cath, cont. to closely monitor DVT ppx SQ heparin Disposition- Patient will need OP dialysis to be arranged, message sent to . PT/OT evaluation ordered Admission and Anticipated Discharge Date Admission Date: August 08, 2021 Subjective Patient seen in follow-up of acute CHF exacerbation, hypoxic respiratory failure Early this morning required BiPAP for several hours, now down to 5 L via NC, saturating in higher 90s Also requiring straight cath Currently he is lying in bed, in no acute distress, he is in good spirits Denies fevers, chills, chest pain, or increased shortness of breath, No abdominal pain, n/v Review of Systems Review of Systems: All systems reviewed & are unremarkable except as noted in Subjective Physical Exam Physical Exam: Physical Exam: elderly thin M in no acute distress, on HD Respiratory: + minimal basilar crackles (improved from previous exa m), no wheezing Cardiovascular:I regular rate and r hythm, no murmurs/ rubs/gallops Gastrointestinal ( Abdomen): soft, non tender t o palpation Musculoskeletal: No LE edema Neurologic: awake, alert, answ ers questions appr opriately, speech fluent, spontaneou sly moving extremi ties Results & Data Results & Data ([facility]) Vital Signs (Past 12 Hours) Vital Signs Temp Pulse Pulse Pulse Resp BP Pulse Ox 08/15/21 07:38 36.4 C L 58 L 17 114/56 L 94 08/15/21 07:11 55 L 08/15/21 04:01 57 L 21 96 08/15/21 03:21 36.6 C 55 L 20 124/54 L 08/15/21 01:25 65 20 98 08/14/21 23:59 37.2 C 59 L 22 124/56 L 92 08/14/21 22:57 61 Laboratory Results 08/15/21 08/15/21 Range/Units 06:01 06:01 WBC 8.83 (4.8-10.8) K/uL RBC 3.28 L (4.7-6.1) M/uL Hgb 10.3 L (14.0-18.0) g/dL Hct 30.8 L (42-52) % MCV 93.9 (80-100) fL MCH 31.4 (25-34) pg MCHC 33.4 (32-36) g/dL RDW Std Deviation 55.2 H (36.4-46.3) fL RDW Coeff of Yuri 16.0 H (11.5-14.5) % Plt Count 178 (130-400) K/uL MPV 10.4 (7.4-10.4) fL Absolute Nucleated RBC 0.06 H (0-0) K/uL Nucleated RBC % (auto) 0.6 % Sodium 137 (136-145) mmol/L Potassium 4.0 (3.5-5.1) mmol/L Chloride 102 (98-107) mmol/L Carbon Dioxide 27 (21-32) mmol/L Anion Gap 8 (3-11) BUN 53 H D (6-23) mg/dl Creatinine 2.51 H D (0.6-1.4) mg/dl Est Cr Clr Drug Dosing 17.6 ml/min Est GFR ( Amer) 25.3 ml/min Est GFR (Non-Af Amer) 21.8 ml/min BUN/Creatinine Ratio 21.1 H (10-20) Glucose 91 (70-99(Fasting)) mg/dl Calcium 8.6 (8.5-10.1) mg/dl Phosphorus 3.4 D (2.5-4.9) mg/dl Magnesium 2.2 (1.7-2.4) mg/dl Medications Administered Current Inpatient Medications Acetaminophen (Acetaminophen 325 Mg Tab) 650 mg PO Q4H PRN PRN Reason: Pain or Fever Stop: 09/07/21 10:08 Last Admin: 08/11/21 01:28 Dose: 650 mg Documented by: Allopurinol (Allopurinol 100 Mg Tab) 50 mg PO DAILY [facility] Stop: 09/10/21 08:59 Last Admin: 08/14/21 14:00 Dose: 50 mg Documented by: Amiodarone HCl (Amiodarone 200 Mg Tab) 100 mg PO QAM [facility] Stop: 09/12/21 12:14 Last Admin: 08/14/21 14:00 Dose: 100 mg Documented by: Aspirin (Aspirin 81 Mg Ectab) 81 mg PO DAILY [facility] Stop: 09/07/21 10:08 Last Admin: 08/14/21 14:01 Dose: 81 mg Documented by: Atorvastatin Calcium (Atorvastatin 40 Mg Tab) 40 mg PO HS [facility] Stop: 09/07/21 20:59 Last Admin: 08/14/21 20:44 Dose: 40 mg Documented by: Finasteride (Finasteride 5 Mg Tab) 5 mg PO DAILY [facility] Stop: 09/07/21 10:08 Last Admin: 08/14/21 14:01 Dose: 5 mg Documented by: Heparin Sodium (Porcine) (Heparin Sod 5,000 Unit/0.5 Ml Vial) 5,000 units SQ Q12 [facility] Stop: 09/08/21 20:59 Last Admin: 08/15/21 08:02 Dose: 5,000 units Documented by: Heparin Sodium (Porcine) (Heparin Sod (Porcine) 1000 Unit/Ml) 400 units IV Q1H [facility] Stop: 08/15/21 10:16 Hydromorphone HCl (Hydromorphone Inj 0.5 Mg/0.5 Ml Syr) 0.25 mg IV Q6H PRN PRN Reason: Pain Stop: 08/22/21 10:08 Last Admin: 08/13/21 16:24 Dose: 0.25 mg Documented by: Promethazine HCl 6.25 mg/ (Sodium Chloride) 50.25 mls @ 201 mls/hr IV Q6H PRN PRN Reason: Nausea And Vomiting Stop: 09/07/21 10:08 Sodium Chloride (Nss 1000ml) 1,000 mls @ 0 mls/hr IV .Q0M PRN PRN Reason: For Hemodialysis Use ONLY Stop: 08/15/21 14:11 Isosorbide Mononitrate (Isosorbide [place] Extended Rel 60 Mg Tabcr) 60 mg PO DAILY [facility] Stop: 09/07/21 10:08 Last Admin: 08/14/21 14:01 Dose: 60 mg Documented by: Levothyroxine Sodium (Levothyroxine Sodium 125 Mcg Tablet) 125 mcg PO DAILYBB [facility] Stop: 09/07/21 10:08 Last Admin: 08/15/21 05:35 Dose: 125 mcg Documented by: Metoprolol Tartrate (Metoprolol Tartrate 25 Mg Tab) 12.5 mg PO BID [facility] Stop: 09/14/21 08:59 Polyethylene Glycol (Polyethylene (Miralax) 17 Gm Pack) 17 gm PO DAILY [facility] Stop: 09/13/21 14:29 Last Admin: 08/14/21 15:00 Dose: 17 gm Documented by: Sennosides (Senna 8.6 Mg Tab) 8.6 mg PO QAM [facility] Stop: 09/13/21 14:29 Last Admin: 08/14/21 17:25 Dose: 8.6 mg Documented by: Tamsulosin HCl (Tamsulosin Hcl 0.4 Mg Cap) 0.4 mg PO DAILY [facility] Stop: 09/07/21 10:08 Last Admin: 08/14/21 14:02 Dose: 0.4 mg Documented by: Tramadol HCl (Tramadol Hcl 50 Mg Tablet) 25 mg PO Q4H PRN PRN Reason: Pain Stop: 09/07/21 10:08
[2021-08-15] MEDS: METOPROLOL TARTRATE 25 MG TAB PO SCH ×2 (10:17→20:53)
--- NOTE | 2021-08-15 11:05 | Cardiology Progress Note ---
Date of Service August 15, 2021 Assessment & Plan (1) Hypoxia: (2) CHF (congestive heart failure): (3) Hypertensive urgency: (4) CKD (chronic kidney disease): (5) Anemia: (6) Elevated troponin I level: (7) Ischemic cardiomyopathy: (8) PAD (peripheral artery disease): Plan: 89-year-old patient with acute on chronic heart failure with acute on chronic renal failure. Dialysis initiated for fluid removal. Tolerating each session. 1.5 L removed yesterday. BP controlled. Atrial tach resolved. Continue amiodarone and metoprolol at 25 mg BID Not anticoagulated due to prior issues with GI bleeding. Receiving Dialysis currently Case discussed with Dr. Mosquera. Admission and Anticipated Discharge Date Admission Date: August 08, 2021 Supervising Physician Co-Signing Physician Notes Patient was seen and examined once again on dialysis. Tolerating hemodynamically. Blood pressures improved with hemodialysis hopefully pulmonary status will follow as volume overload addressed Atrial arrhythmias now resolved Assessment and plan as above We will add chest x-ray for a.m. Subjective Patient receiving dialysis currently. Reported increased shortness of breath earlier this morning. BIPAP placed for several hours and improvement in his symptoms. He reports he is comfortable at this time. No dizziness. Tolerating dialysis. BP controlled. No edema. No chest pain. Review of Systems Review of Systems: All systems reviewed & are unremarkable except as noted in Subjective Physical Exam Constitutional: no acute distress Eyes: PERRL, conjunctivae normal, anicteric sclerae ENMT: external ear and nose normal, oropharynx normal Respiratory: no respiratory distress, no labored breathing and no retractions Auscultation: + diminished lung sounds Cardiovascular: Rate/Rhythm: regular rate Heart Sounds: normal S1 and normal S2 Vessels: + JVD; no carotid bruit Extremities: no edema Gastrointestinal (Abdomen): Inspection/Auscultation: abdomen normal to inspection; abdomen not distended Percussion/Palpation: abdomen soft; abdomen nontender, no guarding and abdomen not rigid Neurologic: CN's II-XI intact bilaterally and moves all extremities; no focal motor deficits Psychiatric: A+Ox3, euthymic affect Results & Data ([facility]) Vital Signs (Past 12 Hours) Vital Signs Temp Pulse Pulse Pulse Pulse Resp BP 08/15/21 10:40 58 L 123/71 08/15/21 10:20 55 L 128/56 L 08/15/21 10:00 59 L 115/60 08/15/21 09:48 60 114/58 L 08/15/21 09:41 36.6 C 59 L 08/15/21 07:38 36.4 C L 58 L 17 08/15/21 07:11 55 L 08/15/21 04:01 57 L 21 08/15/21 03:21 36.6 C 55 L 20 08/15/21 01:25 65 20 08/14/21 23:59 37.2 C 59 L 22 BP Pulse Ox 08/15/21 10:40 08/15/21 10:20 08/15/21 10:00 08/15/21 09:48 08/15/21 09:41 08/15/21 07:38 114/56 L 94 08/15/21 07:11 08/15/21 04:01 96 08/15/21 03:21 124/54 L 08/15/21 01:25 98 08/14/21 23:59 124/56 L 92 Laboratory Results 08/15/21 08/15/21 Range/Units 06:01 06:01 WBC 8.83 (4.8-10.8) K/uL RBC 3.28 L (4.7-6.1) M/uL Hgb 10.3 L (14.0-18.0) g/dL Hct 30.8 L (42-52) % MCV 93.9 (80-100) fL MCH 31.4 (25-34) pg MCHC 33.4 (32-36) g/dL RDW Std Deviation 55.2 H (36.4-46.3) fL RDW Coeff of Yuri 16.0 H (11.5-14.5) % Plt Count 178 (130-400) K/uL MPV 10.4 (7.4-10.4) fL Absolute Nucleated RBC 0.06 H (0-0) K/uL Nucleated RBC % (auto) 0.6 % Sodium 137 (136-145) mmol/L Potassium 4.0 (3.5-5.1) mmol/L Chloride 102 (98-107) mmol/L Carbon Dioxide 27 (21-32) mmol/L Anion Gap 8 (3-11) BUN 53 H D (6-23) mg/dl Creatinine 2.51 H D (0.6-1.4) mg/dl Est Cr Clr Drug Dosing 17.6 ml/min Est GFR ( Amer) 25.3 ml/min Est GFR (Non-Af Amer) 21.8 ml/min BUN/Creatinine Ratio 21.1 H (10-20) Glucose 91 (70-99(Fasting)) mg/dl Calcium 8.6 (8.5-10.1) mg/dl Phosphorus 3.4 D (2.5-4.9) mg/dl Magnesium 2.2 (1.7-2.4) mg/dl (1) CHF (congestive heart failure) Heart failure chronicity: acute Heart failure type: unspecified Qualified Code(s): I50.9 - Heart failure, unspecified (2) Anemia Anemia type: other cause Other causes of anemia: acute posthemorrhagic Qualified Code(s): D62 - Acute posthemorrhagic anemia
[2021-08-15] MEDS: allopurinoL 100 MG TAB PO SCH (14:14)
[2021-08-15] MEDS: AMIODARONE 200 MG TAB PO SCH (14:14)
[2021-08-15] MEDS: ASPIRIN 81 MG ECTAB PO SCH (14:14)
[2021-08-15] MEDS: FINASTERIDE 5 MG TAB PO SCH (14:15)
[2021-08-15] MEDS: SENNA 8.6 MG TAB PO SCH (14:15)
[2021-08-15] MEDS: POLYETHYLENE (MIRALAX) 17 GM PACK PO SCH (14:15)
[2021-08-15] MEDS: TAMSULOSIN HCL 0.4 MG CAP PO SCH (14:16)
[2021-08-15] MEDS: HEPARIN SOD (PORCINE) 1000 UNIT/ML IV SCH ×2 (14:21→14:22)
[2021-08-15] MEDS: ATORVASTATIN 40 MG TAB PO SCH (20:53)
[2021-08-16] MEDS: LEVOTHYROXINE SODIUM 125 MCG TABLET PO SCH (05:33)
[2021-08-16 07:44] LABS: BUN Creatinine Ratio 13.7 (10-20); Calcium 8.9 mg/dl (8.5-10.1); Creatinine Clr Calc Pharmacy 15.5 ml/min; Est GFR (African American) 22.5 ml/min; Est GFR (Non-African American) 19.4 ml/min; Magnesium 2.2 mg/dl (1.7-2.4); Phosphorus 3.8 mg/dl (2.5-4.9)
--- NOTE | 2021-08-16 07:47 | XRay Report ---
XR chest 1V portable HISTORY: 89 years-old Male Congestive heart failure acute shortness of breath COMPARISON: Chest radiograph 08/13/2021 TECHNIQUE: Portable AP view of the chest FINDINGS: The cardiac silhouette is enlarged. The lumen right IJ hemodialysis catheter distal tip terminates in the expected location of the SVC. Atherosclerosis of the thoracic aorta. No pneumothorax. Pulmonary vascular congestion with interstitial coarsening has mildly improved. Bibasilar airspace opacities minor ve slightly improved. There is decreased size of the bilateral pleural effusions. Degenerative change s of the shoulders and spine. IMPRESSION: 1. Cardiomegaly with mildly improved pulmonary edema. 2. Decreased size of the pleural effusions with decreased bibasilar consolidation. 3. Right IJ dual-lumen hemodialysis catheter distal tip terminates within the expected location of th e SVC. ACT 112: Negative or not required by law. The above report was generated using voice recognition software. It may contain grammatical, syntax o r spelling errors. Electronically signed by: Alli Cervantes M.D. 08/16/2021 7:46 AM
[2021-08-16] MEDS ORDERED: SODIUM CHLORIDE 0.9% 1000ML 1,000 ML IV PRN ×2 (09:13→19:37)
[2021-08-16] MEDS ORDERED: HEPARIN SOD (PORCINE) 1000 UNIT/ML IV ONE (09:13)
[2021-08-16] MEDS: ASPIRIN 81 MG ECTAB PO SCH (09:18)
[2021-08-16] MEDS: TAMSULOSIN HCL 0.4 MG CAP PO SCH (09:18)
[2021-08-16] MEDS: AMIODARONE 200 MG TAB PO SCH (09:18)
[2021-08-16] MEDS: FINASTERIDE 5 MG TAB PO SCH (09:18)
[2021-08-16] MEDS: SENNA 8.6 MG TAB PO SCH (09:18)
--- NOTE | 2021-08-16 10:49 | Hospitalist Progress Note ---
Date of Service August 16, 2021 Assessment & Plan (1) Acute hypoxemic respiratory failure: Plan: Acute on chronic diastolic CHF -Repeat TTE unchanged compared to previous -At home, takes lasix 80mg QAM and 40mg QPM. Reports compliance initially although upon further questioning, had several missed doses of lasix -SBP on arrival up to 180. Possible component of poorly controlled hypertension -Started on lasix 80mg IV Q 6 hours. S/p several doses of metolazone. Dialysis initiated 08/13. 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 -sees Dr Alarcon as an outpatient -Diuresis managed by Nephrology -Permcath placed 08/13 -1st dialysis 08/13 -Discussed with Nephrology, patient should be arranged at [facility] with goal of 1st OP dialysis session 08/19 Demand ischemia -trop elevation with peak at 155 -no chest pain. TTE negative for wall motion abnormality Leukocytosis -likely reactive -s/p ABx in ER, but no evidence of pneumonia on imaging, negative procalcitonin -monitor off antibiotics PAF -amiodarone 100mg daily, aspirin 81mg, not on AC due to history of GIB, metoprolol 25mg BID (decreased to 12.5 BID to allow BP for HD) -managed by Cardiology Poorly controlled HTN -home regimen: hydralazine 50mg TID--increased to 75mg TID 08/09, Imdur 60mg QHS, amlodipine 10mg QHS - now hydralazine stopped by nephro and amlodipine down to 5 (08/14) -Improved BP currently however doesn't allow for HD (amlodipine stopped 08/15) BPH -flomax, finasteride -Campbell placed here for accurate I/O when he was critically ill and NOT for urinary obstruction. Campbell catheter removed -pt now requiring straight cath, cont. to closely monitor DVT ppx: SQ heparin Disposition- Patient will need OP dialysis to be arranged, message sent to . PT/OT evaluation ordered Admission and Anticipated Discharge Date Admission Date: August 08, 2021 Subjective Patient seen in follow-up of acute CHF exacerbation, hypoxic respiratory failure Patient on nasal cannula, between 4 and 6 L Currently on dialysis States that he feels well He is in no acute distress, and is in good spirits Denies fevers, chills, chest pain, or increased shortness of breath, No abdominal pain, n/v Review of Systems Review of Systems: All systems reviewed & are unremarkable except as noted in Subjective Physical Exam Physical Exam: Physical Exam: elderly thin M in no acute distress, on HD Respiratory: + minimal basilar crackles (improved from initial exam ), no wheezing Cardiovascular:I regular rate and r hythm, no murmurs/ rubs/gallops Gastrointestinal ( Abdomen): soft, non tender t o palpation Musculoskeletal: No LE edema Neurologic: awake, alert, answ ers questions appr opriately, speech fluent, spontaneou sly moving extremi ties Results & Data Results & Data ([facility]) Vital Signs (Past 12 Hours) Vital Signs Temp Pulse Pulse Pulse Pulse Resp BP 08/16/21 10:15 62 138/64 08/16/21 10:00 60 140/64 08/16/21 09:50 60 124/64 08/16/21 09:45 36.8 C 58 L 08/16/21 08:04 36.7 C 57 L 20 08/16/21 08:00 58 L 08/16/21 04:02 36.6 C 55 L 18 08/16/21 00:15 64 08/15/21 23:45 36.8 C 56 L 18 BP BP Pulse Ox 08/16/21 10:15 08/16/21 10:00 08/16/21 09:50 08/16/21 09:45 08/16/21 08:04 125/57 L 99 08/16/21 08:00 08/16/21 04:02 119/61 95 08/16/21 00:15 08/15/21 23:45 116/56 L 96 Laboratory Results 08/16/21 08/16/21 Range/Units 07:06 07:06 Sodium 138 (136-145) mmol/L Potassium 4.0 (3.5-5.1) mmol/L Chloride 103 (98-107) mmol/L Carbon Dioxide 26 (21-32) mmol/L Anion Gap 9 (3-11) BUN 38 H (6-23) mg/dl Creatinine 2.77 H (0.6-1.4) mg/dl Est Cr Clr Drug Dosing 15.5 ml/min Est GFR ( Amer) 22.5 ml/min Est GFR (Non-Af Amer) 19.4 ml/min BUN/Creatinine Ratio 13.7 (10-20) Glucose 94 (70-99(Fasting)) mg/dl Calcium 8.9 (8.5-10.1) mg/dl Phosphorus 3.8 (2.5-4.9) mg/dl Magnesium 2.2 (1.7-2.4) mg/dl Iron 40 (35-175) mcg/dl TIBC 203 L (250-450) mcg/dl Unsaturated IBC 163 (155-355) mcg/dl Transferrin % Sat 20 (20-50) % Hep B Core Total Ab Pending Medications Administered Current Inpatient Medications Acetaminophen (Acetaminophen 325 Mg Tab) 650 mg PO Q4H PRN PRN Reason: Pain or Fever Stop: 09/07/21 10:08 Last Admin: 08/11/21 01:28 Dose: 650 mg Documented by: Allopurinol (Allopurinol 100 Mg Tab) 50 mg PO DAILY [facility] Stop: 09/10/21 08:59 Last Admin: 08/15/21 14:14 Dose: 50 mg Documented by: Amiodarone HCl (Amiodarone 200 Mg Tab) 100 mg PO QAM [facility] Stop: 09/12/21 12:14 Last Admin: 08/16/21 09:18 Dose: 100 mg Documented by: Aspirin (Aspirin 81 Mg Ectab) 81 mg PO DAILY [facility] Stop: 09/07/21 10:08 Last Admin: 08/16/21 09:18 Dose: 81 mg Documented by: Atorvastatin Calcium (Atorvastatin 40 Mg Tab) 40 mg PO HS [facility] Stop: 09/07/21 20:59 Last Admin: 08/15/21 20:53 Dose: 40 mg Documented by: Finasteride (Finasteride 5 Mg Tab) 5 mg PO DAILY [facility] Stop: 09/07/21 10:08 Last Admin: 08/16/21 09:18 Dose: 5 mg Documented by: Heparin Sodium (Porcine) (Heparin Sod 5,000 Unit/0.5 Ml Vial) 5,000 units SQ Q12 [facility] Stop: 09/08/21 20:59 Last Admin: 08/15/21 20:53 Dose: 5,000 units Documented by: Hydromorphone HCl (Hydromorphone Inj 0.5 Mg/0.5 Ml Syr) 0.25 mg IV Q6H PRN PRN Reason: Pain Stop: 08/22/21 10:08 Last Admin: 08/13/21 16:24 Dose: 0.25 mg Documented by: Promethazine HCl 6.25 mg/ (Sodium Chloride) 50.25 mls @ 201 mls/hr IV Q6H PRN PRN Reason: Nausea And Vomiting Stop: 09/07/21 10:08 Sodium Chloride (Nss 1000ml) 1,000 mls @ 0 mls/hr IV .Q0M PRN PRN Reason: For Hemodialysis Use ONLY Stop: 08/16/21 15:12 Isosorbide Mononitrate (Isosorbide [place] Extended Rel 60 Mg Tabcr) 60 mg PO DAILY [facility] Stop: 09/07/21 10:08 Last Admin: 08/14/21 14:01 Dose: 60 mg Documented by: Levothyroxine Sodium ([facility]othyroxine S[facility] 125 Mcg Tablet) [facility] Stop: 09/07/21 10:08 Last Admin: 08/16/21 05:33 Dose: 125 mcg Documented by: Metoprolol Tartrate (Metoprolol Tartrate 25 Mg Tab) 12.5 mg PO BID [facility] Stop: 09/14/21 08:59 Last Admin: 08/15/21 20:53 Dose: 12.5 mg Documented by: Polyethylene Glycol (Polyethylene (Miralax) 17 Gm Pack) 17 gm PO DAILY [facility] Stop: 09/13/21 14:29 Last Admin: 08/15/21 14:15 Dose: Not Given Documented by: Sennosides (Senna 8.6 Mg Tab) 8.6 mg PO QAM [facility] Stop: 09/13/21 14:29 Last Admin: 08/16/21 09:18 Dose: 8.6 mg Documented by: Tamsulosin HCl (Tamsulosin Hcl 0.4 Mg Cap) 0.4 mg PO DAILY [facility] Stop: 09/07/21 10:08 Last Admin: 08/16/21 09:18 Dose: 0.4 mg Documented by: Tramadol HCl (Tramadol Hcl 50 Mg Tablet) 25 mg PO Q4H PRN PRN Reason: Pain Stop: 09/07/21 10:08
--- NOTE | 2021-08-16 11:49 | Cardiology Progress Note ---
Date of Service August 16, 2021 Assessment & Plan (1) Hypoxia: (2) CHF (congestive heart failure): (3) Hypertensive urgency: (4) CKD (chronic kidney disease): (5) Anemia: (6) Elevated troponin I level: (7) Ischemic cardiomyopathy: (8) PAD (peripheral artery disease): Plan: 89-year-old patient with acute on chronic heart failure with acute renal dysfunction, cardiorenal syndrome. Chest x-ray demonstrating improvement. Status, overall, improved with initiation of hemodialysis. Blood pressures acceptable. Atrial arrhythmias have improved/resolved. Continue amiodarone and metoprolol. Not anticoagulated due to prior issues with GI bleeding. Please call with any questions or concerns. Admission and Anticipated Discharge Date Admission Date: August 08, 2021 Supervising Physician Co-Signing Physician Notes Patient seen and personally examined. Continues to improve with dialysis. Still requiring oxygen but less demands, less hypoxia. Chest x-ray clearing. No further arrhythmias Assessment and plan as outlined above Subjective Patient seen and examined. Chart, medications, and telemetry reviewed. Currently on hemodialysis Feels OK. No dyspnea overnight or this morning. No chest pain. No palpitaitons. CXR this morning reveals cardiomegaly with mildly improved pulmonary edema, decreased size of the pleural effusions with decreased bibasilar consolidation. Telemetry: Sinus rhythm in the 60's. No further short bursts of MAF/PAT/PAF. Physical Exam Physical Exam: General: A&Ox3. NAD. HENT: Normocephalic. Atraumatic. PER. Eyes: Conjunctiva pink, sclera clear. Neck: No JVD. Heart: Regular at 66 bpm. Systolic ejection murmur. Lungs: Rales anterior left chest. No wheeze. Abdomen: +BS. Extremities: No clubbing, cyanosis, or edema. Limited neurological examination is without focal deficits. Results & Data ([facility]) Vital Signs (Past 12 Hours) Vital Signs Temp Pulse Pulse Pulse Pulse Resp BP 08/16/21 11:30 77 109/72 08/16/21 11:15 70 107/49 L 08/16/21 11:00 87 132/75 08/16/21 10:45 73 122/70 08/16/21 10:30 68 141/65 H 08/16/21 10:15 62 138/64 08/16/21 10:00 60 140/64 08/16/21 09:50 60 124/64 08/16/21 09:45 36.8 C 58 L 08/16/21 08:04 36.7 C 57 L 20 08/16/21 08:00 58 L 08/16/21 04:02 36.6 C 55 L 18 08/16/21 00:15 64 BP BP Pulse Ox 08/16/21 11:30 08/16/21 11:15 08/16/21 11:00 08/16/21 10:45 08/16/21 10:30 08/16/21 10:15 08/16/21 10:00 08/16/21 09:50 08/16/21 09:45 08/16/21 08:04 125/57 L 99 08/16/21 08:00 08/16/21 04:02 119/61 95 08/16/21 00:15 Laboratory Results Laboratory Results - last 24 hr 08/16/21 08/16/21 07:06 07:06 Sodium 138 Potassium 4.0 Chloride 103 Carbon Dioxide 26 Anion Gap 9 BUN 38 H Creatinine 2.77 H Est Cr Clr Drug Dosing 15.5 Est GFR ( Amer) 22.5 Est GFR (Non-Af Amer) 19.4 BUN/Creatinine Ratio 13.7 Glucose 94 Calcium 8.9 Phosphorus 3.8 Magnesium 2.2 Iron 40 TIBC 203 L Unsaturated IBC 163 Transferrin % Sat 20 Hep B Core Total Ab Pending (1) CHF (congestive heart failure) Heart failure chronicity: acute Heart failure type: unspecified Qualified Code(s): I50.9 - Heart failure, unspecified (2) Anemia Anemia type: other cause Other causes of anemia: acute posthemorrhagic Quali fied Code(s): D62 - Acute posthemorrhagic anemia
[2021-08-16] MEDS: HEPARIN SOD (PORCINE) 1000 UNIT/ML IV SCH ×3 (11:54→15:08)
--- NOTE | 2021-08-16 11:59 | Electrocardiogram Report ---
Test Reason : Blood Pressure : / mmHG Vent. Rate : 077 BPM Atrial Rate : 077 BPM P-R Int : 094 ms QRS Dur : 100 ms QT Int : 474 ms P-R-T Axes : 082 056 127 degrees QTc Int : 536 ms Sinus rhythm with marked sinus arrhythmia with short CO Left ventricular hypertrophy with repolarization abnormality Prolonged QT Abnormal ECG When compared with ECG of 13-AUG-2021 10:08, T wave inversion no longer evident in Inferior leads Confirmed by Jj Dumont ([id number]) on 08/16/2021 11:59:33 AM Referred By: REFERRED SELF Confirmed By:Jj Dumont
[2021-08-16] MEDS: allopurinoL 100 MG TAB PO SCH (14:20)
[2021-08-16] MEDS: HEPARIN SOD 5,000 UNIT/0.5 ML VIAL SQ SCH ×2 (14:21→20:05)
[2021-08-16] MEDS: POLYETHYLENE (MIRALAX) 17 GM PACK PO SCH (14:22)
[2021-08-16] MEDS: METOPROLOL TARTRATE 25 MG TAB PO SCH ×2 (14:22→20:06)
[2021-08-16] MEDS: ACETAMINOPHEN 325 MG TAB PO PRN (16:09)
[2021-08-16] MEDS: LIDOCAINE 5% 1 PATCH TD SCH (17:39)
--- NOTE | 2021-08-16 19:37 | Nephrology Progress Note ---
Date of Service August 16, 2021 Assessment & Plan (1) ESRD (end stage renal disease) on dialysis: Plan: ESRD needing dialysis. baseline creatinine about 2.7. progressive respiratory failure in the setting of some missed lasix dosing a few days back with worsening renal function and acute decompensated HF; underlying resistant HTN and advanced CKD 4. his optimized blood pressures are lowering our ability to remove fluid and lower 02 needs. -got 2.7 L off today >only bp med he's still on is low dose BB >HD tomorrow 4 hr goal 3L UF as bp tolerates; rest Thursday >needs daily dialysis until 02 needs improve; no 02 needs at baseline -agree w/ plan to repeat CXR >>got dialysis catheter 08/12 and first HD later same day >had consistently told me he does not wish to do OP dialysis again in the past; however willing to consider OP dialysis now. independent community dwelling; hoping to ride his motorcycle this spring, involved grown children. >>agrees to short term outpatient dialysis (if we can get him there) [facility] and revisit goals of care as outpatient -cardiology and vascular surgery assistance appreciated Admission and Anticipated Discharge Date Admission Date: August 08, 2021 Subjective tolerated HD well today, no issues. on 6LNC most of day but down to 4L this evening. Review of Systems Review of Systems: All systems reviewed & are unremarkable except as noted in Subjective Physical Exam Constitutional: well developed, + thin and cooperative; no acute distress Eyes: EOM intact bilaterally ENMT: Ears: no external ear abnormality Nose: no external nose abnormality Mouth: + dry oral mucous membranes Neck: no nuchal rigidity Respiratory: normal respiratory effort Auscultation: + diminished lung sounds Cardiovascular: Rate/Rhythm: regular rate and regular rhythm Extremities: no edema Gastrointestinal (Abdomen): Inspection/Auscultation: normal bowel sounds Percussion/Palpation: abdomen soft; abdomen nontender Musculoskeletal: Extremities: strength 5/5 throughout Skin: no rashes, warm and dry Neurologic: stephen, fluent speech, no tremor Psychiatric: Orientation: oriented x 3 Results & Data ([facility]) Vital Signs (Past 12 Hours) Vital Signs Temp Pulse Pulse Pulse Resp BP BP 08/16/21 15:43 75 08/16/21 15:37 36.7 C 67 20 08/16/21 14:15 36.7 C 73 138/81 08/16/21 13:45 56 L 104/70 08/16/21 13:30 66 114/62 08/16/21 13:15 68 108/64 08/16/21 13:00 59 L 118/63 08/16/21 12:48 68 142/74 H 08/16/21 12:20 59 L 106/63 08/16/21 12:00 83 126/76 08/16/21 11:45 67 123/55 L 08/16/21 11:30 77 109/72 08/16/21 11:15 70 107/49 L 08/16/21 11:00 87 132/75 08/16/21 10:45 73 122/70 08/16/21 10:30 68 141/65 H 08/16/21 10:15 62 138/64 08/16/21 10:00 60 140/64 08/16/21 09:50 60 124/64 08/16/21 09:45 36.8 C 58 L 08/16/21 08:04 36.7 C 57 L 20 08/16/21 08:00 58 L BP Pulse Ox 08/16/21 15:43 08/16/21 15:37 127/64 100 08/16/21 14:15 08/16/21 13:45 08/16/21 13:30 08/16/21 13:15 08/16/21 13:00 08/16/21 12:48 08/16/21 12:20 08/16/21 12:00 08/16/21 11:45 08/16/21 11:30 08/16/21 11:15 08/16/21 11:00 08/16/21 10:45 08/16/21 10:30 08/16/21 10:15 08/16/21 10:00 08/16/21 09:50 08/16/21 09:45 08/16/21 08:04 125/57 L 99 08/16/21 08:00 Laboratory Results 08/15/21 06:01 08/16/21 07:06
[2021-08-16] MEDS: ATORVASTATIN 40 MG TAB PO SCH (20:05)
[2021-08-17] MEDS: LEVOTHYROXINE SODIUM 125 MCG TABLET PO SCH (05:14)
[2021-08-17] MEDS ORDERED: HEPARIN SOD (PORCINE) 1000 UNIT/ML IV ONE (07:00)
[2021-08-17] MEDS ORDERED: SODIUM CHLORIDE 0.9% 1000ML 1,000 ML IV PRN (07:00)
[2021-08-17 07:19] LABS: BUN Creatinine Ratio 13.5 (10-20); Calcium 9.1 mg/dl (8.5-10.1); Creatinine Clr Calc Pharmacy 14.7 ml/min; Est GFR (African American) 22.1 ml/min; Est GFR (Non-African American) 19.1 ml/min; Magnesium 2.1 mg/dl (1.7-2.4); Potassium 4.3 mmol/L (3.5-5.1)
--- NOTE | 2021-08-17 08:13 | Hospitalist Progress Note ---
Date of Service August 17, 2021 Assessment & Plan (1) Acute hypoxemic respiratory failure: Plan: Acute on chronic diastolic CHF -Repeat TTE unchanged compared to previous -At home, takes lasix 80mg QAM and 40mg QPM. Reports compliance initially although upon further questioning, had several missed doses of lasix -SBP on arrival up to 180. Possible component of poorly controlled hypertension -Started on lasix 80mg IV Q 6 hours. S/p several doses of metolazone. Dialysis initiated 08/13. 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 -sees Dr Alarcon as an outpatient -Diuresis managed by Nephrology -Permcath placed 08/13 -1st dialysis 08/13 -Discussed with Nephrology, patient should be arranged at [facility] with goal of 1st OP dialysis session 08/19 [place] ischemia -trop elevation with peak at 155 -no chest pain. TTE negative for wall motion abnormality Leukocytosis -likely reactive -s/p ABx in ER, but no evidence of pneumonia on imaging, negative procalcitonin -monitor off antibiotics PAF -amiodarone 100mg daily, aspirin 81mg, not on AC due to history of GIB, metoprolol 25mg BID (decreased to 12.5 BID to allow BP for HD) -managed by Cardiology Poorly controlled HTN -home regimen: hydralazine 50mg TID--increased to 75mg TID 08/09, Imdur 60mg QHS, amlodipine 10mg QHS - now hydralazine stopped by nephro and amlodipine down to 5 (08/14) -Improved BP currently however doesn't allow for HD (amlodipine stopped 08/15) BPH -flomax, finasteride -Campbell placed here for accurate I/O when he was critically ill and NOT for urinary obstruction. Campbell catheter removed -pt now requiring straight cath, cont. to closely monitor DVT ppx: SQ heparin Disposition- Patient will need OP dialysis to be arranged, message sent to . PT/OT evaluation ordered Admission and Anticipated Discharge Date Admission Date: August 08, 2021 Subjective Patient seen in follow-up of acute CHF exacerbation, hypoxic respiratory failure Patient is currently in bed, in no acute distress, breathing comfortably on room air Continues to have difficulty with voiding, and is requiring straight caths He is in no acute distress, and is in good spirits Denies fevers, chills, chest pain, or increased shortness of breath, No abdominal pain, n/v Review of Systems Review of Systems: All systems reviewed & are unremarkable except as noted in Subjective Physical Exam Physical Exam: Physical Exam: elderly thin M in no acute distress, on HD Respiratory: + minimal basilar crackles (much imp roved from initial exam), no wheezin g Cardiovascular:I regular rate and r hythm, no murmurs/ rubs/gallops Gastrointestinal ( Abdomen): soft, non tender t o palpation Musculoskeletal: No LE edema Neurologic: awake, alert, answ ers questions appr opriately, speech fluent, spontaneou sly moving extremi ties Results & Data Results & Data ([facility]) Vital Signs (Past 12 Hours) Vital Signs Temp Pulse Pulse Pulse Resp BP Pulse Ox 08/17/21 07:52 36.4 C L 65 16 115/66 95 08/17/21 04:01 36.4 C L 57 L 16 128/54 L 96 08/16/21 23:25 36.7 C 55 L 16 120/57 L 100 08/16/21 23:16 56 L Laboratory Results 08/17/21 08/16/21 Range/Units 06:24 07:06 Sodium 137 (136-145) mmol/L Potassium 4.3 (3.5-5.1) mmol/L Chloride 101 (98-107) mmol/L Carbon Dioxide 24 (21-32) mmol/L Anion Gap 12 H (3-11) BUN 38 H (6-23) mg/dl Creatinine 2.81 H (0.6-1.4) mg/dl Est Cr Clr Drug Dosing 14.7 ml/min Est GFR ( Amer) 22.1 ml/min Est GFR (Non-Af Amer) 19.1 ml/min BUN/Creatinine Ratio 13.5 (10-20) Glucose 96 (70-99(Fasting)) mg/dl Calcium 9.1 (8.5-10.1) mg/dl Magnesium 2.1 (1.7-2.4) mg/dl Hep B Core Total Ab NON-REACTIVE (NON-REACTIVE) Medications Administered Current Inpatient Medications Acetaminophen (Acetaminophen 325 Mg Tab) 650 mg PO Q4H PRN PRN Reason: Pain or Fever Stop: 09/07/21 10:08 Last Admin: 08/16/21 16:09 Dose: 650 mg Documented by: Allopurinol (Allopurinol 100 Mg Tab) 50 mg PO DAILY [facility] Stop: 09/10/21 08:59 Last Admin: 08/16/21 14:20 Dose: 50 mg Documented by: Amiodarone HCl (Amiodarone 200 Mg Tab) 100 mg PO QAM [facility] Stop: 09/12/21 12:14 Last Admin: 08/16/21 09:18 Dose: 100 mg Documented by: Aspirin (Aspirin 81 Mg Ectab) 81 mg PO DAILY [facility] Stop: 09/07/21 10:08 Last Admin: 08/16/21 09:18 Dose: 81 mg Documented by: Atorvastatin Calcium (Atorvastatin 40 Mg Tab) 40 mg PO HS [facility] Stop: 09/07/21 20:59 Last Admin: 08/16/21 20:05 Dose: 40 mg Documented by: Finasteride (Finasteride 5 Mg Tab) 5 mg PO DAILY [facility] Stop: 09/07/21 10:08 Last Admin: 08/16/21 09:18 Dose: 5 mg Documented by: Heparin Sodium (Porcine) (Heparin Sod 5,000 Unit/0.5 Ml Vial) 5,000 units SQ Q12 [facility] Stop: 09/08/21 20:59 Last Admin: 08/16/21 20:05 Dose: 5,000 units Documented by: Heparin Sodium (Porcine) (Heparin Sod (Porcine) 1000 Unit/Ml) 400 units IV Q1H [facility] Stop: 08/17/21 09:01 Hydromorphone HCl (Hydromorphone Inj 0.5 Mg/0.5 Ml Syr) 0.25 mg IV Q6H PRN PRN Reason: Pain Stop: 08/22/21 10:08 Last Admin: 08/13/21 16:24 Dose: 0.25 mg Documented by: Promethazine HCl 6.25 mg/ (Sodium Chloride) 50.25 mls @ 201 mls/hr IV Q6H PRN PRN Reason: Nausea And Vomiting Stop: 09/07/21 10:08 Sodium Chloride (Nss 1000ml) 1,000 mls @ 0 mls/hr IV .Q0M PRN PRN Reason: For Hemodialysis Use ONLY Stop: 08/17/21 12:59 Isosorbide Mononitrate (Isosorbide [place] Extended Rel 60 Mg Tabcr) 60 mg PO DAILY [facility] Stop: 09/07/21 10:08 Last Admin: 08/14/21 14:01 Dose: 60 mg Documented by: Levothyroxine Sodium (Levothyroxine Sodium 125 Mcg Tablet) 125 mcg PO DAILYBB [facility] Stop: 09/07/21 10:08 Last Admin: 08/17/21 05:14 Dose: 125 mcg Documented by: Lidocaine (Lidocaine 5% 1 Patch) [facility] Stop: 09/15/21 16:59 Last Admin: 08/16/21 17:39 Dose: 1 patch Documented by: Metoprolol Tartrate (Metoprolol Tartrate 25 Mg Tab) 12.5 mg PO BID [facility] Stop: 09/14/21 08:59 Last Admin: 08/16/21 20:06 Dose: 12.5 mg Documented by: Miscellaneous (Remove Lidoderm Patch) 1 ea N/A DAILY@2100 [facility] Stop: 09/15/21 20:59 Last Admin: 08/16/21 20:06 Dose: 1 ea Documented by: Polyethylene Glycol (Polyethylene (Miralax) 17 Gm Pack) 17 gm PO DAILY [facility] Stop: 09/13/21 14:29 Last Admin: 08/16/21 14:22 Dose: 17 gm Documented by: Sennosides (Senna 8.6 Mg Tab) 8.6 mg PO QAM [facility] Stop: 09/13/21 14:29 Last Admin: 08/16/21 09:18 Dose: 8.6 mg Documented by: Tamsulosin HCl (Tamsulosin Hcl 0.4 Mg Cap) 0.4 mg PO DAILY [facility] Stop: 09/07/21 10:08 Last Admin: 08/16/21 09:18 Dose: 0.4 mg Documented by:
[2021-08-17] MEDS: AMIODARONE 200 MG TAB PO SCH (08:35)
[2021-08-17] MEDS: SENNA 8.6 MG TAB PO SCH (08:36)
[2021-08-17] MEDS: TAMSULOSIN HCL 0.4 MG CAP PO SCH (08:36)
[2021-08-17] MEDS: FINASTERIDE 5 MG TAB PO SCH (08:36)
[2021-08-17] MEDS: METOPROLOL TARTRATE 25 MG TAB PO SCH ×2 (08:36→20:43)
[2021-08-17] MEDS: LIDOCAINE 5% 1 PATCH TD SCH (08:36)
[2021-08-17] MEDS: HEPARIN SOD 5,000 UNIT/0.5 ML VIAL SQ SCH ×2 (08:36→20:43)
[2021-08-17] MEDS: ASPIRIN 81 MG ECTAB PO SCH (08:36)
[2021-08-17] MEDS: POLYETHYLENE (MIRALAX) 17 GM PACK PO SCH (08:37)
[2021-08-17] MEDS: allopurinoL 100 MG TAB PO SCH (08:37)
--- NOTE | 2021-08-17 09:55 | Nephrology Progress Note ---
Date of Service August 17, 2021 Assessment & Plan (1) ESRD (end stage renal disease) on dialysis: Plan: ESRD needing dialysis. baseline creatinine about 2.7. progressive respiratory failure in the setting of some missed lasix dosing a few days back with worsening renal function and acute decompensated HF; underlying resistant HTN and advanced CKD 4. his optimized blood pressures are lowering our ability to remove fluid and lower 02 needs. -Now on room air with good Saturations >only bp med he's still on is low dose BB >HD today 4 hr goal 3L UF as bp tolerates; rest Thursday >needs daily dialysis until 02 needs improve; no 02 needs at baseline >>got dialysis catheter 08/12 and first HD later same day >had consistently told that she does not wish to do OP dialysis again in the past; however willing to consider OP dialysis now. independent community dwelling; hoping to ride his motorcycle this spring, involved grown children. >>agrees to short term outpatient dialysis (if we can get him there) [facility] and revisit goals of care as outpatient -cardiology and vascular surgery assistance appreciated Admission and Anticipated Discharge Date Admission Date: August 08, 2021 Subjective For HD today, no issues. On room air now, saturating well. Review of Systems Review of Systems: All systems reviewed & are unremarkable except as noted in Subjective Physical Exam Physical Exam: Constitutio nal: well develop ed, + thin and cook vacuum kettle perative; no acute distress Eyes: EOM intact b ilaterally ENMT: Ears: no ext ernal ear abnormal ity Nose: no exte rnal nose abnormal ity Mouth: + dr y oral mucous memb ranes Neck: no nuchal ri gidity Respiratory : normal respi ratory effort Aus cultation: + dimin ished lung sounds Cardiovascu lar: Rate/Rhythm: regular rate and regular rhythm Ex tremities: no amisha a Gastrointes tinal (Abdomen): Inspection/Aus cultation: malika l bowel sounds Pe rcussion/Palpation : abdomen soft; ab domen nontender Musculoskel etal: Extremities: strength 5/5 thro ughout Skin: no rashes, w arm and dry Neurologic: stephen, fluent speech, no tremor Psychiatric : Orientation: oriented x 3 Results & Data ([facility]) Vital Signs (Past 12 Hours) Vital Signs Temp Pulse Pulse Pulse Resp BP Pulse Ox 08/17/21 08:00 60 08/17/21 07:52 36.4 C L 65 16 115/66 95 08/17/21 04:01 36.4 C L 57 L 16 128/54 L 96 08/16/21 23:25 36.7 C 55 L 16 120/57 L 100 08/16/21 23:16 56 L Laboratory Results 08/15/21 06:01 08/17/21 06:24
[2021-08-17] MEDS ORDERED: ALTEPLASE, RECOMBINANT 1 MG/ML 2ML VIAL INSTIL ONE ×2 (16:45→17:00)
[2021-08-17] MEDS: HEPARIN SOD (PORCINE) 1000 UNIT/ML IV SCH (18:56)
[2021-08-17] MEDS: ATORVASTATIN 40 MG TAB PO SCH (20:43)
[2021-08-18] MEDS: HEPARIN SOD (PORCINE) 1000 UNIT/ML IV SCH (01:23)
[2021-08-18] MEDS: LEVOTHYROXINE SODIUM 125 MCG TABLET PO SCH (05:37)
[2021-08-18 06:16] LABS: Calcium 8.9 mg/dl (8.5-10.1); Creatinine Clr Calc Pharmacy 13.2 ml/min; Est GFR (African American) 18.7 ml/min; Est GFR (Non-African American) 16.2 ml/min; Potassium 4.1 mmol/L (3.5-5.1)
[2021-08-18] MEDS: ACETAMINOPHEN 325 MG TAB PO PRN (06:31)
--- NOTE | 2021-08-18 08:02 | Hospitalist Progress Note ---
Date of Service August 18, 2021 Assessment & Plan (1) Acute hypoxemic respiratory failure: Plan: Acute on chronic diastolic CHF -Repeat TTE unchanged compared to previous -At home, takes lasix 80mg QAM and 40mg QPM. Reports compliance initially although upon further questioning, had several missed doses of lasix -SBP on arrival up to 180. Possible component of poorly controlled hypertension -Started on lasix 80mg IV Q 6 hours. S/p several doses of metolazone. Dialysis initiated 08/13. 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 -sees Dr Alarcon as an outpatient -Diuresis managed by Nephrology -Permcath placed 08/13 -1st dialysis 08/13 -Discussed with Nephrology, patient should be arranged at [facility] in [facility] ischemia -trop elevation with peak at 155 -no chest pain. TTE negative for wall motion abnormality Leukocytosis -likely reactive -s/p ABx in ER, but no evidence of pneumonia on imaging, negative procalcitonin -monitor off antibiotics PAF -amiodarone 100mg daily, aspirin 81mg, not on AC due to history of GIB, metoprolol 25mg BID (decreased to 12.5 BID to allow BP for HD) -managed by Cardiology Poorly controlled HTN -home regimen: hydralazine 50mg TID--increased to 75mg TID 08/09, Imdur 60mg QHS, amlodipine 10mg QHS - now hydralazine stopped by nephro and amlodipine down to 5 (08/14) -Improved BP currently however doesn't allow for HD (amlodipine stopped 08/15) BPH -flomax, finasteride -Campbell placed here for accurate I/O when he was critically ill and NOT for urinary obstruction. Campbell catheter removed -pt now requiring straight cath, cont. to closely monitor DVT ppx: SQ heparin Disposition- Patient will need OP dialysis to be arranged, message sent to [facility]. PT/OT evaluation ordered Admission and Anticipated Discharge Date Admission Date: August 08, 2021 Subjective Patient seen in follow-up of acute CHF exacerbation, hypoxic respiratory failure Patient is currently in bed, in no acute distress, breathing comfortably on room air Continues to have difficulty with voiding, and is requiring straight caths He is in no acute distress, and is in good spirits Denies fevers, chills, chest pain, or increased shortness of breath, No abdominal pain, n/v Review of Systems Review of Systems: All systems reviewed & are unremarkable except as noted in Subjective Physical Exam Physical Exam: Physical Exam: elderly thin M in no acute distress, on HD Respiratory: + minimal basilar crackles (much imp roved from initial exam), no wheezin g Cardiovascular:I regular rate and r hythm, no murmurs/ rubs/gallops Gastrointestinal ( Abdomen): soft, non tender t o palpation Musculoskeletal: No LE edema Neurologic: awake, alert, answ ers questions appr opriately, speech fluent, spontaneou sly moving extremi ties Results & Data Results & Data ([facility]) Vital Signs (Past 12 Hours) Vital Signs Temp Pulse Pulse Resp BP BP Pulse Ox 08/18/21 06:45 36.5 C 61 18 131/62 96 08/18/21 03:18 36.8 C 62 18 101/67 94 08/17/21 23:48 36.5 C 55 L 18 138/63 97 08/17/21 23:21 62 08/17/21 20:20 36.6 C 67 18 128/70 95 Laboratory Results 08/18/21 Range/Units 05:35 Sodium 138 (136-145) mmol/L Potassium 4.1 (3.5-5.1) mmol/L Chloride 103 (98-107) mmol/L Carbon Dioxide 25 (21-32) mmol/L Anion Gap 10 (3-11) BUN 42 H (6-23) mg/dl Creatinine 3.22 H D (0.6-1.4) mg/dl Est Cr Clr Drug Dosing 13.2 ml/min Est GFR ( Amer) 18.7 ml/min Est GFR (Non-Af Amer) 16.2 ml/min BUN/Creatinine Ratio 13.0 (10-20) Glucose 99 (70-99(Fasting)) mg/dl Calcium 8.9 (8.5-10.1) mg/dl Medications Administered Current Inpatient Medications Acetaminophen (Acetaminophen 325 Mg Tab) 650 mg PO Q4H PRN PRN Reason: Pain or Fever Stop: 09/07/21 10:08 Last Admin: 08/18/21 06:31 Dose: 650 mg Documented by: Allopurinol (Allopurinol 100 Mg Tab) 50 mg PO DAILY [facility] Stop: 09/10/21 08:59 Last Admin: 08/17/21 08:37 Dose: 50 mg Documented by: Amiodarone HCl (Amiodarone 200 Mg Tab) 100 mg PO QAM [facility] Stop: 09/12/21 12:14 Last Admin: 08/17/21 08:35 Dose: 100 mg Documented by: Aspirin (Aspirin 81 Mg Ectab) 81 mg PO DAILY [facility] Stop: 09/07/21 10:08 Last Admin: 08/17/21 08:36 Dose: 81 mg Documented by: Atorvastatin Calcium (Atorvastatin 40 Mg Tab) 40 mg PO HS [facility] Stop: 09/07/21 20:59 Last Admin: 08/17/21 20:43 Dose: 40 mg Documented by: Finasteride (Finasteride 5 Mg Tab) 5 mg PO DAILY [facility] Stop: 09/07/21 10:08 Last Admin: 08/17/21 08:36 Dose: 5 mg Documented by: Heparin Sodium (Porcine) (Heparin Sod 5,000 Unit/0.5 Ml Vial) 5,000 units SQ Q12 [facility] Stop: 09/08/21 20:59 Last Admin: 08/17/21 20:43 Dose: 5,000 units Documented by: Hydromorphone HCl (Hydromorphone Inj 0.5 Mg/0.5 Ml Syr) 0.25 mg IV Q6H PRN PRN Reason: Pain Stop: 08/22/21 10:08 Last Admin: 08/13/21 16:24 Dose: 0.25 mg Documented by: Promethazine HCl 6.25 mg/ (Sodium Chloride) 50.25 mls @ 201 mls/hr IV Q6H PRN PRN Reason: Nausea And Vomiting Stop: 09/07/21 10:08 Isosorbide Mononitrate (Isosorbide [place] Extended Rel 60 Mg Tabcr) 60 mg PO DAILY [facility] Stop: 09/07/21 10:08 Last Admin: 08/14/21 14:01 Dose: 60 mg Documented by: Levothyroxine Sodium (Levothyroxine Sodium 125 Mcg Tablet) 125 mcg PO DAILYBB [facility] Stop: 09/07/21 10:08 Last Admin: 08/18/21 05:37 Dose: 125 mcg Documented by: Lidocaine (Lidocaine 5% 1 Patch) 1 patch TD QAM [facility] Stop: 09/15/21 16:59 Last Admin: 08/17/21 08:36 Dose: 1 patch Documented by: Metoprolol Tartrate (Metoprolol Tartrate 25 Mg Tab) 12.5 mg PO BID [facility] Stop: 09/14/21 08:59 Last Admin: 08/17/21 20:43 Dose: 12.5 mg Documented by: Miscellaneous (Remove Lidoderm Patch) 1 ea N/A DAILY@2100 [facility] Stop: 09/15/21 20:59 Last Admin: 08/17/21 20:43 Dose: 1 ea Documented by: Polyethylene Glycol (Polyethylene (Miralax) 17 Gm Pack) 17 gm PO DAILY [facility] Stop: 09/13/21 14:29 Last Admin: 08/17/21 08:37 Dose: 17 gm Documented by: Sennosides (Senna 8.6 Mg Tab) 8.6 mg PO QAM [facility] Stop: 09/13/21 14:29 Last Admin: 08/17/21 08:36 Dose: 8.6 mg Documented by: Tamsulosin HCl (Tamsulosin Hcl 0.4 Mg Cap) 0.4 mg PO DAILY [facility] Stop: 09/07/21 10:08 Last Admin: 08/17/21 08:36 Dose: 0.4 mg Documented by:
[2021-08-18] MEDS: TAMSULOSIN HCL 0.4 MG CAP PO SCH (08:41)
[2021-08-18] MEDS: ASPIRIN 81 MG ECTAB PO SCH (08:41)
[2021-08-18] MEDS: METOPROLOL TARTRATE 25 MG TAB PO SCH ×2 (08:41→20:57)
[2021-08-18] MEDS: AMIODARONE 200 MG TAB PO SCH (08:42)
[2021-08-18] MEDS: allopurinoL 100 MG TAB PO SCH (08:43)
[2021-08-18] MEDS: SENNA 8.6 MG TAB PO SCH (08:44)
[2021-08-18] MEDS: LIDOCAINE 5% 1 PATCH TD SCH (08:44)
[2021-08-18] MEDS: FINASTERIDE 5 MG TAB PO SCH (08:44)
[2021-08-18] MEDS: HEPARIN SOD 5,000 UNIT/0.5 ML VIAL SQ SCH ×2 (08:47→20:58)
[2021-08-18] MEDS: POLYETHYLENE (MIRALAX) 17 GM PACK PO SCH (08:49)
[2021-08-18] MEDS: ATORVASTATIN 40 MG TAB PO SCH (20:57)
[2021-08-19] MEDS: LEVOTHYROXINE SODIUM 125 MCG TABLET PO SCH (06:42)
[2021-08-19 06:52] LABS: BUN Creatinine Ratio 15.8 (10-20); Calcium 9.1 mg/dl (8.5-10.1); Creatinine Clr Calc Pharmacy 10.8 ml/min; Est GFR (African American) 14.8 ml/min; Est GFR (Non-African American) 12.7 ml/min; Magnesium 2.1 mg/dl (1.7-2.4); Potassium 4.3 mmol/L (3.5-5.1)
--- NOTE | 2021-08-19 07:27 | Hospitalist Progress Note ---
Date of Service August 19, 2021 Assessment & Plan (1) Acute hypoxemic respiratory failure: Plan: Acute on chronic diastolic CHF -Repeat TTE unchanged compared to previous -At home, takes lasix 80mg QAM and 40mg QPM. Reports compliance initially although upon further questioning, had several missed doses of lasix -SBP on arrival up to 180. Possible component of poorly controlled hypertension -Started on lasix 80mg IV Q 6 hours. S/p several doses of metolazone. Dialysis initiated 08/13. 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 -sees Dr Alarcon as an outpatient -Diuresis managed by Nephrology -Permcath placed 08/13 -1st dialysis 08/13 -Discussed with Nephrology, patient should be arranged at [facility] in [facility] ischemia -trop elevation with peak at 155 -no chest pain. TTE negative for wall motion abnormality Leukocytosis -likely reactive -s/p ABx in ER, but no evidence of pneumonia on imaging, negative procalcitonin -monitor off antibiotics PAF -amiodarone 100mg daily, aspirin 81mg, not on AC due to history of GIB, metoprolol 25mg BID (decreased to 12.5 BID to allow BP for HD) -managed by Cardiology Poorly controlled HTN -home regimen: hydralazine 50mg TID--increased to 75mg TID 08/09, Imdur 60mg QHS, amlodipine 10mg QHS - now hydralazine stopped by nephro and amlodipine down to 5 (08/14) -Improved BP currently however doesn't allow for HD (amlodipine stopped 08/15) BPH -flomax, finasteride -Campbell placed here for accurate I/O when he was critically ill and NOT for urinary obstruction. Campbell catheter removed -pt now requiring straight cath, cont. to closely monitor -08/19 patient is now voiding spontaneously, will BladderScan to make sure there is no significant retention DVT ppx: SQ heparin Disposition- Patient will need OP dialysis to be arranged, message sent to CM. PT/OT evaluation ordered Admission and Anticipated Discharge Date Admission Date: August 08, 2021 Subjective Patient seen in follow-up of acute CHF exacerbation, hypoxic respiratory failure Patient is currently in bed, in no acute distress, breathing comfortably on room air Had difficulty with voiding, and was requiring straight caths, now improved He is in no acute distress, and is in good spirits Denies fevers, chills, chest pain, or increased shortness of breath No abdominal pain, n/v Review of Systems Review of Systems: All systems reviewed & are unremarkable except as noted in Subjective Physical Exam Physical Exam: Physical Exam: elderly thin M in no acute distress, on HD Respiratory: + minimal basilar crackles (much imp roved from initial exam), no wheezin g Cardiovascular:I regular rate and r hythm, no murmurs/ rubs/gallops Gastrointestinal ( Abdomen): soft, non tender t o palpation Musculoskeletal: No LE edema Neurologic: awake, alert, answ ers questions appr opriately, speech fluent, spontaneou sly moving extremi ties Results & Data Results & Data ([facility]) Vital Signs (Past 12 Hours) Vital Signs Temp Pulse Pulse Resp BP Pulse Ox 08/19/21 02:50 36.7 C 58 L 18 112/44 L 97 08/18/21 23:53 57 L 08/18/21 23:00 36.9 C 56 L 18 124/53 L 95 08/18/21 19:29 36.7 C 74 18 144/66 H 94 Laboratory Results 08/19/21 08/18/21 Range/Units 05:47 16:30 Sodium 137 (136-145) mmol/L Potassium 4.3 (3.5-5.1) mmol/L Chloride 103 (98-107) mmol/L Carbon Dioxide 24 (21-32) mmol/L Anion Gap 10 (3-11) BUN 62 H D (6-23) mg/dl Creatinine 3.92 H D (0.6-1.4) mg/dl Est Cr Clr Drug Dosing 10.8 ml/min Est GFR ( Amer) 14.8 ml/min Est GFR (Non-Af Amer) 12.7 ml/min BUN/Creatinine Ratio 15.8 (10-20) Glucose 96 (70-99(Fasting)) mg/dl POC Glucose 151 H (70-99) mg/dl Calcium 9.1 (8.5-10.1) mg/dl Magnesium 2.1 (1.7-2.4) mg/dl Medications Administered Current Inpatient Medications Acetaminophen (Acetaminophen 325 Mg Tab) 650 mg PO Q4H PRN PRN Reason: Pain or Fever Stop: 09/07/21 10:08 Last Admin: 08/18/21 06:31 Dose: 650 mg Documented by: Allopurinol (Allopurinol 100 Mg Tab) 50 mg PO DAILY [facility] Stop: 09/10/21 08:59 Last Admin: 08/18/21 08:43 Dose: 50 mg Documented by: Amiodarone HCl (Amiodarone 200 Mg Tab) 100 mg PO QAM [facility] Stop: 09/12/21 12:14 Last Admin: 08/18/21 08:42 Dose: 100 mg Documented by: Aspirin (Aspirin 81 Mg Ectab) 81 mg PO DAILY [facility] Stop: 09/07/21 10:08 Last Admin: 08/18/21 08:41 Dose: 81 mg Documented by: Atorvastatin Calcium (Atorvastatin 40 Mg Tab) 40 mg PO HS [facility] Stop: 09/07/21 20:59 Last Admin: 08/18/21 20:57 Dose: 40 mg Documented by: Finasteride (Finasteride 5 Mg Tab) 5 mg PO DAILY [facility] Stop: 09/07/21 10:08 Last Admin: 08/18/21 08:44 Dose: 5 mg Documented by: Heparin Sodium (Porcine) (Heparin Sod 5,000 Unit/0.5 Ml Vial) 5,000 units SQ Q12 [facility] Stop: 09/08/21 20:59 Last Admin: 08/18/21 20:58 Dose: 5,000 units Documented by: Hydromorphone HCl (Hydromorphone Inj 0.5 Mg/0.5 Ml Syr) 0.25 mg IV Q6H PRN PRN Reason: Pain Stop: 08/22/21 10:08 Last Admin: 08/13/21 16:24 Dose: 0.25 mg Documented by: Promethazine HCl 6.25 mg/ (Sodium Chloride) 50.25 mls @ 201 mls/hr IV Q6H PRN PRN Reason: Nausea And Vomiting Stop: 09/07/21 10:08 Isosorbide Mononitrate (Isosorbide [place] Extended Rel 60 Mg Tabcr) 60 mg PO DAILY [facility] Stop: 09/07/21 10:08 Last Admin: 08/14/21 14:01 Dose: 60 mg Documented by: Levothyroxine Sodium (Levothyroxine Sodium 125 Mcg Tablet) 125 mcg PO DAILYBB [facility] Stop: 09/07/21 10:08 Last Admin: 08/19/21 06:42 Dose: 125 mcg Documented by: Lidocaine (Lidocaine 5% 1 Patch) 1 patch TD QAM [facility] Stop: 09/15/21 16:59 Last Admin: 08/18/21 08:44 Dose: 1 patch Documented by: Metoprolol Tartrate (Metoprolol Tartrate 25 Mg Tab) 12.5 mg PO BID [facility] Stop: 09/14/21 08:59 Last Admin: 08/18/21 20:57 Dose: 12.5 mg Documented by: Miscellaneous (Remove Lidoderm Patch) 1 ea N/A DAILY@2100 [facility] Stop: 09/15/21 20:59 Last Admin: 08/18/21 20:58 Dose: 1 ea Documented by: Polyethylene Glycol (Polyethylene (Miralax) 17 Gm Pack) 17 gm PO DAILY [facility] Stop: 09/13/21 14:29 Last Admin: 08/18/21 08:49 Dose: 17 gm Documented by: Sennosides (Senna 8.6 Mg Tab) 8.6 mg PO QAM [facility] Stop: 09/13/21 14:29 Last Admin: 08/18/21 08:44 Dose: 8.6 mg Documented by: Tamsulosin HCl (Tamsulosin Hcl 0.4 Mg Cap) 0.4 mg PO DAILY [facility] Stop: 09/07/21 10:08 Last Admin: 08/18/21 08:41 Dose: 0.4 mg Documented by:
[2021-08-19] MEDS: AMIODARONE 200 MG TAB PO SCH (08:36)
[2021-08-19] MEDS: allopurinoL 100 MG TAB PO SCH (08:36)
[2021-08-19] MEDS: FINASTERIDE 5 MG TAB PO SCH (08:37)
[2021-08-19] MEDS: METOPROLOL TARTRATE 25 MG TAB PO SCH ×2 (08:37→20:17)
[2021-08-19] MEDS: ASPIRIN 81 MG ECTAB PO SCH (08:37)
[2021-08-19] MEDS: HEPARIN SOD 5,000 UNIT/0.5 ML VIAL SQ SCH ×2 (08:38→20:17)
[2021-08-19] MEDS: LIDOCAINE 5% 1 PATCH TD SCH (08:38)
[2021-08-19] MEDS: SENNA 8.6 MG TAB PO SCH (08:39)
[2021-08-19] MEDS: TAMSULOSIN HCL 0.4 MG CAP PO SCH (08:39)
[2021-08-19] MEDS: POLYETHYLENE (MIRALAX) 17 GM PACK PO SCH (08:43)
--- NOTE | 2021-08-19 12:18 | Nephrology Progress Note ---
Date of Service August 19, 2021 Assessment & Plan Admission and Anticipated Discharge Date Admission Date: August 08, 2021 Subjective Assessment & Plan (1) ESRD (end stage renal disease) on dialysis: Plan: ESRD needing dialysis. baseline creatinine about 2.7. progressive respiratory failure in the setting of some missed lasix dosing a few days back with worsening renal function and acute decompensated HF; underlying resistant HTN and advanced CKD 4. his optimized blood pressures are lowering our ability to remove fluid and lower 02 needs. Rec: 1 No dialysis today. No e/o fluid overload now-on RA now. Will do tomorrow partly because of Nurses scheduling. can be discharged if OP dialysis arranged. Subjective tolerated HD well today, no issues. on 6LNC most of day but down to 4L this evening. Review of Systems Review of Systems: All systems reviewed & are unremarkable except as noted in Subjective Physical Exam Constitutional: well developed, + thin and cooperative; no acute distress B Eyes: EOM intact bilaterally ENMT: Ears: no external ear abnormality Nose: no external nose abnormality Mouth: + dry oral mucous membranes Neck: no nuchal rigidity Respiratory: normal respiratory effort Auscultation: + diminished lung sounds Cardiovascular: Rate/Rhythm: regular rate and regular rhythm Extremities: no edema Gastrointestinal (Abdomen): Inspection/Auscultation: normal bowel sounds Percussion/Palpation: abdomen soft; abdomen nontender Musculoskeletal: Extremities: strength 5/5 throughout Skin: no rashes, warm and dry Neurologic: stephen, fluent speech, no tremor Psychiatric: Orientation: oriented x 3 Results & Data ([facility]) Vital Signs (Past 12 Hours) Vital Signs Temp Pulse Pulse Pulse Resp BP Pulse Ox 08/19/21 08:07 59 L 08/19/21 08:00 36.6 C 59 L 20 114/60 94 08/19/21 02:50 36.7 C 58 L 18 112/44 L 97
[2021-08-19] MEDS: ATORVASTATIN 40 MG TAB PO SCH (20:17)
[2021-08-20] MEDS ORDERED: SODIUM CHLORIDE 0.9% 1000ML 1,000 ML IV PRN (07:00)
[2021-08-20] MEDS ORDERED: HEPARIN SOD (PORCINE) 1000 UNIT/ML IV SCH (07:00)
[2021-08-20] MEDS: LEVOTHYROXINE SODIUM 125 MCG TABLET PO SCH (07:06)
[2021-08-20] MEDS: allopurinoL 100 MG TAB PO SCH (08:03)
[2021-08-20] MEDS: FINASTERIDE 5 MG TAB PO SCH (08:04)
[2021-08-20] MEDS: ASPIRIN 81 MG ECTAB PO SCH (08:04)
[2021-08-20] MEDS: LIDOCAINE 5% 1 PATCH TD SCH (08:05)
[2021-08-20] MEDS: TAMSULOSIN HCL 0.4 MG CAP PO SCH (08:05)
[2021-08-20] MEDS: SENNA 8.6 MG TAB PO SCH ×2 (08:05→08:10)
[2021-08-20] MEDS: HEPARIN SOD 5,000 UNIT/0.5 ML VIAL SQ SCH ×2 (08:06→08:11)
[2021-08-20 09:22] LABS: BUN Creatinine Ratio 16.8 (10-20); Calcium 8.6 mg/dl (8.5-10.1); Creatinine Clr Calc Pharmacy 9.2 ml/min; Est GFR (African American) 12.2 ml/min; Est GFR (Non-African American) 10.6 ml/min; Potassium 4.2 mmol/L (3.5-5.1)
--- NOTE | 2021-08-20 10:31 | Nephrology Progress Note ---
Date of Service August 20, 2021 Assessment & Plan Admission and Anticipated Discharge Date Admission Date: August 08, 2021 Subjective Dialysis note Assessment & Plan (1) ESRD (end stage renal disease) on dialysis: Plan: ESRD needing dialysis. baseline creatinine about 2.7. progressive respiratory failure in the setting of some missed lasix dosing a few days back with w orsening renal function and acute decompensated HF; underlying resistant HTN and advanced CKD 4. his optimized blood pressures are lowering our ability to remove fluid and lower 02 needs. Rec: 1 Seen during dialysis today. No e/o fluid overload now-on RA now. SO far doing good. CVC fine and BP fine. 2 CXR x 2 view after dialysis today to f/u CHF. If no CHF on CXR he can be dialyzed directly as outpt on thursday. Still waiting for outpt dialysis arrangement Subjective tolerating HD well today, no issues.Now room air Review of Systems Review of Systems: All systems reviewed & are unremarkable except as noted in Subjective Physical Exam Constitutional: well developed, + thin and cooperative; no acute distress Eyes: EOM intact bilaterally ENMT: Ears: no external ear abnormality Nose: no external nose abnormality Mouth: + dry oral mucous membranes Neck: no nuchal rigidity Respiratory: normal respiratory effort Auscultation: + diminished lung sounds Cardiovascular: Rate/Rhythm: regular rate and regular rhythm Extremities: no edema Gastrointestinal (Abdomen): Inspection/Auscultation: normal bowel sounds Percussion/Palpation: abdomen soft; abdomen nontender Musculoskeletal: Extremities: strength 5/5 throughout Skin: no rashes, warm and dry Neurologic: stephen, fluent speech, no tremor Psychiatric: Orientation: oriented x 3 Results & Data ([facility]) Vital Signs (Past 12 Hours) Vital Signs Temp Pulse Pulse Pulse Resp BP BP 08/20/21 09:00 54 L 117/59 L 08/20/21 08:53 56 L 123/56 L 08/20/21 08:45 37.2 C 54 L 08/20/21 07:25 37 C 54 L 17 133/62 08/20/21 06:10 50 L 08/20/21 04:00 36.4 C L 92 H 18 139/56 L 08/19/21 23:00 36.7 C 50 L 18 147/52 H Pulse Ox 08/20/21 09:00 08/20/21 08:53 08/20/21 08:45 08/20/21 07:25 95 08/20/21 06:10 08/20/21 04:00 97 08/19/21 23:00 96
[2021-08-20] MEDS: HEPARIN SOD (PORCINE) 1000 UNIT/ML IV SCH (12:15)
[2021-08-20] MEDS: METOPROLOL TARTRATE 25 MG TAB PO SCH (13:00)
[2021-08-20] MEDS: AMIODARONE 200 MG TAB PO SCH (13:00)
[2021-08-20] MEDS: POLYETHYLENE (MIRALAX) 17 GM PACK PO SCH (13:00)
--- NOTE | 2021-08-20 13:37 | XRay Report ---
XR chest 2V PA/lateral CLINICAL HISTORY: f/u CHF TECHNIQUE: 2 views of the chest were obtained. Comparison: Comparison is made to chest radiograph 08/16/2021 FINDINGS: Dual lumen catheter is seen in the right internal jugular vein. Calcified aortic knob is seen. The yamileth ngs are clear. No evidence of pleural effusion or pneumothorax. IMPRESSION: No acute chest disease. ACT 112: Negative or not required by law. Electronically signed by: Gómez Fierro M.D. 08/20/2021 1:35 PM
--- NOTE | 2021-08-20 14:41 | Hospitalist Progress Note ---
Date of Service August 20, 2021 Assessment & Plan (1) Acute hypoxemic respiratory failure: Plan: Acute on chronic diastolic CHF -Repeat TTE unchanged compared to previous -At home, takes lasix 80mg QAM and 40mg QPM. Reports compliance initially although upon further questioning, had several missed doses of lasix -SBP on arrival up to 180. Possible component of poorly controlled hypertension -Started on lasix 80mg IV Q 6 hours. S/p several doses of metolazone. Dialysis initiated 08/13. 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 -sees Dr Alarcon as an outpatient -Diuresis managed by Nephrology -Permcath placed 08/13 -1st dialysis 08/13 -Discussed with Nephrology, patient should be arranged at [facility] -his appointment is on August 23 [place] ischemia -trop elevation with peak at 155 -no chest pain. TTE negative for wall motion abnormality Leukocytosis -likely reactive -s/p ABx in ER, but no evidence of pneumonia on imaging, negative procalcitonin -monitor off antibiotics PAF -amiodarone 100mg daily, aspirin 81mg, not on AC due to history of GIB, metoprolol 25mg BID (decreased to 12.5 BID to allow BP for HD) -managed by Cardiology Poorly controlled HTN -home regimen: hydralazine 50mg TID--increased to 75mg TID 08/09, Imdur 60mg QHS, amlodipine 10mg QHS - now hydralazine stopped by nephro and amlodipine down to 5 (08/14) -Improved BP currently however doesn't allow for HD (amlodipine stopped 08/15) -To be discharged without amlodipine and hydralazine BPH -flomax, finasteride -Campbell placed here for accurate I/O when he was critically ill and NOT for urinary obstruction. Campbell catheter removed -pt now requiring straight cath, cont. to closely monitor -08/19 patient is now voiding spontaneously, will BladderScan to make sure there is no significant retention 08/20 patient is voiding with some retention, will provide straight cath education and catheters on discharge and recommend follow-up with urology DVT ppx: SQ heparin Disposition- Plan to DC home w/ HH. Admission and Anticipated Discharge Date Admission Date: August 08, 2021 Subjective Patient seen in follow-up of acute CHF exacerbation, hypoxic respiratory failure Patient is currently in bed, in no acute distress, breathing comfortably on room air Had difficulty with voiding, and was requiring straight caths, now improved He is in no acute distress, and is in good spirits Denies fevers, chills, chest pain, or increased shortness of breath No abdominal pain, n/v Review of Systems Review of Systems: All systems reviewed & are unremarkable except as noted in Subjective Physical Exam Physical Exam: Physical Exam: elderly thin M in no acute distress, on HD Respiratory: CTAB, no wheezing Cardiovascular:I regular rate and r hythm, no murmurs/ rubs/gallops Gastrointestinal ( Abdomen): soft, non tender t o palpation Musculoskeletal: No LE edema Neurologic: awake, alert, answ ers questions appr opriately, speech fluent, spontaneou sly moving extremi ties Results & Data Results & Data ([facility]) Vital Signs (Past 12 Hours) Vital Signs Temp Pulse Pulse Pulse Resp BP BP 08/20/21 12:38 36.5 C 85 08/20/21 12:00 59 L 95/62 L 08/20/21 11:30 50 L 127/52 L 08/20/21 11:00 53 L 100/68 08/20/21 10:30 51 L 114/66 08/20/21 10:00 78 132/70 08/20/21 09:30 70 110/66 08/20/21 09:00 54 L 117/59 L 08/20/21 08:53 56 L 123/56 L 08/20/21 08:45 37.2 C 54 L 08/20/21 07:25 37 C 54 L 17 133/62 08/20/21 06:10 50 L 08/20/21 04:00 36.4 C L 92 H 18 139/56 L BP Pulse Ox 08/20/21 12:38 139/70 08/20/21 12:00 08/20/21 11:30 08/20/21 11:00 08/20/21 10:30 08/20/21 10:00 08/20/21 09:30 08/20/21 09:00 08/20/21 08:53 08/20/21 08:45 08/20/21 07:25 95 08/20/21 06:10 08/20/21 04:00 97 Laboratory Results 08/20/21 Range/Units 08:07 Sodium 136 (136-145) mmol/L Potassium 4.2 (3.5-5.1) mmol/L Chloride 105 (98-107) mmol/L Carbon Dioxide 21 (21-32) mmol/L Anion Gap 10 (3-11) BUN 77 H (6-23) mg/dl Creatinine 4.58 H* D (0.6-1.4) mg/dl Est Cr Clr Drug Dosing 9.2 ml/min Est GFR ( Amer) 12.2 ml/min Est GFR (Non-Af Amer) 10.6 ml/min BUN/Creatinine Ratio 16.8 (10-20) Glucose 87 (70-99(Fasting)) mg/dl Calcium 8.6 (8.5-10.1) mg/dl Medications Administered Current Inpatient Medications Acetaminophen (Acetaminophen 325 Mg Tab) 650 mg PO Q4H PRN PRN Reason: Pain or Fever Stop: 09/07/21 10:08 Last Admin: 08/18/21 06:31 Dose: 650 mg Documented by: Allopurinol (Allopurinol 100 Mg Tab) 50 mg PO DAILY [facility] Stop: 09/10/21 08:59 Last Admin: 08/20/21 08:03 Dose: 50 mg Documented by: Amiodarone HCl (Amiodarone 200 Mg Tab) 100 mg PO [facility] Stop: 09/12/21 12:14 Last Admin: 08/20/21 13:00 Dose: 100 mg Documented by: Aspirin (Aspirin 81 Mg Ectab) 81 mg PO DAILY [facility] Stop: 09/07/21 10:08 Last Admin: 08/20/21 08:04 Dose: 81 mg Documented by: Atorvastatin Calcium (Atorvastatin 40 Mg Tab) 40 mg PO HS [facility] Stop: 09/07/21 20:59 Last Admin: 08/19/21 20:17 Dose: 40 mg Documented by: Finasteride (Finasteride 5 Mg Tab) 5 mg PO DAILY [facility] Stop: 09/07/21 10:08 Last Admin: 08/20/21 08:04 Dose: 5 mg Documented by: Heparin Sodium (Porcine) (Heparin Sod 5,000 Unit/0.5 Ml Vial) 5,000 units SQ Q12 [facility] Stop: 09/08/21 20:59 Last Admin: 08/20/21 08:11 Dose: Not Given Documented by: Hydromorphone HCl (Hydromorphone Inj 0.5 Mg/0.5 Ml Syr) 0.25 mg IV Q6H PRN PRN Reason: Pain Stop: 08/22/21 10:08 Last Admin: 08/13/21 16:24 Dose: 0.25 mg Documented by: Promethazine HCl 6.25 mg/ (Sodium Chloride) 50.25 mls @ 201 mls/hr IV Q6H PRN PRN Reason: Nausea And Vomiting Stop: 09/07/21 10:08 Isosorbide Mononitrate (Isosorbide [place] Extended Rel 60 Mg Tabcr) 60 mg PO DAILY [facility] Stop: 09/07/21 10:08 Last Admin: 08/14/21 14:01 Dose: 60 mg Documented by: Levothyroxine Sodium (Levothyroxine Sodium 125 Mcg Tablet) 125 mcg PO DAILYBB [facility] Stop: 09/07/21 10:08 Last Admin: 08/20/21 07:06 Dose: 125 mcg Documented by: Lidocaine (Lidocaine 5% 1 Patch) 1 patch TD QAM [facility] Stop: 09/15/21 16:59 Last Admin: 08/20/21 08:05 Dose: 1 patch Documented by: Metoprolol Tartrate (Metoprolol Tartrate 25 Mg Tab) 12.5 mg PO BID [facility] Stop: 09/14/21 08:59 Last Admin: 08/20/21 13:00 Dose: 12.5 mg Documented by: Miscellaneous (Remove Lidoderm Patch) 1 ea N/A DAILY@2100 [facility] Stop: 09/15/21 20:59 Last Admin: 08/19/21 20:18 Dose: 1 ea Documented by: Polyethylene Glycol (Polyethylene (Miralax) 17 Gm Pack) 17 gm PO DAILY [facility] Stop: 09/13/21 14:29 Last Admin: 08/20/21 13:00 Dose: Not Given Documented by: Sennosides (Senna 8.6 Mg Tab) 8.6 mg PO QAM [facility] Stop: 09/13/21 14:29 Last Admin: 08/20/21 08:10 Dose: Not Given Documented by: Tamsulosin HCl (Tamsulosin Hcl 0.4 Mg Cap) 0.4 mg PO DAILY [facility] Stop: 09/07/21 10:08 Last Admin: 08/20/21 08:05 Dose: 0.4 mg Documented by:
--- NOTE | 2021-08-20 16:17 | Discharge Summary ---
Date of Service August 20, 2021 Admission HPI Per Admitting Provider History obtained from patient and records. Medical history significant for chronic diastolic heart failure (EF 65 to 70%, TTE 2019 ), PAF off Coumadin secondary to GI bleed, pulmonary hypertension as per records, HTN, hyperlipidemia, PVD status post surgery, CRI (baseline creatinine 2.7), chronic anemia (baseline hemoglobin 10), hypothyroidism, past tobacco abuse. Last confinement 2 weeks ago for sepsis secondary to atypical pneumonia. Patient discharged on cefdinir and doxycycline course. Patient roused from sleep this morning with sudden shortness of breath with substernal pain. No cough symptoms. No unusual swelling/fluid retention. Denies aspiration. O2 sats 80s on room air upon arrival at the ER. Patient given Levaquin in the ER for possible pneumonia. Patient currently comfortable. 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 Admission Exam Per Admitting Provider GENERAL: Comfortable, pleasant, slightly anxious , no respiratory distress SKIN: Pallor, warm HEENT: Pale palpebral conjunctivae, no ptosis, dry buccal mucosa, nasal cannula in place NECK : Supple, no tenderness CHEST : Decreased breath sounds, no tenderness HEART : Irregular, apical systolic murmur ABDOMEN: Some distention, nontender EXTREMITIES : No LE swelling/tenderness, no other conspicuous deformities noted NEUROLOGIC : Coherent, no facial asymmetry, mild hearing impairment, no other gross focality Principal Diagnosis Acute hypoxic respiratory failure with hypoxia End-stage renal disease on dialysis Acute on chronic diastolic heart failure Discharge Exam Physical Exam: elderly thin M in no acute distress, on HD Respiratory: CTAB, no wheezing Cardiovascular: regular rate and rhythm, no murmurs/rubs/gallops Gastrointestinal (Abdomen): soft, non tender to palpation Musculoskeletal: No LE edema Neurologic: awake, alert, answers questions appropriately, speech fluent, spontaneously moving extremities Discharge Data Allergies Allergy/AdvReac Type Severity Reaction Status Date / Time Penicillins AdvReac Intermediate PENILE Verified 08/08/21 06:27 ENLARGEMENT tramadol AdvReac Intermediate GI SYMPTOMS Verified 08/08/21 06:27 Consultations 08/08/21 05:07 ED Decision to Admit Stat 08/09/21 15:36 Consult Cardiology Routine 08/11/21 04:58 Consult Nephrology Routine 08/11/21 09:22 Consult Pulmonology Routine 08/12/21 09:00 Consult Vascular Surgery Routine Procedures Performed Operation Date: 08/13/21 10:50 Actual Procedures p Insertion of Perm Catheter, Right Internal Jugular Approach, Ultrasound Localization of Right Internal Jugular Vein, Fluoroscopy for Positioning (Right) - Alex Delarosa MD Ordered Studies 08/08/21 05:56 CT chest diagnostic wo con Urgent FINDINGS: Thyroid: Normal in size and heterogeneous in attenuation. Thoracic aorta: There is atherosclerotic calcification of the thoracic aorta, which is normal in caliber and demonstrates standard 3-vessel arch anatomy. Heart: The heart is enlarged noting trace pericardial effusion. The coronary arteries are densely calcified. There is diminished attenuation of the cardiac blood pool as compared to the myocardium suggesting anemia. The pulmonary trunk is dilated, measuring up to 3.4 cm. This suggests pulmonary artery hypertension. Lungs and pleural spaces: Emphysematous change is noted. The trachea and central airways are clear. There is no airspace consolidation typical for pneumonia. There are small pleural effusions with dependent atelectasis. Intralobular se ptal thickening is noted throughout both lungs. There are scattered calcified granulomas. Mediastinum: There are numerous mildly enlarged mediastinal lymph nodes which measure up to 13 mm in short axis. These have not appreciably changed from 12/08/2015 and several containing calcifications. Iliana: There are calcified left hilar lymph nodes. Note that the iliana are not well assessed without IV contrast. Axillae: There is no axillary lymphadenopathy. Upper abdomen: There are calcified splenic granulomas. Partially visualized upper abdominal viscera is otherwise grossly unremarkable Skeletal structures: The skeletal structures are osteopenic. Degenerative change and hyperkyphosis are noted in the thoracic spine. No lytic or blastic bony lesions are seen. IMPRESSION: 1. Cardiomegaly and emphysema with evidence of congestive failure. 2. There are small pleural effusions with dependent atelectasis. 3. Additional findings as above. 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 Reports compliance initially although upon further questioning, had several missed doses of lasix -SBP on arrival up to 180. Possible component of poorly controlled hypertension -Started on lasix 80mg IV Q 6 hours. S/p several doses of metolazone. Dialysis initiated 08/13. 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 -sees Dr Alarcon as an outpatient -Diuresis managed by Nephrology -Permcath placed 08/13 -1st dialysis 08/13 -Discussed with Nephrology, patient should be arranged at [facility] -his appointment is on August 23 Demand ischemia -trop elevation with peak at 155 -no chest pain. TTE negative for wall motion abnormality Leukocytosis -likely reactive -s/p ABx in ER, but no evidence of pneumonia on imaging, negative procalcitonin -monitor off antibiotics PAF -amiodarone 100mg daily, aspirin 81mg, not on AC due to history of GIB, metoprolol 25mg BID (decreased to 12.5 BID to allow BP for HD) -managed by Cardiology Poorly controlled HTN -home regimen: hydralazine 50mg TID--increased to 75mg TID 08/09, Imdur 60mg QHS, amlodipine 10mg QHS - now hydralazine stopped by nephro and amlodipine down to 5 (08/14) -Improved BP currently however doesn't allow for HD (amlodipine stopped 08/15) -To be discharged without amlodipine and hydralazine BPH -flomax, finasteride -Campbell placed here for accurate I/O when he was critically ill and NOT for urinary obstruction. Campbell catheter removed -pt now requiring straight cath, cont. to closely monitor -08/19 patient is now voiding spontaneously, will BladderScan to make sure there is no significant retention 08/20 patient is voiding with some retention, will provide straight cath education and catheters on discharge and recommend follow-up with urology Disposition- Plan to DC home w/ HH. 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 Your next dialysis is scheduled for you in [facility] on August 23. Straight cath at home once or twice a day. Make sure to use proper/clean technique. You should follow-up with urology. Stop using furosemide, amlodipine, hydralazine. You were started on a new medication, metoprolol, take it as prescribed. Pending Studies at Discharge: No Stand-Alone Forms: My [facility], Smoking Cessation Medications and DC Order Prescriptions: New lidocaine 5 % Adhesive Patch,Medicated 1 patch transdermal QAM Qty: 1 RF: 0 sennosides [Senokot] 8.6 mg Tablet 8.6 mg PO QAM Qty: 10 RF: 0 metoprolol tartrate 25 mg Tablet 12.5 mg PO BID Qty: 20 RF: 0 Continued atorvastatin 40 mg tablet 40 mg PO HS RF: 0 allopurinol 100 mg tablet 200 mg PO QAM RF: 0 isosorbide mononitrate 60 mg tablet extended release 24 hr 60 mg PO HS RF: 0 tamsulosin 0.4 mg capsule 0.4 mg PO HS RF: 0 aspirin 81 mg Tablet,Delayed Release (Dr/Ec) 81 mg PO QAM RF: 0 levothyroxine 125 mcg tablet 125 mcg PO DAILYBB RF: 0 finasteride 5 mg tablet 5 mg PO QAM RF: 0 Vitron-C 65 mg iron- 125 mg Tablet,Delayed Release (Dr/Ec) 1 tab PO BID RF: 0 amiodarone 200 mg tablet 100 mg PO QAM RF: 0 Benefiber Clear SF (dextrin) 3 gram/3.5 gram Powder In Packet 3 g PO HS RF: 0 Discontinued furosemide 80 mg tablet See Rx Instructions .ROUTE .COMPLEX RF: 0 potassium chloride 20 mEq tablet,ER particles/crystals 20 meq PO HS RF: 0 hydralazine 50 mg tablet 50 mg PO TID RF: 0 amlodipine [Norvasc] 5 mg tablet 10 mg PO HS RF: 0 Discharge Orders: Discharge Order (Routine); Ordered 08/20/21 Ordered By: Neo Roque Admission Data Admit Date/Time: 08/08/21 06:07 Attending Provider: Neo Roque Admit Provider: Vinod Dugan Primary Care Provider: Virgen Oliver Other Providers: Shamika So ; Vinod Dugan ; Иван Garcia ; Linda Alarcon ; Adelso Oliver ; Sofia Samson ; Vibha Godfrey ; Mirella Araiza ; Elliot Boykin ; Alex Delarosa
== END 2021-08-20 18:32 | disposition home or self-care (01) | DRG 291 ==
LOC: ED 03:28 → SUATTDRO 06:07 → 2E 06:07 → 1E 08-11 19:34 → 2E 08-12 14:58 → 2N 08-17 12:17